=== PATIENT | male | born 1985 | race Caucasian/White ===

== ENCOUNTER 2017-01-26 02:52 | Inpatient (IN) | payer OTHER ==
[2017-01-26] VITALS (9 sets, daily range): BP systolic 106–134; BP diastolic 64–81; PULSE 71–103; TEMP 36.7–37.2; O2SAT 92–96; Ht 167.6 cm; Wt 70.5 kg
[~2017-01-26] VITALS: Ht 167.6 cm; Wt 70.5 kg
[~2017-01-26 02:52] MED LIST: DIPH25CA65 PO; IBUP-1277 PO; OMG3 PO
[2017-01-26] MEDS ORDERED: ONDANSETRON INJ 2 MG/ML 2 ML VIAL IV STA (03:09)
[2017-01-26] MEDS ORDERED: SODIUM CHLORIDE 0.9% 1000ML 1,000 ML IV STA ×2 (03:09→05:10)
[2017-01-26] MEDS ORDERED: HYDROmorphone INJ 1 MG/ML SYR IV STA ×3 (03:09→05:10)
[2017-01-26 03:20] LABS: BASO % 0.5 %; BASO ABS # 0.04 K/uL (0-0.2); COMPLETE YES; EOS % 2.9 %; HEMATOCRIT 48.9 % (42-52); IG% 0.2 %; LYMPH % 20.4 %; LYMPH ABS # 1.72 K/uL (1.2-3.4); MEAN CELL VOLUME 91.1 fL (80-100); MEAN CORPUSCULAR HEMOGLOBIN 31.5 pg (25-34); MEAN CORPUSCULAR HGB CONC 34.6 g/dl (32-36); MONO % 12.6 %; NEUT % 63.4 %; PLATELET COUNT 231 K/uL (130-400); RED BLOOD COUNT 5.37 M/uL (4.7-6.1); WHITE BLOOD COUNT 8.42 K/uL (4.8-10.8)
[2017-01-26 03:38] LABS: ALT/SGPT 89 U/L (12-78); AST/SGOT 66 U/L (15-37); BLOOD UREA NITROGEN 11 mg/dl (7-18); CALCIUM 8.9 mg/dl (8.5-10.1); CARBON DIOXIDE 27 mmol/L (21-32); CHLORIDE 97 mmol/L (98-107); CREATININE 0.99 mg/dl (0.60-1.40); GLUCOSE 106 mg/dl (70-99); POTASSIUM 3.4 mmol/L (3.5-5.1); SODIUM 136 mmol/L (136-145)
[2017-01-26 03:42] LABS: ALKALINE PHOSPHATASE 79 U/L (45-117)
--- NOTE | 2017-01-26 03:54 | EMERGENCY ROOM VISIT NOTE ---
History First contact with patient: 02:59 Chief Complaint: ABDOMINAL PAIN Stated Complaint: ABD PAIN Nursing Triage Summary: Patient reports mid upper abdominal pain that he believes to be pancreatitis related. Patient has a hx of pancreatitis related to alcoholism. Patient admits to drinking beer tonight. History of Present Illness The patient is a 31 year old male who presents to the Emergency Room with complaints of epigastric and right-sided abdominal pain which began one day ago. The patient reports that the pain began yesterday. He states that he believes it is secondary to pancreatitis, which he has had before. The patient states he is an alcoholic and had several beers last night prior to the onset of pain. He reports some nausea but denies vomiting. He rates his discomfort an 8/10. He did not take any medication at home for pain. He denies hematochezia, melena, changes in bowel movements, urinary symptoms, chest pain or shortness of breath. Review of Systems A complete 10-point Review of Systems was discussed with the patient, with pertinent positives and negatives listed in the History of Present Illness. All remaining Review of Systems questions can be considered negative unless otherwise specified. Past Medical/Surgical History Medical Problems: (1) Acute pancreatitis (2) GERD (gastroesophageal reflux disease) Family History Patient reports no known family medical history. Social History Smoking Status: Current Every Day Smoker Alcohol Use: occasionally Marital Status: single Occupation Status: employed Current/Historical Medications No Active Prescriptions or Reported Meds Allergies Coded Allergies: Lactose (Verified Adverse Reaction, Unknown, INTOLERANCE, 01/26/17) Physical Exam Vital Signs Date Time Temp Pulse Resp B/P Pulse Ox O2 Delivery O2 Flow Rate FiO2 01/26/17 05:43 99 19 122/73 92 Room Air 01/26/17 04:00 91 16 142/98 94 Room Air 01/26/17 02:56 36.5 105 19 142/93 98 Room Air Physical Exam VITALS: Vitals are noted on the nurse's note and reviewed by myself. Vital signs stable. GENERAL: This is a 31-year-old male, writhing on the bed in pain, well- developed well-nourished. SKIN: Capillary reflex less than 2 seconds. HEENT: Normocephalic. PERRLA. EOMI. Nares patent. Mucous membranes moist. Neck is supple without nuchal rigidity. HEART: Regular rate and rhythm without murmurs gallops or rubs. LUNGS: Clear to auscultation bilaterally without wheezes, rales or rhonchi. No retractions or accessory muscle use. ABDOMEN: Positive bowel sounds x 4. Moderate tenderness to palpation of the epigastric region. NEURO: Patient was alert and oriented to person place and time. Medical Decision & Procedures ER Provider Diagnostic Interpretation: US RUQ: Compared to CT abd/pelvis and abd US 01/16/16 Gallbladder sludge. No evidence of acute cholecystitis. No intra- or extrahepatic biliary ductal dilatation. Hypoechoic heterogeneous pancreas, can be seen in the setting of acute pancreatitis. Increased hepatic echogenicity, can be seen in hepatic steatosis. Hepatic cyst. Right kidney not well visualized. No right upper quadrant free fluid. Radiologist: Agnes Bartlett MD Laboratory Results 01/26/17 03:07 Red Blood Count 5.37, Mean Corpuscular Volume 91.1, Mean Corpuscular Hemoglobin 31.5, Mean Corpuscular Hemoglobin Concent 34.6, Mean Platelet Volume 9.0, Neutrophils (%) (Auto) 63.4, Lymphocytes (%) (Auto) 20.4, Monocytes (%) (Auto) 12.6, Eosinophils (%) (Auto) 2.9, Basophils (%) (Auto) 0.5, Neutrophils # (Auto ) 5.34, Lymphocytes # (Auto) 1.72, Monocytes # (Auto) 1.06, Eosinophils # (Auto ) 0.24, Basophils # (Auto) 0.04 01/26/17 03:07 Test 01/26/17 03:07 01/26/17 04:00 01/26/17 04:22 White Blood Count 8.42 K/uL (4.8-10.8) Red Blood Count 5.37 M/uL (4.7-6.1) Hemoglobin 16.9 g/dL (14.0-18.0) Hematocrit 48.9 % (42-52) Mean Corpuscular Volume 91.1 fL (80-100) Mean Corpuscular Hemoglobin 31.5 pg (25-34) Mean Corpuscular Hemoglobin Concent 34.6 g/dl (32-36) Platelet Count 231 K/uL (130-400) Mean Platelet Volume 9.0 fL (7.4-10.4) Neutrophils (%) (Auto) 63.4 % Lymphocytes (%) (Auto) 20.4 % Monocytes (%) (Auto) 12.6 % Eosinophils (%) (Auto) 2.9 % Basophils (%) (Auto) 0.5 % Neutrophils # (Auto) 5.34 K/uL (1.4-6.5) Lymphocytes # (Auto) 1.72 K/uL (1.2-3.4) Monocytes # (Auto) 1.06 K/uL (0.11-0.59) Eosinophils # (Auto) 0.24 K/uL (0-0.5) Basophils # (Auto) 0.04 K/uL (0-0.2) RDW Standard Deviation 45.9 fL (36.4-46.3) RDW Coefficient of Variation 13.8 % (11.5-14.5) Immature Granulocyte % (Auto) 0.2 % Immature Granulocyte # (Auto) 0.02 K/uL (0.00-0.02) Anion Gap 12.0 mmol/L (3-11) Est Creatinine Clear Calc Drug Dose 98.4 ml/min Estimated GFR () 118.0 Estimated GFR (Non- 101.8 BUN/Creatinine Ratio 11.0 (10-20) Calcium Level 8.9 mg/dl (8.5-10.1) Total Bilirubin 0.4 mg/dl (0.2-1) Aspartate Amino Transf (AST/SGOT) 66 U/L (15-37) Alanine Aminotransferase (ALT/SGPT) 89 U/L (12-78) Alkaline Phosphatase 79 U/L (45-117) Total Protein 8.1 gm/dl (6.4-8.2) Albumin 4.1 gm/dl (3.4-5.0) Globulin 4.0 gm/dl (2.5-4.0) Albumin/Globulin Ratio 1.0 (0.9-2) Amylase Level 4426 U/L (25-115) Lipase > 51719 U/L (73-393) Urine Color YELLOW Urine Appearance CLEAR (CLEAR) Urine pH 5.0 (4.5-7.5) Urine Specific [place] 1.004 (1.000-1.030) Urine Protein NEG (NEG) Urine Glucose (UA) NEG (NEG) Urine Ketones NEG (NEG) Urine Occult Blood NEG (NEG) Urine Nitrite NEG (NEG) Urine Bilirubin NEG (NEG) Urine Urobilinogen NEG (NEG) Urine Leukocyte Esterase NEG (NEG) Ethyl Alcohol mg/dL 170.0 mg/dl (0-3) Medications Administered Medications (Trade) Dose Ordered Sig/Valeria Route Start Time Stop Time Status Last Admin Dose Admin Sodium Chloride (Nss 1000ml) 1,000 ml @ 999 mls/hr Q1H1M STAT IV 01/26/17 03:09 01/26/17 04:09 DC 01/26/17 03:21 999 MLS/HR Hydromorphone HCl (Dilaudid Inj) 1 mg NOW STAT IV 01/26/17 03:09 01/26/17 03:11 DC 01/26/17 03:21 1 MG Ondansetron HCl (Zofran Inj) 4 mg NOW STAT IV 01/26/17 03:09 01/26/17 03:11 DC 01/26/17 03:21 4 MG Hydromorphone HCl 1 mg 1 mg NOW STAT IV 01/26/17 04:15 01/26/17 04:16 DC 01/26/17 04:20 1 MG Sodium Chloride (Nss 1000ml) 1,000 ml @ 999 mls/hr Q1H1M STAT IV 01/26/17 05:10 01/26/17 06:10 01/26/17 05:25 999 MLS/HR Hydromorphone HCl (Dilaudid Inj) 1 mg NOW STAT IV 01/26/17 05:10 01/26/17 05:11 DC 01/26/17 05:17 1 MG ED Course The patient was evaluated as above. Labs were drawn and IV access was obtained. Patient was medicated with 1 L normal saline solution, 4 mg Zofran and 1 mg Dilaudid IV. Patient complained of continued pain and was given an additional 1 mg Dilaudid IV. Right upper quadrant ultrasound was performed and read by statrad as above. Patient was reevaluated and stated that his pain was coming back. He and additional 1 mg Dilaudid was ordered. Findings were discussed with patient and decision was made to admit him for evaluation Case was discussed with the [facility] hospitalist, Dr. Welsh. He agreed to evaluate the patient for admission. Medical Decision Differential diagnosis includes pancreatitis, cholecystitis, hepatitis, ascending cholangitis, among others. The patient is a 31-year-old male who presents today complaining of epigastric pain consistent with previous episodes of pancreatitis. The patient is an alcoholic and admits to drinking recently. Right upper quadrant ultrasound showed findings consistent with acute pancreatitis. Labs revealed a lipase of greater than 90,000. There is no leukocytosis. There is a mild transaminitis consistent with drinking alcohol. The patient required multiple doses of IV narcotics. He will be admitted for further evaluation and pain control. The patient's case was reviewed with Dr. Cleaning, ED attending physician, who agreed with my assessment and treatment plan. Impression Primary Impression: Acute pancreatitis Departure Information Prescriptions No Active Prescriptions or Reported Meds Referrals Aparna Garcia M.D. (PCP) Patient Instructions My [facility] Problem Qualifiers Primary Impression: Acute pancreatitis Pancreatitis type: alcohol induced Acute pancreatitis complication: no infection or necrosis Qualified Codes: K85.20 - Alcohol induced acute pancreatitis without necrosis or infection
[2017-01-26 04:18] LABS: URINE APPEARANCE CLEAR (CLEAR); URINE BILIRUBIN NEG (NEG); URINE COLOR YELLOW; URINE NITRITE NEG (NEG); URINE SPECIFIC GRAVITY 1.004 (1.000-1.030); UROBILINOGEN NEG (NEG); ZZUR CULT IF INDIC CLEAN CATCH NO
[2017-01-26 04:21] LABS: MANUAL MICROSCOPIC REQUIRED? NO; REVIEW REQ? NO
[2017-01-26 04:54] LABS: AMYLASE 4426 U/L (25-115)
[2017-01-26] MEDS ORDERED: ALUMINUM/MAGNESIUM/SIMETH (MAALOX MAX) 30 ML UDC PO PRN (05:45)
[2017-01-26] MEDS ORDERED: LORAZEPAM 2 MG/ML 1 ML VIAL SQ PRN (05:45)
[2017-01-26] MEDS ORDERED: MAGNESIUM HYDROXIDE SUSP 30 ML UDC PO PRN (05:45)
[2017-01-26] MEDS ORDERED: POLYETHYLENE (MIRALAX) 17 GM PACK PO PRN (05:45)
[2017-01-26] MEDS ORDERED: ACETAMINOPHEN 325 MG TAB PO PRN (05:45)
[2017-01-26] MEDS ORDERED: ONDANSETRON INJ 2 MG/ML 2 ML VIAL IV PRN (05:45)
--- NOTE | 2017-01-26 06:08 | History and Physical ---
History & Physical Date & Time of Service: Jan 26, 2017 at 05:52 Chief Complaint: Abd Pain Primary Care Physician: Aparna Garcia M.D. History of Present Illness Source: patient The patient is a pleasant 31-year-old male, who presents with 2-3 hours of acute epigastric pain. He brought himself into the emergency department for further evaluation. The patient has previous history of acute pancreatitis, his most recent episode was exactly one year ago. He states that prior to his current presentation, he had 12 cans of beer through the day today, which she describes as typical of his daily intake of alcohol. His last drink, was 2 hours prior to arrival. In regards to the pain, he describes a sharp 8 out of 10 pain, that was constant , did not radiate anywhere else. The pain is exacerbated by any form of movement, and improves when he lies completely still. He denies any nausea or vomiting. He states that he has had diarrhea for the past 1 day, but has not had any blood in the stool, or pale stools. He denies any jaundice and, or pruritus. As compared to the episode of acute pancreatitis that he had one year ago, he states that this episode is slightly less severe. Patient states an ongoing issue with all use. Last year with his last presentation of pancreatitis, he states he was drinking a similar quantity but in spirits. After that episode pancreatitis he felt that changing from spirits to beer might reduce the likelihood of recurrence of pancreatitis. He does admit that he has long-standing issues with generalized anxiety, and that when he is not busy, he is driven to drink alcohol. He states that he knows a friend who is addicted to heroin and was changed over to Suboxone, and he expresses that he feels he needs some form of medication substitution for his alcohol use. He states that he has never sought any type of rehabilitation program, either inpatient or outpatient. Regards other symptoms, he states that he is having some shortness of breath but that's more related to difficulty with taking a deep breath due to the abdominal pain. 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 Past Medical/Surgical History Medical Problems: (1) GERD (gastroesophageal reflux disease) Status: Chronic Family History Patient reports no known family medical history. Maternal uncle with alcoholism Social History Smoking Status: Current Every Day Smoker (one pack per day 15 years) Smokeless Tobacco Use: No Alcohol Use: heavy (12 units of beer daily) Drug Use: none Marital Status: single Housing status: lives with family (Brother) Occupational Status: employed Allergies Coded Allergies: Lactose (Verified Adverse Reaction, Unknown, INTOLERANCE, 01/26/17) Home Medications No Active Prescriptions or Reported Meds Review of Systems A 10 point review of systems was otherwise negative unless stated above in the history of present illness Physical Exam Vital Signs Date Time Temp Pulse Resp B/P Pulse Ox O2 Delivery O2 Flow Rate FiO2 01/26/17 05:43 99 19 122/73 92 Room Air 01/26/17 04:00 91 16 142/98 94 Room Air 01/26/17 02:56 36.5 105 19 142/93 98 Room Air General Appearance: WD/WN, + mild distress Head: normocephalic, atraumatic Eyes: normal inspection, EOMI ENT: hearing grossly normal, pharynx normal Neck: supple, no adenopathy, no JVD Respiratory/Chest: chest non-tender, no respiratory distress, no accessory muscle use, + pertinent finding (scattered bilateral wheezing) Cardiovascular: regular rate, rhythm, no gallop, no murmur Abdomen/GI: normal bowel sounds, non tender, soft Back: no CVA tenderness, no muscle spasm Extremities/Musculoskelatal: no calf tenderness, no pedal edema Neurologic/Psych: alert, oriented x 3, + pertinent finding (mildly agitated) Skin: normal color, warm/dry, no rash Lymphatic: no adenopathy Diagnostics Laboratory Results Results Past 24 Hours Test 01/26/17 03:07 01/26/17 04:00 01/26/17 04:22 01/26/17 05:48 Range/Units White Blood Count 8.42 4.8-10.8 K/uL Red Blood Count 5.37 4.7-6.1 M/uL Hemoglobin 16.9 14.0-18.0 g/dL Hematocrit 48.9 42-52 % Mean Corpuscular Volume 91.1 80-100 fL Mean Corpuscular Hemoglobin 31.5 25-34 pg Mean Corpuscular Hemoglobin Concent 34.6 32-36 g/dl Platelet Count 231 130-400 K/uL Mean Platelet Volume 9.0 7.4-10.4 fL Neutrophils (%) (Auto) 63.4 % Lymphocytes (%) (Auto) 20.4 % Monocytes (%) (Auto) 12.6 % Eosinophils (%) (Auto) 2.9 % Basophils (%) (Auto) 0.5 % Neutrophils # (Auto) 5.34 1.4-6.5 K/uL Lymphocytes # (Auto) 1.72 1.2-3.4 K/uL Monocytes # (Auto) 1.06 0.11-0.59 K/uL Eosinophils # (Auto) 0.24 0-0.5 K/uL Basophils # (Auto) 0.04 0-0.2 K/uL RDW Standard Deviation 45.9 36.4-46.3 fL RDW Coefficient of Variation 13.8 11.5-14.5 % Immature Granulocyte % (Auto) 0.2 % Immature Granulocyte # (Auto) 0.02 0.00-0.02 K/uL Sodium Level 136 136-145 mmol/L Potassium Level 3.4 3.5-5.1 mmol/L Chloride Level 97 98-107 mmol/L Carbon Dioxide Level 27 21-32 mmol/L Anion Gap 12.0 3-11 mmol/L Blood Urea Nitrogen 11 7-18 mg/dl Creatinine 0.99 0.60-1.40 mg/dl Est Creatinine Clear Calc Drug Dose 98.4 ml/min Estimated GFR () 118.0 Estimated GFR (Non- 101.8 BUN/Creatinine Ratio 11.0 10-20 Random Glucose 106 70-99 mg/dl Calcium Level 8.9 8.5-10.1 mg/dl Total Bilirubin 0.4 0.2-1 mg/dl Aspartate Amino Transf (AST/SGOT) 66 15-37 U/L Alanine Aminotransferase (ALT/SGPT) 89 12-78 U/L Alkaline Phosphatase 79 45-117 U/L Total Protein 8.1 6.4-8.2 gm/dl Albumin 4.1 3.4-5.0 gm/dl Globulin 4.0 2.5-4.0 gm/dl Albumin/Globulin Ratio 1.0 0.9-2 Amylase Level 4426 25-115 U/L Lipase > 48699 73-393 U/L Urine Color YELLOW Urine Appearance CLEAR CLEAR Urine pH 5.0 4.5-7.5 Urine Specific [place] 1.004 1.000-1.030 Urine Protein NEG NEG Urine Glucose (UA) NEG NEG Urine Ketones NEG NEG Urine Occult Blood NEG NEG Urine Nitrite NEG NEG Urine Bilirubin NEG NEG Urine Urobilinogen NEG NEG Urine Leukocyte Esterase NEG NEG Ethyl Alcohol mg/dL 170.0 0-3 mg/dl Test 01/26/17 05:50 Range/Units Diagnostic Radiology CT scan demonstrating evidence of acute pancreatitis Impression Assessment and Plan 31-year-old male, with acute pancreatitis, lipase greater than 90,000 and US scan is evident for pancreatic changes consistent with the diagnosis. This is his second episode of pancreatitis in the past year. Given extensive alcohol use, most likely the culprit of his presentation. Our plan for him is as follows Acute pancreatitis - Lipase greater than 90,000 with radial graphic evidence on ultrasound Monitor daily lipase level - Keep nothing by mouth - IV fluids: Normal saline + 20mEq KCl at 120 mL/hr - Pain control: Morphine 4 mg IV every 4 hours as needed for severe pain - GI has been consultative On last admission, patient's PCP was with [facility] [place], therefore [facility] [place] consult did Patient is now seeing [facility] provider, therefore Dr. ford will be consult - Patient has had elevated triglycerides in 2016, as an alternative superimposing etiological factor we'll repeat a triglyceride level at this time ; Chronic alcohol abuse - Alcohol screen positive on arrival - Transaminitis on arrival Follow daily liver function - Monitor for withdrawal using objective scoring - Ativan 1 mg every 2 hours, for anxiety or agitation - Patient at risk for nutritional deficiencies Check the following levels: Folate, B12, vitamin D, Mag, Phosphorus Chronic tobacco abuse - Nicotine patch - Smoking cessation counseling has been ordered Generalized anxiety - Paste to be the trigger for his alcohol consumption - Patient does not follow with psychiatrist currently - Would benefit from an initial psychiatric consultation DVT prophylaxis - Lovenox 40 mg subcutaneous daily - SCDs CODE STATUS - Full code - Designates his brother Osorio Tapia as substitute decision-maker if he cannot make decisions for himself Disposition - Med/Surg Level of Care Med/Surg Resuscitation Status FULL RESUSCITATION VTE Prophylaxis VTE Risk Assessment Done? Y/N: Yes Risk Level: Moderate Given or contraindicated: Enoxaparin (Lovenox)SQ, SCD's Assessment and Plan Attending Addendum: I have physically seen and examined this patient, have directed their medical care, have supervised the medical residents activities, and agree with the H&P as noted above, with the following changes: NONE
[2017-01-26 06:18] LABS: MAGNESIUM 2.5 mg/dl (1.8-2.4); PHOSPHORUS 3.6 mg/dl (2.5-4.9); TRIGLYCERIDES 660 mg/dl (0-150)
[2017-01-26] MEDS: NICOTINE 14 MG/24 HR TDSY TD SCH ×2 (06:36→09:00)
--- NOTE | 2017-01-26 06:59 | DIAGNOSTIC IMAGING REPORT ---
ABDOMINAL ULTRASOUND, RIGHT UPPER QUADRANT HISTORY: Right upper quadrant pain. History of pancreatitis. COMPARISON: Right upper quadrant ultrasound and CT of the abdomen and pelvis January 16, 2016. FINDINGS: Hepatic echogenicity is increased. Note is made of an 8 mm right hepatic lobe cyst. There is fatty sparing within the gallbladder fossa. The pancreatic body is heterogeneous. The head and tail are obscured. There is no biliary ductal dilatation. No gallstones are identified. There is sludge within the gallbladder. There is no right hydronephrosis. IMPRESSION: 1. Sludge within the gallbladder. No gallstones. No gallbladder wall thickening. 2. No biliary ductal dilatation. 3. Heterogeneous pancreas. This finding could be correlated with biochemical assays for acute pancreatitis. 4. Fatty liver. Electronically signed by: Sky Garcia M.D. 01/26/2017 6:57 AM Dictated Date/Time: 01/26/2017 6:55 AM
[2017-01-26 07:16] LABS: PROTHROMBIN TIME (PATIENT) 10.2 SECONDS (9.0-12.0)
[2017-01-26] MEDS ORDERED: LORAZEPAM 1 MG TAB PO PRN (07:45)
[2017-01-26] MEDS ORDERED: GABAPENTIN 600 MG TAB PO SCH ×2 (07:45→14:45)
[2017-01-26] MEDS ORDERED: LORAZEPAM INJ 1 MG in SYRINGE 0.5 ML IV PRN (08:00)
[2017-01-26] MEDS ORDERED: GABAPENTIN 1200MG LOADING DOSE PO SCH (08:00)
[2017-01-26] MEDS ORDERED: NSS + 20MEQ KCL 1000ML 1,000 ML IV SCH (08:00)
[2017-01-26] MEDS: MoRPHine SULFATE 4 MG/ML 1 ML CARP\\VIAL IV PRN ×2 (08:17→16:18)
[2017-01-26] MEDS: ENOXAPARIN 40 MG/0.4 ML SYR SQ SCH (08:18)
[2017-01-26] MEDS ORDERED: HYDROmorphone INJ 0.5 MG/0.5 ML SYR IV STA ×3 (09:28→23:19)
[2017-01-26] MEDS ORDERED: HYDROmorphone INJ 0.5 MG/0.5 ML SYR ONE ×2 (09:42→18:48)
--- NOTE | 2017-01-26 10:14 | Family Medicine Progress Note ---
Progress Note Date of Service Jan 26, 2017. Subjective Pt evaluation today including: conversation w/ patient, physical exam Pain: complains about abdominal pain and fls taht morphoine is not helping much. PO Intake: NPO 31-year-old male with past medical history of alcohol abuse, pancreatitis presented to the ER with complaints of abdominal pain, nausea, vomiting, diarrhea. Pancreatic ultrasound revealed gallbladder sludge with no stones and no gallbladder wall thickening. He was admitted for acute pancreatitis with lipase level over 90,000. Continues to complain of epigastric abdominal pain but denied any nausea, vomiting, diarrhea, fevers or chills, restlessness. Constitutional: No chills, No fever Eyes: No worsening of vision ENT: No hearing loss Respiratory: No cough, No shortness of breath, No sputum, No wheezing Cardiovascular: No chest pain Abdomen: + pain, No diarrhea, No nausea, No vomiting Musculoskeletal: No joint pain Male : No dysuria Neurologic: No memory loss Psychiatric: No depression symptoms Endo: No fatigue Medications Current Inpatient Medications Medications (Trade) Dose Ordered Sig/Valeria Route Start Time Stop Time Status Last Admin Dose Admin Enoxaparin Sodium (Lovenox Inj) 40 mg Q24H SQ 01/26/17 08:00 02/25/17 07:59 01/26/17 08:18 40 MG Acetaminophen (Tylenol Tab) 650 mg Q4H PRN PO 01/26/17 05:45 02/25/17 05:44 Al Hydrox/Mg Hydrox/Simethicone (Maalox Max Susp) 15 ml Q4H PRN PO 01/26/17 05:45 02/25/17 05:44 Magnesium Hydroxide (Milk Of Magnesia Susp) 30 ml Q6H PRN PO 01/26/17 05:45 02/25/17 05:44 Polyethylene (Miralax Powder Packet) 17 gm DAILY PRN PO 01/26/17 05:45 02/25/17 05:44 Ondansetron HCl (Zofran Inj) 4 mg Q6H PRN IV 01/26/17 05:45 02/25/17 05:44 Morphine Sulfate (MoRPHine SULFATE INJ) 4 mg Q4H PRN IV 01/26/17 05:45 02/09/17 05:44 01/26/17 08:17 4 MG Nicotine (Nicoderm Cq 14MG Patch) 1 patch QAM TD 01/26/17 06:00 02/25/17 05:59 01/26/17 06:36 1 PATCH Miscellaneous (Remove Nicoderm Patch) 1 ea HS N/A 01/26/17 21:00 02/25/17 20:59 Gabapentin (Neurontin Tab) 600 mg Q6H PO 01/26/17 14:00 01/26/17 20:01 Gabapentin (Neurontin Tab) 600 mg Q8H PO 01/27/17 06:00 01/27/17 22:01 Gabapentin (Neurontin Tab) 600 mg Q12H PO 01/28/17 10:00 01/28/17 22:01 Gabapentin 600 mg 600 mg Q24H PO 01/29/17 22:00 01/29/17 22:01 Lorazepam 1 mg/ Syringe 1 ml @ 1 mls/min Q2H PRN IV 01/26/17 08:00 02/25/17 07:59 Lactated Ringer's 1,000 ml @ 150 mls/hr Q6H40M IV 01/26/17 10:00 02/25/17 09:59 UNV Pantoprazole Sodium/Syringe (Protonix Inj/ Syringe) 10 ml @ 5 mls/min DAILY@09,21 IV 01/26/17 21:00 02/25/17 20:59 UNV Objective Vital Signs Date Time Temp Pulse Resp B/P Pulse Ox O2 Delivery O2 Flow Rate FiO2 01/26/17 09:40 94 Room Air 01/26/17 09:17 36.7 90 18 106/64 94 Room Air 01/26/17 08:18 36.9 95 18 107/68 92 Room Air 01/26/17 07:48 37.0 103 18 108/72 92 Room Air 01/26/17 06:46 104 18 123/72 95 01/26/17 05:43 99 19 122/73 92 Room Air 01/26/17 04:00 91 16 142/98 94 Room Air 01/26/17 02:56 36.5 105 19 142/93 98 Room Air Physical Exam General Appearance: + mild distress Eyes: normal inspection ENT: normal ENT inspection, hearing grossly normal Neck: supple Respiratory/Chest: chest non-tender, lungs clear, normal breath sounds, no respiratory distress, no accessory muscle use Cardiovascular: regular rate, rhythm, no edema Abdomen: + tenderness (epigastric and mid abdominal) Extremities: non-tender, no pedal edema, no calf tenderness Neurologic/Psychiatric: alert, normal mood/affect, oriented x 3 Skin: normal color Laboratory Results 01/26/17 03:07 Red Blood Count 5.37, Mean Corpuscular Volume 91.1, Mean Corpuscular Hemoglobin 31.5, Mean Corpuscular Hemoglobin Concent 34.6, Mean Platelet Volume 9.0, Neutrophils (%) (Auto) 63.4, Lymphocytes (%) (Auto) 20.4, Monocytes (%) (Auto) 12.6, Eosinophils (%) (Auto) 2.9, Basophils (%) (Auto) 0.5, Neutrophils # (Auto ) 5.34, Lymphocytes # (Auto) 1.72, Monocytes # (Auto) 1.06, Eosinophils # (Auto ) 0.24, Basophils # (Auto) 0.04 01/26/17 03:07 Test 01/26/17 03:07 01/26/17 04:00 01/26/17 04:22 01/26/17 06:10 White Blood Count 8.42 K/uL (4.8-10.8) Red Blood Count 5.37 M/uL (4.7-6.1) Hemoglobin 16.9 g/dL (14.0-18.0) Hematocrit 48.9 % (42-52) Mean Corpuscular Volume 91.1 fL (80-100) Mean Corpuscular Hemoglobin 31.5 pg (25-34) Mean Corpuscular Hemoglobin Concent 34.6 g/dl (32-36) Platelet Count 231 K/uL (130-400) Mean Platelet Volume 9.0 fL (7.4-10.4) Neutrophils (%) (Auto) 63.4 % Lymphocytes (%) (Auto) 20.4 % Monocytes (%) (Auto) 12.6 % Eosinophils (%) (Auto) 2.9 % Basophils (%) (Auto) 0.5 % Neutrophils # (Auto) 5.34 K/uL (1.4-6.5) Lymphocytes # (Auto) 1.72 K/uL (1.2-3.4) Monocytes # (Auto) 1.06 K/uL (0.11-0.59) Eosinophils # (Auto) 0.24 K/uL (0-0.5) Basophils # (Auto) 0.04 K/uL (0-0.2) RDW Standard Deviation 45.9 fL (36.4-46.3) RDW Coefficient of Variation 13.8 % (11.5-14.5) Immature Granulocyte % (Auto) 0.2 % Immature Granulocyte # (Auto) 0.02 K/uL (0.00-0.02) Prothrombin Time 10.2 SECONDS (9.0-12.0) Prothromb Time International Ratio 1.0 (0.9-1.1) Anion Gap 12.0 mmol/L (3-11) Est Creatinine Clear Calc Drug Dose 98.4 ml/min Estimated GFR () 118.0 Estimated GFR (Non- 101.8 BUN/Creatinine Ratio 11.0 (10-20) Calcium Level 8.9 mg/dl (8.5-10.1) Phosphorus Level 3.6 mg/dl (2.5-4.9) Magnesium Level 2.5 mg/dl (1.8-2.4) Total Bilirubin 0.4 mg/dl (0.2-1) Aspartate Amino Transf (AST/SGOT) 66 U/L (15-37) Alanine Aminotransferase (ALT/SGPT) 89 U/L (12-78) Alkaline Phosphatase 79 U/L (45-117) Total Protein 8.1 gm/dl (6.4-8.2) Albumin 4.1 gm/dl (3.4-5.0) Globulin 4.0 gm/dl (2.5-4.0) Albumin/Globulin Ratio 1.0 (0.9-2) Triglycerides Level 660 mg/dl (0-150) Amylase Level 4426 U/L (25-115) Lipase > 40379 U/L (73-393) Urine Color YELLOW Urine Appearance CLEAR (CLEAR) Urine pH 5.0 (4.5-7.5) Urine Specific [place] 1.004 (1.000-1.030) Urine Protein NEG (NEG) Urine Glucose (UA) NEG (NEG) Urine Ketones NEG (NEG) Urine Occult Blood NEG (NEG) Urine Nitrite NEG (NEG) Urine Bilirubin NEG (NEG) Urine Urobilinogen NEG (NEG) Urine Leukocyte Esterase NEG (NEG) Ethyl Alcohol mg/dL 170.0 mg/dl (0-3) Assessment and Plan 31-year-old male with past medical history of alcohol abuse, pancreatitis presented to the ER with complaints of abdominal pain, nausea, vomiting, diarrhea. Pancreatic ultrasound revealed gallbladder sludge with no stones and no gallbladder wall thickening. He was admitted for acute pancreatitis with lipase level over 90,000. Acute pancreatitis - Lipase > 90,000 with a heterogenous pancreas on ultrasound. - Monitor lipase daily - Nothing by mouth except meds - IV fluids with LR at 200 mls/hr - Consult GI- appreciate input - Pain control with Dilaudid 0.5 mg q6h Chronic alcohol abuse: - CIWAA protocol with gabapentin / Ativan Chronic tobacco abuse - Nicotine patch - Smoking cessation counseling Generalized anxiety - Psychiatric consult : appreciate input Vitamin D deficiency: Vitamin D level at 10 - Will require supplementation DVT prophylaxis - Lovenox 40 mg subcutaneous daily - SCDs Full code Disposition: [facility] Resident Physician Supervision Note: I was present with Dr. Goodwin during the history and exam. I discussed the case with the resident and agree with the findings and plan as documented in the note. Any exceptions or clarifications are listed here: The patient's pain is better controlled, per the patient, compared to his presentation to the ED. Recommend changing to LR and increasing rate to 200 ml/hr overnight. Appreciate GI consultation. Repeat BMP this evening in addition to AM labs. Documented By: Gabe Stanford Continued [facility] stay due to: multiple IV medications needed Resident Tracking Resident Involvement: Resident Care Provided Care Provided: Adult Hospital Medicine
[2017-01-26] MEDS: LACTATED RINGER'S 1000ML 1,000 ML IV SCH ×3 (10:28→23:09)
--- NOTE | 2017-01-26 11:38 | CONSULTATION REPORT ---
DATE OF CONSULTATION: 01/26/2017 DATE OF CONSULTATION: 01/26/2017. REFERRING PHYSICIAN: Dr. Otoniel Welsh. CONSULTING PHYSICIAN: Dr. Kennedy Fairbanks. REASON FOR CONSULTATION: Acute pancreatitis. HISTORY OF PRESENT ILLNESS: Mr. Tapia is a 31-year-old male with history of GERD, alcohol abuse who presented to the ED with complaints of abdominal pain in the epigastric region. He had a history of pancreatitis about a year ago, suspected to be from alcohol abuse, was supposed to get an outpatient EUS for followup but never made it to appointment. He was previously drinking spirits but switched to beer thinking that it is lower in alcohol content. He has been drinking about 12 cans of beer on a daily basis. Last drink was about 2 hours prior to arrival. His alcohol level was 170 on admission. He is currently hemodynamically stable though borderline tachycardic with heart rate in the 90s to low 100s. Labs on admission showed no CBC abnormality, no coagulopathies. Urinalysis normal. Chemistry panel showed mild hypokalemia, potassium 3.4, BUN and creatinine 11/0.99. LFTs with mild elevation. T-bili was 0.4, AST 66, ALT is 89, alkaline phosphatase 79, triglyceride 660, amylase 4,426, lipase over 90,000. B12 was 332, folic acid 11.5. Vitamin D 10.1. He had a pancreas ultrasound that showed sludge in the gallbladder but no gallstones, no gallbladder wall thickening. There is no distal biliary ductal dilatation. There is heterogeneous pancreas. Findings likely from acute pancreatitis. There is also evidence of fatty liver. The patient states that he previously had gone through AA, disliked this. He states that he would refuse rehab at that moment given that he cannot take that much time off for his job. Currently, he does appear to be tremulous. He denies any more abdominal pain, nausea, vomiting. Overnight he has had IV fluid resuscitation, especially with 2 liters of NS bolus, currently on KCl at 120 mL per hour. PAST MEDICAL HISTORY: As noted in HPI above. PAST SURGICAL HISTORY: Not obtained. SOCIAL HISTORY: Current daily smoker tobacco. He drinks about 12 beers daily. Denies any other illicit drug use. FAMILY HISTORY: Maternal uncle alcoholism. ALLERGIES: LACTOSE. MEDICATIONS: Current medication list reviewed in his EMR. REVIEW OF SYSTEMS: Please see HPI above. Rest of 12 systems reviewed are negative. PHYSICAL EXAMINATION: VITAL SIGNS: Temperature 36.7, pulse 90, respiration rate 18, blood pressure 106/64, O2 sat 94% on room air. GENERAL: Mr. Tapia is a 31-year-old male, pleasant, cooperative, in no acute distress. HEAD, EYES, EARS, NOSE, AND THROAT: Normocephalic. Eyes PERRLA. EOMs intact. NECK: Neck supple. Trachea midline. No JVD noted. RESPIRATORY: Clear to auscultation bilateral lung lobes. No respiratory distress or accessory muscles use noted. CARDIOVASCULAR: Heart sounds RRR. S1, S2 present. No murmur or gallops noted. GASTROINTESTINAL: Abdomen soft, mildly tender to palpation in the epigastric to right upper quadrant area. LYMPHATIC: No edema on extremities. NEUROLOGIC: Does appears to be tremulous and anxious, questionable undergoing DTs. ASSESSMENT AND PLAN: Mr. Tapia is a 31-year-old male currently admitted with pancreatitis likely due to alcohol abuse. He is still actively drinking, blood alcohol level of 170 on admission. He had history of pancreatitis, also suspected from alcohol abuse a year ago. PLANS: 1. IV fluid resuscitation. Will switch to LR at rate of 150 mL per hour. Please keep n.p.o. except for sips and chips. 2. Protonix IV b.i.d. 3. Strict alcohol cessation advised, awaiting psych consultation. 4. DT protocol. 5. Symptomatic management with antiemetics and analgesics p.r.n. 6. Will discuss with Dr. Fairbanks if the patient should be rescheduled for EUS in 4-6 weeks at this time. 7. Monitor LFTs. The above assessment has been reviewed with Dr. Fairbanks who is in agreement with the stated plan. I performed a history and physical examination of the patient. I have discussed the patient's case, impression and plan with BECKY Pereira on . Her note reflects my findings and plan. Alcohol abstinence is the most important thing he can do to alter his disease process. Kennedy Fairbanks MD [facility]
[2017-01-26] MEDS: GABAPENTIN 600MG Q6H DOSE PO SCH ×2 (13:31→19:36)
--- NOTE | 2017-01-26 14:02 | Psychiatric Consultation ---
Consultation Date of Consultation Jan 26, 2017. Identifying Data Javier Tapia is a 31-year-old male who currently lives in [place] with his brother. Patient was admitted to the medical floor for acute pancreatitis from alcohol abuse. Consulted for anxiety. Information provided by the patient is considered to be reliable. Chief Complaint "always anxious when I am by myself ". History of Present Illness Patient is a 31 year old single white male. This is his third admission for acute pancreatitis related to alcohol abuse. The last admission was about a year ago. Patient reports that he stopped drinking liquor and started drinking beer after his hospitalization for pancreatitis in January 2016. He has been drinking 15 beers/night on average for the past year. He reports that he is "always anxious. " Reports feeling worried and on edge. 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 Other stressors are his brother who is a former heroin user who is now taking Suboxone. Patient's mother lives in [place] and has chronic mental illness and financial problems, although she is doing better than she once was. He is currently prescribed Lexapro 20 mg by his PCP, Dr. Aparna Garcia with [facility] in [place]. He started Lexapro after he was hospitalized last year. He is not sure if it has been helpful. He reports taking Ativan "last month" because he was having trouble sleeping but did not find it helpful and "so I kept drinking." He denies depressive symptoms overall PHQ-9 = 3. He enjoys his job and denies feeling down, depressed or hopeless, He has energy for work but is sometimes is tired and has little energy at home. He denies recent panic attacks. Patient was treated for ADHD from grade 10 through college with Adderall. He says that he does well with staying focused now with medication. Patient denies any history of suicide attempt or suicidal ideation. He has no history of violence toward self or others in the past six months or ever. He denies ever having an legal problems including legal issues related to his alcohol use. He has attended AA meetings in the past but did not find helpful. He has never had any substance abuse treatment otherwise. He is interested in medication to reduce his alcohol use but is not interested in rehab. PHQ-9 = 3 Past Psychiatric History Current OP Treatment: no current treatment Prior OP Treatment: no prior treatment Prior Psych Hospitalizations: none Suicide Attempts: No Past Medication Trials Lexapro 20 mg daily - current Ativan Adderall Past Medical/Surgical History History of Concussion/Seizure: No Allergies Allergies: Coded Allergies: Lactose (Verified Adverse Reaction, Unknown, INTOLERANCE, 01/26/17) Home Medications No Active Prescriptions or Reported Meds Family History Patient reports no known family medical history. History of Suicide: No History of Substance Abuse: Yes (brother - history of heroin addiction-now prescribed suboxone) Alcohol Use Alcohol Use In Past 12 Months: Yes Smoking Use Smoking Status: Current Every Day Smoker Substance History Patient has been drinking 15 beers/evening for the past year. Before that he drank spirits and had 2 previous episodes of acute pancreatitis. Personal History Education: graduated college Relationship History: never Children: none Legal History: none Review of Systems Gastrointestinal: abdominal pain Examination Physical Examination per Dr. Erich Harris Vital Signs Vital Signs Past 12 Hours Date Time Temp Pulse Resp B/P Pulse Ox O2 Delivery O2 Flow Rate FiO2 01/26/17 13:03 37.1 88 16 131/75 92 Room Air 01/26/17 09:40 94 Room Air 01/26/17 09:17 36.7 90 18 106/64 94 Room Air 01/26/17 08:18 36.9 95 18 107/68 92 Room Air 01/26/17 07:48 37.0 103 18 108/72 92 Room Air 01/26/17 06:46 104 18 123/72 95 01/26/17 05:43 99 19 122/73 92 Room Air 01/26/17 04:00 91 16 142/98 94 Room Air 01/26/17 02:56 36.5 105 19 142/93 98 Room Air Laboratory Results Results Past 24 Hours Test 01/26/17 03:07 01/26/17 04:00 01/26/17 04:22 01/26/17 06:10 Range/Units White Blood Count 8.42 4.8-10.8 K/uL Red Blood Count 5.37 4.7-6.1 M/uL Hemoglobin 16.9 14.0-18.0 g/dL Hematocrit 48.9 42-52 % Mean Corpuscular Volume 91.1 80-100 fL Mean Corpuscular Hemoglobin 31.5 25-34 pg Mean Corpuscular Hemoglobin Concent 34.6 32-36 g/dl Platelet Count 231 130-400 K/uL Mean Platelet Volume 9.0 7.4-10.4 fL Neutrophils (%) (Auto) 63.4 % Lymphocytes (%) (Auto) 20.4 % Monocytes (%) (Auto) 12.6 % Eosinophils (%) (Auto) 2.9 % Basophils (%) (Auto) 0.5 % Neutrophils # (Auto) 5.34 1.4-6.5 K/uL Lymphocytes # (Auto) 1.72 1.2-3.4 K/uL Monocytes # (Auto) 1.06 0.11-0.59 K/uL Eosinophils # (Auto) 0.24 0-0.5 K/uL Basophils # (Auto) 0.04 0-0.2 K/uL RDW Standard Deviation 45.9 36.4-46.3 fL RDW Coefficient of Variation 13.8 11.5-14.5 % Immature Granulocyte % (Auto) 0.2 % Immature Granulocyte # (Auto) 0.02 0.00-0.02 K/uL Prothrombin Time 10.2 9.0-12.0 SECONDS Prothromb Time International Ratio 1.0 0.9-1.1 Sodium Level 136 136-145 mmol/L Potassium Level 3.4 3.5-5.1 mmol/L Chloride Level 97 98-107 mmol/L Carbon Dioxide Level 27 21-32 mmol/L Anion Gap 12.0 3-11 mmol/L Blood Urea Nitrogen 11 7-18 mg/dl Creatinine 0.99 0.60-1.40 mg/dl Est Creatinine Clear Calc Drug Dose 98.4 ml/min Estimated GFR () 118.0 Estimated GFR (Non- 101.8 BUN/Creatinine Ratio 11.0 10-20 Random Glucose 106 70-99 mg/dl Calcium Level 8.9 8.5-10.1 mg/dl Phosphorus Level 3.6 2.5-4.9 mg/dl Magnesium Level 2.5 1.8-2.4 mg/dl Total Bilirubin 0.4 0.2-1 mg/dl Aspartate Amino Transf (AST/SGOT) 66 15-37 U/L Alanine Aminotransferase (ALT/SGPT) 89 12-78 U/L Alkaline Phosphatase 79 45-117 U/L Total Protein 8.1 6.4-8.2 gm/dl Albumin 4.1 3.4-5.0 gm/dl Globulin 4.0 2.5-4.0 gm/dl Albumin/Globulin Ratio 1.0 0.9-2 Triglycerides Level 660 0-150 mg/dl Amylase Level 4426 25-115 U/L Lipase > 28565 73-393 U/L Urine Color YELLOW Urine Appearance CLEAR CLEAR Urine pH 5.0 4.5-7.5 Urine Specific [place] 1.004 1.000-1.030 Urine Protein NEG NEG Urine Glucose (UA) NEG NEG Urine Ketones NEG NEG Urine Occult Blood NEG NEG Urine Nitrite NEG NEG Urine Bilirubin NEG NEG Urine Urobilinogen NEG NEG Urine Leukocyte Esterase NEG NEG Ethyl Alcohol mg/dL 170.0 0-3 mg/dl Vitamin B12 Level 332 211-911 pg/mL 25-Hydroxy Vitamin D Total 10.1 30-100 ng/ml Folate 11.59 >5.38 ng/mL L Mental Examination During interview pt is: alert and oriented Eye contact is: fair Motor behavior is: other (unremarkable, no tremor ) Speech: normal in rate, rhythm & volume Affect: mood congruent, flat Mood is: anxious Thought process: goal directed, clear, coherent Thought content: reality based without delusions Suicidal thought are: denied Homicidal thoughts are: denied Hallucinations: denies auditory, denies visual Cognition: memory grossly intact, attention grossly intact Intelligence estimated to be: average, consistent with level of education Insight: limited Judgement: limited Impression / Recommendations Impression Patient is a 31 year old male with alcohol use disorder. He has general anxiety and cites stressors as worrying about work, his brother with addiction to opiates and his mother with chronic mental illness and financial problems. He denies depressed mood and denies suicidal thoughts, intention or plan. He denies any history of suicide attempt. He does not meet criteria for inpatient mental health treatment. Primary recommendation is inpatient substance abuse treatment, however this patient is unwilling to consider inpatient or outpatient substance abuse treatment. Risk Factors Assessment Male: Yes : Yes /single/: Yes Access to guns: Yes (Patient reports having access to guns at his house which belong to him. ) Mental Health Diagnoses: Yes Substance use disorders: Yes Previous attempt: No Previous psychiatric stay: No Protective Factors Assessment : No Responsible for young children: No Employed: Yes Recommendations (1) Alcohol use disorder, severe, dependence Primary recommendation is inpatient rehabilitation for alcohol use disorder. He is unwilling at this point and wishes to have pharmacological treatment to help reduce his cravings which he can discuss with his PCP if continues to be unwilling to engage in rehab. Patient should have no controlled substances out side of the hospital. Benzodiazepines should be avoided in this patient with significant alcohol abuse. Coordinate care with his PCP, Dr. Aparna Garcia. Liaison Nurse will have patient sign FRANCISCA; patient has agreed to sign release Would continue Lexapro 20 mg when patient is more medically stable, however his anxiety will not be able to be successful addressed until he is stops abusing alcohol. (2) Anxiety disorder, unspecified Patient alcohol use needs to addressed. Continue Lexapro when more medically stable Patient should not be prescribed benzodiazepines outside of the hospital. Reviewed with Dr. Chioma Forde.
[2017-01-26] MEDS ORDERED: LORAZEPAM 2 MG/ML 1 ML VIAL IV PRN (14:45)
[2017-01-26] MEDS ORDERED: HYDROmorphone INJ 0.5 MG/0.5 ML SYR IV PRN (18:00)
[2017-01-26 18:56] LABS: BUN/CREATININE RATIO 10.6 (10-20); CALCIUM 8.1 mg/dl (8.5-10.1); CREATININE 0.89 mg/dl (0.60-1.40); POTASSIUM 4.1 mmol/L (3.5-5.1)
[2017-01-26] MEDS ORDERED: hydrOXYzine HCL 10 MG TAB PO ONE (21:00)
[2017-01-26] MEDS: PANTOprazole INJ 40 MG in SYRINGE 0 ML IV SCH (21:20)
[2017-01-27 03:40] VITALS: BP 112/74; PULSE 77; TEMP 36.8; O2SAT 95
[2017-01-27] MEDS: LACTATED RINGER'S 1000ML 1,000 ML IV SCH ×2 (05:42→12:51)
[2017-01-27] MEDS ORDERED: GABAPENTIN 600MG Q8H DOSE PO SCH (06:00)
[2017-01-27 07:06] LABS: HEMATOCRIT 40.4 % (42-52); MEAN CELL VOLUME 93.1 fL (80-100); MEAN CORPUSCULAR HEMOGLOBIN 30.9 pg (25-34); MEAN CORPUSCULAR HGB CONC 33.2 g/dl (32-36); MEAN PLATELET VOLUME 9.2 fL (7.4-10.4); PLATELET COUNT 168 K/uL (130-400); RED BLOOD COUNT 4.34 M/uL (4.7-6.1); WHITE BLOOD COUNT 4.61 K/uL (4.8-10.8)
[2017-01-27 07:36] LABS: BUN/CREATININE RATIO 9.2 (10-20); CALCIUM 8.5 mg/dl (8.5-10.1); CREATININE 0.98 mg/dl (0.60-1.40); POTASSIUM 4.1 mmol/L (3.5-5.1)
[2017-01-27] MEDS: ENOXAPARIN 40 MG/0.4 ML SYR SQ SCH (08:58)
[2017-01-27] MEDS: NICOTINE 14 MG/24 HR TDSY TD SCH (08:59)
[2017-01-27] MEDS: PANTOprazole INJ 40 MG in SYRINGE 0 ML IV SCH (08:59)
[2017-01-27 11:22] VITALS: BP 136/68; PULSE 77; TEMP 37.1; O2SAT 97
--- NOTE | 2017-01-27 13:13 | Family Medicine Progress Note ---
Progress Note Date of Service Jan 27, 2017. Subjective Pt evaluation today including: conversation w/ patient, physical exam, chart review, lab review Pain: well controlled PO Intake: advanced to clear today Voiding: no voiding problems Constitutional: No chills, No fever Eyes: No worsening of vision ENT: No hearing loss Respiratory: No cough, No sputum Cardiovascular: No chest pain Breast: No breast lump Abdomen: No nausea, No pain, No vomiting Musculoskeletal: No joint pain Male : No dysuria Neurologic: No memory loss Psychiatric: No depression symptoms Heme: No abnormal bleeding/bruising Medications Current Inpatient Medications Medications (Trade) Dose Ordered Sig/Valeria Route Start Time Stop Time Status Last Admin Dose Admin Enoxaparin Sodium (Lovenox Inj) 40 mg Q24H SQ 01/26/17 08:00 02/25/17 07:59 01/27/17 08:58 40 MG Acetaminophen (Tylenol Tab) 650 mg Q4H PRN PO 01/26/17 05:45 02/25/17 05:44 Al Hydrox/Mg Hydrox/Simethicone (Maalox Max Susp) 15 ml Q4H PRN PO 01/26/17 05:45 02/25/17 05:44 Magnesium Hydroxide (Milk Of Magnesia Susp) 30 ml Q6H PRN PO 01/26/17 05:45 02/25/17 05:44 Polyethylene (Miralax Powder Packet) 17 gm DAILY PRN PO 01/26/17 05:45 02/25/17 05:44 Ondansetron HCl (Zofran Inj) 4 mg Q6H PRN IV 01/26/17 05:45 02/25/17 05:44 Nicotine (Nicoderm Cq 14MG Patch) 1 patch QAM TD 01/26/17 06:00 02/25/17 05:59 01/27/17 08:59 1 PATCH Miscellaneous (Remove Nicoderm Patch) 1 ea HS N/A 01/26/17 21:00 02/25/17 20:59 01/26/17 21:23 1 EA Gabapentin 600 mg 600 mg Q24H PO 01/29/17 22:00 01/29/17 22:00 Lactated Ringer's 1,000 ml @ 150 mls/hr Q6H40M IV 01/26/17 10:00 02/25/17 09:59 01/27/17 12:51 150 MLS/HR Pantoprazole Sodium/Syringe (Protonix Inj/ Syringe) 10 ml @ 5 mls/min DAILY@,21 IV 01/26/17 21:00 02/25/17 20:59 01/27/17 08:59 5 MLS/MIN Hydromorphone HCl (Dilaudid Inj) 0.5 mg Q6H PRN IV 01/26/17 18:00 02/09/17 17:59 Objective Vital Signs Date Time Temp Pulse Resp B/P Pulse Ox O2 Delivery O2 Flow Rate FiO2 01/27/17 11:22 37.1 77 18 136/68 97 Room Air 01/27/17 07:20 Room Air 01/27/17 03:40 36.8 77 16 112/74 95 Room Air 01/26/17 23:00 37.1 76 16 134/81 96 Room Air 01/26/17 23:00 Room Air 01/26/17 20:19 16 95 Room Air 01/26/17 19:40 37.2 71 130/81 01/26/17 19:40 Room Air 01/26/17 18:05 37.1 83 18 112/67 93 Room Air 01/26/17 16:00 Room Air Physical Exam General Appearance: WD/WN, no apparent distress Eyes: normal inspection ENT: normal ENT inspection Neck: supple Respiratory/Chest: chest non-tender, lungs clear, normal breath sounds, no respiratory distress, no accessory muscle use Cardiovascular: regular rate, rhythm Abdomen: normal bowel sounds, soft Extremities: normal range of motion, non-tender, normal inspection, no pedal edema, no calf tenderness Neurologic/Psychiatric: alert, normal mood/affect, oriented x 3 Skin: normal color Laboratory Results 01/27/17 06:28 01/27/17 06:28 Test 01/27/17 06:28 Red Blood Count 4.34 M/uL (4.7-6.1) Mean Corpuscular Volume 93.1 fL (80-100) Mean Corpuscular Hemoglobin 30.9 pg (25-34) Mean Corpuscular Hemoglobin Concent 33.2 g/dl (32-36) RDW Standard Deviation 47.6 fL (36.4-46.3) RDW Coefficient of Variation 13.9 % (11.5-14.5) Mean Platelet Volume 9.2 fL (7.4-10.4) Anion Gap 8.0 mmol/L (3-11) Est Creatinine Clear Calc Drug Dose 99.4 ml/min Estimated GFR () 119.4 Estimated GFR (Non- 103.0 BUN/Creatinine Ratio 9.2 (10-20) Calcium Level 8.5 mg/dl (8.5-10.1) Total Bilirubin 0.7 mg/dl (0.2-1) Aspartate Amino Transf (AST/SGOT) 39 U/L (15-37) Alanine Aminotransferase (ALT/SGPT) 53 U/L (12-78) Alkaline Phosphatase 63 U/L (45-117) Total Protein 6.1 gm/dl (6.4-8.2) Albumin 3.0 gm/dl (3.4-5.0) Globulin 3.1 gm/dl (2.5-4.0) Albumin/Globulin Ratio 1.0 (0.9-2) Lipase 1000 U/L (73-393) Assessment and Plan 31-year-old male with past medical history of alcohol abuse, pancreatitis presented to the ER with complaints of abdominal pain, nausea, vomiting, diarrhea. Pancreatic ultrasound revealed gallbladder sludge with no stones and no gallbladder wall thickening. He was admitted for acute pancreatitis with lipase level over 90,000. Acute pancreatitis - Lipase trended down to 1000 today - Monitor lipase daily - diet advanced to clear liquids today - IV fluids with LR at 200 mls/hr - Consult GI- appreciate input - Pain control with Dilaudid 0.5 mg q6h Chronic alcohol abuse: - CIWAA protocol with gabapentin / Ativan Chronic tobacco abuse - Nicotine patch - Smoking cessation counseling Generalized anxiety - Psychiatric consult : appreciate input Vitamin D deficiency: Vitamin D level at 10 - Will require supplementation DVT prophylaxis - Lovenox 40 mg subcutaneous daily - SCDs Full code Disposition: [facility]
[2017-01-27 19:05] VITALS: BP 143/92; PULSE 78; TEMP 37.3; O2SAT 97
--- NOTE | 2017-01-27 20:03 | Discharge Instructions ---
Discharge Instructions Date of Service Jan 27, 2017. Admission Reason for Admission: Acute Pancreatitis Discharge Discharge Diagnosis / Problem: acute pancreatitis Discharge Goals Goal(s): Decrease discomfort, Improve function Activity Recommendations Activity Limitations: resume your previous activity . Instructions / Follow-Up Instructions / Follow-Up You were admitted with acute pancreatitis with your lipase level more than 90, 000 Acute pancreatitis: - Continue to stay hydrated - Please follow-up with your primary care to recheck lipase levels in 2 days( script is attached) - Avoid alcohol as it may worsen your pancreatitis Anxiety: - continue lexapro Please follow up with pcp in 2-3 days Current Hospital Diet Patient's current hospital diet: Regular Diet Discharge Diet Recommended Diet: Regular Diet Pending Studies Studies pending at discharge: no Laboratory Results Lipid Panel Test 01/26/17 03:07 Range/Units Triglycerides Level 660 H 0-150 mg/dl Medical Emergencies . Who to Call and When: Medical Emergencies: If at any time you feel your situation is an emergency, please call 911 immediately. . Non-Emergent Contact Non-Emergency issues call your: Primary Care Provider . . "Provider Documentation" section prepared by Bushra Goodwin. . VTE Core Measure Inpt VTE Proph given/why not?: Enoxaparin (Lovenox)SQ, SCD's
[2017-01-27 21:03] VITALS: BP 143/92; PULSE 78; TEMP 37.3; O2SAT 97
--- NOTE | 2017-01-27 21:54 | Discharge Summary ---
Discharge Summary Date of Service Jan 27, 2017. (Bushra Goodwin MD) Discharge Summary Admission Date: Jan 26, 2017 at 05:46 Discharge Date: Jan 27, 2017 Discharge Disposition: Home Principal Diagnosis: acute pancreatitis Problems/Secondary Diagnoses: Alcohol abuse Consultations: Gastroenterology (Bushra Goodwin MD) Medication Reconciliation Medication Profile: No Active Prescriptions or Reported Meds Discharge Exam Feels lot better today. Denied any more pain and did not request any pain medication . Review of Systems: Constitutional: No chills, No fever Eyes: No worsening of vision ENT: No hearing loss Respiratory: No cough Cardiovascular: No chest pain Abdomen: No diarrhea, No nausea, No pain, No vomiting Genitourinary - Male: No dysuria, No hematuria Neurologic: No memory loss Physical Exam: General Appearance: WD/WN, no apparent distress Eyes: normal inspection ENT: normal ENT inspection, hearing grossly normal Neck: supple Respiratory/Chest: chest non-tender, lungs clear, normal breath sounds, no respiratory distress, no accessory muscle use Cardiovascular: regular rate, rhythm, no murmur Abdomen / GI: normal bowel sounds, non tender, soft Extremities: normal inspection, no pedal edema Neurologic/Psychiatric: alert, normal mood/affect, oriented x 3 Skin: normal color (Bushra Goodwin MD) Hospital Course The patient is a pleasant 31-year-old male, who presents with 2-3 hours of acute epigastric pain. He brought himself into the emergency department for further evaluation. The patient has previous history of acute pancreatitis, his most recent episode was exactly one year ago. He states that prior to his current presentation, he had 12 cans of beer through the day today, which she describes as typical of his daily intake of alcohol. His last drink, was 2 hours prior to arrival. In regards to the pain, he describes a sharp 8 out of 10 pain, that was constant , did not radiate anywhere else. The pain is exacerbated by any form of movement, and improves when he lies completely still. He denies any nausea or vomiting. He states that he has had diarrhea for the past 1 day, but has not had any blood in the stool, or pale stools. He denies any jaundice and, or pruritus. As compared to the episode of acute pancreatitis that he had one year ago, he states that this episode is slightly less severe. Patient states an ongoing issue with all use. Last year with his last presentation of pancreatitis, he states he was drinking a similar quantity but in spirits. After that episode pancreatitis he felt that changing from spirits to beer might reduce the likelihood of recurrence of pancreatitis. He does admit that he has long-standing issues with generalized anxiety, and that when he is not busy, he is driven to drink alcohol. He states that he knows a friend who is addicted to heroin and was changed over to Suboxone, and he expresses that he feels he needs some form of medication substitution for his alcohol use. He states that he has never sought any type of rehabilitation program, either inpatient or outpatient. Regards other symptoms, he states that he is having some shortness of breath but that's more related to difficulty with taking a deep breath due to the abdominal pain. 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 Acute pancreatitis - Lipase > 90,000 with a heterogenous pancreas on ultrasound. -Lipase decreased 1000 this morning -Diet was advanced which he tolerated well without any pain - Follow up with PCP in 2-3 days after checking lipase level Chronic alcohol abuse: - CIWAA protocol with gabapentin / Ativan Alcohol cessation counseling Smoking cessation counseling Generalized anxiety Continue Lexapro Vitamin D deficiency: Vitamin D level at 10 - Will require supplementation as an outpatient Total Time Spent: Less than 30 minutes This includes examination of the patient, discharge planning, medication reconciliation, and communication with other providers. (Bushra Goodwin MD) Resident Physician Supervision Note: I was present with Dr. Goodwin during the history and exam. I discussed the case with the resident and agree with the findings and plan as documented in the note. Any exceptions or clarifications are listed here: Documented By: Gabe Stanford Total Time Spent: Less than 30 minutes (Gabe Stanford,D.O.) Discharge Instructions Please refer to the electronic Patient Visit Report (Discharge Instructions) for additional information. (Bushra Goodwin MD) Follow-Up With PCP in 2-3 days (Bushra Goodwin MD) Additional Copies To Aparna Garcia M.D. Resident Tracking Resident Involvement: Resident Care Provided Care Provided: [facility] (Bushra Goodwin MD)
[2017-01-28] MEDS ORDERED: GABAPENTIN 600MG Q12H DOSE PO SCH (10:00)
[2017-01-29] MEDS ORDERED: GABAPENTIN 600MG X1 DOSE PO SCH (22:00)
== END 2017-01-27 21:50 | disposition home or self-care (01) | DRG 440 ==
LOC: ENRESERVTM → ENRESERVDT → C.EDB 02:53 → C.MSW 05:46
PROVIDERS: ADMIT Student in an Organized Health Care Education/Training Program; ATTEND Family Medicine
DX: K85.90 Acute pancreatitis without necrosis or infection, unspecified (principal); F10.20 Alcohol dependence, uncomplicated; K21.9 Gastro-esophageal reflux disease without esophagitis; F41.1 Generalized anxiety disorder; F17.200 Nicotine dependence, unspecified, uncomplicated; Z81.1 Family history of alcohol abuse and dependence

== ENCOUNTER → 2018-05-14 | Outpatient (CLI) | payer OTHER ==
[2018-05-14 17:45] LABS: ALBUMIN 4.1 gm/dl (3.4-5.0); ALKALINE PHOSPHATASE 46 U/L (45-117); ALT/SGPT 43 U/L (12-78); AST/SGOT 34 U/L (15-37); BLOOD UREA NITROGEN 10 mg/dl (7-18); CALCIUM 8.9 mg/dl (8.5-10.1); CARBON DIOXIDE 26 mmol/L (21-32); CHOLESTEROL 222 mg/dl (0-200); GLUCOSE 94 mg/dl (70-99); LDL CHOLESTEROL CALCULATED 147 mg/dl; LIPASE 221 U/L (73-393); POTASSIUM 4.2 mmol/L (3.5-5.1); SODIUM 137 mmol/L (136-145); TOTAL PROTEIN 7.9 gm/dl (6.4-8.2)
== END | disposition home or self-care (01) ==
LOC: C.LABBFT 13:36
PROVIDERS: ATTEND Internal Medicine
DX: Z00.00 Encounter for general adult medical examination without abnormal findings (principal); E78.1 Pure hyperglyceridemia; K85.90 Acute pancreatitis without necrosis or infection, unspecified

== ENCOUNTER 2019-12-01 01:18 | Inpatient (IN) ==
[2019-12-01] MEDS ORDERED: ONDANSETRON INJ 2 MG/ML 2 ML VIAL IV STA (01:37)
[2019-12-01] MEDS ORDERED: SODIUM CHLORIDE 0.9% 1000ML 2,000 ML IV ONE (01:37)
[2019-12-01] MEDS ORDERED: MoRPHine SULFATE 4 MG/ML 1 ML CARP\\VIAL IV STA (01:37)
[2019-12-01 01:55] LABS: Basophils # (auto) 0.01 K/uL (0-0.2); Basophils % (auto) 0.1 %; Eosinophils # (auto) 0.01 K/uL (0-0.5); Eosinophils % (auto) 0.1 %; Hematocrit (blood only) 51.2 % (42-52); Hemoglobin 18.2 g/dL (14.0-18.0); Immature Granulocytes # (auto) 0.05 K/uL (0.00-0.02); Immature Granulocytes % (auto) 0.3 %; Lymphocytes # (auto) 1.02 K/uL (1.2-3.4); Lymphocytes % (auto) 6.3 %; Mean Corpuscular Hemoglobin 31.5 pg (25-34); Mean Corpuscular Hgb Conc 35.5 g/dL (32-36); Mean Corpuscular Volume 88.7 fL (80-100); Mean Platelet Volume 9.9 fL (7.4-10.4); Monocytes # (auto) 0.93 K/uL (0.11-0.59); Monocytes % (auto) 5.7 %; Neutrophils # (auto) 14.27 K/uL (1.4-6.5); Neutrophils % (auto) 87.5 %; Platelet Count 170 K/uL (130-400); RDW Coefficient of Variation 15.4 % (11.5-14.5); RDW Standard Deviation 50.1 fL (36.4-46.3); Red Blood Count 5.77 M/uL (4.7-6.1); White Blood Count 16.29 K/uL (4.8-10.8)
[2019-12-01] MEDS ORDERED: HYDROmorphone INJ 0.5 MG/0.5 ML SYR ONE ×2 (02:45→04:27)
[2019-12-01 03:43] LABS: Albumin Globulin Ratio 0.8 (0.9-2); Albumin Level 3.7 gm/dl (3.4-5.0); Bilirubin,Total 1.5 mg/dl (0.2-1); Calcium 9.1 mg/dl (8.5-10.1); Creatinine Clr Calc Pharmacy 47.2 ml/min; Est GFR (African American) 49.1; Est GFR (Non-African American) 42.3; Globulin 4.5 gm/dl (2.5-4.0); Total Protein 8.2 gm/dl (6.4-8.2)
[2019-12-01 03:48] LABS: INR 1.1 (0.9-1.1); Prothrombin Time 11.1 Seconds (9.0-12.0)
[2019-12-01] MEDS ORDERED: IOVERSOL 100ml IV PRN (03:54)
[2019-12-01] MEDS ORDERED: SODIUM CHLORIDE 0.9% 1000ML 1,000 ML IV ONE (04:03)
[2019-12-01] MEDS ORDERED: PIPERACILLIN/TAZOBACTAM 3.375 GM in DEXTROSE 5% 100 ML/100 ML BAG IV STA (05:12)
[2019-12-01] MEDS ORDERED: PIPERACILL/TAZOBAC CONSULT ACTIVE PRN (05:12)
--- NOTE | 2019-12-01 05:14 | History & Physical Report ---
Date of Service December 01, 2019 Assessment & Plan (1) Necrotizing pancreatitis: Patient is a 34-year-old male with a past medical history of alcoholism (prior to last week had not had a drink since May 2019), Erectile dysfunction, depression, hypertriglyceridemia, GERD, anxiety, recurrent pancreatitis who presents for evaluation of severe abdominal pain diagnosed with necrotizing pancreatitis. #Necrotizing pancreatitis Patient with a history of alcohol abuse and recurrent pancreatitis presenting with clinical history, physical exam findings, and laboratory evidence of pancreatitis, imaging studies were consistent with necrotizing pancreatitis. Gastroenterology was made aware of the patient, and felt admission to our hospital was appropriate for this patient. Patient will be provided with fluids, analgesia, and gastroenterology consultation. Certainly his recent increased consumption of fast food and alcohol could contribute to his current presentation -Consult gastroenterology appreciate recommendations -N.p.o. -Titrate pain medication with Dilaudid 0.5 mg every 15 -LR at 175 mls/hr -Daily CMP -Daily CBC -Consider serial imaging to follow necrotic pancreatitis -Zosyn for antibiotic coverage in the setting of potential infected pancreatic necrosis. #Transaminitis Likely secondary to pancreatitis and irritation of the biliary tree. Would recommend trending CMP. -Daily CMP #MILTON Patient without history of chronic kidney disease creatinine 2.0 on presentation likely resulting in ATN from hypoperfusion in the setting of pancreatitis and poor p.o. intake. -Fluids as above -Daily CMP #Alcohol abuse Patient with history of chronic alcohol abuse. Had recently completed a rehab stay, and had been clean since May 2019. Patient relapsed last week admitting to consuming 6 beers and 1 sitting, he would not report the frequency of these events. Stating only that "it was only 6 beers "and "there is no way 6 beers could do this ". Regardless congratulated patient on his abstinence, and encouraged him to avoid alcohol in the future. Will defer to patient's PCP and primary team as to how to address his relapse. -consider psych consult vs outpt psych #Hypertriglyceridemia Patient with a history of hypertriglyceridemia, cholesterol in May was 220, triglycerides 133. Cholesterol labs were not obtained in the emergency department, I suspect him to be elevated based on his recent increase consumption of fast food. Assuming his liver enzymes normalize would strongly consider addition of a statin given his calculated LDL is 147 #Anxiety disorder Patient with history of an anxiety disorder well-controlled with home medications. We will be holding home meds in the setting of n.p.o. -Resume bupropion 150 mg every afternoon, and 300 mg every morning when able -Resume doxepin when able -Resume duloxetine when able -Resume trazodone when able #GERD Well controlled with Protonix at home. We will start Protonix drip in the setting of acute pancreatitis. -Protonix drip #Tobacco abuse Patient with a history of tobacco abuse, no desire to quit at present, counseled the patient on the importance of quitting. -We will provide nicotine patch FENa: N.p.o. Code Status: Full DVT PPX: Mechanical for now in case the need for surgery becomes apparent PT/OT: Not indicated Dispo: JohnSuryana Plasencia MD PGY 2, FCM This chart was completed utilizing [employer] voice recognition software. Grammatical errors, random word insertions, pronoun errors, and in complete sentences are an occasional consequence of the system. Any questions or concerns about the content, text, or information contained within the body of this dictation should be addressed directly to the physician for clarification. (2) Depression: (3) Hypertriglyceridemia: (4) Anxiety disorder, unspecified: (5) Alcohol use disorder, severe, dependence: (6) GERD (gastroesophageal reflux disease): (7) Transaminitis: History of Present Illness Patient is a 34-year-old male with a past medical history of alcoholism (prior to last week had not had a drink since May 2019), Erectile dysfunction, depression, hypertriglyceridemia, GERD, anxiety, recurrent pancreatitis who presents for evaluation of severe abdominal pain diagnosed with necrotizing pancreatitis. The patient reports his symptoms started this past Thursday with vague abdominal discomfort, the symptoms progressed to the week and by Thursday it was severe in nature, Thursday his pain was so severe he had to miss work, subsequently causing him to present to the ER. He reports that recently he has not been able to tolerate p.o. intake, vomiting up any food or fluids. He reports that last week he had a drinking episode where he drank 6 beers, when I tried to pin him down on the exact amount or frequency of drinking he was very vague. Stating that "there is no way this could be from alcohol". Patient's main complaints are epigastric pain, nausea. He is unsure when his last bowel movement was, reports difficulty voiding. The patient was evaluated by the [facility] emergency department and found to have a white count of 16.29 with a neutrophil predominance sodium of 120 BUN of 30 creatinine of 2.01 glucose 143 total bilirubin 1.5 AST 294 ALT 358 lipase 8684, CT abdomen and pelvis was performed demonstrating edema and fluid surrounding the pancreas with fat stranding that is consistent with acute pancreatitis. Hypoenhancement of the distal pancreatic body and pancreatic tail concerning for necrotizing pancreatitis with gallbladder distention, no CT evidence of gallstones. Patient was subsequently diagnosed with necrotizing pancreatitis and provided analgesia with hydromorphone and morphine, Zofran, given 2 L of fluid, and made n.p.o. The emergency department contacted Dr. Lopez who agreed to accept the patient. The hospitalist team was consulted for admission. Upon evaluation of the patient in the emergency department, he was in excessive pain, otherwise stable. He did also report a recent history of increased fast food consumption, and that there were a coworker at his work who was also sick with a gastrointestinal illness, initially he thought his symptoms were related to that. Acute concerns at present relate to analgesia and etiology of pancreatitis, all questions answered. Patient specifically denies chest pain, chest pressure, shortness of breath, difficulty breathing, dyspnea on exertion, sensory changes, motor changes, neuro symptoms, pain in his bones muscles joints, ENT symptoms. Primary Care Provider: Aparna Garcia MD Allergies Allergy/AdvReac Type Severity Reaction Status Date / Time lactose AdvReac Unknown INTOLERANCE Verified 12/01/19 01:32 Home Medications Home Medications Medication Instructions Recorded Confirmed Type doxepin 50 mg capsule 50 mg PO DAILY #90 cap 06/14/19 12/01/19 Rx duloxetine 60 mg capsule,delayed 60 mg PO DAILY #90 cap 06/14/19 12/01/19 Rx release pantoprazole 40 mg tablet,delayed 40 mg PO DAILY #90 tab 06/14/19 12/01/19 Rx release sildenafil 50 mg tablet See Rx Instructions PO DAILY PRN 06/14/19 12/01/19 Rx #10 tab trazodone 100 mg tablet 100 mg PO HS PRN #90 tab 06/14/19 12/01/19 Rx bupropion HCl 150 mg 24 hr tablet, 150 mg PO QPM #90 tab 08/17/19 12/01/19 Rx extended release bupropion HCl 300 mg 24 hr tablet, 300 mg PO QAM #90 tab 11/10/19 12/01/19 Rx extended release Past Med/Surg History Medical History Acute pancreatitis (Resolved) Alcohol use disorder, severe, dependence (Chronic) Anxiety disorder, unspecified (Chronic) GERD (gastroesophageal reflux disease) (Chronic) Hypertriglyceridemia (Chronic) Social History Preferred Language: Indonesian Communication Ability: Effective Refuge Manager Required: No Beliefs That Will Affect Care: None Current Living Situation: Alone Other Information That Helps Us Care for You: No Feels Safe at Home: Yes Smoking Status: Current every day smoker Tobacco Type: cigarettes ; Do You Dip or Chew Tobacco: No ; Tobacco Cessation Education Requested by Patient: No Hx Alcohol Use: Yes Alcohol type: beer Hx Substance Use: No Review of Systems Review of Systems: 12 point review of systems negative except as noted above or below Constitutional: Normal or as above Eyes and Vision: Normal or as above ENT: Normal or as above Cards: Normal or as above Respiratory: Normal or as above GI: Normal or as above : Normal or as above MSK: Normal or as above Skin: Normal or as above Neuro: Normal or as above Psych: normal or as above Allergy and Immunology: Normal or as above Results & Data Vital Signs (Past 12 Hours) Vital Signs Temp Pulse Pulse Resp BP BP Pulse Ox 12/01/19 04:13 94 12/01/19 04:10 89 22 164/104 H 94 12/01/19 01:22 36.5 C 148 H 22 115/80 98 Laboratory Results 12/01/19 12/01/19 12/01/19 Range/Units 01:51 01:47 01:47 WBC (4.8-10.8) K/uL RBC (4.7-6.1) M/uL Hgb (14.0-18.0) g/dL Hct (42-52) % MCV (80-100) fL MCH (25-34) pg MCHC (32-36) g/dL RDW Std Deviation (36.4-46.3) fL RDW Coeff of Grisel (11.5-14.5) % Plt Count (130-400) K/uL MPV (7.4-10.4) fL Immature Gran % (Auto) % Neut % (Auto) % Lymph % (Auto) % [place] % (Auto) % Eos % (Auto) % Baso % (Auto) % Immature Gran # (Auto) (0.00-0.02) K/uL Neut # (Auto) (1.4-6.5) K/uL Lymph # (Auto) (1.2-3.4) K/uL [place] # (Auto) (0.11-0.59) K/uL Eos # (Auto) (0-0.5) K/uL Baso # (Auto) (0-0.2) K/uL PT 11.1 (9.0-12.0) Seconds INR 1.1 (0.9-1.1) Sodium 128 L (136-145) mmol/L Potassium 4.0 (3.5-5.1) mmol/L Chloride 87 L (98-107) mmol/L Carbon Dioxide 26 (21-32) mmol/L Anion Gap 15.0 H (3-11) BUN 30 H (7-18) mg/dl Creatinine 2.01 H (0.6-1.4) mg/dl Est Cr Clr Drug Dosing 47.2 ml/min Est GFR ( Amer) 49.1 Est GFR (Non-Af Amer) 42.3 BUN/Creatinine Ratio 15.0 (10-20) Glucose 143 H (70-99) mg/dl Calcium 9.1 (8.5-10.1) mg/dl Total Bilirubin 1.5 H (0.2-1) mg/dl AST 294 H (15-37) U/L ALT 358 H (12-78) U/L Alkaline Phosphatase 100 (45-117) U/L Total Protein 8.2 (6.4-8.2) gm/dl Albumin 3.7 (3.4-5.0) gm/dl Globulin 4.5 H (2.5-4.0) gm/dl Albumin/Globulin Ratio 0.8 L (0.9-2) Lipase 8684 H (73-393) U/L Ethyl Alcohol mg/dL < 3.0 (0-3) mg/dl 12/01/19 Range/Units 01:47 WBC 16.29 H (4.8-10.8) K/uL RBC 5.77 (4.7-6.1) M/uL Hgb 18.2 H (14.0-18.0) g/dL Hct 51.2 (42-52) % MCV 88.7 (80-100) fL MCH 31.5 (25-34) pg MCHC 35.5 (32-36) g/dL RDW Std Deviation 50.1 H (36.4-46.3) fL RDW Coeff of Grisel 15.4 H (11.5-14.5) % Plt Count 170 (130-400) K/uL MPV 9.9 (7.4-10.4) fL Immature Gran % (Auto) 0.3 % Neut % (Auto) 87.5 % Lymph % (Auto) 6.3 % [place] % (Auto) 5.7 % Eos % (Auto) 0.1 % Baso % (Auto) 0.1 % Immature Gran # (Auto) 0.05 H (0.00-0.02) K/uL Neut # (Auto) 14.27 H (1.4-6.5) K/uL Lymph # (Auto) 1.02 L (1.2-3.4) K/uL [place] # (Auto) 0.93 H (0.11-0.59) K/uL Eos # (Auto) 0.01 (0-0.5) K/uL Baso # (Auto) 0.01 (0-0.2) K/uL PT (9.0-12.0) Seconds INR (0.9-1.1) Sodium (136-145) mmol/L Potassium (3.5-5.1) mmol/L Chloride (98-107) mmol/L Carbon Dioxide (21-32) mmol/L Anion Gap (3-11) BUN (7-18) mg/dl Creatinine (0.6-1.4) mg/dl Est Cr Clr Drug Dosing ml/min Est GFR ( Amer) Est GFR (Non-Af Amer) BUN/Creatinine Ratio (10-20) Glucose (70-99) mg/dl Calcium (8.5-10.1) mg/dl Total Bilirubin (0.2-1) mg/dl AST (15-37) U/L ALT (12-78) U/L Alkaline Phosphatase (45-117) U/L Total Protein (6.4-8.2) gm/dl Albumin (3.4-5.0) gm/dl Globulin (2.5-4.0) gm/dl Albumin/Globulin Ratio (0.9-2) Lipase (73-393) U/L Ethyl Alcohol mg/dL (0-3) mg/dl Medications Administered Current Inpatient Medications Ioversol (Optiray 320 100ml) 100 ml IV ONCE PRN PRN Reason: Interaction Checking Stop: 12/05/19 03:53 Last Admin: 12/01/19 03:55 Dose: 93 ml Documented by: Code Status & VTE Plan Code Status Full code VTE Prophylaxis Plan VTE Prophylaxis will be ordered: Yes Supervising Physician Co-Signing Physician Notes Attending addendum: I have physically seen this patient, have supervised the medical residents activities, and agree with the H&P unless as otherwise noted. Assessment and Plan: Necrotizing pancreatitis- History of alcohol abuse and recurrent pancreatitis. Lipase upon admission 8684. Amylase upon admission 574 CT suggestive of acute pancreatitis with necrotizing pancreatitis involving the distal body and tail. NPO Patient is received 2 L of normal saline in ED. LR at 175 mL's per hour Daily CBC with differential, chemistry profile and lipase levels. Zosyn 4.5 g IV every 8 hours. Consult gastroenterology Consult infectious disease Remainder of orders and notations as noted Resident Activity Tracking Resident Involvement: Resident Care Provided Care Provided: Adult Hospital Medicine (1) Anxiety disorder, unspecified Anxiety disorder type: unspecified anxiety disorder Qualified Code(s): F41.9 - Anxiety disorder, unspecified
--- NOTE | 2019-12-01 05:14 | Emergency Department Note ---
History of Present Illness General Chief Complaint: Abdominal Pain Stated Complaint: ABD PAIN History of Present Illness Maximum Pain Intensity: 8 This 34-year-old male patient with significant past medical history of pancreatitis, GERD, alcoholism, presents emergency department today for evaluation of severe abdominal pain which began on Thursday. The patient states he was sick with gastroenteritis last week and developed nausea and vomiting. He states he did drink some alcohol 2 to 3 days prior to the onset of the symptoms. He states on Thursday, he developed worsening nausea, vomiting, and inability to keep down food and fluids. He states he has been urinating, but very infrequently. He is uncertain of his last bowel movement. The patient states the pain is primarily in the epigastrium and radiates to his back. He has taken no medication for his symptoms. He states normally he needs to be admitted for his pancreatitis. Patient denies any chest pain or dyspnea. Last bowel movement is uncertain. Home Medications Home Medications Medication Instructions Recorded Confirmed Type doxepin 50 mg capsule 50 mg PO DAILY #90 cap 06/14/19 12/01/19 Rx duloxetine 60 mg capsule,delayed 60 mg PO DAILY #90 cap 06/14/19 12/01/19 Rx release pantoprazole 40 mg tablet,delayed 40 mg PO DAILY #90 tab 06/14/19 12/01/19 Rx release sildenafil 50 mg tablet See Rx Instructions PO DAILY PRN 06/14/19 12/01/19 Rx #10 tab trazodone 100 mg tablet 100 mg PO HS PRN #90 tab 06/14/19 12/01/19 Rx bupropion HCl 150 mg 24 hr tablet, 150 mg PO QPM #90 tab 08/17/19 12/01/19 Rx extended release bupropion HCl 300 mg 24 hr tablet, 300 mg PO QAM #90 tab 11/10/19 12/01/19 Rx extended release Allergies Allergy/AdvReac Type Severity Reaction Status Date / Time lactose AdvReac Unknown INTOLERANCE Verified 12/01/19 01:32 Past Med/Surg History Medical History Acute pancreatitis (Resolved) Alcohol use disorder, severe, dependence (Chronic) Anxiety disorder, unspecified (Chronic) GERD (gastroesophageal reflux disease) (Chronic) Hypertriglyceridemia (Chronic) Social History Preferred Language: Korean Feels Safe at Home: Yes Smoking Status: Current every day smoker Review of Systems A total of 10 systems reviewed and were otherwise negative Physical Exam Vital Signs: Vital Signs - 24 hr 12/01/19 01:22 12/01/19 04:10 12/01/19 04:13 Temperature 36.5 C Temperature Source Oral Pulse Rate 148 H Pulse Rate [Right Finger] 89 Respiratory Rate 22 22 Respiratory Effort / Characteristics Non-Labored Non-Labored Respiratory Depth Normal Normal Blood Pressure 115/80 Blood Pressure [Ri ght Arm] 164/104 H Blood Pressure Misa n 91 Blood Pressure Misa n [Right Arm] 124 Pulse Oximetry 98 94 94 Oxygen Delivery Me thod Room Air Room Air Room Air Sepsis Recent Feve r Within 48 Hours No Sepsis Action Take n by Nursing No Action Required Physical Exam: VITALS: Vitals are noted on the nurse's note and reviewed by myself. Vital signs stable. GENERAL: This is a 34-year-old white male, in no acute distress, nondiaphoretic, well-developed well-nourished. SKIN: The skin was without rashes, erythema, edema, or bruising. There is no tenting of the skin. Capillary refill less than 2 seconds. HEAD: Normocephalic atraumatic. EARS: External auditory canals clear, tympanic membranes pearly uribe without erythema or effusion bilaterally. EYES: Pupils equal round and reactive to light and accommodation. Conjunctivae without injection, sclerae without icterus. NOSE: Patent, turbinates without inflammation or discharge. No sinus tenderness. MOUTH: Mucous membranes moist. Tonsils are not enlarged. Pharynx without erythema or exudate. Uvula midline. Airway patent. Tongue does not deviate. NECK: Supple without nuchal rigidity. No lymphadenopathy. HEART: Regular rate and rhythm without murmurs gallops or rubs. LUNGS: Clear to auscultation bilaterally without wheezes, rales or rhonchi. No retractions or accessory muscle use. ABDOMEN: Positive bowel sounds x 4. Severe epigastric tenderness palpation. Abdomen is otherwise soft, without masses or organomegaly. Galvez sign negative. No guarding or rebound tenderness. MUSCULOSKELETAL: No muscle atrophy, erythema, or edema noted. Full range of motion without joint tenderness in all extremities. No tenderness to palpation. Normal gait. Strength 5/5 throughout. NEURO: Patient was alert and oriented to person place and time. Normal sensation to light and sharp touch. No focal neurological deficits. Course Course Patient was seen and evaluated as above. IV access obtained, labs drawn. Patient was medicated with IV morphine, Zofran, and 2 L IV fluids. Labs reviewed by myself as above. CT imaging performed reviewed by myself and radiologist as noted. I discussed the findings with the patient at bedside. He continues to complain of pain. He was medicated with Dilaudid. I discussed the case with my attending physician. I discussed the case with the client experience manager. I discussed the case with Dr. Welsh. He did agree to see and evaluate the patient. He did request that I speak with the electronic health records specialist on-call to ensure they are comfortable keeping the patient here. I spoke with Dr. Lopez. Advised him of patient condition, CT imaging, history, as well as laboratory results. He did agree to keep the patient here in the hospital and indicated that antibiotics are not necessary at this time. I again spoke with Dr. Welsh. The patient will be admitted to the [facility] hospitalist service. Please see hospitalist dictation regarding ongoing management care of this patient. Administered Medications Hydromorphone HCl (Dilaudid) 0.5 mg IV Q15M PRN PRN Reason: Pain Stop: 12/15/19 04:18 Last Admin: 12/01/19 06:12 Dose: 0.5 mg Documented by: [id number] Pantoprazole Sodium 40 mg/ (Dextrose) 100 mls @ 20 mls/hr IV Q5H NALLELY Stop: 12/31/19 05:44 Last Admin: 12/01/19 06:15 Dose: 20 mls/hr Documented by: [id number] Discontinued Medications Hydromorphone HCl (Dilaudid) Confirm Administered Dose 0.5 mg .ROUTE .STK-MED ONE Stop: 12/01/19 02:46 Last Admin: 12/01/19 04:09 Dose: Not Given Documented by: [id number] Hydromorphone HCl (Dilaudid) Confirm Administered Dose 0.5 mg .ROUTE .STK-MED ONE Stop: 12/01/19 04:28 Last Admin: 12/01/19 04:29 Dose: 0.5 mg Documented by: [id number] Sodium Chloride (Nss 1000ml) 2,000 mls @ 999 mls/hr IV .Q2H1M ONE Stop: 12/01/19 03:37 Last Infusion: 12/01/19 04:09 Dose: 0 mls/hr Documented by: [id number] Admin: 12/01/19 01:54 Dose: 999 mls/hr Documented by: [id number] Sodium Chloride (Nss 1000ml) 1,000 mls @ 999 mls/hr IV .Q1H1M ONE Stop: 12/01/19 05:03 Last Admin: 12/01/19 05:24 Dose: 999 mls/hr Documented by: [id number] Piperacillin Sod/Tazobactam (Sod 3.375 gm/ Dextrose) 100 ml in 115 mls @ 230 mls/hr IV NOW STA Stop: 12/01/19 05:41 Last Admin: 12/01/19 06:01 Dose: 230 mls/hr Documented by: [id number] Pantoprazole Sodium 80 mg/ (Dextrose) 120 mls @ 480 mls/hr IV NOW STA Stop: 12/01/19 05:44 Last Infusion: 12/01/19 06:18 Dose: 0 mls/hr Documented by: [id number] Admin: 12/01/19 06:01 Dose: 480 mls/hr Documented by: [id number] Ioversol (Optiray 320 100ml) 100 ml IV ONCE PRN PRN Reason: Interaction Checking Stop: 12/05/19 03:53 Last Admin: 12/01/19 03:55 Dose: 93 ml Documented by: [id number] Morphine Sulfate (Morphine Sulfate) 4 mg IV NOW STA Stop: 12/01/19 01:38 Last Admin: 12/01/19 01:54 Dose: 4 mg Documented by: [id number] Ondansetron HCl (Zofran) 4 mg IV NOW STA Stop: 12/01/19 01:38 Last Admin: 12/01/19 01:54 Dose: 4 mg Documented by: [id number] Medical Decision Making Differential Diagnosis + peptic ulcer disease, + biliary pathology, + UTI, + obstruction, + mesenteric ischemia, + aortic pathology, + infections, + inflammatory bowel disease, + renal colic, + torsion (male), + epididymitis (male), + abdominal pain, + appendicitis, + calculus of kidney, + constipation, + diverticulitis, + endometriosis, + gastroenteritis, + pancreatitis and + small bowel obstruction Home Medications Current Medication List: was personally reviewed by me Laboratory Data Attestation: I reviewed the patient's lab results. Leukocytosis of 16,000. No anemia or thrombocytopenia. Creatinine elevated at 2.01. LFTs elevated with AST of 294 and ALT of 358. Total bilirubin 1.5. Lipase after dilution greater than 8000. Amylase 574. Urinalysis appears contaminated. Lactate 1.0. Result diagrams: 12/01/19 01:47 12/01/19 01:47 Lab Results 12/01/19 12/01/19 12/01/19 Range/Units 01:47 01:47 01:47 WBC 16.29 H (4.8-10.8) K/uL RBC 5.77 (4.7-6.1) M/uL Hgb 18.2 H (14.0-18.0) g/dL Hct 51.2 (42-52) % MCV 88.7 (80-100) fL MCH 31.5 (25-34) pg MCHC 35.5 (32-36) g/dL RDW Std Deviation 50.1 H (36.4-46.3) fL RDW Coeff of Grisel 15.4 H (11.5-14.5) % Plt Count 170 (130-400) K/uL MPV 9.9 (7.4-10.4) fL Immature Gran % (Auto) 0.3 % Neut % (Auto) 87.5 % Lymph % (Auto) 6.3 % Austin % (Auto) 5.7 % Eos % (Auto) 0.1 % Baso % (Auto) 0.1 % Immature Gran # (Auto) 0.05 H (0.00-0.02) K/uL Neut # (Auto) 14.27 H (1.4-6.5) K/uL Lymph # (Auto) 1.02 L (1.2-3.4) K/uL Austin # (Auto) 0.93 H (0.11-0.59) K/uL Eos # (Auto) 0.01 (0-0.5) K/uL Baso # (Auto) 0.01 (0-0.2) K/uL PT 11.1 (9.0-12.0) Seconds INR 1.1 (0.9-1.1) Sodium 128 L (136-145) mmol/L Potassium 4.0 (3.5-5.1) mmol/L Chloride 87 L (98-107) mmol/L Carbon Dioxide 26 (21-32) mmol/L Anion Gap 15.0 H (3-11) BUN 30 H (7-18) mg/dl Creatinine 2.01 H (0.6-1.4) mg/dl Est Cr Clr Drug Dosing 47.2 ml/min Est GFR ( Amer) 49.1 Est GFR (Non-Af Amer) 42.3 BUN/Creatinine Ratio 15.0 (10-20) Glucose 143 H (70-99) mg/dl Lactate (0.4-2.0) mmol/L Calcium 9.1 (8.5-10.1) mg/dl Total Bilirubin 1.5 H (0.2-1) mg/dl AST 294 H (15-37) U/L ALT 358 H (12-78) U/L Alkaline Phosphatase 100 (45-117) U/L Total Protein 8.2 (6.4-8.2) gm/dl Albumin 3.7 (3.4-5.0) gm/dl Globulin 4.5 H (2.5-4.0) gm/dl Albumin/Globulin Ratio 0.8 L (0.9-2) Triglycerides (0-150) mg/dl Cholesterol (0-200) mg/dl LDL Cholesterol, Calc mg/dl VLDL Cholesterol, Calc mg/dl HDL Cholesterol mg/dl Cholesterol/HDL Ratio Amylase 574 H (25-115) U/L Lipase 8684 H (73-393) U/L Urine Color Urine Appearance (Clear) Urine pH (4.5-7.5) Ur Specific [place] (1.000-1.030) Urine Protein (Negative) Urine Glucose (UA) (Negative) Urine Ketones (Negative) Urine Blood (Negative) Urine Nitrite (Negative) Urine Bilirubin (Negative) Urine Urobilinogen (Negative) Ur Leukocyte Esterase (Negative) Urine RBC (0-4) /hpf Urine WBC (0-5) /hpf Ur Epithelial Cells (0-5) /lpf Ur Renal Epithelial Cell (0-5) /lpf Urine Bacteria (Negative) Hyaline Casts (0-5) /lpf Waxy Casts (0) /lpf WBC Casts (0) /lpf Ethyl Alcohol mg/dL (0-3) mg/dl 12/01/19 12/01/19 12/01/19 Range/Units 01:47 01:51 04:10 WBC (4.8-10.8) K/uL RBC (4.7-6.1) M/uL Hgb (14.0-18.0) g/dL Hct (42-52) % MCV (80-100) fL MCH (25-34) pg MCHC (32-36) g/dL RDW Std Deviation (36.4-46.3) fL RDW Coeff of Grisel (11.5-14.5) % Plt Count (130-400) K/uL MPV (7.4-10.4) fL Immature Gran % (Auto) % Neut % (Auto) % Lymph % (Auto) % Austin % (Auto) % Eos % (Auto) % Baso % (Auto) % Immature Gran # (Auto) (0.00-0.02) K/uL Neut # (Auto) (1.4-6.5) K/uL Lymph # (Auto) (1.2-3.4) K/uL Austin # (Auto) (0.11-0.59) K/uL Eos # (Auto) (0-0.5) K/uL Baso # (Auto) (0-0.2) K/uL PT (9.0-12.0) Seconds INR (0.9-1.1) Sodium (136-145) mmol/L Potassium (3.5-5.1) mmol/L Chloride (98-107) mmol/L Carbon Dioxide (21-32) mmol/L Anion Gap (3-11) BUN (7-18) mg/dl Creatinine (0.6-1.4) mg/dl Est Cr Clr Drug Dosing ml/min Est GFR ( Amer) Est GFR (Non-Af Amer) BUN/Creatinine Ratio (10-20) Glucose (70-99) mg/dl Lactate (0.4-2.0) mmol/L Calcium (8.5-10.1) mg/dl Total Bilirubin (0.2-1) mg/dl AST (15-37) U/L ALT (12-78) U/L Alkaline Phosphatase (45-117) U/L Total Protein (6.4-8.2) gm/dl Albumin (3.4-5.0) gm/dl Globulin (2.5-4.0) gm/dl Albumin/Globulin Ratio (0.9-2) Triglycerides 776 H (0-150) mg/dl Cholesterol 208 H (0-200) mg/dl LDL Cholesterol, Calc mg/dl VLDL Cholesterol, Calc mg/dl HDL Cholesterol 19 mg/dl Cholesterol/HDL Ratio 11 Amylase (25-115) U/L Lipase (73-393) U/L Urine Color Yellow Urine Appearance Clear (Clear) Urine pH 5.5 (4.5-7.5) Ur Specific [place] 1.010 (1.000-1.030) Urine Protein 1+ H (Negative) Urine Glucose (UA) Negative (Negative) Urine Ketones Trace H (Negative) Urine Blood 1+ H (Negative) Urine Nitrite Negative (Negative) Urine Bilirubin Negative (Negative) Urine Urobilinogen Negative (Negative) Ur Leukocyte Esterase Negative (Negative) Urine RBC 0-4 (0-4) /hpf Urine WBC >30 H (0-5) /hpf Ur Epithelial Cells 0-5 (0-5) /lpf Ur Renal Epithelial Cell 0-5 (0-5) /lpf Urine Bacteria 2+ H (Negative) Hyaline Casts >30 H (0-5) /lpf Waxy Casts 1-5 H (0) /lpf WBC Casts 1-5 H (0) /lpf Ethyl Alcohol mg/dL < 3.0 (0-3) mg/dl 12/01/19 Range/Units 04:55 WBC (4.8-10.8) K/uL RBC (4.7-6.1) M/uL Hgb (14.0-18.0) g/dL Hct (42-52) % MCV (80-100) fL MCH (25-34) pg MCHC (32-36) g/dL RDW Std Deviation (36.4-46.3) fL RDW Coeff of Grisel (11.5-14.5) % Plt Count (130-400) K/uL MPV (7.4-10.4) fL Immature Gran % (Auto) % Neut % (Auto) % Lymph % (Auto) % Austin % (Auto) % Eos % (Auto) % Baso % (Auto) % Immature Gran # (Auto) (0.00-0.02) K/uL Neut # (Auto) (1.4-6.5) K/uL Lymph # (Auto) (1.2-3.4) K/uL [place] # (Auto) (0.11-0.59) K/uL Eos # (Auto) (0-0.5) K/uL Baso # (Auto) (0-0.2) K/uL PT (9.0-12.0) Seconds INR (0.9-1.1) Sodium (136-145) mmol/L Potassium (3.5-5.1) mmol/L Chloride (98-107) mmol/L Carbon Dioxide (21-32) mmol/L Anion Gap (3-11) BUN (7-18) mg/dl Creatinine (0.6-1.4) mg/dl Est Cr Clr Drug Dosing ml/min Est GFR ( Amer) Est GFR (Non-Af Amer) BUN/Creatinine Ratio (10-20) Glucose (70-99) mg/dl Lactate 1.0 (0.4-2.0) mmol/L Calcium (8.5-10.1) mg/dl Total Bilirubin (0.2-1) mg/dl AST (15-37) U/L ALT (12-78) U/L Alkaline Phosphatase (45-117) U/L Total Protein (6.4-8.2) gm/dl Albumin (3.4-5.0) gm/dl Globulin (2.5-4.0) gm/dl Albumin/Globulin Ratio (0.9-2) Triglycerides (0-150) mg/dl Cholesterol (0-200) mg/dl LDL Cholesterol, Calc mg/dl VLDL Cholesterol, Calc mg/dl HDL Cholesterol mg/dl Cholesterol/HDL Ratio Amylase (25-115) U/L Lipase (73-393) U/L Urine Color Urine Appearance (Clear) Urine pH (4.5-7.5) Ur Specific [place] (1.000-1.030) Urine Protein (Negative) Urine Glucose (UA) (Negative) Urine Ketones (Negative) Urine Blood (Negative) Urine Nitrite (Negative) Urine Bilirubin (Negative) Urine Urobilinogen (Negative) Ur Leukocyte Esterase (Negative) Urine RBC (0-4) /hpf Urine WBC (0-5) /hpf Ur Epithelial Cells (0-5) /lpf Ur Renal Epithelial Cell (0-5) /lpf Urine Bacteria (Negative) Hyaline Casts (0-5) /lpf Waxy Casts (0) /lpf WBC Casts (0) /lpf Ethyl Alcohol mg/dL (0-3) mg/dl Imaging Data Radiologist's Impression: CT ABDOMEN & PELVIS With Contrast: Fat stranding and edema and fluid surrounding the pancreas is consistent with acute pancreatitis. Hypoenhancement of the distal pancreatic body and pancreatic tail is concerning for necrotizing pancreatitis. The gallbladder is distended. No CT evidence of gallstones. No biliary dilatation. Hepatic steatosis. Small hiatal hernia. Mild wall thickening of the distal esophagus could indicate esophagitis. Radiologist: Rina Monroy MD Blood Pressure Blood Pressure Findings: Elevated blood pressure Blood Pressure Disposition: elevated BP felt to be situational MDM Narrative This 34-year-old male patient presents the emergency department today for evaluation of vomiting and abdominal pain. He does have history of pancreatitis. Symptoms consistent with pancreatitis, but he complains of worsening pain which is unusual with his flareups. Work-up here in the ED does show a leukocytosis, transaminitis. The patient's lipase is significantly elevated. Imaging concerning for necrotizing pancreatitis. Patient is afebrile. His pain was difficult to manage while here in the department despite multiple rounds of narcotics. He was hydrated with 3 L total normal saline solution. He will be admitted to the hospitalist service with GI consult for ongoing management of the condition. The chart was completed utilizing [employer] Speech voice recognition software. Grammatical errors, random word insertions, pronoun errors, and incomplete sentences are an occasional consequence of this system due to software limitations, ambient noise, and hardware issues. Any formal questions or concerns about the content, text, or information contained within the body of this dictation should be directly addressed to the provider for clarification. Impression & Plan Necrotizing pancreatitis, Transaminitis, Abdominal pain Discharge Plan Visit Data *Final* Discharge Date/Time: 12/01/19 07:08 Chief Complaint: Abdominal Pain Stated Complaint: ABD PAIN ED Provider: Alesha Cleaning ED Midlevel Provider: Chantal Ortega Discharge Problem: Necrotizing pancreatitis, Transaminitis, Abdominal pain Patient Disposition: Admitted As Inpatient Discharge Instructions Interventions: ED Discharge Assessment Last Done: 12/01/19 06:09
[2019-12-01] MEDS ORDERED: PANTOprazole 80 MG in DEXTROSE 5% 100 ML IV STA (05:30)
[2019-12-01 05:58] LABS: Appearance Urine Clear (Clear); Bilirubin Urine Negative (Negative); Blood Urine 1+ (Negative); Color Urine Yellow; Glucose Urine UA Negative (Negative); Ketones Urine Trace (Negative); Leukocyte Esterase Urine Negative (Negative); Nitrite Urine Negative (Negative); Protein Urine 1+ (Negative); Urobilinogen Urine Negative (Negative); pH Urine 5.5 (4.5-7.5)
[2019-12-01 06:01] LABS: Chol HDL Ratio 11; Cholesterol 208 mg/dl (0-200); HDL Cholesterol 19 mg/dl; Triglycerides 776 mg/dl (0-150)
[2019-12-01 06:12] LABS: Hyaline Casts Urine >30 /lpf (0-5)
[2019-12-01] MEDS: HYDROmorphone INJ 0.5 MG/0.5 ML SYR IV PRN ×2 (06:12→07:55)
[2019-12-01 06:13] LABS: Epithelial Cell Urine 0-5 /lpf (0-5)
[2019-12-01 06:14] LABS: Bacteria Urine 2+ (Negative); RBC Urine 0-4 /hpf (0-4); Renal Epithelial Cells Urine 0-5 /lpf (0-5); WBC Urine >30 /hpf (0-5)
[2019-12-01] MEDS: PANTOprazole 40 MG in DEXTROSE 5% 100 ML IV SCH ×2 (06:15→15:04)
--- NOTE | 2019-12-01 06:39 | CT Scan Report ---
CT abd pelvis IV con only CLINICAL HISTORY: Midabdominal pain extending into left flank COMPARISON STUDY: January 2016 TECHNIQUE: Patient was scanned in a dynamic helical fashion during intravenous administration of 93 c c of Optiray 320. A dose lowering technique was utilized adhering to the principles of ALARA. CT DOSE: 421.48 mGy.cm FINDINGS: Lower chest: There are mild dependent atelectatic changes. Liver: There is hepatic steatosis. No focal hepatic masses are visualized. The portal vein is patent. The hepatic veins are patent. Gallbladder: Unremarkable. Spleen: Normal in size and attenuation. Pancreas: There is diffuse infiltration of the peripancreatic fat. There is diminished enhancement of the pancreatic tail consistent with acute necrotizing pancreatitis. Adrenal glands: Unremarkable. Kidneys: There is symmetric renal cortical enhancement. The kidneys are normal in size without hydron ephrosis. Bowel: There are no transition zones indicate bowel obstruction. The appendix appears normal. There i s no acute diverticulitis. There is minor duodenal wall edema which is felt to be secondary to pancre atitis. Peritoneum: In addition to peripancreatic fluid, there is small amount of fluid within the mesentery. There is trace free pelvic fluid Vasculature: The abdominal aorta is normal in course and caliber. Adenopathy: None. Pelvic viscera: The bladder, and pelvic viscera are unremarkable. Skeletal structures: No destructive osseous lesions are seen. IMPRESSION: 1. Acute pancreatitis with evidence of necrotizing pancreatitis involving the distal body and tail 2. Hepatic steatosis 3. No evidence of bowel obstruction. No evidence of free air. 4. Normal appendix ACT 112: Negative or not required by law. Electronically signed by: Victor Manuel Medina M.D. 12/01/2019 6:38 AM
--- NOTE | 2019-12-01 07:43 | Hospitalist Progress Note ---
Date of Service December 01, 2019 Assessment & Plan (1) Necrotizing pancreatitis: Patient is a 34-year-old male with a past medical history of alcoholism (prior to last week had not had a drink since May 2019), Erectile dysfunction, depression, hypertriglyceridemia, GERD, anxiety, recurrent pancreatitis who presents for evaluation of severe abdominal pain diagnosed with necrotizing pancreatitis. #Necrotizing pancreatitis Patient with a history of alcohol abuse and recurrent pancreatitis presenting with clinical history, physical exam findings, and laboratory evidence of pancreatitis, imaging studies were consistent with necrotizing pancreatitis. Gastroenterology was made aware of the patient, and felt admission to our hospital was appropriate for this patient. Patient will be provided with fluids, analgesia, and gastroenterology consultation. Certainly his recent increased consumption of fast food and alcohol could contribute to his current presentation, although he notes alcohol intake was about 2 weeks ago. However, Mom later arrived (who is a retired Neurologist) and notes that he snuck out to buy alcohol/beer Thursday when she left house. She notes that he has a history of alcohol abuse with a prior inpatient rehab stay. -Consult gastroenterology appreciate recommendations -N.p.o. -Was receiving Dilaudid 00.5mg q15min; changed to 1mg q2H, but after examining patient with him being in significant pain, will change to 2mg q2Hr. -LR at 175 mls/hr increased to 120 mls/hr; will give another 1L Bolus of NSS - need to flood pancreas with fluids. -Daily CMP, repeated this AM, Creat improved to 1.26 hyponatremia improved to 131. Corrected Calcium 8.98, will need to watch this. -Daily CBC, repeated this AM, WBC improved, Hct WNL -Will repeat another set of labs prior to end of shift/sign out and adjust fluids accordingly. -Consider serial imaging to follow necrotic pancreatitis -Zosyn for antibiotic coverage in the setting of potential infected pancreatic necrosis was started in ED. -Changed 12/01 AM to Cefepime and Flagyl IV. Then, GI make rec to change to Imipenem/Cilastin. -Initial Lipase 8685; repeat this AM 4092, will continue trend. #Transaminitis Likely secondary to pancreatitis and irritation of the biliary tree. Will trend CMP. -AST 294 initially, this AM now 180 -ALT 358 initially, this AM now 241 -Daily CMP #MILTON Patient without history of chronic kidney disease creatinine 2.0 on presentation likely resulting in ATN from hypoperfusion in the setting of pancreatitis and poor p.o. intake. - Creat improved to 1.26 -Fluids as above -Daily CMP #Alcohol abuse Patient with history of chronic alcohol abuse. Had recently completed a rehab stay, and had been clean since May 2019. Patient relapsed last week admitting to consuming 6 beers in 1 sitting, he would not report the frequency of these events. Stating only that "it was only 6 beers "and "there is no way 6 beers could do this ". Regardless encouraged him to avoid alcohol in the future. He notes this AM that it was 2 weeks ago last drink. However, Mom later arrived (who is a retired Neurologist) and notes that he snuck out to buy alcohol/beer Thursday when she left house. She notes that he has a history of alcohol abuse with a prior inpatient rehab stay. -AWSS Scale with Ativan 1mg IV ordered. -Monitor for signs of respiratory depression. -consider psych consult vs outpt psych once more medically stable. #Hypertriglyceridemia Patient with a history of hypertriglyceridemia, cholesterol in May was 220, triglycerides 133. Cholesterol labs were not obtained in the emergency department, suspected to be elevated based on his recent increase consumption of fast food. Assuming his liver enzymes normalize would strongly consider addition of a statin given his calculated LDL is 147, but with current Transaminitis, will most likely need to defer this to outpatient PCP. #Anxiety disorder Patient with history of an anxiety disorder well-controlled with home medications. We will be holding home meds in the setting of n.p.o. -Resume bupropion 150 mg every afternoon, and 300 mg every morning when able -Resume doxepin when able -Resume duloxetine when able -Resume trazodone when able #GERD Well controlled with Protonix at home. We will start Protonix drip in the setting of acute pancreatitis. -Protonix drip #Tobacco abuse Patient with a history of tobacco abuse, no desire to quit at present, counseled the patient on the importance of quitting. -We will provide nicotine patch FENa: N.p.o. Code Status: Full DVT PPX: Mechanical for now in case the need for surgery becomes apparent PT/OT: Not indicated Dispo: Transferred to Med/surg tele since acutely ill and requiring cardiac monitoring for tachycardia. (2) Depression: (3) Hypertriglyceridemia: (4) Anxiety disorder, unspecified: (5) Alcohol use disorder, severe, dependence: (6) GERD (gastroesophageal reflux disease): (7) Transaminitis: Admission and Anticipated Discharge Date Admission Date: December 01, 2019 Supervising Physician Co-Signing Physician Notes Attending attestation Pt seen and examined in concert with Dr. Hoffmann. In agreement with the documented findings as noted in the resident documentation with any exceptions or additions as noted here. Pain control improved with increased dilaudid to 2mg q2 hrs. Nausea well controlled. On examination, S1/S2 nl tachycardic no MCG. CTAB. Abd distended with guarding, BS+ve Necrotizing pancreatitis w/ transaminitis - aggressive IV hydration and pain management with repeat labs in PM and tomorrow AM. Gastroenterology consultation appreciated. Monitor tachycardia and correct with fluids/pain control if possible Acute kidney injury - improved with hydration. Continue IV fluids and monitor etOH abuse - 1-2 weeks of known use. Agree w/ AWSS. Previous h/o engaging in rehab services, would provide information prior to discharge. MVI/thiamine today Else see resident documentation as noted. Subjective Mr. Tapia notes that abdominal symptoms of epigastric pain started Thursday. He notes that a stomach bug was going around work so he thought that was the etiology. He notes he has been having nausea and vomiting with poor ability to tolerate PO intake. He notes he is still having significant abdominal pain. He also notes being thirsty but is aware of NPO status. He states he has had other episodes of pancreatitis in the past from drinking alcohol. He notes his last drink was about 2 weeks ago. However, Mom later arrived (who is a retired Neurologist) and notes that he snuck out to buy alcohol/beer Thursday when she left house. She notes that he has a history of alcohol abuse with a prior inpatient rehab stay. Physical Exam Constitutional: + ill appearing and + diaphoretic; + uncomfortable appears in pain Eyes: PERRL, conjunctivae normal, anicteric sclerae ENMT: dry mucous membranes Neck: normal visual inspection and trachea midline Respiratory: normal respiratory effort, lungs clear to auscultation Cardiovascular: Rate/Rhythm: regular rhythm and + tachycardic Extremities: no edema Gastrointestinal (Abdomen): Inspection/Auscultation: caput medusae absent and Marin-Charles sign absent Percussion/Palpation: + abdomen tender (significant upper abdominal) Musculoskeletal: Head/Neck/Chest: normocephalic and head atraumatic Skin: no rashes and no pallor Neurologic: moves all extremities and awake Psychiatric: Orientation: alert and oriented x 3 Affect: + anxious affect Mood: + anxious mood Results & Data ([facility]) Vital Signs (Past 12 Hours) Vital Signs Temp Pulse Pulse Resp BP BP Pulse Ox 12/01/19 06:49 37.6 C H 100 H 20 161/103 H 93 12/01/19 06:09 82 18 149/101 H 95 12/01/19 04:13 94 12/01/19 04:10 89 22 164/104 H 94 12/01/19 01:22 36.5 C 148 H 22 115/80 98 Diagnostic Findings Laboratory Results - last 24 hr 12/01/19 12/01/19 12/01/19 01:47 01:47 01:47 WBC 16.29 H RBC 5.77 Hgb 18.2 H Hct 51.2 MCV 88.7 MCH 31.5 MCHC 35.5 RDW Std Deviation 50.1 H RDW Coeff of Grisel 15.4 H Plt Count 170 MPV 9.9 Immature Gran % (Auto) 0.3 Neut % (Auto) 87.5 Lymph % (Auto) 6.3 Pitt % (Auto) 5.7 Eos % (Auto) 0.1 Baso % (Auto) 0.1 Immature Gran # (Auto) 0.05 H Neut # (Auto) 14.27 H Lymph # (Auto) 1.02 L Pitt # (Auto) 0.93 H Eos # (Auto) 0.01 Baso # (Auto) 0.01 PT 11.1 INR 1.1 Sodium 128 L Potassium 4.0 Chloride 87 L Carbon Dioxide 26 Anion Gap 15.0 H BUN 30 H Creatinine 2.01 H Est Cr Clr Drug Dosing 47.2 Est GFR ( Amer) 49.1 Est GFR (Non-Af Amer) 42.3 BUN/Creatinine Ratio 15.0 Glucose 143 H Estimat Average Glucose Hemoglobin A1c Lactate Calcium 9.1 Total Bilirubin 1.5 H AST 294 H ALT 358 H Alkaline Phosphatase 100 Total Protein 8.2 Albumin 3.7 Globulin 4.5 H Albumin/Globulin Ratio 0.8 L Triglycerides Cholesterol LDL Cholesterol, Calc VLDL Cholesterol, Calc HDL Cholesterol Cholesterol/HDL Ratio Amylase 574 H Lipase 8684 H Folate Urine Color Urine Appearance Urine pH Ur Specific Lorman Urine Protein Urine Glucose (UA) Urine Ketones Urine Blood Urine Nitrite Urine Bilirubin Urine Urobilinogen Ur Leukocyte Esterase Urine RBC Urine WBC Ur Epithelial Cells Ur Renal Epithelial Cell Urine Bacteria Hyaline Casts Waxy Casts WBC Casts Ethyl Alcohol mg/dL 12/01/19 12/01/19 12/01/19 01:47 01:51 04:10 WBC RBC Hgb Hct MCV MCH MCHC RDW Std Deviation RDW Coeff of Grisel Plt Count MPV Immature Gran % (Auto) Neut % (Auto) Lymph % (Auto) Pitt % (Auto) Eos % (Auto) Baso % (Auto) Immature Gran # (Auto) Neut # (Auto) Lymph # (Auto) Pitt # (Auto) Eos # (Auto) Baso # (Auto) PT INR Sodium Potassium Chloride Carbon Dioxide Anion Gap BUN Creatinine Est Cr Clr Drug Dosing Est GFR ( Amer) Est GFR (Non-Af Amer) BUN/Creatinine Ratio Glucose Estimat Average Glucose Hemoglobin A1c Lactate Calcium Total Bilirubin AST ALT Alkaline Phosphatase Total Protein Albumin Globulin Albumin/Globulin Ratio Triglycerides 776 H Cholesterol 208 H LDL Cholesterol, Calc VLDL Cholesterol, Calc HDL Cholesterol 19 Cholesterol/HDL Ratio 11 Amylase Lipase Folate Urine Color Yellow Urine Appearance Clear Urine pH 5.5 Ur Specific Lorman 1.010 Urine Protein 1+ H Urine Glucose (UA) Negative Urine Ketones Trace H Urine Blood 1+ H Urine Nitrite Negative Urine Bilirubin Negative Urine Urobilinogen Negative Ur Leukocyte Esterase Negative Urine RBC 0-4 Urine WBC >30 H Ur Epithelial Cells 0-5 Ur Renal Epithelial Cell 0-5 Urine Bacteria 2+ H Hyaline Casts >30 H Waxy Casts 1-5 H WBC Casts 1-5 H Ethyl Alcohol mg/dL < 3.0 12/01/19 12/01/19 12/01/19 04:55 08:01 08:01 WBC 11.19 H RBC 4.91 Hgb 15.1 D Hct 43.7 MCV 89.0 MCH 30.8 MCHC 34.6 RDW Std Deviation 51.6 H RDW Coeff of Grisel 15.7 H Plt Count 131 MPV 9.4 Immature Gran % (Auto) 0.4 Neut % (Auto) 85.1 Lymph % (Auto) 6.9 Pitt % (Auto) 7.3 Eos % (Auto) 0.3 Baso % (Auto) 0.0 Immature Gran # (Auto) 0.04 H Neut # (Auto) 9.53 H Lymph # (Auto) 0.77 L Pitt # (Auto) 0.82 H Eos # (Auto) 0.03 Baso # (Auto) 0.00 PT INR Sodium 131 L Potassium 4.2 Chloride 96 L Carbon Dioxide 28 Anion Gap 7.0 BUN 19 H Creatinine 1.26 D Est Cr Clr Drug Dosing 75.2 Est GFR ( Amer) 86.3 Est GFR (Non-Af Amer) 74.5 BUN/Creatinine Ratio 15.1 Glucose 143 H Estimat Average Glucose Hemoglobin A1c Lactate 1.0 Calcium 8.1 L Total Bilirubin 1.1 H AST 180 H ALT 241 H Alkaline Phosphatase 73 Total Protein 6.6 Albumin 2.9 L Globulin 3.7 Albumin/Globulin Ratio 0.8 L Triglycerides Cholesterol LDL Cholesterol, Calc VLDL Cholesterol, Calc HDL Cholesterol Cholesterol/HDL Ratio Amylase Lipase 4092 H Folate Urine Color Urine Appearance Urine pH Ur Specific Lorman Urine Protein Urine Glucose (UA) Urine Ketones Urine Blood Urine Nitrite Urine Bilirubin Urine Urobilinogen Ur Leukocyte Esterase Urine RBC Urine WBC Ur Epithelial Cells Ur Renal Epithelial Cell Urine Bacteria Hyaline Casts Waxy Casts WBC Casts Ethyl Alcohol mg/dL 12/01/19 12/01/19 08:01 13:27 WBC RBC Hgb Hct MCV MCH MCHC RDW Std Deviation RDW Coeff of Grisel Plt Count MPV Immature Gran % (Auto) Neut % (Auto) Lymph % (Auto) Pitt % (Auto) Eos % (Auto) Baso % (Auto) Immature Gran # (Auto) Neut # (Auto) Lymph # (Auto) Pitt # (Auto) Eos # (Auto) Baso # (Auto) PT INR Sodium Potassium Chloride Carbon Dioxide Anion Gap BUN Creatinine Est Cr Clr Drug Dosing Est GFR ( Amer) Est GFR (Non-Af Amer) BUN/Creatinine Ratio Glucose Estimat Average Glucose 128 Hemoglobin A1c 6.1 H Lactate Calcium Total Bilirubin AST ALT Alkaline Phosphatase Total Protein Albumin Globulin Albumin/Globulin Ratio Triglycerides Cholesterol LDL Cholesterol, Calc VLDL Cholesterol, Calc HDL Cholesterol Cholesterol/HDL Ratio Amylase Lipase Folate 12.46 Urine Color Urine Appearance Urine pH Ur Specific Lorman Urine Protein Urine Glucose (UA) Urine Ketones Urine Blood Urine Nitrite Urine Bilirubin Urine Urobilinogen Ur Leukocyte Esterase Urine RBC Urine WBC Ur Epithelial Cells Ur Renal Epithelial Cell Urine Bacteria Hyaline Casts Waxy Casts WBC Casts Ethyl Alcohol mg/dL Medications Administered Hydromorphone HCl (Dilaudid) 2 mg IV Q2H PRN PRN Reason: Pain Stop: 12/15/19 11:41 Last Admin: 12/01/19 14:17 Dose: 2 mg Documented by: [id number] Lactated Ringer's (Lr) 1,000 mls @ 200 mls/hr IV .Q5H [facility] Stop: 12/31/19 06:46 Last Admin: 12/01/19 13:00 Dose: 200 mls/hr Documented by: [id number] Infusion: 12/01/19 12:52 Dose: 0 mls/hr Documented by: [id number] Admin: 12/01/19 07:52 Dose: 200 mls/hr Documented by: [id number] Imipenem/Cilastatin Sodium 500 (mg/ Dextrose) 110 mls @ 100 mls/hr IV Q6H [facility]; Protocol Stop: 12/11/19 13:14 Last Infusion: 12/01/19 15:55 Dose: 0 mls/hr Documented by: [id number] Admin: 12/01/19 14:22 Dose: 100 mls/hr Documented by: [id number] Miscellaneous (Remove Nicoderm Patch) 1 ea N/A DAILY@[id number] [facility] Stop: 12/31/19 08:58 Last Admin: 12/01/19 07:52 Dose: Not Given Documented by: [id number] Nicotine (Nicoderm Cq) 14 mg TD QAM [facility] Stop: 12/31/19 08:59 Last Admin: 12/01/19 08:09 Dose: 14 mg Documented by: [id number] Resident Activity Tracking Resident Involvement: Resident Care Provided Care Provided: Adult Hospital Medicine (1) Anxiety disorder, unspecified Anxiety disorder type: unspecified anxiety disorder Qualified Code(s): F41.9 - Anxiety disorder, unspecified
[2019-12-01] MEDS: LACTATED RINGER'S 1,000 ML IV SCH ×4 (07:52→22:50)
[2019-12-01] MEDS: NICOTINE 14 MG/24 HR PATCH TD SCH (08:09)
[2019-12-01 08:26] LABS: Eosinophils # (auto) 0.03 K/uL (0-0.5); Eosinophils % (auto) 0.3 %; Hematocrit (blood only) 43.7 % (42-52); Hemoglobin 15.1 g/dL (14.0-18.0); Immature Granulocytes # (auto) 0.04 K/uL (0.00-0.02); Immature Granulocytes % (auto) 0.4 %; Lymphocytes # (auto) 0.77 K/uL (1.2-3.4); Lymphocytes % (auto) 6.9 %; Mean Corpuscular Hemoglobin 30.8 pg (25-34); Mean Corpuscular Hgb Conc 34.6 g/dL (32-36); Mean Platelet Volume 9.4 fL (7.4-10.4); Monocytes # (auto) 0.82 K/uL (0.11-0.59); Monocytes % (auto) 7.3 %; Neutrophils # (auto) 9.53 K/uL (1.4-6.5); Neutrophils % (auto) 85.1 %; Platelet Count 131 K/uL (130-400); RDW Coefficient of Variation 15.7 % (11.5-14.5); RDW Standard Deviation 51.6 fL (36.4-46.3); Red Blood Count 4.91 M/uL (4.7-6.1); White Blood Count 11.19 K/uL (4.8-10.8)
[2019-12-01] MEDS ORDERED: HYDROmorphone INJ 1 MG/ML SYRINGE IV PRN (08:47)
[2019-12-01 08:52] LABS: Albumin Level 2.9 gm/dl (3.4-5.0); BUN Creatinine Ratio 15.1 (10-20); Calcium 8.1 mg/dl (8.5-10.1); Creatinine Clr Calc Pharmacy 75.2 ml/min; Est GFR (African American) 86.3; Est GFR (Non-African American) 74.5; Potassium 4.2 mmol/L (3.5-5.1)
[2019-12-01 08:57] LABS: Albumin Globulin Ratio 0.8 (0.9-2); Bilirubin,Total 1.1 mg/dl (0.2-1); Globulin 3.7 gm/dl (2.5-4.0); Total Protein 6.6 gm/dl (6.4-8.2)
[2019-12-01] MEDS ORDERED: metroNIDAZOLE 500 MG/100 ML BAG IV SCH (09:00)
[2019-12-01] MEDS ORDERED: CEFEPIME 2,000 MG in SYRINGE 7.5 ML IV SCH ×2 (09:00→16:00)
[2019-12-01 09:01] LABS: Estimated Average Glucose 128 mg/dl; Hemoglobin A1C 6.1 % (4.5-5.6)
[2019-12-01] MEDS ORDERED: HYDROmorphone INJ 2 MG/ML SYR/VIAL IV STA (10:07)
[2019-12-01] MEDS ORDERED: SODIUM CHLORIDE 0.9% 1000ML 1,000 ML IV SCH (10:09)
--- NOTE | 2019-12-01 11:07 | Gastrointestinal Consultation ---
Date of Consultation December 01, 2019 Assessment & Plan (1) Necrotizing pancreatitis: (2) Alcohol use disorder, severe, dependence: Pt is a 34 y/o male, hx of ETOH abuse admitted currently with necrotizing pancreatitis. - Continue IV antibx coverage - LR IVF @ 200ml/hr - NPO - Symptomatic management w antiemetics and analgesics prn - ETOH cessation - Suspect ETOH related pancreatitis. Gallbladder in place however "unremarkable" per CT scan, will consider EUS 4-6 weeks after pancreatitis episode Supervising Physician Co-Signing Physician Notes I performed a history and physical examination of the patient today, including specifically on physical exam - soft abdomen. I have discussed the patient's management with the advanced practitioner. Please refer to the nurse practitioner's note for the documented findings and plan of care. 34 years old male patient admitted with acute recurrent ETOH pancreatitis after binge drinking, found with slight necrotizing pattern in the tail of pancreas on CT scan. Now feels significantly better. He is tachycardic but no fever. Mildly deranged LFTs. Prior sono with no gallstones. INR normal and low DF. Recommend: Continue aggressive IV hydration and pain control. Watch for DTs. If he worsens clinically then should be transferred to a tertiary care center. Obtain MRCP. Not clear if he needs ABx however should be changed to Imipenem. Monitor LFTs. May need repeat CT scan in 48 hrs if no clinical improvement. History of Present Illness Reason for Consultation: Pancreatitis Requesting Physician: Dr. Héctor Malone Attending Physician: Dr. Abby Contreras History of Present Illness Pt is a 34 y/o male w PMHx as noted below who presented to ED yesterday w c/o N/V, diffuse abd pain started Thursday but progressively getting worse. He reports a lot of people at work has "GI bug". He however denies any diarrhea, instead having trouble with constipation. He has hx of ETOH abuse, suspected ETOH pancreatitis. Last ETOH intake was about 2 weeks ago per his report and prior to that hasn't had ETOH since May 2019. He is vague in quantifying how much ETOH he usually drinks. On evaluation, noted mild leukocytosis WBC 11, H/H 15/43, Plt 131, PT/INR 11/1.1, BUN/Cr 15/1.2, LFTs: Tbili 1.1, AST 180, ALT 241, alk phos 73. TG 776, Lipase 4000s. CT abd/pelvis w contrast: 1. Acute pancreatitis with evidence of necrotizing pancreatitis involving the distal body and tail 2. Hepatic steatosis 3. No evidence of bowel obstruction. No evidence of free air. 4. Normal appendix This AM he is examined in bed, c/o severe abdominal pain. Dilaudid already ordered by hospitalist. VS showed hypertension: 156/101 and tachycardia HR 119. Allergies Allergy/AdvReac Type Severity Reaction Status Date / Time lactose AdvReac Unknown INTOLERANCE Verified 12/01/19 01:32 Home Medications Home Medications Medication Instructions Recorded Confirmed Type doxepin 50 mg capsule 50 mg PO DAILY #90 cap 06/14/19 12/01/19 Rx duloxetine 60 mg capsule,delayed 60 mg PO DAILY #90 cap 06/14/19 12/01/19 Rx release pantoprazole 40 mg tablet,delayed 40 mg PO DAILY #90 tab 06/14/19 12/01/19 Rx release sildenafil 50 mg tablet See Rx Instructions PO DAILY PRN 06/14/19 12/01/19 Rx #10 tab trazodone 100 mg tablet 100 mg PO HS PRN #90 tab 06/14/19 12/01/19 Rx bupropion HCl 150 mg 24 hr tablet, 150 mg PO QPM #90 tab 08/17/19 12/01/19 Rx extended release bupropion HCl 300 mg 24 hr tablet, 300 mg PO QAM #90 tab 11/10/19 12/01/19 Rx extended release Patient History Medical History Acute pancreatitis (Resolved) Alcohol use disorder, severe, dependence (Chronic) Anxiety disorder, unspecified (Chronic) GERD (gastroesophageal reflux disease) (Chronic) Hypertriglyceridemia (Chronic) Social History Preferred Language: Kittitian Communication Ability: Effective 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 Beliefs That Will Affect Care: None Current Living Situation: Alone Other Information That Helps Us Care for You: No Feels Safe at Home: Yes Smoking Status: Current every day smoker Tobacco Type: cigarettes ; Do You Dip or Chew Tobacco: No ; Tobacco Cessation Education Requested by Patient: No Hx Alcohol Use: Yes Alcohol type: beer Hx Substance Use: No Review of Systems Review of Systems: All systems reviewed & are unremarkable except as noted in HPI & below Physical Exam Constitutional: WD/WN, vitals as above + in distress (c/o abd pain ) Eyes: PERRL, conjunctivae normal, anicteric sclerae ENMT: external ear and nose normal, oropharynx normal Respiratory: normal respiratory effort, lungs clear to auscultation Cardiovascular: RRR, no murmur, no edema Gastrointestinal (Abdomen): Inspection/Auscultation: + hypoactive bowel sounds Percussion/Palpation: + abdomen tender (diffuse), + guarding and + abdomen firm Skin: no rashes, warm and dry no jaundice Psychiatric: Affect: + anxious affect and + tearful affect Lymphatic: no lymphedema Results & Data ([facility]) Vital Signs (Past 12 Hours) Vital Signs Temp Pulse Pulse Pulse Resp BP BP 12/01/19 09:33 37.3 C 119 H 16 156/101 H 12/01/19 09:15 37.3 C 124 H 18 153/94 H 12/01/19 08:00 36.8 C 120 H 122/73 12/01/19 06:49 37.6 C H 100 H 20 12/01/19 06:09 82 18 149/101 H 12/01/19 04:13 12/01/19 04:10 89 22 12/01/19 01:22 36.5 C 148 H 22 115/80 BP Pulse Ox 12/01/19 09:33 92 12/01/19 09:15 93 12/01/19 08:00 12/01/19 06:49 161/103 H 93 12/01/19 06:09 95 12/01/19 04:13 94 12/01/19 04:10 164/104 H 94 12/01/19 01:22 98
[2019-12-01] MEDS ORDERED: HYDROmorphone INJ 2 MG/ML SYR/VIAL ONE (12:05)
[2019-12-01] MEDS ORDERED: LORazepam 1 MG/2 ML VIAL IV PRN (13:12)
[2019-12-01] MEDS ORDERED: MULTI-VITAMIN INFUSION 10 ML, THIAMINE HCL 100 MG, FOLIC ACID 1 MG in SODIUM CHLORIDE 0... IV ONE (13:30)
[2019-12-01] MEDS: HYDROmorphone INJ 2 MG/ML SYR/VIAL IV PRN ×5 (14:17→22:47)
[2019-12-01] MEDS: IMIPENEM/CILASTATIN SODIUM 500 MG in DEXTROSE 5% 100 ML IV SCH ×2 (14:22→20:24)
--- NOTE | 2019-12-01 14:28 | Infectious Disease Consult ---
Date of Consultation December 01, 2019 Assessment & Plan (1) Necrotizing pancreatitis: agree with imipenem, follow cultures. History of Present Illness Attending Physician: Camilo Malone MD pt admitted due to abd pain, has h/o etoh abuse and recurrent etoh pancreatitis, AST 180, ALT 241, lipase>4000, etoh <3, but recent use. ct abd with acute pancreatitis and necrosis of tail. no f/c. still having pain, evaluatedby GI, started on imipenem and ID consulted for abx approval. cultures pending. wbc 11, creat 1.2 UA >30 wbc, + 2 bacteria. no cp, sob, cough, no n/v/d Allergies Allergy/AdvReac Type Severity Reaction Status Date / Time lactose AdvReac Unknown INTOLERANCE Verified 12/01/19 01:32 Home Medications Home Medications Medication Instructions Recorded Confirmed Type doxepin 50 mg capsule 50 mg PO DAILY #90 cap 06/14/19 12/01/19 Rx duloxetine 60 mg capsule,delayed 60 mg PO DAILY #90 cap 06/14/19 12/01/19 Rx release pantoprazole 40 mg tablet,delayed 40 mg PO DAILY #90 tab 06/14/19 12/01/19 Rx release sildenafil 50 mg tablet See Rx Instructions PO DAILY PRN 06/14/19 12/01/19 Rx #10 tab trazodone 100 mg tablet 100 mg PO HS PRN #90 tab 06/14/19 12/01/19 Rx bupropion HCl 150 mg 24 hr tablet, 150 mg PO QPM #90 tab 08/17/19 12/01/19 Rx extended release bupropion HCl 300 mg 24 hr tablet, 300 mg PO QAM #90 tab 11/10/19 12/01/19 Rx extended release Patient History Medical History Acute pancreatitis (Resolved) Alcohol use disorder, severe, dependence (Chronic) Anxiety disorder, unspecified (Chronic) GERD (gastroesophageal reflux disease) (Chronic) Hypertriglyceridemia (Chronic) Social History Preferred Language: Nicaraguan Communication Ability: Effective 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 Beliefs That Will Affect Care: None Current Living Situation: Alone Other Information That Helps Us Care for You: No Feels Safe at Home: Yes Smoking Status: Current every day smoker Tobacco Type: cigarettes ; Do You Dip or Chew Tobacco: No ; Tobacco Cessation Education Requested by Patient: No Hx Alcohol Use: Yes Alcohol type: beer Hx Substance Use: No Review of Systems Review of Systems: All systems reviewed & are unremarkable except as noted in HPI & below Physical Exam Constitutional: WD/WN, vitals as above Eyes: PERRL, conjunctivae normal, anicteric sclerae ENMT: external ear and nose normal, oropharynx normal Neck: normal visual inspection Respiratory: normal respiratory effort, lungs clear to auscultation Cardiovascular: RRR, no murmur, no edema Gastrointestinal (Abdomen): Percussion/Palpation: + abdomen tender and abdomen soft Musculoskeletal: no cyanosis or clubbing, extremities motor strength 5/5 Skin: no rashes, warm and dry Psychiatric: A+Ox3, euthymic affect Results & Data ([facility]) Vital Signs (Past 12 Hours) Vital Signs Temp Pulse Pulse Pulse Resp BP BP 12/01/19 12:16 37.9 C H 128 H 20 152/88 H 12/01/19 09:33 37.3 C 119 H 16 156/101 H 12/01/19 09:15 37.3 C 124 H 18 153/94 H 12/01/19 08:00 36.8 C 120 H 122/73 12/01/19 06:49 37.6 C H 100 H 20 12/01/19 06:09 82 18 149/101 H 12/01/19 04:13 12/01/19 04:10 89 22 BP Pulse Ox 12/01/19 12:16 95 12/01/19 09:33 92 12/01/19 09:15 93 12/01/19 08:00 12/01/19 06:49 161/103 H 93 12/01/19 06:09 95 12/01/19 04:13 94 12/01/19 04:10 164/104 H 94 PG Care Time/CCT Total # of Minutes Spent Total Time Spent with Patient: Total time spent is greater than 50% in coordination of care (as documented) at patient's floor/unit and/or counseling patient: Coding Level of Care Code 52227 Inpt Consult Level 4 Diagnoses Necrotizing pancreatitis K85.91
[2019-12-01] MEDS ORDERED: ACETAMINOPHEN 1,000 MG/100 ML VIAL IV ONE (16:15)
[2019-12-01 16:18] LABS: Eosinophils # (auto) 0.02 K/uL (0-0.5); Eosinophils % (auto) 0.2 %; Hematocrit (blood only) 40.5 % (42-52); Hemoglobin 13.9 g/dL (14.0-18.0); Immature Granulocytes # (auto) 0.02 K/uL (0.00-0.02); Immature Granulocytes % (auto) 0.2 %; Lymphocytes # (auto) 0.65 K/uL (1.2-3.4); Lymphocytes % (auto) 7.8 %; Mean Corpuscular Hemoglobin 30.5 pg (25-34); Mean Corpuscular Hgb Conc 34.3 g/dL (32-36); Mean Corpuscular Volume 88.8 fL (80-100); Mean Platelet Volume 9.5 fL (7.4-10.4); Monocytes # (auto) 0.97 K/uL (0.11-0.59); Monocytes % (auto) 11.6 %; Neutrophils # (auto) 6.72 K/uL (1.4-6.5); Neutrophils % (auto) 80.2 %; Platelet Count 110 K/uL (130-400); RDW Coefficient of Variation 15.9 % (11.5-14.5); RDW Standard Deviation 51.5 fL (36.4-46.3); Red Blood Count 4.56 M/uL (4.7-6.1); White Blood Count 8.38 K/uL (4.8-10.8)
[2019-12-01] MEDS: ONDANSETRON INJ 2 MG/ML 2 ML VIAL IV PRN ×2 (16:19→20:24)
[2019-12-01 16:39] LABS: Albumin Level 2.6 gm/dl (3.4-5.0); BUN Creatinine Ratio 12.5 (10-20); Calcium 8.3 mg/dl (8.5-10.1); Creatinine Clr Calc Pharmacy 86.2 ml/min; Est GFR (African American) 101.7; Est GFR (Non-African American) 87.7; Potassium 3.7 mmol/L (3.5-5.1)
[2019-12-01 16:42] LABS: Albumin Globulin Ratio 0.7 (0.9-2); Bilirubin,Total 1.3 mg/dl (0.2-1); Globulin 3.7 gm/dl (2.5-4.0); Total Protein 6.4 gm/dl (6.4-8.2)
[2019-12-01] MEDS: PANTOprazole 40 MG TAB PO SCH (19:53)
[2019-12-02] MEDS: IMIPENEM/CILASTATIN SODIUM 500 MG in DEXTROSE 5% 100 ML IV SCH ×4 (01:55→20:53)
--- NOTE | 2019-12-02 02:54 | Billing Data ---
Date of Service December 02, 2019 Coding Level of Care Code 64471 Initial Inpt Care Lvl 3
[2019-12-02] MEDS: HYDROmorphone INJ 2 MG/ML SYR/VIAL IV PRN ×6 (04:06→18:47)
[2019-12-02] MEDS: LACTATED RINGER'S 1,000 ML IV SCH ×3 (04:06→14:29)
[2019-12-02 06:39] LABS: Hematocrit (blood only) 35.2 % (42-52); Hemoglobin 11.9 g/dL (14.0-18.0); Mean Corpuscular Hemoglobin 30.6 pg (25-34); Mean Corpuscular Hgb Conc 33.8 g/dL (32-36); Mean Corpuscular Volume 90.5 fL (80-100); RDW Coefficient of Variation 16.4 % (11.5-14.5); RDW Standard Deviation 54.4 fL (36.4-46.3); Red Blood Count 3.89 M/uL (4.7-6.1); White Blood Count 7.04 K/uL (4.8-10.8)
[2019-12-02 07:03] LABS: Basophils # (auto) 0.01 K/uL (0-0.2); Basophils % (auto) 0.1 %; Dohle Bodies 1+; Eosinophils # (auto) 0.06 K/uL (0-0.5); Eosinophils % (auto) 0.9 %; Immature Granulocytes # (auto) 0.03 K/uL (0.00-0.02); Immature Granulocytes % (auto) 0.4 %; Lymphocytes # (auto) 0.94 K/uL (1.2-3.4); Lymphocytes % (auto) 13.4 %; Mean Platelet Volume 9.5 fL (7.4-10.4); Monocytes # (auto) 1.05 K/uL (0.11-0.59); Monocytes % (auto) 14.9 %; Neutrophils # (auto) 4.95 K/uL (1.4-6.5); Neutrophils % (auto) 70.3 %; Platelet Count 98 K/uL (130-400); Platelet Estimate Decreased (Normal)
[2019-12-02 07:07] LABS: Albumin Level 2.4 gm/dl (3.4-5.0); BUN Creatinine Ratio 9.4 (10-20); Calcium 8.3 mg/dl (8.5-10.1); Creatinine Clr Calc Pharmacy 102.3 ml/min; Est GFR (African American) 111.4; Est GFR (Non-African American) 96.1; Potassium 3.8 mmol/L (3.5-5.1)
[2019-12-02 07:11] LABS: Albumin Globulin Ratio 0.7 (0.9-2); Globulin 3.6 gm/dl (2.5-4.0)
[2019-12-02] MEDS: PANTOprazole 40 MG TAB PO SCH ×2 (08:44→21:32)
[2019-12-02] MEDS: NICOTINE 14 MG/24 HR PATCH TD SCH (08:44)
--- NOTE | 2019-12-02 10:57 | Gastroenterology Progress Note ---
Date of Service December 02, 2019 Assessment & Plan (1) Necrotizing pancreatitis: (2) Alcohol use disorder, severe, dependence: Pt is a 34 y/o male, hx of ETOH abuse admitted currently with necrotizing pancreatitis. His WBC, Lipase is improving. Renal function normal. Afebrile since 3P yesterday. His Tbili did increase slightly. - Unclear if there is a need for abx - it is early in the course of his illness to expect infection of pancreatic necrosis, and his presentation may o.w be con sistent with SIRS or DT's. - Decrease IVFs to maintenance; will reduce rate this afternoon if he's able to tolerate CL wel - Obtain MRCP to r/o biliary obstruction given rise in Tbili - Obtain KUB to r/o ileus; advised to decrease narcotic use and if ileus present will consider giving him Relistor. - Symptomatic management w antiemetics and analgesics prn - ETOH cessation; DT protocol Att add: I interviewed and examined pt, reviewed chart and labs. Pt with continued abd pain, continued tachy. Labs reviewed. Diet as hawa, MRCP to look for biliary obstruction of PD duct obstruction Admission and Anticipated Discharge Date Admission Date: December 01, 2019 Subjective Pt reports abd pain is improving. But abd feels distended, he hasn't passed any BM since 4 days ago, no flatus. Denies n/v Labs reviewed. WBC normalized, renal function normal, lipase improved. LFTs w mild increase on Tbili but transaminases improving Review of Systems Review of Systems: All systems reviewed & are unremarkable except as noted in HPI & below Physical Exam Constitutional: WD/WN, vitals as above cooperative and comfortable Eyes: PERRL, conjunctivae normal, anicteric sclerae ENMT: external ear and nose normal, oropharynx normal Respiratory: normal respiratory effort, lungs clear to auscultation Cardiovascular: RRR, no murmur, no edema Gastrointestinal (Abdomen): Inspection/Auscultation: + abdomen distended and + hypoactive bowel sounds Percussion/Palpation: + abdomen tender (diffuse) Skin: no rashes, warm and dry no jaundice Psychiatric: A+Ox3, euthymic affect Lymphatic: no lymphedema Results & Data ([facility]) Vital Signs (Past 12 Hours) Vital Signs Temp Pulse Pulse Pulse Resp BP Pulse Ox 12/02/19 08:15 115 H 12/02/19 08:04 36.7 C 118 H 20 148/79 H 90 12/02/19 04:15 117 H 12/02/19 03:05 37.1 C 116 H 23 142/84 H 94 12/01/19 23:08 18 96 12/01/19 23:02 37.3 C 123 H 18 124/81 73 L
--- NOTE | 2019-12-02 11:13 | XRay Report ---
XR KUB/Abdomen 1 view CLINICAL HISTORY: r/o ileus pain. Nausea. COMPARISON STUDY: No previous studies for comparison. FINDINGS: Generalized nonobstructive ileus. Air-filled colon as well as small bowel. No evidence for pathologic distention. No secondary signs of free air. IMPRESSION: Generalized nonobstructive ileus. ACT 112: Negative or not required by law. The above report was generated using voice recognition software. It may contain grammatical, syntax or spelling errors. Electronically signed by: Salomon Zamora M.D. 12/02/2019 11:12 AM
[2019-12-02] MEDS: BuPROPion XL 300 MG TABCR PO SCH (11:54)
[2019-12-02] MEDS: DULOXETINE HCL 60 MG CAP PO SCH (11:54)
[2019-12-02] MEDS: DOXEPIN HCL 50 MG CAPSULE PO SCH ×2 (11:54→11:56)
--- NOTE | 2019-12-02 12:50 | Infectious Disease Progress Nt ---
Date of Service December 02, 2019 Assessment & Plan (1) Necrotizing pancreatitis: agree with imipenem, follow cultures. would give 14 days Admission and Anticipated Discharge Date Admission Date: December 01, 2019 Subjective fever 38.5 overnight, tolerating imipenem, blood cultures negative. LFTS improving. Results & Data ([facility]) Vital Signs (Past 12 Hours) Vital Signs Temp Pulse Pulse Pulse Resp BP Pulse Ox 12/02/19 08:15 115 H 12/02/19 08:04 36.7 C 118 H 20 148/79 H 90 12/02/19 04:15 117 H 12/02/19 03:05 37.1 C 116 H 23 142/84 H 94 Laboratory Results Microbiology 12/01/19 04:10 Urine,Clean Catch Urine Culture - Preliminary No growth - Less than 1,000 colonies/mL, Final report to follow. 12/01/19 04:59 Blood Aerobic Blood Culture - Preliminary No growth in Aerobic bottle after 24 hours. 12/01/19 04:59 Blood Anaerobic Blood Culture - Preliminary No growth in Anaerobic bottle after 24 hours. 12/01/19 04:55 Blood Aerobic Blood Culture - Preliminary No growth in Aerobic bottle after 24 hours. 12/01/19 04:55 Blood Anaerobic Blood Culture - Preliminary No growth in Anaerobic bottle after 24 hours. PG Care Time/CCT Total # of Minutes Spent Total Time Spent with Patient: Total time spent is greater than 50% in coordination of care (as documented) at patient's floor/unit and/or counseling patient: Coding Level of Care Code 73188 Subseq Hosp Care Lvl 1 Diagnoses Necrotizing pancreatitis K85.91
[2019-12-02] MEDS ORDERED: METHYLNALTREXONE BROMIDE 12 MG/0.6 ML VIAL SQ ONE (13:03)
--- NOTE | 2019-12-02 17:15 | Magnetic Resonance Report ---
MR MRCP HISTORY: elevated lft, acute pancreatitis; r/o biliary obstruction TECHNIQUE: MRCP of the abdomen was performed without contrast according to standard departmental prot ocol. COMPARISON STUDY: Abdomen and pelvis CT 12/01/2019. FINDINGS: Trace bilateral pleural effusions and mild body wall edema. No hepatic or splenic masses. N o intrahepatic bile duct dilatation. No gallbladder wall thickening or gallstones identified. The martha n portal vein is patent. The visualized adrenal glands and kidneys unremarkable. No hydronephrosis. M ild left perinephric edema is likely reactive to the acute pancreatitis. There is again noted inflamm atory change and edema surrounding the pancreas most pronounced at the pancreatic tail. There is also edema within the pancreatic tail consistent with the necrosis seen on the same day CT. No loculated fluid collections identified. Focal smooth narrowing within the mid common bile duct. This could be d ue to localized mass effect from the acute pancreatitis. No filling defects within the common bile du ct. No upstream dilatation to suggest a functional stricture within the common bile duct. The main pa ncreatic duct seen within the pancreatic head and neck is normal in course and caliber. The main panc reatic duct at the level of the pancreatic body and tail is not identified and likely obscured by the pancreatic necrosis. IMPRESSION: 1. Redemonstration of the acute pancreatitis with pancreatic necrosis identified within the distal denita dy/tail. This is similar to the prior CT examination. 2. Trace bilateral pleural effusions and mild body wall edema. 3. Focal smooth narrowing within the mid common bile duct. This could be due to localized mass effect from the acute pancreatitis. No filling defects within the common bile duct. No upstream dilatation to suggest a functional stricture within the common bile duct. 4. The main pancreatic duct seen within the pancreatic head and neck is normal in course and caliber. The main pancreatic duct at the level of the pancreatic body and tail is not identified and likely o bscured by the pancreatic necrosis. ACT 112: Negative or not required by law. Electronically signed by: Eyal Medellin M.D. 12/02/2019 5:13 PM
--- NOTE | 2019-12-02 17:46 | Hospitalist Progress Note ---
Date of Service December 02, 2019 Assessment & Plan (1) Necrotizing pancreatitis: Patient is a 34-year-old male with a past medical history of alcoholism (prior to last week had not had a drink since May 2019), Erectile dysfunction, depression, hypertriglyceridemia, GERD, anxiety, recurrent pancreatitis who presents for evaluation of severe abdominal pain diagnosed with necrotizing pancreatitis. Necrotizing pancreatitis -Clinically improving, tolerating liquids -Consult gastroenterology: appreciate recommendations; MRCP and KUB ordered today. -Clear liquid diet, will observe and aat. -Dilaudid 2mg q2Hr. -LR at maintenance of 100/hr -Daily CMP, repeated this AM, Creat improved, hyponatremia improved, liver enzymes improving. -Monitor corrected Calcium. -Daily CBC, WBC improved, Hct WNL. -Imipenem/Cilastin started 12/01 Transaminitis Likely secondary to pancreatitis and irritation of the biliary tree. Will trend CMP. MILTON; resolved Patient without history of chronic kidney disease creatinine 2.0 on presentation likely resulting in ATN from hypoperfusion in the setting of pancreatitis and poor p.o. intake. - Creat improved to 102 today -Fluids as above -Daily CMP Alcohol abuse Patient with history of chronic alcohol abuse. Had recently completed a rehab stay, and had been clean since May 2019. Patient relapsed last week admitting to consuming 6 beers in 1 sitting, he would not report the frequency of these events. Stating only that "it was only 6 beers "and "there is no way 6 beers could do this ". Regardless encouraged him to avoid alcohol in the future. He notes this AM that it was 2 weeks ago last drink. However, Mom later arrived (who is a retired Neurologist) and notes that he snuck out to buy alcohol/beer Thursday when she left house. She notes that he has a history of alcohol abuse with a prior inpatient rehab stay. -AWSS Scale with Ativan 1mg IV ordered. -Monitor for signs of respiratory depression. -consider psych consult vs outpt psych once more medically stable, however pt declines Hypertriglyceridemia Patient with a history of hypertriglyceridemia, cholesterol in May was 220, triglycerides 133. Cholesterol labs were not obtained in the emergency department, suspected to be elevated based on his recent increase consumption of fast food. Assuming his liver enzymes normalize would strongly consider addition of a statin given his calculated LDL is 147, but with current Transaminitis, will most likely need to defer this to outpatient PCP. Anxiety disorder Patient with history of an anxiety disorder well-controlled with home medications. Resume home meds now tolerating PO -Resume bupropion 150 mg every afternoon, and 300 mg every morning -Resume doxepin, duloxetine, trazodone GERD Well controlled with Protonix at home. We will start Protonix drip in the setting of acute pancreatitis. -Convert to PO as able. Tobacco abuse Patient with a history of tobacco abuse, no desire to quit at present, counseled the patient on the importance of quitting. -We will provide nicotine patch FENa: CL Code Status: Full DVT PPX: Mechanical for now in case the need for surgery becomes apparent PT/OT: Not indicated Dispo: med tele (2) Depression: (3) Hypertriglyceridemia: (4) Anxiety disorder, unspecified: (5) Alcohol use disorder, severe, dependence: (6) GERD (gastroesophageal reflux disease): (7) Transaminitis: Admission and Anticipated Discharge Date Admission Date: December 01, 2019 Supervising Physician Co-Signing Physician Notes I also saw the patient with the resident physician confirmed trinh portions of the history and physical examination. We saw the patient midmorning he was out of bed ambulating in the room. He reported that his abdominal pain had improved; he tolerated most of his liquid diet without increased abdominal pain, nausea, or vomiting. Blood pressure 138/80; he has been afebrile since yesterday at 3 PM. Upon exam, he is ambulating. Alert and oriented. Heart regular; lungs clear. Abdomen with mild tenderness epigastric to left flank. White blood cell count improved to 7.04 Hemoglobin 11.9; mild drop but this may be dilutional Sodium 135; AST 75, ALT 129, total bilirubin 2.0, calcium 8.3 Lipase 2794 yesterday, down to 998 today. Platelet count 98,000 Necrotizing pancreatitis Alcohol abuse Gastroenterology and infectious disease consultations appreciated Continue IV hydration Now that he is taking clears can restart his home psychiatric medications Pain control CBC, CMP, lipase in AM He is amatory at this point so we will hold off on DVT prophylaxis otherwise Subjective Patient reports he feels much improved this morning. Had diet advanced by GI, which he tolerated well and is encouraged by his level of energy today. He vaguely refers to the "reason why he's in here" and "it won't be a problem when i leave, I can tell you that." Declines psych consult, or discussion on alcoholic recovery programs. Review of Systems Review of Systems: All systems reviewed & are unremarkable except as noted in HPI & below Constitutional: + weakness and + increased appetite; no fever and no sweats Respiratory: no cough and no dyspnea Cardiovascular: no chest pain Gastrointestinal: + abdominal pain, + bloating and + early satiety; no nausea, no vomiting, no pain with swallowing and no dysphagia Genitourinary: no dysuria Musculoskeletal: + back pain (radiating from L flank) Neurologic: + generalized weakness; no gait abnormality, no tingling, no numbness, no lack of coordination, no abnormal speech and no confusion Psychiatric: + depression and + anxiety Physical Exam Constitutional: WD/WN, vitals as above cooperative and comfortable Eyes: PERRL, conjunctivae normal, anicteric sclerae ENMT: external ear and nose normal, oropharynx normal Neck: normal visual inspection Respiratory: normal respiratory effort, lungs clear to auscultation Cardiovascular: RRR, no murmur, no edema Rate/Rhythm: regular rhythm and + tachycardic Extremities: no edema Gastrointestinal (Abdomen): Inspection/Auscultation: + abdomen distended and + hypoactive bowel sounds; Marin-Charles sign absent Percussion/Palpation: + abdomen tender (diffuse), + guarding, abdomen soft and + abdomen firm Musculoskeletal: no cyanosis or clubbing, extremities motor strength 5/5 Head/Neck/Chest: normocephalic and head atraumatic Skin: no rashes, warm and dry no rashes, no jaundice and no pallor Neurologic: moves all extremities and awake Psychiatric: A+Ox3, euthymic affect Orientation: alert and oriented x 3 Affect: + anxious affect Mood: + anxious mood Results & Data ([facility]) Vital Signs (Past 12 Hours) Vital Signs Temp Pulse Pulse Resp BP Pulse Ox 12/02/19 15:27 120 H 12/02/19 08:15 115 H 12/02/19 08:04 98.1 F 118 H 20 148/79 H 90 Laboratory Results 12/02/19 12/02/19 Range/Units 06:13 06:13 WBC 7.04 (4.8-10.8) K/uL RBC 3.89 L (4.7-6.1) M/uL Hgb 11.9 L (14.0-18.0) g/dL Hct 35.2 L (42-52) % MCV 90.5 (80-100) fL MCH 30.6 (25-34) pg MCHC 33.8 (32-36) g/dL RDW Std Deviation 54.4 H (36.4-46.3) fL RDW Coeff of Grisel 16.4 H (11.5-14.5) % Plt Count 98 L (130-400) K/uL MPV 9.5 (7.4-10.4) fL Immature Gran % (Auto) 0.4 % Neut % (Auto) 70.3 % Lymph % (Auto) 13.4 % Childress % (Auto) 14.9 % Eos % (Auto) 0.9 % Baso % (Auto) 0.1 % Immature Gran # (Auto) 0.03 H (0.00-0.02) K/uL Neut # (Auto) 4.95 (1.4-6.5) K/uL Lymph # (Auto) 0.94 L (1.2-3.4) K/uL Childress # (Auto) 1.05 H (0.11-0.59) K/uL Eos # (Auto) 0.06 (0-0.5) K/uL Baso # (Auto) 0.01 (0-0.2) K/uL Dohle Bodies 1+ Platelet Estimate Decreased L (Normal) Sodium 135 L (136-145) mmol/L Potassium 3.8 (3.5-5.1) mmol/L Chloride 99 (98-107) mmol/L Carbon Dioxide 30 (21-32) mmol/L Anion Gap 5.0 (3-11) BUN 10 (7-18) mg/dl Creatinine 1.02 (0.6-1.4) mg/dl Est Cr Clr Drug Dosing 102.3 ml/min Est GFR ( Amer) 111.4 Est GFR (Non-Af Amer) 96.1 BUN/Creatinine Ratio 9.4 L (10-20) Glucose 87 (70-99) mg/dl Calcium 8.3 L (8.5-10.1) mg/dl Total Bilirubin 2.0 H D (0.2-1) mg/dl AST 75 H (15-37) U/L ALT 129 H (12-78) U/L Alkaline Phosphatase 53 (45-117) U/L Total Protein 6.0 L (6.4-8.2) gm/dl Albumin 2.4 L (3.4-5.0) gm/dl Globulin 3.6 (2.5-4.0) gm/dl Albumin/Globulin Ratio 0.7 L (0.9-2) Lipase 998 H (73-393) U/L Medications Administered Current Inpatient Medications Bupropion HCl (Wellbutrin-Xl) 300 mg PO QAM [facility] Stop: 01/01/20 10:59 Last Admin: 12/02/19 11:54 Dose: 300 mg Documented by: Bupropion HCl (Wellbutrin-Xl) 150 mg PO QPM [facility] Stop: 01/01/20 20:59 Doxepin HCl (Sinequan) 50 mg PO DAILY [facility] Stop: 01/01/20 10:59 Last Admin: 12/02/19 11:56 Dose: Not Given Documented by: Duloxetine HCl (Cymbalta) 60 mg PO DAILY [facility] Stop: 01/01/20 10:59 Last Admin: 12/02/19 11:54 Dose: 60 mg Documented by: Hydromorphone HCl (Dilaudid) 2 mg IV Q2H PRN PRN Reason: Pain Stop: 12/15/19 11:41 Last Admin: 12/02/19 16:20 Dose: 2 mg Documented by: Lactated Ringer's (Lr) 1,000 mls @ 100 mls/hr IV .Q10H [facility] Stop: 12/31/19 06:46 Last Admin: 12/02/19 14:29 Dose: 100 mls/hr Documented by: Imipenem/Cilastatin Sodium 500 (mg/ Dextrose) 110 mls @ 100 mls/hr IV Q6H NALLELY; Protocol Stop: 12/11/19 13:14 Last Infusion: 12/02/19 17:49 Dose: Infused Documented by: Lorazepam (Ativan) 1 mg in 2 mls @ 2 mls/min IV ONE PRN; Protocol PRN Reason: EtoH Withdrawal AWSS 6-10 Stop: 12/31/19 13:11 Acetaminophen (Ofirmev) 1,000 mg in 100 mls @ 400 mls/hr IV Q8H PRN PRN Reason: Pain or Fever Stop: 12/04/19 23:49 Miscellaneous (Remove Nicoderm Patch) 1 ea N/A DAILY@0859 [facility] Stop: 12/31/19 08:58 Last Admin: 12/02/19 08:45 Dose: 1 ea Documented by: Nicotine (Nicoderm Cq) 14 mg TD QAM [facility] Stop: 12/31/19 08:59 Last Admin: 12/02/19 08:44 Dose: 14 mg Documented by: Ondansetron HCl (Zofran) 4 mg IV Q4H PRN PRN Reason: Nausea Stop: 12/31/19 16:07 Last Admin: 12/01/19 20:24 Dose: 4 mg Documented by: Pantoprazole Sodium (Protonix) 40 mg PO BID [facility] Stop: 12/31/19 20:59 Last Admin: 12/02/19 08:44 Dose: 40 mg Documented by: Trazodone HCl (Desyrel) 100 mg PO HS PRN PRN Reason: sleep Stop: 01/01/20 10:49 Resident Activity Tracking Resident Involvement: Resident Care Provided Care Provided: Adult Hospital Medicine (1) Anxiety disorder, unspecified Anxiety disorder type: unspecified anxiety disorder Qualified Code(s): F41.9 - Anxiety disorder, unspecified
--- NOTE | 2019-12-02 18:33 | Hospitalist Progress Note ---
Date of Service December 02, 2019 Assessment & Plan Admission and Anticipated Discharge Date Admission Date: December 01, 2019 Supervising Physician Co-Signing Physician Notes I also saw the patient with the resident physician confirmed trinh portions of the history and physical examination. We saw the patient midmorning he was out of bed ambulating in the room. He reported that his abdominal pain had improved; he tolerated most of his liquid diet without increased abdominal pain, nausea, or vomiting. Blood pressure 138/80; he has been afebrile since yesterday at 3 PM. Upon exam, he is ambulating. Alert and oriented. Heart regular; lungs clear. Abdomen with mild tenderness epigastric to left flank. White blood cell count improved to 7.04 Hemoglobin 11.9; mild drop but this may be dilutional Sodium 135; AST 75, ALT 129, total bilirubin 2.0, calcium 8.3 Lipase 2794 yesterday, down to 998 today. Platelet count 98,000 Necrotizing pancreatitis Alcohol abuse Gastroenterology and infectious disease consultations appreciated Continue IV hydration Now that he is taking clears can restart his home psychiatric medications Pain control CBC, CMP, lipase in AM He is amatory at this point so we will hold off on DVT prophylaxis otherwise Results & Data ([facility]) Vital Signs (Past 12 Hours) Vital Signs Temp Pulse Pulse Resp BP Pulse Ox 12/02/19 15:27 120 H 12/02/19 08:15 115 H 12/02/19 08:04 36.7 C 118 H 20 148/79 H 90
[2019-12-02] MEDS: ACETAMINOPHEN 1,000 MG/100 ML VIAL IV PRN (19:28)
--- NOTE | 2019-12-02 20:29 | XRay Report ---
XR chest 1V portable HISTORY: worsening oxygen requirement COMPARISON: None. FINDINGS: The heart is normal in size. No pleural effusions. No pneumothorax. Small right upper lobe linear densities favor subsegmental atelectasis. There are few linear and patchy density within the l eft lung base. IMPRESSION: A few linear and patchy densities within the left lung base. This may represent a developing pneumoni a. ACT 112: Negative or not required by law. Electronically signed by: Eyal Medellin M.D. 12/02/2019 8:27 PM
[2019-12-02] MEDS: BuPROPion XL 150 MG TABCR PO SCH (21:34)
[2019-12-02] MEDS: DOCUSATE SODIUM 100 MG CAP PO SCH (21:34)
[2019-12-02] MEDS: TRAZODONE HCL 100 MG TAB PO PRN (21:59)
[2019-12-03] MEDS: IMIPENEM/CILASTATIN SODIUM 500 MG in DEXTROSE 5% 100 ML IV SCH ×4 (01:43→20:10)
[2019-12-03] MEDS: LACTATED RINGER'S 1,000 ML IV SCH ×3 (01:44→21:31)
[2019-12-03] MEDS: HYDROmorphone INJ 2 MG/ML SYR/VIAL IV PRN ×5 (05:16→16:44)
[2019-12-03] MEDS ORDERED: VANCOMYCIN CONSULT ACTIVE PRN (05:34)
[2019-12-03] MEDS ORDERED: OPTIRAY 320 125ml IV PRN (05:48)
[2019-12-03] MEDS ORDERED: VANCOMYCIN HCL 2,000 MG in SODIUM CHLORIDE 0.9% 500 ML IV STA (06:23)
--- NOTE | 2019-12-03 06:58 | CT Scan Report ---
CT ANGIOGRAM OF THE CHEST CLINICAL HISTORY: Atypical chest pain. COMPARISON STUDY: Chest x-ray dated 12/02/2019. Abdominal CT dated 12/01/2019. TECHNIQUE: Following the IV administration of 118 cc of Optiray 320, CT angiogram of the chest was pe rformed from the upper abdomen to the thoracic inlet utilizing the pulmonary embolus protocol. Images are reviewed in the axial, sagittal, and coronal planes. 3-D MIPS images are created and assessed. I V contrast was administered without complication. A dose lowering technique was utilized adhering to the principles of ALARA. The examination is compromised by motion artifact. CT DOSE: 325.72 mGy.cm FINDINGS: Thyroid: Imaged portions of the thyroid gland are normal in size and attenuation. Thoracic aorta: The thoracic aorta is normal in caliber and demonstrates bovine variant arch anatomy. No dissection is seen. Pulmonary vasculature: The pulmonary trunk is normal in caliber. There are no filling defects identif ied in main, lobar, or segmental pulmonary branches to suggest pulmonary embolus. Heart: The heart is top normal in size and without pericardial effusion. Lungs and pleural spaces: Evaluation of the lung parenchyma is compromised by motion artifact. There are small pleural effusions with bibasilar atelectasis. There are small foci of patchy airspace conso lidation identified at the right apex and in the anterior right upper lobe Mediastinum: There is no mediastinal lymphadenopathy. Ene: Clear. Axillae: There is no axillary lymphadenopathy. Upper abdomen: The liver is partially visualized and shows evidence of severe steatosis. A small hiat al hernia is observed.. Extremity and fluid is again seen and consistent with acute pancreatitis. Skeletal structures: No lytic or blastic bony lesions are seen. IMPRESSION: 1. Motion compromised examination. 2. There is no evidence of pulmonary embolus in the main, lobar, or segmental pulmonary arteries. 3. Small pleural effusions with associated atelectasis. 4. There are small foci of patchy airspace consolidation seen at the right apex and the anterior righ t upper lobe. These are of indeterminate significance, and could represent a mild infectious/inflamma tory pneumonitis, mild edema, or focal atelectasis. Clinical correlation will be essential. 5. Findings of severe hepatic steatosis of acute pancreatitis are partially visualized in the upper a bdomen. ACT 112: Negative or not required by law. Electronically signed by: David Walker M.D. 12/03/2019 6:57 AM
--- NOTE | 2019-12-03 07:06 | Hospitalist Progress Note ---
Date of Service December 03, 2019 Assessment & Plan (1) Necrotizing pancreatitis: Patient is a 34-year-old male with a past medical history of alcoholism (until the week [employer], had not had a drink since May 2019), Erectile dysfunction, depression, hypertriglyceridemia, GERD, anxiety, recurrent pancreatitis who presents for evaluation of severe abdominal pain, diagnosed with necrotizing pancreatitis. Necrotizing pancreatitis -Clinically improving, tolerating liquids -Consult gastroenterology: appreciate recommendations. MRCP: pancreatic necrosis identified within the distal body/tail, Trace bilateral pleural effusions and mild body wall edema, Focal smooth narrowing within the mid common bile duct, No filling defects within the common bile duct. No upstream dilatation to suggest a functional stricture within the common bile duct. Pancreatic duct within the pancreatic head/neck normal in course and caliber. Duct at level of the pancreatic body and tail is not identified and likely obscured by the pancreatic necrosis. -Advance to full liquids and hope to advance as tolerated this evening. -Dilaudid 2mg q3Hr. Lidoderm patch on LUQ abdominal wall -LR at maintenance of 100/hr -Daily CMP: Creat improved, hyponatremia improved, liver enzymes improving. -Monitor corrected Calcium. -Daily CBC, WBC improved, Hct WNL. -Imipenem/Cilastin started 12/01; utility unclear at this time, but will continue. Dyspnea/Orthopnea -Suspect related to atelectasis, ileus and being unable to take deep breaths -Continue incentive spirometry Ileus -Relistor given x 1 on 12/02/19 -Added colace, dulcolax, simethicone -Cutting back pain meds as tolerated Transaminitis Likely secondary to pancreatitis and irritation of the biliary tree. Will trend CMP. Improving daily. MILTON; resolved Patient without history of chronic kidney disease creatinine 2.0 on presentation likely resulting in ATN from hypoperfusion in the setting of pancreatitis and poor p.o. intake. - Creat improved to 102 today -Fluids as above -Daily CMP Alcohol abuse Patient with history of chronic alcohol abuse. Had recently completed a rehab stay, and had been clean since May 2019. Patient relapsed last week admitting to consuming 6 beers in 1 sitting, he would not report the frequency of these events. Stating only that "it was only 6 beers "and "there is no way 6 beers could do this ". Regardless encouraged him to avoid alcohol in the future. He notes this AM that it was 2 weeks ago last drink. However, Mom later arrived (who is a retired Neurologist) and notes that he snuck out to buy alcohol/beer Thursday when she left house. She notes that he has a history of alcohol abuse with a prior inpatient rehab stay. -AWSS Scale with Ativan 1mg IV ordered. Has not needed to date. -Monitor for signs of respiratory depression. -consider psych consult vs outpt psych once more medically stable, however pt declines Hypertriglyceridemia Patient with a history of hypertriglyceridemia, cholesterol in May was 220, triglycerides 133. Cholesterol labs were not obtained in the emergency department, suspected to be elevated based on his recent increase consumption of fast food. Assuming his liver enzymes normalize would strongly consider addition of a statin given his calculated LDL is 147, but with current Transaminitis, will most likely need to defer this to outpatient PCP. Anxiety disorder Patient with history of an anxiety disorder well-controlled with home medications. Resume home meds now tolerating PO -Resume bupropion 150 mg every afternoon, and 300 mg every morning -Resume doxepin, duloxetine, trazodone GERD Well controlled with Protonix at home. We will start Protonix drip in the setting of acute pancreatitis. -Convert to PO as able. Tobacco abuse Patient with a history of tobacco abuse, no desire to quit at present, counseled the patient on the importance of quitting. -We will provide nicotine patch FENa: Full liquid, A/A/T Code Status: Full DVT PPX: Lovenox 40 PT/OT: Not indicated Dispo: med tele (2) Depression: (3) Hypertriglyceridemia: (4) Anxiety disorder, unspecified: (5) Alcohol use disorder, severe, dependence: (6) GERD (gastroesophageal reflux disease): (7) Transaminitis: Admission and Anticipated Discharge Date Admission Date: December 01, 2019 Supervising Physician Co-Signing Physician Notes I saw the patient with the resident physician and confirmed trinh portions the history and physical examination. Agree with the impression and plan as noted above. Upon examination, the patient was lying supine in bed. He describes more of a bloated feeling than the pain he had upon admission. He has not had a bowel movement. He has passed some flatus. Blood pressure 137/72, heart rate 112, respiratory rate 19, temperature 36.8, T- max 37.9 Alert and oriented. Heart regular; lungs clear. Abdomen with mild tenderness epigastric to left flank; hypoactive bowel sounds. White blood cell count 8.56 Hemoglobin 13.2 Sodium 134, potassium 3.7, BUN 9, creatinine 0.96 Lipase 569, ALT 116, AST 60 -all trending down Platelet count has normalized at 134 Necrotizing pancreatitis Alcohol abuse Generalized ileus, likely secondary to pain medications Gastroenterology and infectious disease consultations appreciated Continue IV hydration We will try to decrease use of opiate pain medications Subjective Overnight, pt reporting some L sided CP and dyspnea. Required supplemental oxygen. CT for PE negative, but showed bibasilar infiltrates. Started on Vanc for ?pna, MRSA swab ordered and negative. Pt reports his pain has increased slightly in LUQ, but his overall distension is improved and he notes he is passing gas which he thinks has been helping. Feels dyspneic when lying flat. Review of Systems Review of Systems: All systems reviewed & are unremarkable except as noted in HPI & below Constitutional: + weakness and + increased appetite; no fever and no sweats Respiratory: + dyspnea (when laying flat) and + pain on inspiration Cardiovascular: + orthopnea; no chest pain, no edema and no calf pain Gastrointestinal: + abdominal pain, + bloating, + change in bowel habits and + constipation; no nausea, no vomiting, no pain with swallowing and no dysphagia Genitourinary: no dysuria Musculoskeletal: + back pain (radiating from L flank) Integumentary: no rash Neurologic: + generalized weakness; no gait abnormality, no tingling, no numbness, no lack of coordination, no dizziness, no abnormal speech and no confusion Psychiatric: + depression and + anxiety Physical Exam Constitutional: WD/WN, vitals as above cooperative and comfortable Eyes: PERRL, conjunctivae normal, anicteric sclerae ENMT: external ear and nose normal, oropharynx normal Neck: normal visual inspection Respiratory: normal respiratory effort, lungs clear to auscultation Auscultation: + diminished lung sounds (bibasilar, L>R) Cardiovascular: RRR, no murmur, no edema Rate/Rhythm: regular rhythm Extremities: no edema Gastrointestinal (Abdomen): Inspection/Auscultation: + abdomen distended (but softer, improving) and + hypoactive bowel sounds; Marin-Charles sign absent Percussion/Palpation: + abdomen firm (but improving); no guarding Musculoskeletal: no cyanosis or clubbing, extremities motor strength 5/5 Head/Neck/Chest: normocephalic and head atraumatic Skin: no rashes, warm and dry no rashes, no jaundice and no pallor Neurologic: moves all extremities and awake Psychiatric: A+Ox3, euthymic affect Orientation: alert and oriented x 3 Affect: + anxious affect Mood: + anxious mood Lymphatic: no lymphedema Results & Data ([facility]) Vital Signs (Past 12 Hours) Vital Signs Temp Pulse Pulse Pulse Resp BP Pulse Ox 12/03/19 04:00 98.4 F 105 H 18 141/85 H 91 12/03/19 00:50 115 H 12/03/19 00:08 98.1 F 102 H 18 142/88 H 96 12/02/19 19:25 100.2 F H 122 H 20 136/78 95 Laboratory Results 12/03/19 12/03/19 12/03/19 Range/Units 06:55 06:55 05:40 WBC 8.56 (4.8-10.8) K/uL RBC 4.23 L (4.7-6.1) M/uL Hgb 13.2 L (14.0-18.0) g/dL Hct 39.0 L (42-52) % MCV 92.2 (80-100) fL MCH 31.2 (25-34) pg MCHC 33.8 (32-36) g/dL RDW Std Deviation 57.3 H (36.4-46.3) fL RDW Coeff of Grisel 17.0 H (11.5-14.5) % Plt Count 134 (130-400) K/uL MPV 9.7 (7.4-10.4) fL Immature Gran % (Auto) 0.7 % Neut % (Auto) 71.9 % Lymph % (Auto) 13.0 % Maury % (Auto) 11.9 % Eos % (Auto) 2.3 % Baso % (Auto) 0.2 % Immature Gran # (Auto) 0.06 H (0.00-0.02) K/uL Neut # (Auto) 6.15 (1.4-6.5) K/uL Lymph # (Auto) 1.11 L (1.2-3.4) K/uL Maury # (Auto) 1.02 H (0.11-0.59) K/uL Eos # (Auto) 0.20 (0-0.5) K/uL Baso # (Auto) 0.02 (0-0.2) K/uL Absolute Nucleated RBC 0.06 H (0-0) K/uL Nucleated RBC % (auto) 0.7 % Sodium 134 L (136-145) mmol/L Potassium 3.7 (3.5-5.1) mmol/L Chloride 99 (98-107) mmol/L Carbon Dioxide 31 (21-32) mmol/L Anion Gap 4.0 (3-11) BUN 9 (7-18) mg/dl Creatinine 0.96 (0.6-1.4) mg/dl Est Cr Clr Drug Dosing 108.4 ml/min Est GFR ( Amer) 119.9 Est GFR (Non-Af Amer) 103.4 BUN/Creatinine Ratio 9.7 L (10-20) Glucose 81 (70-99) mg/dl Calcium 9.0 (8.5-10.1) mg/dl Total Bilirubin 1.6 H (0.2-1) mg/dl Direct Bilirubin 0.9 H (0-0.2) mg/dl AST 60 H (15-37) U/L ALT 116 H (12-78) U/L Alkaline Phosphatase 72 (45-117) U/L Total Protein 7.3 D (6.4-8.2) gm/dl Albumin 2.6 L (3.4-5.0) gm/dl Globulin 4.7 H (2.5-4.0) gm/dl Albumin/Globulin Ratio 0.6 L (0.9-2) Lipase 569 H (73-393) U/L Nasal Screen MRSA (PCR) Negative (Negative) Diagnostic Findings CT ANGIOGRAM OF THE CHEST CLINICAL HISTORY: Atypical chest pain. COMPARISON STUDY: Chest x-ray dated 12/02/2019. Abdominal CT dated 12/01/2019. TECHNIQUE: Following the IV administration of 118 cc of Optiray 320, CT angiogram of the chest was performed from the upper abdomen to the thoracic inlet utilizing the pulmonary embolus protocol. Images are reviewed in the axial, sagittal, and coronal planes. 3-D MIPS images are created and assessed. I V contrast was administered without complication. A dose lowering technique was utilized adhering to the principles of ALARA. The examination is compromised by motion artifact. CT DOSE: 325.72 mGy.cm FINDINGS: Thyroid: Imaged portions of the thyroid gland are normal in size and attenuation. Thoracic aorta: The thoracic aorta is normal in caliber and demonstrates bovine variant arch anatomy. No dissection is seen. Pulmonary vasculature: The pulmonary trunk is normal in caliber. There are no filling defects identified in main, lobar, or segmental pulmonary branches to suggest pulmonary embolus. Heart: The heart is top normal in size and without pericardial effusion. Lungs and pleural spaces: Evaluation of the lung parenchyma is compromised by motion artifact. There are small pleural effusions with bibasilar atelectasis. There are small foci of patchy airspace consolidation identified at the right apex and in the anterior right upper lobe Mediastinum: There is no mediastinal lymphadenopathy. Ene: Clear. Axillae: There is no axillary lymphadenopathy. Upper abdomen: The liver is partially visualized and shows evidence of severe steatosis. A small hiatal hernia is observed.. Extremity and fluid is again seen and consistent with acute pancreatitis. Skeletal structures: No lytic or blastic bony lesions are seen. IMPRESSION: 1. Motion compromised examination. 2. There is no evidence of pulmonary embolus in the main, lobar, or segmental pulmonary arteries. 3. Small pleural effusions with associated atelectasis. 4. There are small foci of patchy airspace consolidation seen at the right apex and the anterior right upper lobe. These are of indeterminate significance, and could represent a mild infectious/inflammatory pneumonitis, mild edema, or focal atelectasis. Clinical correlation will be essential. 5. Findings of severe hepatic steatosis of acute pancreatitis are partially visualized in the upper abdomen. Medications Administered Current Inpatient Medications Bisacodyl (Dulcolax) 5 mg PO DAILY PRN PRN Reason: Constipation Stop: 01/02/20 09:28 Bupropion HCl (Wellbutrin-Xl) 300 mg PO QAM NALLELY Stop: 01/01/20 10:59 Last Admin: 12/03/19 08:08 Dose: 300 mg Documented by: Bupropion HCl (Wellbutrin-Xl) 150 mg PO QPM NALLELY Stop: 01/01/20 20:59 Last Admin: 12/02/19 21:34 Dose: 150 mg Documented by: Docusate Sodium (Colace) 100 mg PO BID NALLELY Stop: 01/01/20 20:59 Last Admin: 12/03/19 08:08 Dose: 100 mg Documented by: Doxepin HCl (Sinequan) 50 mg PO DAILY [facility] Stop: 01/01/20 10:59 Last Admin: 12/03/19 08:09 Dose: Not Given Documented by: Duloxetine HCl (Cymbalta) 60 mg PO DAILY [facility] Stop: 01/01/20 10:59 Last Admin: 12/03/19 08:08 Dose: 60 mg Documented by: Hydromorphone HCl (Dilaudid) 2 mg IV Q2H PRN PRN Reason: Pain Stop: 12/15/19 11:41 Last Admin: 12/03/19 08:07 Dose: 2 mg Documented by: Lactated Ringer's (Lr) 1,000 mls @ 100 mls/hr IV .Q10H [facility] Stop: 12/31/19 06:46 Last Admin: 12/03/19 01:44 Dose: 100 mls/hr Documented by: Imipenem/Cilastatin Sodium 500 (mg/ Dextrose) 110 mls @ 100 mls/hr IV Q6H [facility]; Protocol Stop: 12/11/19 13:14 Last Infusion: 12/03/19 09:20 Dose: Infused Documented by: Lorazepam (Ativan) 1 mg in 2 mls @ 2 mls/min IV ONE PRN; Protocol PRN Reason: EtoH Withdrawal AWSS 6-10 Stop: 12/31/19 13:11 Acetaminophen (Ofirmev) 1,000 mg in 100 mls @ 400 mls/hr IV Q8H PRN PRN Reason: Pain or Fever Stop: 12/04/19 23:49 Last Infusion: 12/02/19 20:20 Dose: Infused Documented by: Ioversol (Optiray 320 125ml) 118 ml IV ONCE PRN PRN Reason: Interaction Checking Stop: 12/07/19 05:47 Last Admin: 12/03/19 05:48 Dose: 1 ml Documented by: Lidocaine (Lidoderm 5%) 1 patch TD QAM [facility] Stop: 01/02/20 09:29 Miscellaneous (Remove Nicoderm Patch) 1 ea N/A DAILY@0859 [facility] Stop: 12/31/19 08:58 Last Admin: 12/03/19 08:08 Dose: 1 ea Documented by: Miscellaneous (Remove Lidoderm Patch) 1 ea N/A DAILY@2100 [facility] Stop: 01/02/20 20:59 Miscellaneous Information (Consult) 1 ea N/A UD PRN PRN Reason: Consult Stop: 01/02/20 05:33 Nicotine (Nicoderm Cq) 14 mg TD QAM [facility] Stop: 12/31/19 08:59 Last Admin: 12/03/19 08:08 Dose: 14 mg Documented by: Ondansetron HCl (Zofran) 4 mg IV Q4H PRN PRN Reason: Nausea Stop: 12/31/19 16:07 Last Admin: 12/01/19 20:24 Dose: 4 mg Documented by: Pantoprazole Sodium (Protonix) 40 mg PO BID [facility] Stop: 12/31/19 20:59 Last Admin: 12/03/19 08:08 Dose: 40 mg Documented by: Trazodone HCl (Desyrel) 100 mg PO HS PRN PRN Reason: sleep Stop: 01/01/20 10:49 Last Admin: 12/02/19 21:59 Dose: 100 mg Documented by: Resident Activity Tracking Resident Involvement: Resident Care Provided Care Provided: Adult Hospital Medicine (1) Anxiety disorder, unspecified Anxiety disorder type: unspecified anxiety disorder Qualified Code(s): F41.9 - Anxiety disorder, unspecified
[2019-12-03 07:11] LABS: Basophils # (auto) 0.02 K/uL (0-0.2); Basophils % (auto) 0.2 %; Eosinophils % (auto) 2.3 %; Hemoglobin 13.2 g/dL (14.0-18.0); Immature Granulocytes # (auto) 0.06 K/uL (0.00-0.02); Immature Granulocytes % (auto) 0.7 %; Lymphocytes # (auto) 1.11 K/uL (1.2-3.4); Mean Corpuscular Hemoglobin 31.2 pg (25-34); Mean Corpuscular Hgb Conc 33.8 g/dL (32-36); Mean Corpuscular Volume 92.2 fL (80-100); Mean Platelet Volume 9.7 fL (7.4-10.4); Monocytes # (auto) 1.02 K/uL (0.11-0.59); Monocytes % (auto) 11.9 %; Neutrophils # (auto) 6.15 K/uL (1.4-6.5); Neutrophils % (auto) 71.9 %; Nucleated RBC # (auto) 0.06 K/uL (0-0); Nucleated RBC % (auto) 0.7 %; Platelet Count 134 K/uL (130-400); RDW Standard Deviation 57.3 fL (36.4-46.3); Red Blood Count 4.23 M/uL (4.7-6.1); White Blood Count 8.56 K/uL (4.8-10.8)
[2019-12-03 07:49] LABS: Albumin Level 2.6 gm/dl (3.4-5.0); BUN Creatinine Ratio 9.7 (10-20); Bilirubin Direct 0.9 mg/dl (0-0.2); Creatinine Clr Calc Pharmacy 108.4 ml/min; Est GFR (African American) 119.9; Est GFR (Non-African American) 103.4; Potassium 3.7 mmol/L (3.5-5.1)
[2019-12-03 07:52] LABS: Albumin Globulin Ratio 0.6 (0.9-2); Bilirubin,Total 1.6 mg/dl (0.2-1); Globulin 4.7 gm/dl (2.5-4.0); Total Protein 7.3 gm/dl (6.4-8.2)
[2019-12-03] MEDS: DULOXETINE HCL 60 MG CAP PO SCH (08:08)
[2019-12-03] MEDS: DOCUSATE SODIUM 100 MG CAP PO SCH ×2 (08:08→20:15)
[2019-12-03] MEDS: BuPROPion XL 300 MG TABCR PO SCH (08:08)
[2019-12-03] MEDS: NICOTINE 14 MG/24 HR PATCH TD SCH (08:08)
[2019-12-03] MEDS: PANTOprazole 40 MG TAB PO SCH ×2 (08:08→20:15)
[2019-12-03] MEDS: DOXEPIN HCL 50 MG CAPSULE PO SCH (08:09)
--- NOTE | 2019-12-03 09:19 | Gastroenterology Progress Note ---
Date of Service December 03, 2019 Assessment & Plan (1) Necrotizing pancreatitis: (2) Alcohol use disorder, severe, dependence: Pt is a 34 y/o male, hx of ETOH abuse admitted currently with necrotizing pancreatitis. His WBC, Lipase is improving. Renal function normal. Afebrile. His Tbili did increase slightly. LFTs trending down. No evidence of filling defect on MRCP. Ileus. - No clear need for abx - it is early in the course of his illness to expect infection of pancreatic necrosis, and his presentation may o.w be consistent with SIRS or DT's. - Continue with IVFs maintenance - Keep diet the same today. - Relistor given for ileus. - Symptomatic management w antiemetics and analgesics prn - ETOH cessation; DT protocol Admission and Anticipated Discharge Date Admission Date: December 01, 2019 Subjective Some chest pain and SOB/cough. CT PE study negative but possible infiltrate. Less abd pain. No nausea or vomiting. Tolerating current diet. MRCP did not show any filling defects in the bile ducts. LFTs and lipase continue to improve.. Review of Systems Review of Systems: All systems reviewed & are unremarkable except as noted in HPI & below Physical Exam Constitutional: WD/WN, vitals as above Respiratory: normal respiratory effort, lungs clear to auscultation Cardiovascular: RRR, no murmur, no edema Gastrointestinal (Abdomen): Inspection/Auscultation: + hypoactive bowel sounds Percussion/Palpation: abdomen soft Results & Data ([facility]) Vital Signs (Past 12 Hours) Vital Signs Temp Pulse Pulse Pulse Resp BP Pulse Ox 12/03/19 08:33 36.8 C 92 H 22 148/90 H 98 12/03/19 07:35 110 H 12/03/19 04:00 36.9 C 105 H 18 141/85 H 91 12/03/19 00:50 115 H 12/03/19 00:08 36.7 C 102 H 18 142/88 H 96
[2019-12-03] MEDS ORDERED: bisacodyL 5 MG TABEC PO PRN (09:29)
[2019-12-03] MEDS: LIDOCAINE 5% 1 PATCH TD SCH (10:30)
[2019-12-03] MEDS: SIMETHICONE 80 MG CHEW PO PRN (13:47)
[2019-12-03] MEDS: ACETAMINOPHEN 1,000 MG/100 ML VIAL IV PRN (19:08)
[2019-12-03] MEDS: BuPROPion XL 150 MG TABCR PO SCH (20:15)
[2019-12-03] MEDS: ENOXAPARIN INJ 40 MG/0.4 ML SYR SQ SCH (20:15)
[2019-12-04] MEDS: IMIPENEM/CILASTATIN SODIUM 500 MG in DEXTROSE 5% 100 ML IV SCH ×4 (03:21→20:22)
[2019-12-04] MEDS: ACETAMINOPHEN 1,000 MG/100 ML VIAL IV PRN ×2 (04:35→15:53)
[2019-12-04] MEDS: HYDROmorphone INJ 2 MG/ML SYR/VIAL IV PRN ×4 (06:34→20:22)
[2019-12-04] MEDS: SIMETHICONE 80 MG CHEW PO PRN (06:36)
[2019-12-04 06:51] LABS: Basophils # (auto) 0.02 K/uL (0-0.2); Basophils % (auto) 0.3 %; Eosinophils # (auto) 0.29 K/uL (0-0.5); Hematocrit (blood only) 32.1 % (42-52); Hemoglobin 10.7 g/dL (14.0-18.0); Immature Granulocytes # (auto) 0.05 K/uL (0.00-0.02); Immature Granulocytes % (auto) 0.7 %; Lymphocytes # (auto) 0.97 K/uL (1.2-3.4); Lymphocytes % (auto) 13.4 %; Mean Corpuscular Hemoglobin 30.5 pg (25-34); Mean Corpuscular Hgb Conc 33.3 g/dL (32-36); Mean Corpuscular Volume 91.5 fL (80-100); Mean Platelet Volume 9.4 fL (7.4-10.4); Monocytes # (auto) 1.17 K/uL (0.11-0.59); Monocytes % (auto) 16.2 %; Neutrophils # (auto) 4.74 K/uL (1.4-6.5); Neutrophils % (auto) 65.4 %; Nucleated RBC % (auto) 1.3 %; Platelet Count 159 K/uL (130-400); RDW Coefficient of Variation 16.9 % (11.5-14.5); Red Blood Count 3.51 M/uL (4.7-6.1); White Blood Count 7.24 K/uL (4.8-10.8)
--- NOTE | 2019-12-04 07:23 | Hospitalist Progress Note ---
Date of Service December 04, 2019 Assessment & Plan (1) Necrotizing pancreatitis: Patient is a 34-year-old male with a past medical history of alcoholism (until the week [employer], had not had a drink since May 2019), Erectile dysfunction, depression, hypertriglyceridemia, GERD, anxiety, recurrent pancreatitis who presents for evaluation of severe abdominal pain, diagnosed with necrotizing pancreatitis. Necrotizing pancreatitis -Clinically improving, tolerating solid foods well -Consult gastroenterology: appreciate recommendations. MRCP on 12/02/19: pancreatic necrosis identified within the distal body/tail, Trace bilateral pleural effusions and mild body wall edema, Focal smooth narrowing within the mid common bile duct, No filling defects within the common bile duct. No upstream dilatation to suggest a functional stricture within the common bile duct. Pancreatic duct within the pancreatic head/neck normal in course and caliber. Duct at level of the pancreatic body and tail is not identified and likely obscured by the pancreatic necrosis. -Dilaudid 2mg q4Hr. Lidoderm patch on LUQ abdominal wall -LR at maintenance of 100/hr -Daily CMP: Creat improved, hyponatremia improved, liver enzymes improving. Slight bump in lipase on 12/04/19, possibly from increased PO intake. Will monitor -Monitor corrected Calcium. -Daily CBC, WBC improved, Hct WNL. -Imipenem/Cilastin started 12/01; utility unclear at this time, but will continue. Dyspnea/Orthopnea -Suspect related to atelectasis, ileus and being unable to take deep breaths -Continue incentive spirometry Ileus -Relistor given x 1 on 12/02/19. Request GI input on repeating as patient felt it helped. -Added colace, dulcolax, simethicone -Cutting back pain meds as tolerated Transaminitis Likely secondary to pancreatitis and irritation of the biliary tree. Will trend CMP. Improving daily. MILTON; resolved Patient without history of chronic kidney disease creatinine 2.0 on presentation likely resulting in ATN from hypoperfusion in the setting of pancreatitis and poor p.o. intake. -Creat improved -Fluids as above -Daily CMP Alcohol abuse Patient with history of chronic alcohol abuse. Had recently completed a rehab stay, and had been clean since May 2019. Patient relapsed last week admitting to consuming 6 beers in 1 sitting, he would not report the frequency of these events. Stating only that "it was only 6 beers "and "there is no way 6 beers could do this ". Regardless encouraged him to avoid alcohol in the future. He notes this AM that it was 2 weeks ago last drink. However, Mom later arrived (who is a retired Neurologist) and notes that he snuck out to buy alcohol/beer Thursday when she left house. She notes that he has a history of alcohol abuse with a prior inpatient rehab stay. Pt reports he was drinking more than initially reported. -AWSS Scale with Ativan 1mg IV ordered. -Monitor for signs of respiratory depression. -consider psych consult vs outpt psych once more medically stable, however pt declines Hypertriglyceridemia Patient with a history of hypertriglyceridemia, cholesterol in May was 220, triglycerides 133. Cholesterol labs were not obtained in the emergency department, suspected to be elevated based on his recent increase consumption of fast food. Assuming his liver enzymes normalize would strongly consider addition of a statin given his calculated LDL is 147, but with current Transaminitis, will most likely need to defer this to outpatient PCP. Anxiety disorder Patient with history of an anxiety disorder well-controlled with home medications. Resume home meds now that tolerating PO -Resume bupropion 150 mg every afternoon, and 300 mg every morning -Resume doxepin, duloxetine, trazodone GERD Well controlled with Protonix at home. Tobacco abuse Patient with a history of tobacco abuse, no desire to quit at present, counseled the patient on the importance of quitting. -We will provide nicotine patch FENa: Full liquid, A/A/T Code Status: Full DVT PPX: Lovenox 40 PT/OT: Not indicated Dispo: med tele in light of desaturation (2) Depression: (3) Hypertriglyceridemia: (4) Anxiety disorder, unspecified: (5) Alcohol use disorder, severe, dependence: (6) GERD (gastroesophageal reflux disease): (7) Transaminitis: Admission and Anticipated Discharge Date Admission Date: December 01, 2019 Supervising Physician Co-Signing Physician Notes I saw the patient with the resident physician and confirmed trinh portions the history and physical examination. Agree with the impression and plan as noted above. Upon examination, the patient was lying supine in bed. He continues to describe more of a bloating sensation than the pain he had upon admission. Blood pressure 146/93; heart rate 91; respiratory 18; afebrile Alert and oriented. Heart regular; lungs clear. Abdomen is soft. Similar mild tenderness epigastric to left flank; hypoactive bowel sounds. White blood cell count 7.24, hemoglobin 10.7. Potassium 3.2 AST 49, ALT 81, lipase 624. Necrotizing pancreatitis Alcohol abuse Generalized ileus, likely secondary to pain medications In general he seems to be improving; if we get his bowels moving more regularly I think he would feel markedly better. Gastroenterology and infectious disease consultations appreciated Continue IV hydration; diet is much as he would tolerate Continue to try to decrease use of opiate pain medications Subjective Overnight, patient c/o dyspnea, anxiety. AWSS of 8, ativan given with relief. Reports to overnight MD he was drinking more than previously stated and up to time of admission. Concern raised for THERESE due to excess snoring and oxygen sats dropping overnight. He reports some subjective improvement in his pain today. He notes he didn't eat dinner last evening, but tolerated breakfast well today. He is continuing to pass gas but would like to repeat the relistor if possible as he feels most of his discomfort is coming from his ileus. Review of Systems Review of Systems: All systems reviewed & are unremarkable except as noted in HPI & below Constitutional: + weakness and + increased appetite; no fever and no sweats Respiratory: + pain on inspiration Cardiovascular: + orthopnea; no chest pain, no edema and no calf pain Gastrointestinal: + abdominal pain, + bloating, + change in bowel habits and + constipation; no nausea, no vomiting, no pain with swallowing and no dysphagia Musculoskeletal: + back pain (radiating from L flank) Neurologic: + generalized weakness; no gait abnormality, no tingling, no numbness, no lack of coordination, no dizziness, no abnormal speech and no confusion Psychiatric: + depression and + anxiety Physical Exam Constitutional: WD/WN, vitals as above cooperative and comfortable Eyes: PERRL, conjunctivae normal, anicteric sclerae ENMT: external ear and nose normal, oropharynx normal Neck: normal visual inspection Respiratory: normal respiratory effort, lungs clear to auscultation Cardiovascular: RRR, no murmur, no edema Rate/Rhythm: regular rhythm Extremities: no edema Gastrointestinal (Abdomen): Inspection/Auscultation: + abdomen distended (but softer, improving) and + hypoactive bowel sounds; Marin-Charles sign absent Percussion/Palpation: + abdomen firm (but improving); no guarding Musculoskeletal: no cyanosis or clubbing, extremities motor strength 5/5 Head/Neck/Chest: normocephalic and head atraumatic Skin: no rashes, warm and dry no rashes, no jaundice and no pallor Neurologic: moves all extremities and awake Psychiatric: A+Ox3, euthymic affect Orientation: alert and oriented x 3 Affect: + anxious affect Mood: + anxious mood Results & Data ([facility]) Vital Signs (Past 12 Hours) Vital Signs Temp Pulse Resp BP Pulse Ox 12/04/19 06:43 98.4 F 95 H 20 162/99 H 93 12/03/19 22:42 97.7 F 99 H 22 162/109 H 93 Laboratory Results 12/04/19 12/04/19 12/04/19 Range/Units 06:16 06:16 06:16 WBC 7.24 (4.8-10.8) K/uL RBC 3.51 L (4.7-6.1) M/uL Hgb 10.7 L (14.0-18.0) g/dL Hct 32.1 L (42-52) % MCV 91.5 (80-100) fL MCH 30.5 (25-34) pg MCHC 33.3 (32-36) g/dL RDW Std Deviation 56.0 H (36.4-46.3) fL RDW Coeff of Grisel 16.9 H (11.5-14.5) % Plt Count 159 (130-400) K/uL MPV 9.4 (7.4-10.4) fL Immature Gran % (Auto) 0.7 % Neut % (Auto) 65.4 % Lymph % (Auto) 13.4 % Reynolds % (Auto) 16.2 % Eos % (Auto) 4.0 % Baso % (Auto) 0.3 % Immature Gran # (Auto) 0.05 H (0.00-0.02) K/uL Neut # (Auto) 4.74 (1.4-6.5) K/uL Lymph # (Auto) 0.97 L (1.2-3.4) K/uL Reynolds # (Auto) 1.17 H (0.11-0.59) K/uL Eos # (Auto) 0.29 (0-0.5) K/uL Baso # (Auto) 0.02 (0-0.2) K/uL Absolute Nucleated RBC 0.10 H (0-0) K/uL Nucleated RBC % (auto) 1.3 % Sodium 137 (136-145) mmol/L Potassium 3.2 L (3.5-5.1) mmol/L Chloride 102 (98-107) mmol/L Carbon Dioxide 30 (21-32) mmol/L Anion Gap 5.0 (3-11) BUN 7 (7-18) mg/dl Creatinine 0.73 (0.6-1.4) mg/dl Est Cr Clr Drug Dosing 144.0 ml/min Est GFR ( Amer) 141.3 Est GFR (Non-Af Amer) 121.9 BUN/Creatinine Ratio 8.9 L (10-20) Glucose 81 (70-99) mg/dl Calcium 8.0 L (8.5-10.1) mg/dl Total Bilirubin 0.9 D (0.2-1) mg/dl AST 49 H (15-37) U/L ALT 81 H (12-78) U/L Alkaline Phosphatase 82 (45-117) U/L Total Protein 5.8 L D (6.4-8.2) gm/dl Albumin 2.1 L (3.4-5.0) gm/dl Globulin 3.7 (2.5-4.0) gm/dl Albumin/Globulin Ratio 0.6 L (0.9-2) Lipase 624 H (73-393) U/L Medications Administered Current Inpatient Medications Bisacodyl (Dulcolax) 5 mg PO DAILY PRN PRN Reason: Constipation Stop: 01/02/20 09:28 Bupropion HCl (Wellbutrin-Xl) 300 mg PO QAM [facility] Stop: 01/01/20 10:59 Last Admin: 12/04/19 08:43 Dose: 300 mg Documented by: Bupropion HCl (Wellbutrin-Xl) 150 mg PO QPM NALLELY Stop: 01/01/20 20:59 Last Admin: 12/03/19 20:15 Dose: 150 mg Documented by: Docusate Sodium (Colace) 100 mg PO BID [facility] Stop: 01/01/20 20:59 Last Admin: 12/04/19 08:43 Dose: 100 mg Documented by: Doxepin HCl (Sinequan) 50 mg PO DAILY [facility] Stop: 01/01/20 10:59 Last Admin: 12/04/19 08:43 Dose: Not Given Documented by: Duloxetine HCl (Cymbalta) 60 mg PO DAILY [facility] Stop: 01/01/20 10:59 Last Admin: 12/04/19 08:43 Dose: 60 mg Documented by: Enoxaparin Sodium (Lovenox) 40 mg SQ HS [facility] Stop: 01/02/20 20:59 Last Admin: 12/03/19 20:15 Dose: 40 mg Documented by: Hydromorphone HCl (Dilaudid) 2 mg IV Q4H PRN PRN Reason: Pain Stop: 12/17/19 12:02 Last Admin: 12/04/19 12:02 Dose: 2 mg Documented by: Lactated Ringer's (Lr) 1,000 mls @ 100 mls/hr IV .Q10H [facility] Stop: 12/31/19 06:46 Last Admin: 12/04/19 08:42 Dose: 100 mls/hr Documented by: Imipenem/Cilastatin Sodium 500 (mg/ Dextrose) 110 mls @ 100 mls/hr IV Q6H [facility]; Protocol Stop: 12/11/19 13:14 Last Infusion: 12/04/19 09:53 Dose: Infused Documented by: Lorazepam (Ativan) 1 mg in 2 mls @ 2 mls/min IV ONE PRN; Protocol PRN Reason: EtoH Withdrawal AWSS 6-10 Stop: 12/31/19 13:11 Last Admin: 12/03/19 20:04 Dose: 2 mls/min Documented by: Acetaminophen (Ofirmev) 1,000 mg in 100 mls @ 400 mls/hr IV Q8H PRN PRN Reason: Pain or Fever Stop: 12/04/19 23:49 Last Infusion: 12/04/19 04:58 Dose: Infused Documented by: Ioversol (Optiray 320 125ml) 118 ml IV ONCE PRN PRN Reason: Interaction Checking Stop: 12/07/19 05:47 Last Admin: 12/03/19 05:48 Dose: 1 ml Documented by: Lidocaine (Lidoderm 5%) 1 patch TD QAM [facility] Stop: 01/02/20 09:29 Last Admin: 12/04/19 08:42 Dose: 1 patch Documented by: Miscellaneous (Remove Nicoderm Patch) 1 ea N/A DAILY@0859 [facility] Stop: 12/31/19 08:58 Last Admin: 12/04/19 08:42 Dose: 1 ea Documented by: Shreya (Remove Lidoderm Patch) 1 ea N/A DAILY@2100 [facility] Stop: 01/02/20 20:59 Last Admin: 12/03/19 20:15 Dose: 1 ea Documented by: Nicotine (Nicoderm Cq) 14 mg TD QAM [facility] Stop: 12/31/19 08:59 Last Admin: 12/04/19 08:43 Dose: 14 mg Documented by: Ondansetron HCl (Zofran) 4 mg IV Q4H PRN PRN Reason: Nausea Stop: 12/31/19 16:07 Last Admin: 12/01/19 20:24 Dose: 4 mg Documented by: Pantoprazole Sodium (Protonix) 40 mg PO BID [facility] Stop: 12/31/19 20:59 Last Admin: 12/04/19 08:43 Dose: 40 mg Documented by: Simethicone (Mylicon) 80 mg PO Q6H PRN PRN Reason: Gas or Constipation Stop: 01/02/20 12:01 Last Admin: 12/04/19 06:36 Dose: 80 mg Documented by: Trazodone HCl (Desyrel) 100 mg PO HS PRN PRN Reason: sleep Stop: 01/01/20 10:49 Last Admin: 12/02/19 21:59 Dose: 100 mg Documented by: Resident Activity Tracking Resident Involvement: Resident Care Provided Care Provided: Adult Hospital Medicine (1) Anxiety disorder, unspecified Anxiety disorder type: unspecified anxiety disorder Qualified Code(s): F41.9 - Anxiety disorder, unspecified
[2019-12-04 07:24] LABS: Albumin Level 2.1 gm/dl (3.4-5.0); BUN Creatinine Ratio 8.9 (10-20); Est GFR (African American) 141.3; Est GFR (Non-African American) 121.9; Potassium 3.2 mmol/L (3.5-5.1)
[2019-12-04] MEDS ORDERED: POTASSIUM CHLORIDE 20 MEQ TABCR PO STA (07:31)
[2019-12-04 07:56] LABS: Albumin Globulin Ratio 0.6 (0.9-2); Bilirubin,Total 0.9 mg/dl (0.2-1); Globulin 3.7 gm/dl (2.5-4.0); Total Protein 5.8 gm/dl (6.4-8.2)
[2019-12-04] MEDS: LIDOCAINE 5% 1 PATCH TD SCH (08:42)
[2019-12-04] MEDS: LACTATED RINGER'S 1,000 ML IV SCH ×2 (08:42→18:06)
[2019-12-04] MEDS: DULOXETINE HCL 60 MG CAP PO SCH (08:43)
[2019-12-04] MEDS: BuPROPion XL 300 MG TABCR PO SCH (08:43)
[2019-12-04] MEDS: DOCUSATE SODIUM 100 MG CAP PO SCH ×2 (08:43→20:24)
[2019-12-04] MEDS: DOXEPIN HCL 50 MG CAPSULE PO SCH (08:43)
[2019-12-04] MEDS: NICOTINE 14 MG/24 HR PATCH TD SCH (08:43)
[2019-12-04] MEDS: PANTOprazole 40 MG TAB PO SCH ×2 (08:43→20:22)
--- NOTE | 2019-12-04 09:01 | Gastroenterology Progress Note ---
Date of Service December 04, 2019 Assessment & Plan (1) Necrotizing pancreatitis: (2) Alcohol use disorder, severe, dependence: Pt is a 34 y/o male, hx of ETOH abuse admitted currently with necrotizing pancreatitis. His WBC, Lipase is improving. Renal function normal. Afebrile. His Tbili did increase slightly. LFTs trending down. No evidence of filling defect on MRCP. Ileus. - No clear need for abx - it is early in the course of his illness to expect infection of pancreatic necrosis, and his presentation may o.w be consistent with SIRS or DT's. - Continue with IVFs maintenance - OK to advance diet slowly to low fat if he tolerates full liquids today. - Relistor given for ileus. - Symptomatic management w antiemetics and analgesics prn - ETOH cessation; DT protocol Admission and Anticipated Discharge Date Admission Date: December 01, 2019 Subjective Feels better today. Starting to feel hungry No abd pain nausea or vomiting this AM> No fevers. Tolerating full liquids. Overnight, patient c/o dyspnea, anxiety. AWSS of 8, ativan given with relief. Reports to overnight MD he was drinking more than previously stated and up to time of admission. Concern raised for THERESE due to excess snoring and oxygen sats dropping overnight. Physical Exam Constitutional: WD/WN, vitals as above Respiratory: normal respiratory effort, lungs clear to auscultation Cardiovascular: RRR, no murmur, no edema Gastrointestinal (Abdomen): Inspection/Auscultation: + hypoactive bowel sounds Percussion/Palpation: abdomen soft Results & Data ([facility]) Vital Signs (Past 12 Hours) Vital Signs Temp Pulse Pulse Resp BP Pulse Ox 12/04/19 07:40 78 12/04/19 06:43 36.9 C 95 H 20 162/99 H 93 12/03/19 22:42 36.5 C 99 H 22 162/109 H 93
[2019-12-04] MEDS: KETOROLAC 30 MG/ML VIAL IV PRN ×2 (18:07→23:00)
[2019-12-04] MEDS: BuPROPion XL 150 MG TABCR PO SCH (20:22)
[2019-12-04] MEDS: ENOXAPARIN INJ 40 MG/0.4 ML SYR SQ SCH (20:24)
[2019-12-04] MEDS: TRAZODONE HCL 100 MG TAB PO PRN (20:50)
[2019-12-05] MEDS: IMIPENEM/CILASTATIN SODIUM 500 MG in DEXTROSE 5% 100 ML IV SCH ×4 (03:26→19:30)
[2019-12-05] MEDS: LACTATED RINGER'S 1,000 ML IV SCH ×4 (03:26→23:48)
[2019-12-05 06:06] LABS: Basophils # (auto) 0.03 K/uL (0-0.2); Basophils % (auto) 0.4 %; Eosinophils # (auto) 0.24 K/uL (0-0.5); Eosinophils % (auto) 3.5 %; Hematocrit (blood only) 33.7 % (42-52); Hemoglobin 11.4 g/dL (14.0-18.0); Immature Granulocytes # (auto) 0.11 K/uL (0.00-0.02); Immature Granulocytes % (auto) 1.6 %; Lymphocytes # (auto) 0.98 K/uL (1.2-3.4); Lymphocytes % (auto) 14.3 %; Mean Corpuscular Hemoglobin 30.8 pg (25-34); Mean Corpuscular Hgb Conc 33.8 g/dL (32-36); Mean Corpuscular Volume 91.1 fL (80-100); Mean Platelet Volume 9.4 fL (7.4-10.4); Monocytes # (auto) 1.12 K/uL (0.11-0.59); Monocytes % (auto) 16.4 %; Neutrophils # (auto) 4.37 K/uL (1.4-6.5); Neutrophils % (auto) 63.8 %; Nucleated RBC # (auto) 0.17 K/uL (0-0); Nucleated RBC % (auto) 2.5 %; Platelet Count 197 K/uL (130-400); RDW Standard Deviation 56.3 fL (36.4-46.3); White Blood Count 6.85 K/uL (4.8-10.8)
[2019-12-05 06:38] LABS: Polychromasia 1+
[2019-12-05 06:43] LABS: Albumin Level 2.3 gm/dl (3.4-5.0); BUN Creatinine Ratio 6.9 (10-20); Calcium 8.4 mg/dl (8.5-10.1); Est GFR (African American) 136.7; Potassium 3.3 mmol/L (3.5-5.1)
[2019-12-05 06:45] LABS: Albumin Globulin Ratio 0.6 (0.9-2); Bilirubin,Total 0.7 mg/dl (0.2-1); Total Protein 6.3 gm/dl (6.4-8.2)
[2019-12-05] MEDS ORDERED: POTASSIUM CHLORIDE 20 MEQ TABCR PO STA (07:10)
--- NOTE | 2019-12-05 07:12 | Hospitalist Progress Note ---
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 Necrotizing pancreatitis -Clinically improving, tolerating solid foods well -Consult gastroenterology: appreciate recommendations. MRCP on 12/02/19: pancreatic necrosis identified within the distal body/tail, Trace bilateral pleural effusions and mild body wall edema, Focal smooth narrowing within the mid common bile duct, No filling defects within the common bile duct. No upstream dilatation to suggest a functional stricture within the common bile duct. Pancreatic duct within the pancreatic head/neck normal in course and caliber. Duct at level of the pancreatic body and tail is not identified and likely obscured by the pancreatic necrosis. -Dilaudid decreased from 2mg to 1mg q4Hr. Lidoderm patch on LUQ abdominal wall -LR at maintenance of 100/hr -Daily CMP: Creat improved, hyponatremia improved, liver enzymes improving. Slight bump in lipase on 12/04/19, possibly from increased PO intake. Will monitor -Monitor corrected Calcium. -Daily CBC, WBC improved, Hct WNL. -Imipenem/Cilastin started 12/01; utility unclear at this time, but will continue. -Lipase slight bump, will increase fluids 150ml/hr Dyspnea/Orthopnea -Suspect related to atelectasis, ileus and being unable to take deep breaths -Continue incentive spirometry Ileus -Relistor given x 1 on 12/02/19. Request GI input on repeating as patient felt it helped. -Added colace, dulcolax, simethicone -Cutting back pain meds as tolerated Transaminitis Likely secondary to pancreatitis and irritation of the biliary tree. Will trend CMP. Improving daily. MILTON; resolved Patient without history of chronic kidney disease creatinine 2.0 on presentation likely resulting in ATN from hypoperfusion in the setting of pancreatitis and poor p.o. intake. -Creat improved -Fluids as above -Daily CMP Alcohol abuse Patient with history of chronic alcohol abuse. Had recently completed a rehab stay, and had been clean since May 2019. Patient relapsed last week admittin g to consuming 6 beers in 1 sitting, he would not report the frequency of these events. Stating only that "it was only 6 beers "and "there is no way 6 beers could do this ". Regardless encouraged him to avoid alcohol in the future. He notes this AM that it was 2 weeks ago last drink. However, Mom later arrived (who is a retired Neurologist) and notes that he snuck out to buy alcohol/beer Thursday when she left house. She notes that he has a history of alcohol abuse with a prior inpatient rehab stay. Pt reports he was drinking more than initially reported. -AWSS Scale with Ativan 1mg IV ordered. -Monitor for signs of respiratory depression. -consider psych consult vs outpt psych once more medically stable, however pt declines Hypertriglyceridemia Patient with a history of hypertriglyceridemia, cholesterol in May was 220, triglycerides 133. Cholesterol labs were not obtained in the emergency department, suspected to be elevated based on his recent increase consumption of fast food. Assuming his liver enzymes normalize would strongly consider addition of a statin given his calculated LDL is 147, but with current Transaminitis, will most likely need to defer this to outpatient PCP. Anxiety disorder Patient with history of an anxiety disorder well-controlled with home medications. Resume home meds now that tolerating PO -Resume bupropion 150 mg every afternoon, and 300 mg every morning -Resume doxepin, duloxetine, trazodone GERD Well controlled with Protonix at home. Tobacco abuse Patient with a history of tobacco abuse, no desire to quit at present, counseled the patient on the importance of quitting. -We will provide nicotine patch FENa: Full liquid, A/A/T Code Status: Full DVT PPX: Lovenox 40 PT/OT: Not indicated Dispo: med tele in light of desaturation (2) Depression: (3) Hypertriglyceridemia: (4) Anxiety disorder, unspecified: (5) Alcohol use disorder, severe, dependence: (6) GERD (gastroesophageal reflux disease): (7) Transaminitis: Admission and Anticipated Discharge Date Admission Date: December 01, 2019 Supervising Physician Co-Signing Physician Notes I saw the patient with the resident physician and confirmed trinh portions the history and physical examination. Agree with the impression and plan as noted above. Upon examination, the patient was lying supine in bed. Patient reports not having any significant pain or feeling bloated today/. Vitals are stable Alert and oriented. Heart regular; lungs clear. Abdomen is soft. Did not appreciate much tenderness on epigastric palpation or in the left flank; hypoactive bowel sounds. Lipase is slowly going up Necrotizing pancreatitis Alcohol abuse Generalized ileus, likely secondary to pain medications Clinically, he seems to be improving as pain and bloating appears better; He has not had BM but is slowly titrating himself off the opiates. will reorder relistor today (second dose). Hoping he starts to move his BM soon. Gastroenterology and infectious disease consultations appreciated Continue IV hydration but will increase rate as LIPASE is gradually increasing; diet is much as he would tolerate Continue to try to decrease use of opiate pain medications, patient is also on board with tapering his narcotics. Subjective Mr. Tapia notes feeling improved today overall, pain is well controlled. He notes passing gas per rectum, still apprehensive with PO solid food intake, but notes does have appetite. He notes abdominal distention with mild difficulty with inspiration with anterior left lower chest discomfort with deep breaths, but this is not a new symptom. He notes back pain but attributes this to laying in bed. He was made aware of plan to decrease pain med requirements and was onboard with this. Review of Systems Review of Systems: All systems reviewed & are unremarkable except as noted in HPI & below Physical Exam Constitutional: WD/WN, vitals as above cooperative and comfortable appear significantly improved than when seen at beginning of admission Eyes: PERRL, conjunctivae normal, anicteric sclerae ENMT: external ear and nose normal, oropharynx normal Neck: normal visual inspection and trachea midline Respiratory: normal respiratory effort, lungs clear to auscultation Cardiovascular: Rate/Rhythm: regular rate and regular rhythm Extremities: + edema (1+ lower extremity pitting) Gastrointestinal (Abdomen): Inspection/Auscultation: normal bowel sounds; caput medusae absent and Marin-Charles sign absent abdomen distended Musculoskeletal: Head/Neck/Chest: normocephalic and head atraumatic Skin: no rashes and no pallor Neurologic: moves all extremities and awake Psychiatric: Orientation: alert and oriented x 3 Results & Data ([facility]) Vital Signs (Past 12 Hours) Vital Signs Temp Pulse Pulse Resp BP Pulse Ox 12/05/19 04:41 37.2 C 82 20 153/94 H 93 12/05/19 01:00 116 H 12/04/19 20:11 37.0 C 86 22 153/98 H 96 Laboratory Results Laboratory Results - last 24 hr 12/05/19 12/05/19 12/05/19 05:33 05:33 05:33 WBC 6.85 RBC 3.70 L Hgb 11.4 L Hct 33.7 L MCV 91.1 MCH 30.8 MCHC 33.8 RDW Std Deviation 56.3 H RDW Coeff of Grisel 17.0 H Plt Count 197 MPV 9.4 Immature Gran % (Auto) 1.6 Neut % (Auto) 63.8 Lymph % (Auto) 14.3 [place] % (Auto) 16.4 Eos % (Auto) 3.5 Baso % (Auto) 0.4 Immature Gran # (Auto) 0.11 H Neut # (Auto) 4.37 Lymph # (Auto) 0.98 L [place] # (Auto) 1.12 H Eos # (Auto) 0.24 Baso # (Auto) 0.03 Absolute Nucleated RBC 0.17 H Nucleated RBC % (auto) 2.5 Polychromasia 1+ Sodium 139 Potassium 3.3 L Chloride 103 Carbon Dioxide 31 Anion Gap 5.0 BUN 5 L Creatinine 0.79 Est Cr Clr Drug Dosing 133.0 Est GFR ( Amer) 136.7 Est GFR (Non-Af Amer) 118.0 BUN/Creatinine Ratio 6.9 L Glucose 92 Calcium 8.4 L Total Bilirubin 0.7 AST 46 H ALT 77 Alkaline Phosphatase 126 H Total Protein 6.3 L Albumin 2.3 L Globulin 4.0 Albumin/Globulin Ratio 0.6 L Lipase 842 H Medications Administered Bisacodyl (Dulcolax) 5 mg PO DAILY PRN PRN Reason: Constipation Stop: 01/02/20 09:28 Last Admin: 12/04/19 14:46 Dose: 5 mg Documented by: [id number] Bupropion HCl (Wellbutrin-Xl) 300 mg PO QAM [facility] Stop: 01/01/20 10:59 Last Admin: 12/05/19 08:37 Dose: 300 mg Documented by: [id number] Admin: 12/04/19 08:43 Dose: 300 mg Documented by: [id number] Admin: 12/03/19 08:08 Dose: 300 mg Documented by: [id number] Admin: 12/02/19 11:54 Dose: 300 mg Documented by: [id number] Bupropion HCl (Wellbutrin-Xl) 150 mg PO QPM [facility]ALLELY Stop: 01/01/20 20:59 Last Admin: 12/04/19 20:22 Dose: 150 mg Documented by: [id number] Admin: 12/03/19 20:15 Dose: 150 mg Documented by: [id number] Admin: 12/02/19 21:34 Dose: 150 mg Documented by: [id number] Docusate Sodium (Colace) 100 mg PO BID [facility]LY Stop: 01/01/20 20:59 Last Admin: 12/05/19 08:37 Dose: 100 mg Documented by: [id number] Admin: 12/04/19 20:24 Dose: 100 mg Documented by: [id number] Admin: 12/04/19 08:43 Dose: 100 mg Documented by: [id number] Admin: 12/03/19 20:15 Dose: 100 mg Documented by: [id number] Admin: 12/03/19 08:08 Dose: 100 mg Documented by: [id number] Admin: 12/02/19 21:34 Dose: Not Given Documented by: [id number] Doxepin HCl (Sinequan) 50 mg PO DAILY [facility] Stop: 01/01/20 10:59 Last Admin: 12/05/19 08:39 Dose: Not Given Documented by: [id number] Admin: 12/04/19 08:43 Dose: Not Given Documented by: [id number] Admin: 12/03/19 08:09 Dose: Not Given Documented by: [id number] Admin: 12/02/19 11:56 Dose: Not Given Documented by: [id number] Duloxetine HCl (Cymbalta) 60 mg PO DAILY NALLELY Stop: 01/01/20 10:59 Last Admin: 12/05/19 08:37 Dose: 60 mg Documented by: [id number] Admin: 12/04/19 08:43 Dose: 60 mg Documented by: [id number] Admin: 12/03/19 08:08 Dose: 60 mg Documented by: [id number] Admin: 12/02/19 11:54 Dose: 60 mg Documented by: [id number] Enoxaparin Sodium (Lovenox) 40 mg SQ HS NALLELY Stop: 01/02/20 20:59 Last Admin: 12/04/19 20:24 Dose: 40 mg Documented by: [id number] Admin: 12/03/19 20:15 Dose: 40 mg Documented by: [id number] Hydromorphone HCl (Dilaudid) 1 mg IV Q4H PRN PRN Reason: Pain Stop: 12/17/19 12:02 Last Admin: 12/05/19 08:36 Dose: 1 mg Documented by: [id number] Lactated Ringer's (Lr) 1,000 mls @ 100 mls/hr IV .Q10H NALLELY Stop: 12/31/19 06:46 Last Admin: 12/05/19 03:26 Dose: 100 mls/hr Documented by: [id number] Infusion: 12/05/19 03:26 Dose: 100 mls/hr Documented by: [id number] Admin: 12/04/19 18:06 Dose: 100 mls/hr Documented by: [id number] Infusion: 12/04/19 18:06 Dose: 100 mls/hr Documented by: [id number] Admin: 12/04/19 08:42 Dose: 100 mls/hr Documented by: [id number] Infusion: 12/04/19 07:32 Dose: 100 mls/hr Documented by: [id number] Infusion: 12/04/19 00:18 Dose: 100 mls/hr Documented by: [id number] Admin: 12/03/19 21:31 Dose: 100 mls/hr Documented by: [id number] Infusion: 12/03/19 21:30 Dose: 0 mls/hr Documented by: [id number] Infusion: 12/03/19 17:35 Dose: 100 mls/hr Documented by: [id number] Infusion: 12/03/19 17:00 Dose: 0 mls/hr Documented by: [id number] Admin: 12/03/19 10:29 Dose: 100 mls/hr Documented by: [id number] Infusion: 12/03/19 10:29 Dose: 100 mls/hr Documented by: [id number] Admin: 12/03/19 01:44 Dose: 100 mls/hr Documented by: [id number] Infusion: 12/03/19 00:29 Dose: 100 mls/hr Documented by: [id number] Admin: 12/02/19 14:29 Dose: 100 mls/hr Documented by: [id number] Infusion: 12/02/19 14:18 Dose: 100 mls/hr Documented by: [id number] Infusion: 12/02/19 13:28 Dose: 100 mls/hr Documented by: [id number] Admin: 12/02/19 08:53 Dose: 200 mls/hr Documented by: [id number] Infusion: 12/02/19 08:53 Dose: 200 mls/hr Documented by: [id number] Admin: 12/02/19 04:06 Dose: 200 mls/hr Documented by: [id number] Infusion: 12/02/19 03:50 Dose: 200 mls/hr Documented by: [id number] Admin: 12/01/19 22:50 Dose: 200 mls/hr Documented by: [id number] Infusion: 12/01/19 22:50 Dose: 200 mls/hr Documented by: [id number] Admin: 12/01/19 18:38 Dose: 200 mls/hr Documented by: [id number] Infusion: 12/01/19 18:00 Dose: 200 mls/hr Documented by: [id number] Admin: 12/01/19 13:00 Dose: 200 mls/hr Documented by: [id number] Infusion: 12/01/19 12:52 Dose: 0 mls/hr Documented by: [id number] Admin: 12/01/19 07:52 Dose: 200 mls/hr Documented by: [id number] Imipenem/Cilastatin Sodium 500 (mg/ Dextrose) 110 mls @ 100 mls/hr IV Q6H NALLELY; Protocol Stop: 12/11/19 13:14 Last Admin: 12/05/19 08:37 Dose: 100 mls/hr Documented by: [id number] Infusion: 12/05/19 04:54 Dose: 0 mls/hr Documented by: [id number] Admin: 12/05/19 03:26 Dose: 100 mls/hr Documented by: [id number] Infusion: 12/04/19 21:56 Dose: 0 mls/hr Documented by: [id number] Admin: 12/04/19 20:22 Dose: 100 mls/hr Documented by: [id number] Infusion: 12/04/19 15:54 Dose: 0 mls/hr Documented by: [id number] Admin: 12/04/19 14:39 Dose: 100 mls/hr Documented by: [id number] Infusion: 12/04/19 09:53 Dose: 0 mls/hr Documented by: [id number] Admin: 12/04/19 08:42 Dose: 100 mls/hr Documented by: [id number] Infusion: 12/04/19 04:38 Dose: 0 mls/hr Documented by: [id number] Admin: 12/04/19 03:21 Dose: 100 mls/hr Documented by: [id number] Infusion: 12/03/19 21:31 Dose: 0 mls/hr Documented by: [id number] Admin: 12/03/19 20:10 Dose: 100 mls/hr Documented by: [id number] Infusion: 12/03/19 15:52 Dose: 0 mls/hr Documented by: [id number] Admin: 12/03/19 14:32 Dose: 100 mls/hr Documented by: [id number] Infusion: 12/03/19 09:20 Dose: 0 mls/hr Documented by: [id number] Admin: 12/03/19 08:07 Dose: 100 mls/hr Documented by: [id number] Infusion: 12/03/19 02:51 Dose: 0 mls/hr Documented by: [id number] Admin: 12/03/19 01:43 Dose: 100 mls/hr Documented by: [id number] Infusion: 12/02/19 22:00 Dose: 0 mls/hr Documented by: [id number] Admin: 12/02/19 20:53 Dose: 100 mls/hr Documented by: [id number] Infusion: 12/02/19 17:49 Dose: 0 mls/hr Documented by: [id number] Admin: 12/02/19 14:29 Dose: 100 mls/hr Documented by: [id number] Infusion: 12/02/19 09:53 Dose: 0 mls/hr Documented by: [id number] Admin: 12/02/19 08:43 Dose: 100 mls/hr Documented by: [id number] Infusion: 12/02/19 03:01 Dose: 0 mls/hr Documented by: [id number] Admin: 12/02/19 01:55 Dose: 100 mls/hr Documented by: [id number] Infusion: 12/01/19 21:43 Dose: 0 mls/hr Documented by: [id number] Admin: 12/01/19 20:24 Dose: 100 mls/hr Documented by: [id number] Infusion: 12/01/19 15:55 Dose: 0 mls/hr Documented by: [id number] Admin: 12/01/19 14:22 Dose: 100 mls/hr Documented by: [id number] Lorazepam (Ativan) 1 mg in 2 mls @ 2 mls/min IV ONE PRN; Protocol PRN Reason: EtoH Withdrawal AWSS 6-10 Stop: 12/31/19 13:11 Last Admin: 12/03/19 20:04 Dose: 2 mls/min Documented by: [id number] Acetaminophen (Ofirmev) 1,000 mg in 100 mls @ 400 mls/hr IV Q8H PRN PRN Reason: Pain or Fever Stop: 12/07/19 23:49 Last Infusion: 12/04/19 17:07 Dose: 0 mls/hr Documented by: [id number] Admin: 12/04/19 15:53 Dose: 400 mls/hr Documented by: [id number] Infusion: 12/04/19 04:58 Dose: 0 mls/hr Documented by: [id number] Admin: 12/04/19 04:35 Dose: 400 mls/hr Documented by: [id number] Infusion: 12/03/19 19:37 Dose: 0 mls/hr Documented by: [id number] Admin: 12/03/19 19:08 Dose: 400 mls/hr Documented by: [id number] Infusion: 12/02/19 20:20 Dose: 0 mls/hr Documented by: [id number] Admin: 12/02/19 19:28 Dose: 400 mls/hr Documented by: [id number] Ioversol (Optiray 320 125ml) 118 ml IV ONCE PRN PRN Reason: Interaction Checking Stop: 12/07/19 05:47 Last Admin: 12/03/19 05:48 Dose: 1 ml Documented by: [id number] Ketorolac Tromethamine (Toradol) 30 mg IV Q6H PRN PRN Reason: Pain Stop: 12/09/19 16:48 Last Admin: 12/04/19 23:00 Dose: 30 mg Documented by: [id number] Admin: 12/04/19 18:07 Dose: 30 mg Documented by: [id number] Lidocaine (Lidoderm 5%) 1 patch TD QAM [facility] Stop: 01/02/20 09:29 Last Admin: 12/05/19 08:38 Dose: 1 patch Documented by: [id number] Admin: 12/04/19 08:42 Dose: 1 patch Documented by: [id number] Admin: 12/03/19 10:30 Dose: 1 patch Documented by: [id number] Miscellaneous (Remove Nicoderm Patch) 1 ea N/A DAILY@0859 [facility] Stop: 12/31/19 08:58 Last Admin: 12/05/19 08:44 Dose: 1 ea Documented by: [id number] Admin: 12/04/19 08:42 Dose: 1 ea Documented by: [id number] Admin: 12/03/19 08:08 Dose: 1 ea Documented by: [id number] Admin: 12/02/19 08:45 Dose: 1 ea Documented by: [id number] Admin: 12/01/19 07:52 Dose: Not Given Documented by: [id number] Miscellaneous (Remove Lidoderm Patch) 1 ea N/A DAILY@2100 [facility] Stop: 01/02/20 20:59 Last Admin: 12/04/19 21:55 Dose: 1 ea Documented by: [id number] Admin: 12/03/19 20:15 Dose: 1 ea Documented by: [id number] Nicotine (Nicoderm Cq) 14 mg TD QAM [facility] Stop: 12/31/19 08:59 Last Admin: 12/05/19 08:37 Dose: 14 mg Documented by: [id number] Admin: 12/04/19 08:43 Dose: 14 mg Documented by: [id number] Admin: 12/03/19 08:08 Dose: 14 mg Documented by: [id number] Admin: 12/02/19 08:44 Dose: 14 mg Documented by: [id number] Admin: 12/01/19 08:09 Dose: 14 mg Documented by: [id number] Ondansetron HCl (Zofran) 4 mg IV Q4H PRN PRN Reason: Nausea Stop: 12/31/19 16:07 Last Admin: 12/01/19 20:24 Dose: 4 mg Documented by: [id number] Admin: 12/01/19 16:19 Dose: 4 mg Documented by: [id number] Pantoprazole Sodium (Protonix) 40 mg PO BID [facility] Stop: 12/31/19 20:59 Last Admin: 12/05/19 08:32 Dose: 40 mg Documented by: [id number] Admin: 12/04/19 20:22 Dose: 40 mg Documented by: [id number] Admin: 12/04/19 08:43 Dose: 40 mg Documented by: [id number] Admin: 12/03/19 20:15 Dose: 40 mg Documented by: [id number] Admin: 12/03/19 08:08 Dose: 40 mg Documented by: [id number] Admin: 12/02/19 21:32 Dose: 40 mg Documented by: [id number] Admin: 12/02/19 08:44 Dose: 40 mg Documented by: [id number] Admin: 12/01/19 19:53 Dose: Not Given Documented by: [id number] Simethicone (Mylicon) 80 mg PO Q6H PRN PRN Reason: Gas or Constipation Stop: 01/02/20 12:01 Last Admin: 12/04/19 06:36 Dose: 80 mg Documented by: [id number] Admin: 12/03/19 13:47 Dose: 80 mg Documented by: [id number] Trazodone HCl (Desyrel) 100 mg PO HS PRN PRN Reason: sleep Stop: 01/01/20 10:49 Last Admin: 12/04/19 20:50 Dose: 100 mg Documented by: [id number] Admin: 12/02/19 21:59 Dose: 100 mg Documented by: [id number] Resident Activity Tracking Resident Involvement: Resident Care Provided Care Provided: Adult Hospital Medicine (1) Anxiety disorder, unspecified Anxiety disorder type: unspecified anxiety disorder Qualified Code(s): F41.9 - Anxiety disorder, unspecified
[2019-12-05] MEDS: PANTOprazole 40 MG TAB PO SCH ×2 (08:32→20:24)
[2019-12-05] MEDS: HYDROmorphone INJ 2 MG/ML SYR/VIAL IV PRN ×3 (08:36→21:44)
[2019-12-05] MEDS: DULOXETINE HCL 60 MG CAP PO SCH (08:37)
[2019-12-05] MEDS: DOCUSATE SODIUM 100 MG CAP PO SCH ×2 (08:37→20:24)
[2019-12-05] MEDS: NICOTINE 14 MG/24 HR PATCH TD SCH (08:37)
[2019-12-05] MEDS: BuPROPion XL 300 MG TABCR PO SCH (08:37)
[2019-12-05] MEDS: LIDOCAINE 5% 1 PATCH TD SCH (08:38)
[2019-12-05] MEDS: DOXEPIN HCL 50 MG CAPSULE PO SCH (08:39)
[2019-12-05] MEDS ORDERED: METHYLNALTREXONE BROMIDE 12 MG/0.6 ML VIAL SQ ONE (09:30)
--- NOTE | 2019-12-05 10:27 | XRay Report ---
XR chest 2V PA/lateral CLINICAL HISTORY: 34 years-old Male presenting with reassess Left Pleural Effusion. TECHNIQUE: PA and lateral views of the chest were obtained. COMPARISON: 12/02/2019. FINDINGS: Cardiomediastinal silhouette normal. Patchy and bandlike opacities in the left lower lung. Small bila teral pleural effusions. Mildly low lung volumes. No pneumothorax. Osseous structures normal. Upper a bdomen normal. IMPRESSION: 1. Small bilateral pleural effusions and left basilar atelectasis, unchanged. ACT 112: Negative or not required by law. Electronically signed by: Davy Blackwell M.D. 12/05/2019 10:25 AM
[2019-12-05] MEDS: KETOROLAC 30 MG/ML VIAL IV PRN ×2 (10:40→19:21)
[2019-12-05] MEDS: POTASSIUM CHLORIDE 20 MEQ TABCR PO SCH ×3 (12:25→20:24)
[2019-12-05] MEDS: ACETAMINOPHEN 1,000 MG/100 ML VIAL IV PRN ×2 (12:29→23:49)
[2019-12-05] MEDS: ENOXAPARIN INJ 40 MG/0.4 ML SYR SQ SCH (20:30)
[2019-12-05] MEDS: TRAZODONE HCL 100 MG TAB PO PRN (22:15)
[2019-12-05] MEDS: BuPROPion XL 150 MG TABCR PO SCH (23:47)
[2019-12-06] MEDS: IMIPENEM/CILASTATIN SODIUM 500 MG in DEXTROSE 5% 100 ML IV SCH ×4 (01:44→20:39)
[2019-12-06] MEDS: HYDROmorphone INJ 2 MG/ML SYR/VIAL IV PRN (02:31)
[2019-12-06] MEDS: LACTATED RINGER'S 1,000 ML IV SCH ×3 (06:06→21:48)
[2019-12-06] MEDS: LIDOCAINE 5% 1 PATCH TD SCH (07:28)
[2019-12-06] MEDS: BuPROPion XL 300 MG TABCR PO SCH (07:29)
[2019-12-06] MEDS: NICOTINE 14 MG/24 HR PATCH TD SCH (07:29)
[2019-12-06] MEDS: DULOXETINE HCL 60 MG CAP PO SCH (07:29)
[2019-12-06] MEDS: DOCUSATE SODIUM 100 MG CAP PO SCH ×2 (07:30→21:49)
[2019-12-06] MEDS: POTASSIUM CHLORIDE 20 MEQ TABCR PO SCH ×2 (07:30→13:01)
[2019-12-06 07:31] LABS: Basophils # (auto) 0.04 K/uL (0-0.2); Basophils % (auto) 0.5 %; Eosinophils # (auto) 0.29 K/uL (0-0.5); Eosinophils % (auto) 3.6 %; Hematocrit (blood only) 35.4 % (42-52); Hemoglobin 11.6 g/dL (14.0-18.0); Immature Granulocytes % (auto) 2.5 %; Mean Corpuscular Hemoglobin 30.1 pg (25-34); Mean Corpuscular Hgb Conc 32.8 g/dL (32-36); Mean Corpuscular Volume 91.7 fL (80-100); Mean Platelet Volume 9.4 fL (7.4-10.4); Monocytes # (auto) 1.01 K/uL (0.11-0.59); Monocytes % (auto) 12.7 %; Neutrophils # (auto) 5.24 K/uL (1.4-6.5); Neutrophils % (auto) 65.7 %; Nucleated RBC # (auto) 0.17 K/uL (0-0); Nucleated RBC % (auto) 2.1 %; Platelet Count 265 K/uL (130-400); RDW Coefficient of Variation 17.1 % (11.5-14.5); RDW Standard Deviation 56.8 fL (36.4-46.3); Red Blood Count 3.86 M/uL (4.7-6.1); White Blood Count 7.98 K/uL (4.8-10.8)
[2019-12-06] MEDS: PANTOprazole 40 MG TAB PO SCH ×2 (07:31→21:49)
[2019-12-06] MEDS: DOXEPIN HCL 50 MG CAPSULE PO SCH ×2 (07:33→21:48)
--- NOTE | 2019-12-06 07:49 | Hospitalist Progress Note ---
Date of Service December 06, 2019 Assessment & Plan (1) Necrotizing pancreatitis: Patient is a 34-year-old male with a past medical history of alcoholism (until the week [employer], had not had a drink since May 2019), Erectile dysfunction, depression, hypertriglyceridemia, GERD, anxiety, recurrent pancreatitis who presents for evaluation of severe abdominal pain, diagnosed with necrotizing pancreatitis. Necrotizing pancreatitis -Clinically improving, tolerating solid foods well -Consult gastroenterology: appreciate recommendations. MRCP on 12/02/19: pancreatic necrosis identified within the distal body/tail, Trace bilateral pleural effusions and mild body wall edema, Focal smooth narrowing within the mid common bile duct, No filling defects within the common bile duct. No upstream dilatation to suggest a functional stricture within the common bile duct. Pancreatic duct within the pancreatic head/neck normal in course and caliber. Duct at level of the pancreatic body and tail is not identified and likely obscured by the pancreatic necrosis. -Dilaudid decreased from 2mg to 1mg q4Hr on 12/05, will decrease to 0.5mg IV q4hr. Lidoderm patch on LUQ abdominal wall -LR at maintenance of 100/hr -Daily CMP: Creat improved, hyponatremia resolved, liver enzymes resolved to WNL. Slight bump in lipase on 12/04/19, possibly from increased PO intake. -Monitor corrected Calcium. Has been WNL. -Daily CBC, WBC improved, Hct WNL. -Imipenem/Cilastin started 12/01; utility unclear at this time, but will continue. -Lipase slight bump still from yesterday even after increasing fluids to 150ml/hr. Possible from regular diet and will make NPO today to decrease inflammation of pancreas in response to food. Dyspnea/Orthopnea -Suspect related to atelectasis, ileus and being unable to take deep breaths -Continue incentive spirometry Ileus -Relistor given x 1 on 12/02/19. Request GI input on repeating as patient felt it helped. -Added colace, dulcolax, simethicone -Cutting back pain meds as tolerated -12/04 after discussion with floor pharmacist, will c/w Relistor. Transaminitis - Resolved Likely secondary to pancreatitis and irritation of the biliary tree. Will trend CMP.. MILTON; resolved Patient without history of chronic kidney disease creatinine 2.0 on presentation likely resulting in ATN from hypoperfusion in the setting of pancreatitis and poor p.o. intake. -Creat improved -Fluids as above -Daily CMP Alcohol abuse Patient with history of chronic alcohol abuse. Had recently completed a rehab stay, and had been clean since May 2019. Patient relapsed last week admitting to consuming 6 beers in 1 sitting, he would not report the frequency of these events. Stating only that "it was only 6 beers "and "there is no way 6 beers could do this ". Regardless encouraged him to avoid alcohol in the future. He notes this AM that it was 2 weeks ago last drink. However, Mom later arrived (who is a retired Neurologist) and notes that he snuck out to buy alcohol/beer Thursday when she left house. She notes that he has a history of alcohol abuse with a prior inpatient rehab stay. Pt reports he was drinking more than initially reported. -AWSS Scale with Ativan 1mg IV ordered. -Monitor for signs of respiratory depression. -consider psych consult vs outpt psych once more medically stable, however pt declines Hypertriglyceridemia Patient with a history of hypertriglyceridemia, cholesterol in May was 220, triglycerides 133. Cholesterol labs were not obtained in the emergency department, suspected to be elevated based on his recent increase consumption of fast food. Assuming his liver enzymes normalize would strongly consider addition of a statin given his calculated LDL is 147, but with current Transaminitis, will most likely need to defer this to outpatient PCP. Anxiety disorder Patient with history of an anxiety disorder well-controlled with home medicat ions. Resume home meds now that tolerating PO -Resume bupropion 150 mg every afternoon, and 300 mg every morning -Resume doxepin, duloxetine, trazodone GERD Well controlled with Protonix at home. Tobacco abuse Patient with a history of tobacco abuse, no desire to quit at present, counseled the patient on the importance of quitting. -We will provide nicotine patch FENa: Full liquid, A/A/T Code Status: Full DVT PPX: Lovenox 40 PT/OT: Not indicated Dispo: med tele in light of desaturation (2) Depression: (3) Hypertriglyceridemia: (4) Anxiety disorder, unspecified: (5) Alcohol use disorder, severe, dependence: (6) GERD (gastroesophageal reflux disease): (7) Transaminitis: Admission and Anticipated Discharge Date Admission Date: December 01, 2019 Supervising Physician Co-Signing Physician Notes I saw the patient with the resident physician and confirmed trinh portions the history and physical examination. Agree with the impression and plan as noted above. Upon examination, the patient was lying supine in bed. Patient reports having ome discomfort in the AM, he described as bloating, but this improvedbyt the afternoon. Patient would like to have his diet restarted. (NPO was ordered after breakfast). GI restarted his diet. Vitals are stable Alert and oriented. Heart regular; lungs clear. Abdomen is soft. Did not appreciate any tenderness on epigastric palpation or in the left flank; hypoactive bowel sounds. Lipase is slowly going up now above 900 worsening for past 3 days from level of 500. Necrotizing pancreatitis Alcohol abuse Generalized ileus, likely secondary to pain medications Clinically, he seems to be improving as pain and bloating appears better; He has not had BM but is slowly titrating himself off the opiates. Received relistor yesterday and will obtain a third dose tomorrow. Hoping he starts to move his BM soon. Gastroenterology and infectious disease consultations appreciated Despite increased fluids to 150 ml/hr, lipase is worsening. D/W gastro, no overly concerned as clinically patient is doing better. will monitor lipase for another day. GI resumed his diet today. Continue to try to decrease use of opiate pain medications, patient is also on board with tapering his narcotics. Dose of hydromorphone down to 0.5 mg a dose (from 1 mg on 12/04 and 2 mg on 12/03) Subjective Mr. Tapia notes feeling active pain similar to same pancreatitis pain to upper abdomen that is same location but significantly decreased from time of admission. He notes passing gas per rectum. He did have PO solid intake yesterday. He notes abdominal pain does radiate to back but notes could be confounded from laying in bed. Review of Systems Review of Systems: All systems reviewed & are unremarkable except as noted in HPI & below Physical Exam Constitutional: WD/WN, vitals as above cooperative and comfortable Eyes: PERRL, conjunctivae normal, anicteric sclerae ENMT: external ear and nose normal, oropharynx normal Neck: normal visual inspection and trachea midline Respiratory: normal respiratory effort, lungs clear to auscultation Cardiovascular: Rate/Rhythm: regular rate and regular rhythm Extremities: + edema (1+ lower extremity pitting) Gastrointestinal (Abdomen): Inspection/Auscultation: normal bowel sounds; caput medusae absent and Marin-Charles sign absent Percussion/Palpation: abdomen soft; abdomen nontender, no guarding and abdomen not rigid distended Musculoskeletal: Head/Neck/Chest: normocephalic and head atraumatic Skin: no rashes and no pallor Neurologic: moves all extremities and awake Psychiatric: A+Ox3, euthymic affect Results & Data ([facility]) Vital Signs (Past 12 Hours) Vital Signs Temp Pulse Pulse Resp BP BP Pulse Ox 12/06/19 07:32 36.8 C 67 16 158/104 H 163/114 H 97 12/06/19 03:44 36.4 C L 65 18 137/95 98 12/06/19 01:52 75 12/05/19 23:43 37.3 C 74 18 138/88 95 Resident Activity Tracking Resident Involvement: Resident Care Provided Care Provided: Adult Hospital Medicine (1) Anxiety disorder, unspecified Anxiety disorder type: unspecified anxiety disorder Qualified Code(s): F41.9 - Anxiety disorder, unspecified
[2019-12-06 07:57] LABS: Albumin Level 2.3 gm/dl (3.4-5.0); BUN Creatinine Ratio 10.3 (10-20); Creatinine Clr Calc Pharmacy 135.6 ml/min; Est GFR (African American) 138.2; Est GFR (Non-African American) 119.2; Magnesium 1.9 mg/dl (1.8-2.4); Potassium 3.8 mmol/L (3.5-5.1)
[2019-12-06 08:03] LABS: Albumin Globulin Ratio 0.5 (0.9-2); Bilirubin,Total 0.5 mg/dl (0.2-1); Globulin 4.4 gm/dl (2.5-4.0); Phosphorus 3.8 mg/dl (2.5-4.9); Total Protein 6.7 gm/dl (6.4-8.2)
[2019-12-06 08:07] LABS: Toxic Granulation 1+
[2019-12-06] MEDS: KETOROLAC 30 MG/ML VIAL IV PRN ×2 (09:00→19:06)
--- NOTE | 2019-12-06 09:43 | Billing Data ---
Date of Service December 05, 2019 Coding Level of Care Code 35085 Subseq Hosp Care Lvl 3
--- NOTE | 2019-12-06 12:05 | Gastroenterology Progress Note ---
Date of Service December 06, 2019 Assessment & Plan (1) Necrotizing pancreatitis: (2) Alcohol use disorder, severe, dependence: Pt is a 34 y/o male, hx of ETOH abuse admitted with necrotizing ETOH pancreatitis. His WBC, Lipase is improving. Renal function normal. Afebrile. His T bili did increase slightly. LFTs trending down. No evidence of filling defect on MRCP. Ileus. - Pancreatitis clinically improving, but symptoms are consistent with ileus, typical with pancreatitis, especially with narcotic use. 1. Reglan, Relistor, dulcolax. 2. Increase ambulation. 3. Limit narcotics. Admission and Anticipated Discharge Date Admission Date: December 01, 2019 Supervising Physician Co-Signing Physician Notes Late entry: Patient was seen and examined on 12/05 with BECKY Rosado whose note reflects our findings and plan. Bump in lipase. Some pain. No BM in several days. Patient diet reduced. Continue IVF hydration (increase rate) and supportive care. May need to repeat CT to re-evaluate. Subjective Mr. Tapia is a 34 yr old male pt who was admitted on 12/01 for ETOH pancreatitis. Was taking regular consistency food, but this morning he feels constipated, distended, poor appetite, though no significant post prandial nausea or severe pain. LFTs and lipase improving: T BIli 1.6->0.5. AST 46->28 ALT 358->57 Lipase 4092->942. Review of Systems Review of Systems: ROS: Gen: Able to ambulate. No fevers, no diaphoresis Eyes: No eye redness, or pain, no recent vision changes Resp: No SOB, no cough Cardio: No palpitations/irregular beats, no chest pain GI: See Subjective. : Denies pain on urination Skin: No jaundice, itching or new rashes Physical Exam Constitutional: well developed, well nourished and average body habitus Hypertensive at 160/70; HR, resp and temp normal. O2 sat at 94% on Room air. Eyes: PERRL, conjunctivae normal, anicteric sclerae ENMT: external ear and nose normal, oropharynx normal Neck: trachea midline, no thyromegaly Respiratory: normal respiratory effort; no respiratory distress, no labored breathing and no retractions diminished BS at bases but no adventitious sounds. Cardiovascular: RRR, no murmur, no edema Gastrointestinal (Abdomen): Inspection/Auscultation: + abdomen distended (moderately, not rigid; diffusely tender; BS present but hypoactive) Musculoskeletal: no cyanosis or clubbing, extremities motor strength 5/5 Skin: no rashes, warm and dry Neurologic: PERRL, EOMI, accommodation nl, no face palsy, no dysarthria Psychiatric: A+Ox3, euthymic affect Lymphatic: no cervical or axillary lymphadenopathy Results & Data ([facility]) Vital Signs (Past 12 Hours) Vital Signs Temp Pulse Pulse Resp BP BP Pulse Ox 12/06/19 07:32 36.8 C 67 16 158/104 H 163/114 H 97 12/06/19 03:44 36.4 C L 65 18 137/95 98 12/06/19 01:[address] with IV contrast 12/01: 1. Acute pancreatitis with evidence of necrotizing pancreatitis involving the distal body and tail 2. Hepatic steatosis 3. No evidence of bowel obstruction. No evidence of free air. 4. Normal appendix MRCP 12/01/19: 1. Redemonstration of the acute pancreatitis with pancreatic necrosis identified within the distal body/tail. This is similar to the prior CT examination. 2. Trace bilateral pleural effusions and mild body wall edema. 3. Focal smooth narrowing within the mid common bile duct. This could be due to localized mass effect from the acute pancreatitis. No filling defects within the common bile duct. No upstream dilatation to suggest a functional stricture within the common bile duct. 4. The main pancreatic duct seen within the pancreatic head and neck is normal in course and caliber. The main pancreatic duct at the level of the pancreatic body and tail is not identified and likely obscured by the pancreatic necrosis.
[2019-12-06] MEDS: HYDROmorphone INJ 0.5 MG/0.5 ML SYR IV PRN ×3 (12:26→21:48)
[2019-12-06] MEDS: ACETAMINOPHEN 1,000 MG/100 ML VIAL IV PRN (14:27)
[2019-12-06] MEDS: METOCLOPRAMIDE HCL 5 MG TABLET PO SCH ×2 (16:55→21:49)
[2019-12-06] MEDS: TRAZODONE HCL 100 MG TAB PO PRN (21:48)
[2019-12-06] MEDS: ENOXAPARIN INJ 40 MG/0.4 ML SYR SQ SCH (21:49)
[2019-12-06] MEDS: BuPROPion XL 150 MG TABCR PO SCH (21:49)
[2019-12-07] MEDS: IMIPENEM/CILASTATIN SODIUM 500 MG in DEXTROSE 5% 100 ML IV SCH ×4 (01:01→20:05)
[2019-12-07] MEDS: KETOROLAC 30 MG/ML VIAL IV PRN ×3 (05:09→20:20)
--- NOTE | 2019-12-07 06:55 | Billing Data ---
Date of Service December 06, 2019 Coding Level of Care Code 51785 Subseq Hosp Care Lvl 3 Time Spent (min) 35
[2019-12-07 07:38] LABS: Basophils # (auto) 0.03 K/uL (0-0.2); Basophils % (auto) 0.4 %; Eosinophils # (auto) 0.25 K/uL (0-0.5); Eosinophils % (auto) 2.9 %; Hematocrit (blood only) 36.7 % (42-52); Hemoglobin 12.3 g/dL (14.0-18.0); Immature Granulocytes # (auto) 0.13 K/uL (0.00-0.02); Immature Granulocytes % (auto) 1.5 %; Lymphocytes # (auto) 1.15 K/uL (1.2-3.4); Lymphocytes % (auto) 13.4 %; Mean Corpuscular Hemoglobin 30.2 pg (25-34); Mean Corpuscular Hgb Conc 33.5 g/dL (32-36); Mean Corpuscular Volume 90.2 fL (80-100); Mean Platelet Volume 9.3 fL (7.4-10.4); Monocytes # (auto) 0.92 K/uL (0.11-0.59); Monocytes % (auto) 10.7 %; Neutrophils # (auto) 6.09 K/uL (1.4-6.5); Neutrophils % (auto) 71.1 %; Platelet Count 306 K/uL (130-400); RDW Coefficient of Variation 17.1 % (11.5-14.5); RDW Standard Deviation 56.4 fL (36.4-46.3); Red Blood Count 4.07 M/uL (4.7-6.1); White Blood Count 8.57 K/uL (4.8-10.8)
[2019-12-07 08:09] LABS: Albumin Level 2.4 gm/dl (3.4-5.0); BUN Creatinine Ratio 10.8 (10-20); Calcium 9.4 mg/dl (8.5-10.1); Creatinine Clr Calc Pharmacy 115.6 ml/min; Est GFR (African American) 134.7; Est GFR (Non-African American) 116.2; Magnesium 2.1 mg/dl (1.8-2.4); Potassium 3.9 mmol/L (3.5-5.1)
[2019-12-07 08:12] LABS: Albumin Globulin Ratio 0.5 (0.9-2); Bilirubin,Total 0.5 mg/dl (0.2-1); Globulin 4.4 gm/dl (2.5-4.0); Total Protein 6.8 gm/dl (6.4-8.2)
[2019-12-07] MEDS ORDERED: bisacodyL 10 MG SUPP PR STA (09:02)
[2019-12-07] MEDS: METOCLOPRAMIDE HCL 5 MG TABLET PO SCH ×4 (09:05→20:05)
[2019-12-07] MEDS: BuPROPion XL 300 MG TABCR PO SCH (09:06)
[2019-12-07] MEDS: DULOXETINE HCL 60 MG CAP PO SCH (09:06)
[2019-12-07] MEDS: NICOTINE 14 MG/24 HR PATCH TD SCH (09:06)
[2019-12-07] MEDS: PANTOprazole 40 MG TAB PO SCH ×2 (09:06→20:06)
[2019-12-07] MEDS: LIDOCAINE 5% 1 PATCH TD SCH (09:08)
[2019-12-07] MEDS: DOCUSATE SODIUM 100 MG CAP PO SCH ×2 (09:08→20:06)
--- NOTE | 2019-12-07 09:43 | XRay Report ---
XR KUB/Abdomen 1 view CLINICAL HISTORY: 34 years-old Male presenting with abdomen discomfort and distention. ? ileus. TECHNIQUE: Single supine view of the abdomen was obtained. COMPARISON: 12/02/[address] from 12/01/2019. FINDINGS: Moderate stool burden throughout the colon most severe in the right colon. Single loop of small bowel in the right mid abdomen is mildly distended. Nonobstructive bowel gas pattern. No gross pneumoperit oneum. Allowing for bowel gas and stool, no calcifications to suggest nephrolithiasis. Osseous structures normal. Lung bases clear. IMPRESSION: 1. Findings suggest constipation. 2. Mild distention of a loop of small bowel in the right mid abdomen. Ileus may be present. 3. No bowel obstruction. ACT 112: Negative or not required by law. Electronically signed by: Davy Blackwell M.D. 12/07/2019 9:41 AM
[2019-12-07] MEDS: bisacodyL 5 MG TABEC PO SCH (09:58)
[2019-12-07] MEDS: DOXEPIN HCL 50 MG CAPSULE PO SCH ×2 (10:00→21:28)
--- NOTE | 2019-12-07 10:41 | Hospitalist Progress Note ---
Date of Service December 07, 2019 Assessment & Plan (1) Necrotizing pancreatitis: Patient is a 34-year-old male with a past medical history of alcoholism (until the week [employer], had not had a drink since May 2019), Erectile dysfunction, depression, hypertriglyceridemia, GERD, anxiety, recurrent pancreatitis who presents for evaluation of severe abdominal pain, diagnosed with necrotizing pancreatitis. Necrotizing pancreatitis -Clinically improving, tolerating solid foods well -Consult gastroenterology: appreciate recommendations. MRCP on 12/02/19: pancreatic necrosis identified within the distal body/tail, Trace bilateral pleural effusions and mild body wall edema, Focal smooth narrowing within the mid common bile duct, No filling defects within the common bile duct. No upstream dilatation to suggest a functional stricture within the common bile duct. Pancreatic duct within the pancreatic head/neck normal in course and caliber. Duct at level of the pancreatic body and tail is not identified and likely obscured by the pancreatic necrosis. -Dilaudid decreased from 2mg to 1mg q4Hr on 12/05, will change 0.5mg IV q3hr, since doage resolves pain but requesting increase in needing of frequecy. nidoderm patch on LUQ abdominal wall -Monitor corrected Calcium. Has been WNL. -Daily CBC, WBC improved, Hct WNL. -Imipenem/Cilastin started 12/01; will continue. -Lipase slight bump still from yesterday even after increasing fluids to 150ml/hr. Possible from regular diet and made NPO again on 12/05 to decrease inflammation of pancreas in response to food. Still today with bump in Lipase to 1041 although clinical picture shows improvement. -Since clinically appearing to significantly improve, will stop checking morning Lipase as he has healing of his pancreatitis with necrosis expect there to continued to be elevated Lipase values. -Will dc fluids since tolerating PO intake Ileus -Relistor given x 1 on 12/02/19. 12/04 after discussion with floor pharmacist, will c/w Relistor. -Added colace, dulcolax, simethicone -Cutting back pain meds as tolerated -BM today which was a positive sign Dyspnea/Orthopnea -Suspect related to atelectasis, ileus and being unable to take deep breaths -Continue incentive spirometry Transaminitis - Resolved Likely secondary to pancreatitis and irritation of the biliary tree. Will trend CMP.. MILTON; resolved Patient without history of chronic kidney disease creatinine 2.0 on presentation likely resulting in ATN from hypoperfusion in the setting of pancreatitis and poor p.o. intake. -Creat improved -Fluids as above -Daily CMP Alcohol abuse Note from Admission/Day 1 encounter Patient with history of chronic alcohol abuse. Had recently completed a rehab stay, and had been clean since May 2019. Patient relapsed last week admitting to consuming 6 beers in 1 sitting, he would not report the frequency of these events. Stating only that "it was only 6 beers "and "there is no way 6 beers could do this ". Regardless encouraged him to avoid alcohol in the future. He notes this AM that it was 2 weeks ago last drink. However, Mom later arrived (who is a retired Neurologist) and notes that he snuck out to buy alcohol/beer Thursday when she left house. She notes that he has a history of alcohol abuse with a prior inpatient rehab stay. Pt reports he was drinking more than initially reported. -AWSS Scale with Ativan 1mg IV ordered. -Monitor for signs of respiratory depression. -consider psych consult vs outpt psych once more medically stable, however pt declines Hypertriglyceridemia Patient with a history of hypertriglyceridemia, cholesterol in May was 220, triglycerides 133. Cholesterol labs were not obtained in the emergency depa rtment, suspected to be elevated based on his recent increase consumption of fast food. Assuming his liver enzymes normalize would strongly consider addition of a statin given his calculated LDL is 147, but with current Transaminitis, will most likely need to defer this to outpatient PCP. Anxiety disorder Patient with history of an anxiety disorder well-controlled with home medications. Resume home meds now that tolerating PO -Resume bupropion 150 mg every afternoon, and 300 mg every morning -Resume doxepin, duloxetine, trazodone GERD Well controlled with Protonix at home. Tobacco abuse Patient with a history of tobacco abuse, no desire to quit at present, counseled the patient on the importance of quitting. -We will provide nicotine patch FENa: Full liquid, A/A/T Code Status: Full DVT PPX: Lovenox 40 PT/OT: Not indicated Dispo: transfer to med/tele in light of clinical improvement (2) Depression: (3) Hypertriglyceridemia: (4) Anxiety disorder, unspecified: (5) Alcohol use disorder, severe, dependence: (6) GERD (gastroesophageal reflux disease): (7) Transaminitis: Admission and Anticipated Discharge Date Admission Date: December 01, 2019 Supervising Physician Co-Signing Physician Notes I personally examined the patient and verified all trinh points of history and exam, discussed case, and agree with decision making with Dr Hoffmann. feeling a little better than before. still a lot of pain - predominantly L sided abdominal now. pain meds help but wear off. did have BM. didn't necessarily change pain much. vitals noted nad heent nc at mmm. abd mildly distended no palpable tenderness no guarding no rebound no rigidity. no LLQ or epigastric pain. necrotizing pancreatitis/postpancreatitis ileus - slow ipmrovement, supportive care, pain control, bowel regimen, time. Subjective Notes continues to feel improved, trying to limit his use of Dilaudid, however he reports that when he needs it - pain resolves but does return and wondering if perhaps frequency could be shortened if needed. He notes BM this morning which was happy with. No other new acute complaints, no events reported overnight. Physical Exam Constitutional: WD/WN, vitals as above cooperative and comfortable Eyes: PERRL, conjunctivae normal, anicteric sclerae ENMT: external ear and nose normal, oropharynx normal Neck: normal visual inspection and trachea midline Respiratory: normal respiratory effort, lungs clear to auscultation Cardiovascular: Rate/Rhythm: regular rate and regular rhythm Gastrointestinal (Abdomen): Inspection/Auscultation: normal bowel sounds Percussion/Palpation: abdomen soft; abdomen nontender, no guarding and abdomen not rigid distended Musculoskeletal: Head/Neck/Chest: normocephalic and head atraumatic Skin: no rashes and no pallor Neurologic: moves all extremities and awake Psychiatric: A+Ox3, euthymic affect Results & Data ([facility]) Vital Signs (Past 12 Hours) Vital Signs Temp Pulse Pulse Resp BP Pulse Ox 12/07/19 08:33 72 12/07/19 03:39 36.8 C 72 18 129/80 96 12/07/19 01:27 73 12/06/19 23:47 36.6 C 81 18 135/94 99 Laboratory Results Laboratory Results - last 24 hr 12/07/19 12/07/19 07:05 07:05 WBC 8.57 RBC 4.07 L Hgb 12.3 L Hct 36.7 L MCV 90.2 MCH 30.2 MCHC 33.5 RDW Std Deviation 56.4 H RDW Coeff of Grisel 17.1 H Plt Count 306 MPV 9.3 Immature Gran % (Auto) 1.5 Neut % (Auto) 71.1 Lymph % (Auto) 13.4 Hanson % (Auto) 10.7 Eos % (Auto) 2.9 Baso % (Auto) 0.4 Immature Gran # (Auto) 0.13 H Neut # (Auto) 6.09 Lymph # (Auto) 1.15 L Hanson # (Auto) 0.92 H Eos # (Auto) 0.25 Baso # (Auto) 0.03 Sodium 137 Potassium 3.9 Chloride 103 Carbon Dioxide 26 Anion Gap 8.0 BUN 9 Creatinine 0.82 Est Cr Clr Drug Dosing 115.6 Est GFR ( Amer) 134.7 Est GFR (Non-Af Amer) 116.2 BUN/Creatinine Ratio 10.8 Glucose 95 Calcium 9.4 Magnesium 2.1 Total Bilirubin 0.5 AST 23 ALT 47 Alkaline Phosphatase 102 Total Protein 6.8 Albumin 2.4 L Globulin 4.4 H Albumin/Globulin Ratio 0.5 L Lipase 1041 H Medications Administered Bisacodyl (Dulcolax) 5 mg PO DAILY [facility] Stop: 01/06/20 08:59 Last Admin: 12/07/19 09:58 Dose: 5 mg Documented by: [id number] Bupropion HCl (Wellbutrin-Xl) 300 mg PO QAM [facility] Stop: 01/01/20 10:59 Last Admin: 12/07/19 09:06 Dose: 300 mg Documented by: [id number] Admin: 12/06/19 07:29 Dose: 300 mg Documented by: [id number] Admin: 12/05/19 08:37 Dose: 300 mg Documented by: [id number] Admin: 12/04/19 08:43 Dose: 300 mg Documented by: [id number] Admin: 12/03/19 08:08 Dose: 300 mg Documented by: [id number] Admin: 12/02/19 11:54 Dose: 300 mg Documented by: [id number] Bupropion HCl (Wellbutrin-Xl) 150 mg PO QPM [facility] Stop: 01/01/20 20:59 Last Admin: 12/06/19 21:49 Dose: 150 mg Documented by: [id number] Admin: 12/05/19 23:47 Dose: Not Given Documented by: [id number] Admin: 12/04/19 20:22 Dose: 150 mg Documented by: [id number] Admin: 12/03/19 20:15 Dose: 150 mg Documented by: [id number] Admin: 12/02/19 21:34 Dose: 150 mg Documented by: [id number] Docusate Sodium (Colace) 100 mg PO BID [facility] Stop: 01/01/20 20:59 Last Admin: 12/07/19 09:08 Dose: 100 mg Documented by: [id number] Admin: 12/06/19 21:49 Dose: 100 mg Documented by: [id number] Admin: 12/06/19 07:30 Dose: 100 mg Documented by: [id number] Admin: 12/05/19 20:24 Dose: 100 mg Documented by: [id number] Admin: 12/05/19 08:37 Dose: 100 mg Documented by: [id number] Admin: 12/04/19 20:24 Dose: 100 mg Documented by: [id number] Admin: 12/04/19 08:43 Dose: 100 mg Documented by: [id number] Admin: 12/03/19 20:15 Dose: 100 mg Documented by: [id number] Admin: 12/03/19 08:08 Dose: 100 mg Documented by: [id number] Admin: 12/02/19 21:34 Dose: Not Given Documented by: [id number] Doxepin HCl (Sinequan) 50 mg PO DAILY [facility] Stop: 01/01/20 10:59 Last Admin: 12/07/19 10:00 Dose: Not Given Documented by: [id number] Admin: 12/06/19 21:48 Dose: 50 mg Documented by: [id number] Admin: 12/06/19 07:33 Dose: Not Given Documented by: [id number] Admin: 12/05/19 08:39 Dose: Not Given Documented by: [id number] Admin: 12/04/19 08:43 Dose: Not Given Documented by: [id number] Admin: 12/03/19 08:09 Dose: Not Given Documented by: [id number] Admin: 12/02/19 11:56 Dose: Not Given Documented by: [id number] Duloxetine HCl (Cymbalta) 60 mg PO DAILY [facility] Stop: 01/01/20 10:59 Last Admin: 12/07/19 09:06 Dose: 60 mg Documented by: [id number] Admin: 12/06/19 07:29 Dose: 60 mg Documented by: [id number] Admin: 12/05/19 08:37 Dose: 60 mg Documented by: [id number] Admin: 12/04/19 08:43 Dose: 60 mg Documented by: [id number] Admin: 12/03/19 08:08 Dose: 60 mg Documented by: [id number] Admin: 12/02/19 11:54 Dose: 60 mg Documented by: [id number] Enoxaparin Sodium (Lovenox) 40 mg SQ HS [facility] Stop: 01/02/20 20:59 Last Admin: 12/06/19 21:49 Dose: 40 mg Documented by: [id number] Admin: 12/05/19 20:30 Dose: Not Given Documented by: [id number] Admin: 12/04/19 20:24 Dose: 40 mg Documented by: [id number] Admin: 12/03/19 20:15 Dose: 40 mg Documented by: [id number] Hydromorphone HCl (Dilaudid) 0.5 mg IV Q4H PRN PRN Reason: Pain Stop: 12/20/19 06:46 Last Admin: 12/07/19 14:04 Dose: 0.5 mg Documented by: [id number] Admin: 12/06/19 21:48 Dose: 0.5 mg Documented by: [id number] Admin: 12/06/19 17:41 Dose: 0.5 mg Documented by: [id number] Admin: 12/06/19 12:26 Dose: 0.5 mg Documented by: [id number] Lactated Ringer's (Lr) 1,000 mls @ 150 mls/hr IV .Q6H40M [facility] Stop: 12/31/19 06:46 Last Infusion: 12/07/19 00:27 Dose: 0 mls/hr Documented by: [id number] Admin: 12/06/19 21:48 Dose: 150 mls/hr Documented by: [id number] Infusion: 12/06/19 19:40 Dose: 150 mls/hr Documented by: [id number] Admin: 12/06/19 12:59 Dose: 150 mls/hr Documented by: [id number] Infusion: 12/06/19 12:47 Dose: 150 mls/hr Documented by: [id number] Admin: 12/06/19 06:06 Dose: 150 mls/hr Documented by: [id number] Infusion: 12/06/19 06:06 Dose: 150 mls/hr Documented by: [id number] Admin: 12/05/19 23:48 Dose: 150 mls/hr Documented by: [id number] Infusion: 12/05/19 23:34 Dose: 150 mls/hr Documented by: [id number] Admin: 12/05/19 16:53 Dose: 150 mls/hr Documented by: [id number] Infusion: 12/05/19 16:52 Dose: 100 mls/hr Documented by: [id number] Admin: 12/05/19 10:46 Dose: 100 mls/hr Documented by: [id number] Infusion: 12/05/19 10:46 Dose: 100 mls/hr Documented by: [id number] Admin: 12/05/19 03:26 Dose: 100 mls/hr Documented by: [id number] Infusion: 12/05/19 03:26 Dose: 100 mls/hr Documented by: [id number] Admin: 12/04/19 18:06 Dose: 100 mls/hr Documented by: [id number] Infusion: 12/04/19 18:06 Dose: 100 mls/hr Documented by: [id number] Admin: 12/04/19 08:42 Dose: 100 mls/hr Documented by: [id number] Infusion: 12/04/19 07:32 Dose: 100 mls/hr Documented by: [id number] Infusion: 12/04/19 00:18 Dose: 100 mls/hr Documented by: [id number] Admin: 12/03/19 21:31 Dose: 100 mls/hr Documented by: [id number] Infusion: 12/03/19 21:30 Dose: 0 mls/hr Documented by: [id number] Infusion: 12/03/19 17:35 Dose: 100 mls/hr Documented by: [id number] Infusion: 12/03/19 17:00 Dose: 0 mls/hr Documented by: [id number] Admin: 12/03/19 10:29 Dose: 100 mls/hr Documented by: [id number] Infusion: 12/03/19 10:29 Dose: 100 mls/hr Documented by: [id number] Admin: 12/03/19 01:44 Dose: 100 mls/hr Documented by: [id number] Infusion: 12/03/19 00:29 Dose: 100 mls/hr Documented by: [id number] Admin: 12/02/19 14:29 Dose: 100 mls/hr Documented by: [id number] Infusion: 12/02/19 14:18 Dose: 100 mls/hr Documented by: [id number] Infusion: 12/02/19 13:28 Dose: 100 mls/hr Documented by: [id number] Admin: 12/02/19 08:53 Dose: 200 mls/hr Documented by: [id number] Infusion: 12/02/19 08:53 Dose: 200 mls/hr Documented by: [id number] Admin: 12/02/19 04:06 Dose: 200 mls/hr Documented by: [id number] Infusion: 12/02/19 03:50 Dose: 200 mls/hr Documented by: [id number] Admin: 12/01/19 22:50 Dose: 200 mls/hr Documented by: [id number] Infusion: 12/01/19 22:50 Dose: 200 mls/hr Documented by: [id number] Admin: 12/01/19 18:38 Dose: 200 mls/hr Documented by: [id number] Infusion: 12/01/19 18:00 Dose: 200 mls/hr Documented by: [id number] Admin: 12/01/19 13:00 Dose: 200 mls/hr Documented by: [id number] Infusion: 12/01/19 12:52 Dose: 0 mls/hr Documented by: [id number] Admin: 12/01/19 07:52 Dose: 200 mls/hr Documented by: [id number] Imipenem/Cilastatin Sodium 500 (mg/ Dextrose) 110 mls @ 100 mls/hr IV Q6H [facility]; Protocol Stop: 12/11/19 13:14 Last Infusion: 12/07/19 14:37 Dose: 0 mls/hr Documented by: [id number] Admin: 12/07/19 13:27 Dose: 100 mls/hr Documented by: [id number] Infusion: 12/07/19 11:03 Dose: 0 mls/hr Documented by: [id number] Admin: 12/07/19 09:05 Dose: 100 mls/hr Documented by: [id number] Infusion: 12/07/19 02:07 Dose: 0 mls/hr Documented by: [id number] Admin: 12/07/19 01:01 Dose: 100 mls/hr Documented by: [id number] Infusion: 12/06/19 22:18 Dose: 0 mls/hr Documented by: [id number] Admin: 12/06/19 20:39 Dose: 100 mls/hr Documented by: [id number] Infusion: 12/06/19 14:23 Dose: 0 mls/hr Documented by: [id number] Admin: 12/06/19 13:00 Dose: 100 mls/hr Documented by: [id number] Infusion: 12/06/19 09:00 Dose: 0 mls/hr Documented by: [id number] Admin: 12/06/19 07:33 Dose: 100 mls/hr Documented by: [id number] Infusion: 12/06/19 03:20 Dose: 0 mls/hr Documented by: [id number] Admin: 12/06/19 01:44 Dose: 100 mls/hr Documented by: [id number] Infusion: 12/05/19 20:46 Dose: 0 mls/hr Documented by: [id number] Admin: 12/05/19 19:30 Dose: 100 mls/hr Documented by: [id number] Infusion: 12/05/19 16:47 Dose: 0 mls/hr Documented by: [id number] Admin: 12/05/19 15:37 Dose: 100 mls/hr Documented by: [id number] Infusion: 12/05/19 10:13 Dose: 0 mls/hr Documented by: [id number] Admin: 12/05/19 08:37 Dose: 100 mls/hr Documented by: [id number] Infusion: 12/05/19 04:54 Dose: 0 mls/hr Documented by: [id number] Admin: 12/05/19 03:26 Dose: 100 mls/hr Documented by: [id number] Infusion: 12/04/19 21:56 Dose: 0 mls/hr Documented by: [id number] Admin: 12/04/19 20:22 Dose: 100 mls/hr Documented by: [id number] Infusion: 12/04/19 15:54 Dose: 0 mls/hr Documented by: [id number] Admin: 12/04/19 14:39 Dose: 100 mls/hr Documented by: [id number] Infusion: 12/04/19 09:53 Dose: 0 mls/hr Documented by: [id number] Admin: 12/04/19 08:42 Dose: 100 mls/hr Documented by: [id number] Infusion: 12/04/19 04:38 Dose: 0 mls/hr Documented by: [id number] Admin: 12/04/19 03:21 Dose: 100 mls/hr Documented by: [id number] Infusion: 12/03/19 21:31 Dose: 0 mls/hr Documented by: [id number] Admin: 12/03/19 20:10 Dose: 100 mls/hr Documented by: [id number] Infusion: 12/03/19 15:52 Dose: 0 mls/hr Documented by: [id number] Admin: 12/03/19 14:32 Dose: 100 mls/hr Documented by: [id number] Infusion: 12/03/19 09:20 Dose: 0 mls/hr Documented by: [id number] Admin: 12/03/19 08:07 Dose: 100 mls/hr Documented by: [id number] Infusion: 12/03/19 02:51 Dose: 0 mls/hr Documented by: [id number] Admin: 12/03/19 01:43 Dose: 100 mls/hr Documented by: [id number] Infusion: 12/02/19 22:00 Dose: 0 mls/hr Documented by: [id number] Admin: 12/02/19 20:53 Dose: 100 mls/hr Documented by: [id number] Infusion: 12/02/19 17:49 Dose: 0 mls/hr Documented by: [id number] Admin: 12/02/19 14:29 Dose: 100 mls/hr Documented by: [id number] Infusion: 12/02/19 09:53 Dose: 0 mls/hr Documented by: [id number] Admin: 12/02/19 08:43 Dose: 100 mls/hr Documented by: [id number] Infusion: 12/02/19 03:01 Dose: 0 mls/hr Documented by: [id number] Admin: 12/02/19 01:55 Dose: 100 mls/hr Documented by: [id number] Infusion: 12/01/19 21:43 Dose: 0 mls/hr Documented by: [id number] Admin: 12/01/19 20:24 Dose: 100 mls/hr Documented by: [id number] Infusion: 12/01/19 15:55 Dose: 0 mls/hr Documented by: [id number] Admin: 12/01/19 14:22 Dose: 100 mls/hr Documented by: [id number] Acetaminophen (Ofirmev) 1,000 mg in 100 mls @ 400 mls/hr IV Q8H PRN PRN Reason: Pain or Fever Stop: 03/04/20 23:49 Last Infusion: 12/06/19 15:09 Dose: 0 mls/hr Documented by: [id number] Admin: 12/06/19 14:27 Dose: 400 mls/hr Documented by: [id number] Infusion: 12/06/19 00:10 Dose: 0 mls/hr Documented by: [id number] Admin: 12/05/19 23:49 Dose: 400 mls/hr Documented by: [id number] Infusion: 12/05/19 12:53 Dose: 0 mls/hr Documented by: [id number] Admin: 12/05/19 12:29 Dose: 400 mls/hr Documented by: [id number] Infusion: 12/04/19 17:07 Dose: 0 mls/hr Documented by: [id number] Admin: 12/04/19 15:53 Dose: 400 mls/hr Documented by: [id number] Infusion: 12/04/19 04:58 Dose: 0 mls/hr Documented by: [id number] Admin: 12/04/19 04:35 Dose: 400 mls/hr Documented by: [id number] Infusion: 12/03/19 19:37 Dose: 0 mls/hr Documented by: [id number] Admin: 12/03/19 19:08 Dose: 400 mls/hr Documented by: [id number] Infusion: 12/02/19 20:20 Dose: 0 mls/hr Documented by: [id number] Admin: 12/02/19 19:28 Dose: 400 mls/hr Documented by: [id number] Ketorolac Tromethamine (Toradol) 30 mg IV Q6H PRN PRN Reason: Pain Stop: 12/09/19 16:48 Last Admin: 12/07/19 13:27 Dose: 30 mg Documented by: [id number] Admin: 12/07/19 05:09 Dose: 30 mg Documented by: [id number] Admin: 12/06/19 19:06 Dose: 30 mg Documented by: [id number] Admin: 12/06/19 09:00 Dose: 30 mg Documented by: [id number] Admin: 12/05/19 19:21 Dose: 30 mg Documented by: [id number] Admin: 12/05/19 10:40 Dose: 30 mg Documented by: [id number] Admin: 12/04/19 23:00 Dose: 30 mg Documented by: [id number] Admin: 12/04/19 18:07 Dose: 30 mg Documented by: [id number] Lidocaine (Lidoderm 5%) 1 patch TD QAM [facility] Stop: 01/02/20 09:29 Last Admin: 12/07/19 09:08 Dose: Not Given Documented by: [id number] Admin: 12/06/19 07:28 Dose: 1 patch Documented by: [id number] Admin: 12/05/19 08:38 Dose: 1 patch Documented by: [id number] Admin: 12/04/19 08:42 Dose: 1 patch Documented by: [id number] Admin: 12/03/19 10:30 Dose: 1 patch Documented by: [id number] Metoclopramide HCl (Reglan) 5 mg PO ACHS [facility] Stop: 01/07/20 09:29 Last Admin: 12/07/19 17:28 Dose: 5 mg Documented by: [id number] Admin: 12/07/19 12:36 Dose: 5 mg Documented by: [id number] Admin: 12/07/19 09:05 Dose: 5 mg Documented by: [id number] Admin: 12/06/19 21:49 Dose: 5 mg Documented by: [id number] Admin: 12/06/19 16:55 Dose: 5 mg Documented by: [id number] Miscellaneous (Remove Nicoderm Patch) 1 ea N/A DAILY@0859 [facility] Stop: 12/31/19 08:58 Last Admin: 12/07/19 09:08 Dose: 1 ea Documented by: [id number] Admin: 12/06/19 07:31 Dose: 1 ea Documented by: [id number] Admin: 12/05/19 08:44 Dose: 1 ea Documented by: [id number] Admin: 12/04/19 08:42 Dose: 1 ea Documented by: [id number] Admin: 12/03/19 08:08 Dose: 1 ea Documented by: [id number] Admin: 12/02/19 08:45 Dose: 1 ea Documented by: [id number] Admin: 12/01/19 07:52 Dose: Not Given Documented by: [id number] Miscellaneous (Remove Lidoderm Patch) 1 ea N/A DAILY@2100 [facility] Stop: 01/02/20 20:59 Last Admin: 12/06/19 21:53 Dose: 1 ea Documented by: [id number] Admin: 12/05/19 20:30 Dose: 1 ea Documented by: [id number] Admin: 12/04/19 21:55 Dose: 1 ea Documented by: [id number] Admin: 12/03/19 20:15 Dose: 1 ea Documented by: [id number] Miscellaneous Information (Patient's Allergy Info Needs Entered) 1 ea N/A QSHIFT [facility] Stop: 01/06/20 12:14 Last Admin: 12/07/19 17:28 Dose: 1 ea Documented by: [id number] Admin: 12/07/19 12:39 Dose: 1 ea Documented by: [id number] Nicotine (Nicoderm Cq) 14 mg TD QAM [facility] Stop: 12/31/19 08:59 Last Admin: 12/07/19 09:06 Dose: 14 mg Documented by: [id number] Admin: 12/06/19 07:29 Dose: 14 mg Documented by: [id number] Admin: 12/05/19 08:37 Dose: 14 mg Documented by: [id number] Admin: 12/04/19 08:43 Dose: 14 mg Documented by: [id number] Admin: 12/03/19 08:08 Dose: 14 mg Documented by: [id number] Admin: 12/02/19 08:44 Dose: 14 mg Documented by: [id number] Admin: 12/01/19 08:09 Dose: 14 mg Documented by: [id number] Ondansetron HCl (Zofran) 4 mg IV Q4H PRN PRN Reason: Nausea Stop: 12/31/19 16:07 Last Admin: 12/01/19 20:24 Dose: 4 mg Documented by: [id number] Admin: 12/01/19 16:19 Dose: 4 mg Documented by: [id number] Pantoprazole Sodium (Protonix) 40 mg PO BID [facility] Stop: 12/31/19 20:59 Last Admin: 12/07/19 09:06 Dose: 40 mg Documented by: [id number] Admin: 12/06/19 21:49 Dose: 40 mg Documented by: [id number] Admin: 12/06/19 07:31 Dose: 40 mg Documented by: [id number] Admin: 12/05/19 20:24 Dose: 40 mg Documented by: [id number] Admin: 12/05/19 08:32 Dose: 40 mg Documented by: [id number] Admin: 12/04/19 20:22 Dose: 40 mg Documented by: [id number] Admin: 12/04/19 08:43 Dose: 40 mg Documented by: [id number] Admin: 12/03/19 20:15 Dose: 40 mg Documented by: [id number] Admin: 12/03/19 08:08 Dose: 40 mg Documented by: [id number] Admin: 12/02/19 21:32 Dose: 40 mg Documented by: [id number] Admin: 12/02/19 08:44 Dose: 40 mg Documented by: [id number] Admin: 12/01/19 19:53 Dose: Not Given Documented by: [id number] Simethicone (Mylicon) 80 mg PO Q6H PRN PRN Reason: Gas or Constipation Stop: 01/02/20 12:01 Last Admin: 12/04/19 06:36 Dose: 80 mg Documented by: [id number] Admin: 12/03/19 13:47 Dose: 80 mg Documented by: [id number] Trazodone HCl (Desyrel) 100 mg PO HS PRN PRN Reason: sleep Stop: 01/01/20 10:49 Last Admin: 12/06/19 21:48 Dose: 100 mg Documented by: [id number] Admin: 12/05/19 22:15 Dose: 100 mg Documented by: [id number] Admin: 12/04/19 20:50 Dose: 100 mg Documented by: [id number] Admin: 12/02/19 21:59 Dose: 100 mg Documented by: [id number] Resident Activity Tracking Resident Involvement: Resident Care Provided Care Provided: Adult Hospital Medicine (1) Anxiety disorder, unspecified Anxiety disorder type: unspecified anxiety disorder Qualified Code(s): F41.9 - Anxiety disorder, unspecified
[2019-12-07] MEDS ORDERED: METHYLNALTREXONE BROMIDE 12 MG/0.6 ML VIAL SQ ONE (10:45)
[2019-12-07] MEDS ORDERED: IOVERSOL 100ml IV PRN (12:09)
[2019-12-07] MEDS: PATIENT'S ALLERGY INFO NEEDS ENTERED SCH ×2 (12:39→17:28)
--- NOTE | 2019-12-07 12:45 | CT Scan Report ---
CT pancreas 3-phase wo/w con CLINICAL HISTORY: 34 years-old Male presenting with ? Progression of pancreatitis. TECHNIQUE: Multidetector CT of the abdomen was performed before and after the administration of intra venous contrast. IV contrast: 94 mL of Optiray. One or more dose lowering techniques were used consis tent with the principles of ALARA (as low as reasonably achievable), including automatic exposure con trol, mA or kV adjustment to individual patient size, and/or use of iterative reconstruction. COMPARISON: 12/01/2019. CT DOSE (mGy.cm): The estimated cumulative dose is 704.53 mGy.cm. 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 Lung bases: Normal heart size. Left greater right pleural effusions. Passive atelectasis of the lung bases. Lingular ground glass opacity. Liver: Normal morphology. Density consistent with moderate hepatic steatosis. No focal lesion. Patent hepatic vasculature. Biliary: No intrahepatic or extrahepatic biliary ductal dilatation. Gallbladder decompressed. Pancreas: Extensive peripancreatic fat infiltration most prominently along the pancreatic body and ta il, similar to slightly progressed from prior. Multiple foci of nonenhancing pancreatic parenchyma in the body and tail as on prior exam. There is less well-defined margins of the parenchyma with surrou nding fat. Suspected developing parenchymal collections, which are mobile multilobular and poorly del ineated though peripheral enhancement and developing ruiz are suspected. These poorly delineated col lections do not appear to contain gas. Fat infiltration extends into the transverse mesocolon trackin g towards the splenic flexure as well as towards the inferior pole of the spleen and along the signaling project engineer ior aspect of the gastric body. The duodenum at the level of the ligament of Treitz is abutted by the collections. Spleen: Normal. Splenic artery and vein patent, however, the vein is rather diminutive. Adrenal glands: Normal. Kidneys and ureters: Normal. No hydronephrosis. Bowel: Normal. No bowel obstruction. Trace hiatal hernia. Peritoneal cavity: No free fluid or intraperitoneal gas. Lymph nodes: No enlarged lymph nodes in the abdomen. Vasculature: Aorta and IVC patent and normal in caliber. Abdominal wall: Normal. Musculoskeletal: Normal. IMPRESSION: 1. Interval evolution of the necrotizing pancreatitis, slightly worsened in severity. Developing acu te necrotic collections both within the parenchyma and along the pancreatic tail. These are poorly de lineated though developing ruiz are suspected. 2. Hepatic steatosis. 3. Bilateral pleural effusions and atelectasis. ACT 112: Negative or not required by law. Electronically signed by: Davy Blackwell M.D. 12/07/2019 12:44 PM
--- NOTE | 2019-12-07 12:53 | Gastroenterology Progress Note ---
Date of Service December 07, 2019 Assessment & Plan (1) Necrotizing pancreatitis: (2) Alcohol use disorder, severe, dependence: Pt is a 34 y/o male, hx of ETOH abuse admitted with necrotizing ETOH pancreatitis. Overall improving but with ileus/constipation. 1. Reglan, Relistor, Dulcolax. 2. Increase ambulation. 3. Limit narcotics. 4. Will check CT pancreas to r/o any progression of the pancreatitis and r/o pseudocyst formation (which can also cause fullness if pressing on the stomach). Admission and Anticipated Discharge Date Admission Date: December 01, 2019 Supervising Physician Co-Signing Physician Notes I have seen and examined the patient with BECKY Rosado on 12/06. Her note reflects our findings and plan. Lipase increased but not significantly. Patient with lower abd discomfort. No nausea or vomiting. Getting repeat CT scan to re-evaluate his necrotizing pancreatitis. Would prefer to continue bowel rest, He needs IVF hydration, PRN analgesia and anti-emetics. He needs a bowel regimen as well. Pleural effusions noted on CT. Subjective Mr. Tapia is a 34 yr old male pt who was admitted on 12/[address] at that time with necrotizing pancreatitis in the tail. C/o abdominal fullness and distention, no nausea, no epigastric pain as he rec alls previously with pancreatitis. No back pain. Most recent BM documented as 3.1.20 but pt doesn't remember any since prior to admission. Is passing gas rectally. Lipase much improved compared to admission but slightly trending up, now 1041. LFTs normal. Review of Systems Review of Systems: ROS: Gen: Able to ambulate. No fevers, no diaphoresis Eyes: No eye redness, or pain, no recent vision changes Resp: No SOB, no cough Cardio: No palpitations/irregular beats, no chest pain GI: See Subjective. : Denies pain on urination Skin: No jaundice, itching or new rashes Physical Exam Constitutional: well developed, well nourished and average body habitus Eyes: PERRL, conjunctivae normal, anicteric sclerae ENMT: external ear and nose normal, oropharynx normal Neck: trachea midline, no thyromegaly Respiratory: normal respiratory effort; no respiratory distress, no labored breathing and no retractions Cardiovascular: RRR, no murmur, no edema Gastrointestinal (Abdomen): Inspection/Auscultation: + abdomen distended (moderately, not rigid; diffusely tender; BS present, normal) not tender on deep palpation of the epigastric area. Musculoskeletal: no cyanosis or clubbing, extremities motor strength 5/5 Skin: no rashes, warm and dry Neurologic: PERRL, EOMI, accommodation nl, no face palsy, no dysarthria Psychiatric: A+Ox3, euthymic affect Lymphatic: no cervical or axillary lymphadenopathy Results & Data ([facility]) Vital Signs (Past 12 Hours) Vital Signs Temp Pulse Pulse Resp BP Pulse Ox 12/07/19 08:33 72 12/07/19 03:39 36.8 C 72 18 129/80 96 12/07/19 01:27 73 Laboratory Results WBC 8, Hb 12, Hct 36, Platelets 306, Na 137, K 3.9, Ch 103, CO2 26, BUN 9, Cr 0.82, glucose 95. Diagnostic Findings X-ray today consistent with constipation/ielus.
--- NOTE | 2019-12-07 13:17 | Communication Note ---
Date of Service: December 07, 2019 Given IV findings of progression of necrotizing pancreatitis, despite pt's interest in eating, and apparent ability to tolerate regular consistency low fat food, would decrease diet to clear liquids and manage conservatively. At this point, because he is hemodynamically stable, no clear benefit to transfer to a tertiary care center.
[2019-12-07] MEDS: HYDROmorphone INJ 0.5 MG/0.5 ML SYR IV PRN ×3 (14:04→21:45)
--- NOTE | 2019-12-07 18:20 | Billing Data ---
Date of Service December 07, 2019 Coding Level of Care Code 25377 Subseq Hosp Care Lvl 3
[2019-12-07] MEDS ORDERED: ACETAMINOPHEN 500 MG TAB PO PRN (18:57)
[2019-12-07] MEDS: ENOXAPARIN INJ 40 MG/0.4 ML SYR SQ SCH (20:05)
[2019-12-07] MEDS: BuPROPion XL 150 MG TABCR PO SCH (20:07)
[2019-12-07] MEDS: TRAZODONE HCL 100 MG TAB PO PRN (22:12)
[2019-12-08] MEDS: IMIPENEM/CILASTATIN SODIUM 500 MG in DEXTROSE 5% 100 ML IV SCH ×4 (01:48→20:10)
[2019-12-08 07:09] LABS: Basophils # (auto) 0.03 K/uL (0-0.2); Basophils % (auto) 0.4 %; Eosinophils # (auto) 0.29 K/uL (0-0.5); Eosinophils % (auto) 3.6 %; Hematocrit (blood only) 36.2 % (42-52); Hemoglobin 12.1 g/dL (14.0-18.0); Immature Granulocytes % (auto) 1.2 %; Lymphocytes # (auto) 1.36 K/uL (1.2-3.4); Lymphocytes % (auto) 16.9 %; Mean Corpuscular Hemoglobin 30.6 pg (25-34); Mean Corpuscular Hgb Conc 33.4 g/dL (32-36); Mean Corpuscular Volume 91.6 fL (80-100); Mean Platelet Volume 9.2 fL (7.4-10.4); Monocytes # (auto) 0.74 K/uL (0.11-0.59); Monocytes % (auto) 9.2 %; Neutrophils # (auto) 5.55 K/uL (1.4-6.5); Neutrophils % (auto) 68.7 %; Platelet Count 423 K/uL (130-400); RDW Standard Deviation 57.1 fL (36.4-46.3); Red Blood Count 3.95 M/uL (4.7-6.1); White Blood Count 8.07 K/uL (4.8-10.8)
[2019-12-08 07:47] LABS: Albumin Level 2.5 gm/dl (3.4-5.0); BUN Creatinine Ratio 11.6 (10-20); Calcium 8.9 mg/dl (8.5-10.1); Creatinine Clr Calc Pharmacy 99.8 ml/min; Est GFR (African American) 121.4; Est GFR (Non-African American) 104.8; Magnesium 2.5 mg/dl (1.8-2.4); Potassium 4.1 mmol/L (3.5-5.1)
[2019-12-08] MEDS: METOCLOPRAMIDE HCL 5 MG TABLET PO SCH ×4 (07:48→20:12)
[2019-12-08 07:50] LABS: Albumin Globulin Ratio 0.6 (0.9-2); Bilirubin,Total 0.5 mg/dl (0.2-1); Globulin 4.4 gm/dl (2.5-4.0); Total Protein 6.9 gm/dl (6.4-8.2)
[2019-12-08] MEDS: DOCUSATE SODIUM 100 MG CAP PO SCH ×2 (08:25→20:11)
[2019-12-08] MEDS: PANTOprazole 40 MG TAB PO SCH ×2 (08:25→20:12)
[2019-12-08] MEDS: BuPROPion XL 300 MG TABCR PO SCH (08:26)
[2019-12-08] MEDS: LIDOCAINE 5% 1 PATCH TD SCH (08:26)
[2019-12-08] MEDS: KETOROLAC 30 MG/ML VIAL IV PRN (08:31)
[2019-12-08] MEDS: DULOXETINE HCL 60 MG CAP PO SCH (08:42)
[2019-12-08] MEDS: NICOTINE 14 MG/24 HR PATCH TD SCH (08:58)
[2019-12-08] MEDS: bisacodyL 5 MG TABEC PO SCH (09:00)
--- NOTE | 2019-12-08 11:50 | Hospitalist Progress Note ---
Date of Service December 08, 2019 Assessment & Plan (1) Necrotizing pancreatitis: Patient is a 34-year-old male with a past medical history of alcoholism (until the week [employer], had not had a drink since May 2019), Erectile dysfunction, depression, hypertriglyceridemia, GERD, anxiety, recurrent pancreatitis who presents for evaluation of severe abdominal pain, diagnosed with necrotizing pancreatitis. Necrotizing pancreatitis -Clinically improving -Consult gastroenterology: appreciate recommendations. MRCP on 12/02/19: pancreatic necrosis identified within the distal body/tail, Trace bilateral pleural effusions and mild body wall edema, Focal smooth narrowing within the mid common bile duct, No filling defects within the common bile duct. No upstream dilatation to suggest a functional stricture within the common bile duct. Pancreatic duct within the pancreatic head/neck normal in course and caliber. Duct at level of the pancreatic body and tail is not identified and likely obscured by the pancreatic necrosis. -Dilaudid decreased from 2mg to 1mg q4Hr on 12/05, c/w 0.5mg IV q3hr, Lidoderm patch on LUQ abdominal wall -Monitor corrected Calcium. Has been WNL. -Daily CBC, WBC improved, Hct WNL. -Imipenem/Cilastin started 12/01; will continue until discharge and as of now will not need abx on discharge -Since clinically appearing to significantly improve, will stop checking morning Lipase as he has healing of his pancreatitis with necrosis expect there to continued to be elevated Lipase values. -currently on IV fluids at 125ml/hr per GI Ileus -Relistor given x 1 on 12/02/19. 12/04 after discussion with floor pharmacist, will c/w Relistor. -Added colace, dulcolax, simethicone -Cutting back pain meds as tolerated -BM 12/07 which was a positive sign, appears to resolved Dyspnea/Orthopnea -Suspect related to atelectasis, ileus and being unable to take deep breaths -Continue incentive spirometry -resolving Transaminitis - Resolved Likely secondary to pancreatitis and irritation of the biliary tree. Will trend CMP.. [place]; resolved Patient without history of chronic kidney disease creatinine 2.0 on presentation likely resulting in ATN from hypoperfusion in the setting of pancreatitis and poor p.o. intake. -Creat improved -Fluids as above -Daily CMP Alcohol abuse Note from Admission/Day 1 encounter Patient with history of chronic alcohol abuse. Had recently completed a rehab stay, and had been clean since May 2019. Patient relapsed last week admitting to consuming 6 beers in 1 sitting, he would not report the frequency of these events. Stating only that "it was only 6 beers "and "there is no way 6 beers could do this ". Regardless encouraged him to avoid alcohol in the future. He notes this AM that it was 2 weeks ago last drink. However, Mom later arrived (who is a retired Neurologist) and notes that he snuck out to buy alcohol/beer Thursday when she left house. She notes that he has a history of alcohol abuse with a prior inpatient rehab stay. Pt reports he was drinking more than initially reported. -AWSS Scale with Ativan 1mg IV ordered. -Monitor for signs of respiratory depression. -consider psych consult vs outpt psych once more medically stable, however pt declines Hypertriglyceridemia Patient with a history of hypertriglyceridemia, cholesterol in May was 220, triglycerides 133. Cholesterol labs were not obtained in the emergency department, suspected to be elevated based on his recent increase consumption of fast food. Assuming his liver enzymes normalize would strongly consider addition of a statin given his calculated LDL is 147, but with current Transaminitis, will most likely need to defer this to outpatient PCP. Anxiety disorder Patient with history of an anxiety disorder well-controlled with home medications. Resume home meds now that tolerating PO -Resume bupropion 150 mg every afternoon, and 300 mg every morning -Resume doxepin, duloxetine, trazodone GERD Well controlled with Protonix at home. Tobacco abuse Patient with a history of tobacco abuse, no desire to quit at present, counseled the patient on the importance of quitting. -We will provide nicotine patch FENa: Low fat diet, A/A/T Code Status: Full DVT PPX: Lovenox 40 PT/OT: Not indicated Dispo: med/tele in light of clinical improvement (2) Depression: (3) Hypertriglyceridemia: (4) Anxiety disorder, unspecified: (5) Alcohol use disorder, severe, dependence: (6) GERD (gastroesophageal reflux disease): (7) Transaminitis: Admission and Anticipated Discharge Date Admission Date: December 01, 2019 Supervising Physician Co-Signing Physician Notes I personally examined the patient and verified all trinh points of history and exam, discussed case, and agree with decision making with Dr Hoffmann. Feeling better. Less pain with breathing. Still has a degree of left upper and middle abdominal pain but better than before, less need for pain meds, getting up and walking around better. Tolerating liquid diet well. Case discussed with GI. vitals noted nad heent nc at mmm. abd less distended no palpable tenderness no guarding no rebound no rigidity. no LLQ or epigastric pain. necrotizing pancreatitis/postpancreatitis ileus -showing ongoing improvement. Continue supportive care, advance diet, increase activity, hopefully home in the next few days. Subjective Resting comfortably in exam bed this morning, sleeping but easily arousable. Notes continues to feel improved, trying to limit his use of Dilaudid. No other new acute complaints, no events reported overnight. Physical Exam Constitutional: WD/WN, vitals as above cooperative and comfortable Eyes: PERRL, conjunctivae normal, anicteric sclerae ENMT: external ear and nose normal, oropharynx normal Neck: normal visual inspection and trachea midline Respiratory: normal respiratory effort, lungs clear to auscultation Cardiovascular: Rate/Rhythm: regular rate and regular rhythm Gastrointestinal (Abdomen): Inspection/Auscultation: normal bowel sounds Percussion/Palpation: abdomen soft; abdomen nontender, no guarding and abdomen not rigid Musculoskeletal: Head/Neck/Chest: normocephalic and head atraumatic Skin: no rashes and no pallor Neurologic: moves all extremities and awake Psychiatric: A+Ox3, euthymic affect Results & Data ([facility]) Vital Signs (Past 12 Hours) Vital Signs Temp Pulse Resp BP Pulse Ox 12/08/19 07:14 36.6 C 68 18 121/78 96 Resident Activity Tracking Resident Involvement: Resident Care Provided Care Provided: Adult Hospital Medicine (1) Anxiety disorder, unspecified Anxiety disorder type: unspecified anxiety disorder Qualified Code(s): F41.9 - Anxiety disorder, unspecified
[2019-12-08] MEDS ORDERED: LACTATED RINGER'S 250 ML IV ONE (12:03)
--- NOTE | 2019-12-08 12:56 | Gastroenterology Progress Note ---
Date of Service December 08, 2019 Assessment & Plan (1) Necrotizing pancreatitis: (2) Alcohol use disorder, severe, dependence: Pt is a 34 y/o male, hx of ETOH abuse admitted with necrotizing ETOH pancreatitis. CT on 12/05 with some progression of the necrosis. Clinically, he is improved on bowel rest. Tolerating clear liqs well. Will start to slowly increase diet, still low fat. 1. Cr slightly increasing - will bolus with LR 1000 then 175/hr. 2. Continue metoclopramide. 3. Increase ambulation. 3. Will continue laxatives as needed. 4. Reasonable use of narcotics. Admission and Anticipated Discharge Date Admission Date: December 01, 2019 Supervising Physician Co-Signing Physician Notes late entry: patient was seen and examined with BECKY Rosado on 12/07. He rnote reflects our findings and plan. Patient with ETOH panc with necrosis and fluid collection on imaging. Lipase went up when he started to eat. Back to NPO and IVF. +BM. No fevers. Abd exam is benign. Needs ETOH rehab. Will need to slowly start with clears and advance cautiously to low fat when ready. Subjective Mr. Tapia appears to be more comfortable as the first two times that I attempted to see him, he was fast asleep. Later tells me that he feels a little better. On clear liqs which he is tolerating well. WBC stable at 8, Cr sl increased from 0.7->0.9. No tachycardia, fevers or hypotension. Review of Systems Review of Systems: ROS: Gen: Denies weakness, fevers, weight loss Eyes: No eye redness, or pain, no recent vision changes Resp: No SOB, no cough Cardio: No palpitations/irregular beats, no chest pain GI: See HPI : Denies pain on urination Skin: No jaundice, itching or new rashes Physical Exam Constitutional: well developed, well nourished and average body habitus Eyes: PERRL, conjunctivae normal, anicteric sclerae ENMT: external ear and nose normal, oropharynx normal Neck: trachea midline, no thyromegaly Respiratory: normal respiratory effort; no respiratory distress, no labored breathing and no retractions Cardiovascular: RRR, no murmur, no edema Gastrointestinal (Abdomen): Inspection/Auscultation: + abdomen distended (mildly, improved compared to a few days ago ) Percussion/Palpation: + abdomen tender (mild/diffuse uper abd tenderness) Musculoskeletal: no cyanosis or clubbing, extremities motor strength 5/5 Skin: no rashes, warm and dry Neurologic: PERRL, EOMI, accommodation nl, no face palsy, no dysarthria Psychiatric: A+Ox3, euthymic affect Lymphatic: no cervical or axillary lymphadenopathy Results & Data ([facility]) Vital Signs (Past 12 Hours) Vital Signs Temp Pulse Resp BP Pulse Ox 12/08/19 07:14 36.6 C 68 18 121/78 96
[2019-12-08] MEDS: LACTATED RINGER'S 1,000 ML IV SCH ×3 (13:25→23:24)
--- NOTE | 2019-12-08 15:29 | Billing Data ---
Date of Service December 08, 2019 Coding Level of Care Code 19612 Subseq Hosp Care Lvl 3
[2019-12-08] MEDS: ENOXAPARIN INJ 40 MG/0.4 ML SYR SQ SCH (20:11)
[2019-12-08] MEDS: BuPROPion XL 150 MG TABCR PO SCH (20:12)
[2019-12-08] MEDS ORDERED: Nursing to Pharmacy Communication ONE (21:25)
[2019-12-08] MEDS ORDERED: DOXEPIN HCL 50 MG CAPSULE PO SCH (21:30)
[2019-12-08] MEDS: TRAZODONE HCL 100 MG TAB PO PRN (21:49)
[2019-12-09] MEDS: IMIPENEM/CILASTATIN SODIUM 500 MG in DEXTROSE 5% 100 ML IV SCH ×3 (03:28→13:15)
[2019-12-09] MEDS: LACTATED RINGER'S 1,000 ML IV SCH ×2 (04:55→14:30)
[2019-12-09] MEDS: METOCLOPRAMIDE HCL 5 MG TABLET PO SCH ×2 (07:15→13:08)
[2019-12-09 07:48] LABS: Hematocrit (blood only) 36.3 % (42-52); Mean Corpuscular Hemoglobin 30.2 pg (25-34); Mean Corpuscular Hgb Conc 33.1 g/dL (32-36); Mean Corpuscular Volume 91.4 fL (80-100); Platelet Count 466 K/uL (130-400); RDW Coefficient of Variation 16.8 % (11.5-14.5); RDW Standard Deviation 56.7 fL (36.4-46.3); Red Blood Count 3.97 M/uL (4.7-6.1); White Blood Count 8.91 K/uL (4.8-10.8)
[2019-12-09 08:31] LABS: BUN Creatinine Ratio 8.8 (10-20); Calcium 9.5 mg/dl (8.5-10.1); Creatinine Clr Calc Pharmacy 104.2 ml/min; Est GFR (African American) 127.9; Est GFR (Non-African American) 110.3; Potassium 4.1 mmol/L (3.5-5.1)
[2019-12-09] MEDS: PANTOprazole 40 MG TAB PO SCH (08:35)
[2019-12-09] MEDS: BuPROPion XL 300 MG TABCR PO SCH (08:35)
[2019-12-09] MEDS: DULOXETINE HCL 60 MG CAP PO SCH (08:35)
[2019-12-09] MEDS: NICOTINE 14 MG/24 HR PATCH TD SCH (08:36)
[2019-12-09] MEDS: LIDOCAINE 5% 1 PATCH TD SCH (08:36)
[2019-12-09] MEDS: DOCUSATE SODIUM 100 MG CAP PO SCH (08:49)
[2019-12-09] MEDS: bisacodyL 5 MG TABEC PO SCH (08:49)
--- NOTE | 2019-12-09 08:59 | Gastroenterology Progress Note ---
Date of Service December 09, 2019 Assessment & Plan (1) Necrotizing pancreatitis: (2) Alcohol use disorder, severe, dependence: Pt is a 34 y/o male, hx of ETOH abuse admitted with necrotizing ETOH pancreatitis. CT on 12/05 with some progression of the necrosis. Clinically, he continues to improve over the last 48 hours. Tolerating low fat regular consistency diet. Normal kidney function. 1. Would DC metoclopramide on discharge. 2. Would DC antibiotics on discharge. 3. No GI contraindication to discharge if does well through today. 4. No specific GI procedures planned at this point. 5. Long discussion on importance of complete alcohol abstention throughout the rest of his life. Patient seems motivated and does not believe that he will need counseling or rehab. 6. GI will sign off please notify us if new or worsening GI issues. Admission and Anticipated Discharge Date Admission Date: December 01, 2019 Supervising Physician Co-Signing Physician Notes I have seen and examined the patient BECKY Sanchez whose note refelcts our findings and plan. Patient feeling better. No abd pain, nausea or vomiting. Labs pending this AM. Patient will need GI f/u following discharge. Subjective Patient awake, alert oriented, tells me that he feels well today, no nausea or vomiting overnight and has not used any narcotics since early yesterday. He was able to eat a small dinner last evening and again a small breakfast this morning which was regular consistency low-fat. Most recent bowel movement yesterday denies any abdominal distention or feeling of constipation Review of Systems Review of Systems: ROS: Gen: Denies weakness, fevers, weight loss Eyes: No eye redness, or pain, no recent vision changes Resp: No SOB, no cough Cardio: No palpitations/irregular beats, no chest pain GI: See HPI : Denies pain on urination Skin: No jaundice, itching or new rashes Physical Exam Constitutional: well developed, well nourished and average body habitus Eyes: PERRL, conjunctivae normal, anicteric sclerae ENMT: external ear and nose normal, oropharynx normal Neck: trachea midline, no thyromegaly Respiratory: normal respiratory effort; no respiratory distress, no labored breathing and no retractions Cardiovascular: RRR, no murmur, no edema Gastrointestinal (Abdomen): normal bowel sounds, soft, nontender, no h epatosplenomegaly Musculoskeletal: no cyanosis or clubbing, extremities motor strength 5/5 Skin: no rashes, warm and dry Neurologic: PERRL, EOMI, accommodation nl, no face palsy, no dysarthria Psychiatric: A+Ox3, euthymic affect Lymphatic: no cervical or axillary lymphadenopathy Results & Data ([facility]) Vital Signs (Past 12 Hours) Vital Signs Temp Pulse Resp BP BP Pulse Ox 12/09/19 07:45 36.8 C 62 20 133/84 96 12/08/19 22:36 37.2 C 86 21 125/78 93
--- NOTE | 2019-12-09 13:44 | Discharge Summary ---
Date of Service December 09, 2019 Principal Diagnosis Necrotizing pancreatitis Discharge Exam Constitutional WD/WN, vitals as above cooperative and comfortable Eyes PERRL, conjunctivae normal, anicteric sclerae ENMT external ear and nose normal, oropharynx normal Neck normal visual inspection Respiratory normal respiratory effort, lungs clear to auscultation Cardiovascular RRR, no murmur, no edema Rate/Rhythm: regular rhythm Extremities: no edema Gastrointestinal (Abdomen) Inspection/Auscultation: abdomen not distended, Marin-Charles sign absent and no hypoactive bowel sounds Percussion/Palpation: no guarding and abdomen not firm Musculoskeletal no cyanosis or clubbing, extremities motor strength 5/5 Head/Neck/Chest: normocephalic and head atraumatic Skin no rashes, warm and dry no jaundice and no pallor Neurologic moves all extremities and awake Psychiatric A+Ox3, euthymic affect Orientation: alert and oriented x 3 Lymphatic no lymphedema Discharge Data Allergies Allergy/AdvReac Type Severity Reaction Status Date / Time No Known Allergies Allergy Unverified 12/07/19 13:01 Consultations 12/01/19 04:38 ED Decision to Admit Stat 12/01/19 06:47 Consult Gastroenterology Routine 12/01/19 13:11 Consult Infectious Diseases Routine Ordered Studies 12/01/19 01:37 CT abd pelvis IV con only Urgent 12/02/19 10:57 MR MRCP Routine 12/03/19 05:27 CT angio chest PE protocol Urgent 12/07/19 12:15 CT pancreas 3-phase wo/w con Routine Hospital Course (1) Necrotizing pancreatitis: Patient is a 34-year-old male with a past medical history of alcoholism (until the week [employer], had not had a drink since May 2019), Erectile dysfunction, depression, hypertriglyceridemia, GERD, anxiety, recurrent pancreatitis who presents for evaluation of severe abdominal pain, diagnosed with necrotizing pancreatitis. Necrotizing pancreatitis -Clinically improved on a daily basis -Consulted gastroenterology: appreciate recommendations. Will set up GI follow up as outpatient. MRCP on 12/02/19: pancreatic necrosis identified within the distal body/tail, Trace bilateral pleural effusions and mild body wall edema, Focal smooth narrowing within the mid common bile duct, No filling defects within the common bile duct. No upstream dilatation to suggest a functional stricture within the common bile duct. Pancreatic duct within the pancreatic head/neck normal in course and caliber. Duct at level of the pancreatic body and tail is not identified and likely obscured by the pancreatic necrosis. -Pain controlled with dilaudid initially, then tapered to toradol, tylenol, and lidocaine patch -Monitored corrected Calcium. Has been WNL x several days prior to discharge. -Imipenem/Cilastin started 12/01; continued until discharge. -Tolerated low fat diet well in days prior to discharge Ileus, resolved -Relistor given x 1 on 12/02/19 and x 1 on 12/05/19. -Added colace, dulcolax, simethicone prn -Cutting back pain meds also helped. -Had 2 BMs since 12/08/19. -Recommend continue stool softener until bowels regular Dyspnea/Orthopnea, resolved -Suspect related to atelectasis, ileus and being unable to take deep breaths /2 pain Transaminitis - Resolved Likely secondary to pancreatitis and irritation of the biliary tree. Trended CMP, continued to improve daily MILTON; resolved Patient without history of chronic kidney disease creatinine 2.0 on presentation likely resulting in ATN from hypoperfusion in the setting of pancreatitis and poor p.o. intake. -Creat improved Alcohol abuse Note from Admission/Day 1 encounter Patient with history of chronic alcohol abuse. Had recently completed a rehab stay, and had been clean since May 2019. Patient relapsed last week admitting to consuming 6 beers in 1 sitting, he would not report the frequency of these events. Stating only that "it was only 6 beers" and "there is no way 6 beers could do this." Regardless, encouraged him to avoid alcohol in the future. He notes this AM that it was 2 weeks ago last drink. However, Mom later arrived (who is a retired Neurologist) and notes that he snuck out to buy alcohol/beer Thursday when she left house. She notes that he has a history of alcohol abuse with a prior inpatient rehab stay. Pt reports he was drinking more than initially reported. -AWSS Scale with Ativan 1mg IV ordered; only needed 2 admins closer to admission -consider outpt psych, however pt declines. Recommend discussion with PCP Hypertriglyceridemia Patient with a history of hypertriglyceridemia, cholesterol in May was 220, triglycerides 133. Cholesterol labs were not obtained in the emergency department, suspected to be elevated based on his recent increase consumption of fast food. Assuming his liver enzymes normalize would strongly consider addition of a statin given his calculated LDL is 147, but with current Transaminitis, will most likely need to defer this to outpatient PCP. Anxiety disorder Patient with history of an anxiety disorder well-controlled with home medications. Resumed home meds once he tolerated PO -Cont bupropion 150 mg every afternoon, and 300 mg every morning -Cont doxepin, duloxetine, trazodone GERD Well controlled with Protonix at home. Tobacco abuse Patient with a history of tobacco abuse, no desire to quit at present, counseled the patient on the importance of quitting. -Provided nicotine patch FENa: Low fat diet, A/A/T Code Status: Full (2) Depression: (3) Hypertriglyceridemia: (4) Anxiety disorder, unspecified: (5) Alcohol use disorder, severe, dependence: (6) GERD (gastroesophageal reflux disease): (7) Transaminitis: Total Time Total Time Spent Total Time Spent (In Minutes): 30 Discharge Plan Discharge Items Patient Disposition: Home - Self-Care Reason For Visit: NECROTIZING PANCREATITIS Discharge Diagnosis: Necrotizing Pancreatitis Activity: Per Instructions section Non-emergency contact: Primary Care Provider Call non-emergency contact if: you have any medication questions, your symptoms worsen and your pain is not controlled Follow-up/Referrals: Aparna Garcia MD [Primary Care Provider] - 12/16/19 2:00 pm (You have a follow up with your PCP ThursdayDecember 15 at 2pm. Please arrive 15 minutes prior to appt. If this appt does not fit your schedule please call [phone] to reschedule ) Eros Lopez [Physician] - Diet: Low Fat Addtl Attending Provider Instructions: Mr. Tapia, you were admitted and treated for necrotizing pancreatitis. Since you have a history of pancreatitis you were prone to having another episode in the setting of your recent alcohol use, even though it was a modest amount. Please abstain from alcohol use in the future as a small amount can cause pancreatitis. Continued pancreatitis can destroy your pancreas. Please continue with a low fat diet while you continue to recover to prevent more work on your pancreas that could cause discomfort. Please take your time w ith your oral intake of food while you recover. Please make sure to stay well hydrated. You were treated with IV antibiotics to prevent an infection from developing in your pancreas. We recommend follow up with your Primary Care Provider for continued management as your illness resolves. If you feel you could use help, please seek help to prevent alcohol use. If your symptoms return or worsen, do not hesitate to return to the ER for evaluation. Pending Studies at Discharge: No Stand-Alone Forms: My [facility], Work/School Release (Inpt), Smoking Cessation Medications and DC Order Prescriptions: Continued bupropion HCl 300 mg tablet extended release 24 hr 300 mg PO QAM Qty: 90 RF: 1 doxepin 50 mg capsule 50 mg PO DAILY Qty: 90 RF: 1 duloxetine 60 mg capsule,delayed release(DR/EC) 60 mg PO DAILY Qty: 90 RF: 1 pantoprazole 40 mg tablet,delayed release (DR/EC) 40 mg PO DAILY Qty: 90 RF: 1 trazodone 100 mg tablet 100 mg PO HS PRN (Reason: sleep) Qty: 90 RF: 1 sildenafil 50 mg tablet See Rx Instructions PO DAILY PRN (Reason: Sexual Activity) Qty: 10 RF: 5 bupropion HCl 150 mg tablet extended release 24 hr 150 mg PO QPM Qty: 90 RF: 3 Discharge Orders: Discharge Order (Routine); Ordered 12/09/19 Ordered By: Leonor Patino/Other Patient Handouts: Prediabetes, Tips Control Acid Reflux, Pancreatitis, Alcoholism Get Help, Treating Anxiety Disorders with Medicine, A1C Admission Data Admit Date/Time: 12/01/19 05:40 Attending Provider: Sylvester Kahn Admit Provider: Clemente Plasencia I. Primary Care Provider: Aparna Garica Other Providers: Juni Reece ; Otoniel Welsh ; Eros Lopez ; Sophia Meléndez Other Interventions: Discharge Summary Assessment (RN) Last Done: 12/09/19 15:01 DC Date/Time DO NOT enter until pt leaves facility: 12/09/19 15:51 Supervising Physician Co-Signing Physician Notes I supervised Leonor Lainez MD on this patient's care. I examined the patient today independently of her. I discussed the plan of care with her with the plan being as written in her note except for any following changes/exceptions: None. 34yo M w/ alcoholic pancreatitis. No pain over last 48 hours. No need for pain medications. Feeling better. Overall, he is ready to go. Strongly counseled complete abstinence from alcohol. He is in agreement. Resident Activity Tracking Resident Involvement: Resident Care Provided Care Provided: Adult Hospital Medicine
--- NOTE | 2019-12-12 15:29 | Billing Data ---
Date of Service December 09, 2019 Coding Level of Care Code D/C Day Management >30 mins Time Spent (min) 35
== END 2019-12-09 15:51 | disposition home or self-care (01) | DRG 438 ==
LOC: ED 01:18 → 3N 05:40 → SUATTDRO 05:40 → 3N 06:09 → 2N 09:30

== ENCOUNTER 2020-03-28 00:48 | Inpatient (IN) ==
[2020-03-28] MEDS ORDERED: SODIUM CHLORIDE 0.9% 1000ML 1,000 ML IV ONE (01:14)
[2020-03-28] MEDS ORDERED: LORazepam 1 MG/2 ML VIAL IV STA (01:14)
[2020-03-28] MEDS ORDERED: HYDROmorphone INJ 1 MG/ML SYRINGE IV STA ×2 (01:14→02:37)
[2020-03-28 01:57] LABS: Appearance Urine Clear (Clear); Bilirubin Urine Negative (Negative); Blood Urine Negative (Negative); Color Urine Yellow; Glucose Urine UA Negative (Negative); Ketones Urine Negative (Negative); Leukocyte Esterase Urine Negative (Negative); Nitrite Urine Negative (Negative); Protein Urine Negative (Negative); Specific Gravity Urine 1.021 (1.000-1.030); Urobilinogen Urine Negative (Negative)
[2020-03-28 02:07] LABS: Basophils # (auto) 0.02 K/uL (0-0.2); Basophils % (auto) 0.2 %; Eosinophils # (auto) 0.41 K/uL (0-0.5); Eosinophils % (auto) 4.9 %; Hematocrit (blood only) 41.7 % (42-52); Hemoglobin 14.3 g/dL (14.0-18.0); Immature Granulocytes # (auto) 0.02 K/uL (0.00-0.02); Immature Granulocytes % (auto) 0.2 %; Lymphocytes # (auto) 1.25 K/uL (1.2-3.4); Lymphocytes % (auto) 14.9 %; Mean Corpuscular Hemoglobin 29.8 pg (25-34); Mean Corpuscular Hgb Conc 34.3 g/dL (32-36); Mean Corpuscular Volume 86.9 fL (80-100); Mean Platelet Volume 9.4 fL (7.4-10.4); Monocytes # (auto) 0.69 K/uL (0.11-0.59); Monocytes % (auto) 8.2 %; Neutrophils # (auto) 6.01 K/uL (1.4-6.5); Neutrophils % (auto) 71.6 %; Platelet Count 218 K/uL (130-400); RDW Coefficient of Variation 14.1 % (11.5-14.5)
[2020-03-28 02:10] LABS: Albumin Level 3.7 gm/dl (3.4-5.0); BUN Creatinine Ratio 8.9 (10-20); Calcium 9.1 mg/dl (8.5-10.1); Creatinine Clr Calc Pharmacy 97.7 ml/min; Est GFR (African American) 118.4; Est GFR (Non-African American) 102.2; Potassium 3.8 mmol/L (3.5-5.1)
[2020-03-28 02:13] LABS: Albumin Globulin Ratio 0.9 (0.9-2); Bilirubin,Total 0.4 mg/dl (0.2-1); Total Protein 7.7 gm/dl (6.4-8.2)
[2020-03-28] MEDS ORDERED: IOVERSOL 100ml IV PRN (03:05)
--- NOTE | 2020-03-28 03:15 | Emergency Department Note ---
History of Present Illness General Chief complaint: Abdominal Pain Stated complaint: ABDOMINAL PAIN,PANCREATITIS History of Present Illness Maximum Pain Intensity: 6 This 34-year-old with a history of recurrent pancreatitis presents to the ER complaining of epigastric pain Location: Epigastric Quality: Severe Severity: Severe Duration: Today Timing: Patient was drinking alcohol last night Context: Pain persisted and came in Modifying factors: better with nothing; worse with activity Patient states he has a problem with alcohol. He was drinking these past few days. He woke up today and felt like his pancreatitis came back again. Pain got worse and patient came in. Patient denies chest pain, dyspnea, fevers, flulike illness. Home Medications Home Medications Medication Instructions Recorded Confirmed Type sildenafil 50 mg tablet See Rx Instructions PO DAILY PRN 06/14/19 03/28/20 Rx #10 tab bupropion HCl 150 mg 24 hr tablet, 150 mg PO QPM #90 tab 08/17/19 03/28/20 Rx extended release bupropion HCl 300 mg 24 hr tablet, 300 mg PO QAM #90 tab 11/10/19 03/28/20 Rx extended release doxepin 50 mg capsule 50 mg PO DAILY #90 cap 12/13/19 03/28/20 Rx duloxetine 60 mg capsule,delayed 60 mg PO DAILY #90 cap 12/13/19 03/28/20 Rx release trazodone 100 mg tablet 100 mg PO HS PRN #90 tab 01/10/20 03/28/20 Rx pantoprazole 40 mg PO DAILY PRN 03/28/20 03/28/20 History Allergies Allergy/AdvReac Type Severity Reaction Status Date / Time No Known Allergies Allergy Unverified 03/28/20 01:32 Past Med/Surg History Medical History Acute pancreatitis (Resolved) Alcohol use disorder, severe, dependence (Chronic) Anxiety disorder, unspecified (Chronic) GERD (gastroesophageal reflux disease) (Chronic) Hypertriglyceridemia (Chronic) Social History Preferred Language: Greenlandic Communication Ability: Effective Church Worker Required: No Beliefs That Will Affect Care: None marital status: Single Current Living Situation: Alone Feels Safe at Home: Yes Smoking Status: Current every day smoker Tobacco Type: cigarettes ; Hx Alcohol Use: Yes Alcohol type: beer Hx Substance Use: No Review of Systems A total of 10 systems reviewed and were otherwise negative Physical Exam Vital Signs Vital Signs - 24 hr 03/28/20 01:00 03/28/20 01:51 03/28/20 02:00 Temperature 36.5 C Temperature Source Oral Pulse Rate 94 H 87 86 Pulse Rate from SpO2 Sensor 87 86 Respiratory Rate 24 19 15 Respiratory Effort / Characteristics Labored Respiratory Depth Shallow Blood Pressure 159/107 H 145/97 H 145/99 H Blood Pressure Mean 124 108 115 Pulse Oximetry 97 96 95 Oxygen Delivery Method Room Air Room Air Room Air Sepsis Recent Fever Within 48 Hours No Sepsis New/Unexplained Change in Mental Status No Sepsis Action Taken by Nursing No Action Required 03/28/20 02:30 03/28/20 03:09 Temperature Temperature Source Pulse Rate 84 Pulse Rate from SpO2 Sensor 84 82 Respiratory Rate 23 18 Respiratory Effort / Characteristics Respiratory Depth Blood Pressure 160/101 H 148/86 H Blood Pressure Mean 119 100 Pulse Oximetry 96 93 Oxygen Delivery Method Room Air Room Air Sepsis Recent Fever Within 48 Hours Sepsis New/Unexplained Change in Mental Status Sepsis Action Taken by Nursing VITALS: Vitals are noted on the nurse's note and reviewed by myself. Vital signs stable. GENERAL: Male who appears in pain, in no acute distress, nondiaphoretic, well-d eveloped well-nourished. SKIN: Capillary reflex less than 2 seconds. HEENT: Normocephalic. PERRLA. EOMI. Nares patent. Mucous membranes moist. Neck is supple without nuchal rigidity. HEART: Regular rate and rhythm LUNGS: Clear to auscultation bilaterally without wheezes, rales or rhonchi. No retractions or accessory muscle use. ABDOMEN: Positive bowel sounds x 4. Normal tympanic percussion. Soft, tender to palpation epigastric region, without masses or organomegaly. Galvez sign negative. No guarding or rebound tenderness. No CVA tenderness MUSCULOSKELETAL: No gross musculoskeletal defects. NEURO: Patient was alert and oriented to person place and time. No focal neurological deficits. Course Administered Medications Ioversol (Optiray 320 100ml) 100 ml IV ONCE PRN PRN Reason: Interaction Checking Stop: 04/01/20 03:04 Last Admin: 03/28/20 03:05 Dose: 92 ml Documented by: [id number] Discontinued Medications Hydromorphone HCl (Dilaudid) 1 mg IV NOW STA Stop: 03/28/20 01:15 Last Admin: 03/28/20 01:44 Dose: 1 mg Documented by: [id number] Hydromorphone HCl (Dilaudid) 1 mg IV NOW STA Stop: 03/28/20 02:38 Last Admin: 03/28/20 02:40 Dose: 1 mg Documented by: [id number] Lorazepam (Ativan) 1 mg in 2 mls @ 2 mls/min IV NOW STA Stop: 03/28/20 01:15 Last Admin: 03/28/20 01:46 Dose: 2 mls/min Documented by: [id number] Sodium Chloride (Nss 1000ml) 1,000 mls @ 999 mls/hr IV .Q1H1M ONE Stop: 03/28/20 02:14 Last Infusion: 03/28/20 02:55 Dose: 0 mls/hr Documented by: [id number] Admin: 03/28/20 01:44 Dose: 999 mls/hr Documented by: [id number] Medical Decision Making Medical Records Attestation: I reviewed the patient's medical records. Home Medications Current Medication List: was personally reviewed by me Laboratory Data Attestation: I reviewed the patient's lab results. Result diagrams: 03/28/20 01:34 03/28/20 01:34 Lab Results 03/28/20 03/28/20 03/28/20 Range/Units 01:30 01:34 01:34 WBC 8.40 (4.8-10.8) K/uL RBC 4.80 (4.7-6.1) M/uL Hgb 14.3 (14.0-18.0) g/dL Hct 41.7 L (42-52) % MCV 86.9 (80-100) fL MCH 29.8 (25-34) pg MCHC 34.3 (32-36) g/dL RDW Std Deviation 45.0 (36.4-46.3) fL RDW Coeff of Grisel 14.1 (11.5-14.5) % Plt Count 218 (130-400) K/uL MPV 9.4 (7.4-10.4) fL Immature Gran % (Auto) 0.2 % Neut % (Auto) 71.6 % Lymph % (Auto) 14.9 % Butts % (Auto) 8.2 % Eos % (Auto) 4.9 % Baso % (Auto) 0.2 % Neut # (Auto) 6.01 (1.4-6.5) K/uL Lymph # (Auto) 1.25 (1.2-3.4) K/uL Butts # (Auto) 0.69 H (0.11-0.59) K/uL Eos # (Auto) 0.41 (0-0.5) K/uL Baso # (Auto) 0.02 (0-0.2) K/uL Immature Gran # (Auto) 0.02 (0.00-0.02) K/uL Sodium 141 (136-145) mmol/L Potassium 3.8 (3.5-5.1) mmol/L Chloride 108 H (98-107) mmol/L Carbon Dioxide 25 (21-32) mmol/L Anion Gap 8.0 (3-11) BUN 9 (7-18) mg/dl Creatinine 0.97 (0.6-1.4) mg/dl Est Cr Clr Drug Dosing 97.7 ml/min Est GFR ( Amer) 118.4 Est GFR (Non-Af Amer) 102.2 BUN/Creatinine Ratio 8.9 L (10-20) Glucose 113 H (70-99) mg/dl Lactate (0.4-2.0) mmol/L Calcium 9.1 (8.5-10.1) mg/dl Magnesium 2.0 (1.8-2.4) mg/dl Total Bilirubin 0.4 (0.2-1) mg/dl AST 52 H (15-37) U/L ALT 70 (12-78) U/L Alkaline Phosphatase 63 (45-117) U/L Total Protein 7.7 (6.4-8.2) gm/dl Albumin 3.7 (3.4-5.0) gm/dl Globulin 4.0 (2.5-4.0) gm/dl Albumin/Globulin Ratio 0.9 (0.9-2) Lipase 15854 H (73-393) U/L Urine Color Yellow Urine Appearance Clear (Clear) Urine pH 5.0 (4.5-7.5) Ur Specific [place] 1.021 (1.000-1.030) Urine Protein Negative (Negative) Urine Glucose (UA) Negative (Negative) Urine Ketones Negative (Negative) Urine Blood Negative (Negative) Urine Nitrite Negative (Negative) Urine Bilirubin Negative (Negative) Urine Urobilinogen Negative (Negative) Ur Leukocyte Esterase Negative (Negative) Ethyl Alcohol mg/dL (0-3) mg/dl 03/28/20 03/28/20 Range/Units 01:34 01:34 WBC (4.8-10.8) K/uL RBC (4.7-6.1) M/uL Hgb (14.0-18.0) g/dL Hct (42-52) % MCV (80-100) fL MCH (25-34) pg MCHC (32-36) g/dL RDW Std Deviation (36.4-46.3) fL RDW Coeff of Grisel (11.5-14.5) % Plt Count (130-400) K/uL MPV (7.4-10.4) fL Immature Gran % (Auto) % Neut % (Auto) % Lymph % (Auto) % Butts % (Auto) % Eos % (Auto) % Baso % (Auto) % Neut # (Auto) (1.4-6.5) K/uL Lymph # (Auto) (1.2-3.4) K/uL Butts # (Auto) (0.11-0.59) K/uL Eos # (Auto) (0-0.5) K/uL Baso # (Auto) (0-0.2) K/uL Immature Gran # (Auto) (0.00-0.02) K/uL Sodium (136-145) mmol/L Potassium (3.5-5.1) mmol/L Chloride (98-107) mmol/L Carbon Dioxide (21-32) mmol/L Anion Gap (3-11) BUN (7-18) mg/dl Creatinine (0.6-1.4) mg/dl Est Cr Clr Drug Dosing ml/min Est GFR ( Amer) Est GFR (Non-Af Amer) BUN/Creatinine Ratio (10-20) Glucose (70-99) mg/dl Lactate 1.4 (0.4-2.0) mmol/L Calcium (8.5-10.1) mg/dl Magnesium (1.8-2.4) mg/dl Total Bilirubin (0.2-1) mg/dl AST (15-37) U/L ALT (12-78) U/L Alkaline Phosphatase (45-117) U/L Total Protein (6.4-8.2) gm/dl Albumin (3.4-5.0) gm/dl Globulin (2.5-4.0) gm/dl Albumin/Globulin Ratio (0.9-2) Lipase (73-393) U/L Urine Color Urine Appearance (Clear) Urine pH (4.5-7.5) Ur Specific [place] (1.000-1.030) Urine Protein (Negative) Urine Glucose (UA) (Negative) Urine Ketones (Negative) Urine Blood (Negative) Urine Nitrite (Negative) Urine Bilirubin (Negative) Urine Urobilinogen (Negative) Ur Leukocyte Esterase (Negative) Ethyl Alcohol mg/dL < 3.0 (0-3) mg/dl Imaging Data Attestation: I personally reviewed and interpreted this imaging study as follows: Blood Pressure Blood Pressure Findings: Elevated blood pressure Blood Pressure Disposition: Referred to patients primary care provider MDM Narrative Prior records/ancillary studies reviewed. Triage Nursing notes reviewed. The patient's history was concerning for abdominal pain. Differential diagnosis: Etiologies such as appendicitis, diverticulitis, PUD, biliary pathology, UTI, pancreatitis, obstruction, mesenteric ischemia, aortic pathology, infections, inflammatory bowel disease, renal colic, as well as others were entertained. Physical examination findings: As above. ER treatment provided: An order was placed for continuous cardiac monitoring. The monitor shows a rate of 60-100 with a normal sinus rhythm. Dilaudid, IV fluids, Ativan On reassessment the patient felt better. Diagnostics interpreted by me: The labs revealed no leukocytosis. Elevated lipase Imaging studies: CT ABDOMEN & PELVIS With Contrast: Extensive edema surrounding the head and body of the pancreas consistent with pancreatitis. Comparison is made with the prior study dated December 01, 2019. In the area of previously seen pancreatic necrosis in the distal body and tail, there are now a cluster of small irregular fluid collections consistent with pseudocysts. One in the pancreatic body measures 13 mm. The total dimensions of the cluster of pseudocysts in and adjacent to the tail measures approximately 3.5 x 5.2 by There is fatty infiltration of the liver. There is no free intraperitoneal air or fluid. Radiologist: Sanford Cohen MD Consultation: A consultation was placed with the hospitalist, Dr. Gary. The case was discussed and diagnostics were reviewed. The patient was evaluated in the ER for further treatment. Exam and history seem consistent with pancreatitis. Patient was placed on IV fluids. He was medicated as above. Medicine was consulted. By the evaluation outlined above emergent etiologies such as appendicitis, diverticulitis, PUD, biliary pathology, UTI, obstruction, mesenteric ischemia, aortic pathology, infections, inflammatory bowel disease, renal colic, as well as others were deemed relatively unlikely. The pt informed about the findings as listed above. All questions were answered and pleased with the treatment. The chart was completed utilizing [employer] Speech voice recognition software. G rammatical errors, random word insertions, pronoun errors, and incomplete sentences are an occassional consequence of this system due to software limitations, ambient noise, and hardware issues. Any formal questions or concerns about the content, text, or information contained within the body of th is dictation should be directly addressed to the physician psychiatric technician assistant for clarification. Impression & Plan Acute pancreatitis, Alcohol use disorder, severe, dependence Discharge Plan Visit Data Chief Complaint: Abdominal Pain Stated Complaint: ABDOMINAL PAIN,PANCREATITIS ED Provider: Evelyn Quijano ED Midlevel Provider: Margo Engle Discharge Problem: Acute pancreatitis, Alcohol use disorder, severe, dependence Patient Disposition: Admitted As Inpatient Condition: Fair Forms Stand Alone Forms: [employer] [facility] [employer] Prescriptions Prescriptions: No Action bupropion HCl 300 mg tablet extended release 24 hr 300 mg PO QAM Qty: 90 RF: 1 doxepin 50 mg capsule 50 mg PO DAILY Qty: 90 RF: 1 duloxetine 60 mg capsule,delayed release(DR/EC) 60 mg PO DAILY Qty: 90 RF: 1 trazodone 100 mg tablet 100 mg PO HS PRN (Reason: sleep) Qty: 90 RF: 1 sildenafil 50 mg tablet See Rx Instructions PO DAILY PRN (Reason: Sexual Activity) Qty: 10 RF: 5 bupropion HCl 150 mg tablet extended release 24 hr 150 mg PO QPM Qty: 90 RF: 3 pantoprazole 40 mg tablet,delayed release (DR/EC) 40 mg PO DAILY PRN (Reason: Heartburn) RF: 0 Referrals Referrals: Aparna Garcia MD [Primary Care Provider] - Discharge Problem: Acute pancreatitis Qualifiers: Pancreatitis type: alcohol induced Acute pancreatitis complication: unspecified Qualified Code(s): K85.20 - Alcohol induced acute pancreatitis without necrosis or infection
[2020-03-28] MEDS ORDERED: SODIUM CHLORIDE 0.9% 1000ML 1,000 ML IV SCH (04:00)
[2020-03-28] MEDS ORDERED: LORazepam 3 MG/6 ML VIAL IV PRN (04:50)
[2020-03-28] MEDS ORDERED: LORazepam 2 MG/4 ML VIAL IV PRN (04:50)
[2020-03-28] MEDS ORDERED: ATIVAN IV ALCOHOL WITHDRAWL IV PRN (04:50)
[2020-03-28] MEDS ORDERED: LORazepam 1 MG/2 ML VIAL IV PRN (04:50)
--- NOTE | 2020-03-28 04:55 | History & Physical Report ---
Date of Service March 28, 2020 Assessment & Plan (1) Alcohol use disorder, severe, dependence: Patient will be placed on AWSS protocol Thiamine 100 mg IV daily Folic acid 1 mg IV daily Consider consult with psychiatry if patient agrees. Present on Admission?: Yes (2) Acute pancreatitis: Recurrent acute pancreatitis/pancreatic pseudocysts- Lipase 15,[address] of abdomen pelvis consistent with pancreatitis. Former area of necrotizing pancreatitis is now replaced by multiple pseudocysts. N.p.o. Famotidine 20 mg IV every 12 hours Toradol 30 mg IV every 6 hours PRN moderate pain. Patient received 1 L of normal saline from the ED. Placed on NSS + KCl 20 mEq at 250 mils per hour Patient received a total of 2 mg of Dilaudid IV from the ED. Hold additional narcotics. Present on Admission?: Yes (3) Pancreatic pseudocyst: See above Present on Admission?: Yes (4) Necrotizing pancreatitis: See above Present on Admission?: Yes (5) Hypertriglyceridemia: On no specific treatment at this time Present on Admission?: Yes (6) Anxiety with depression: Until his nausea is improved, will hold bupropion, doxepin, duloxetine and trazodone. Present on Admission?: Yes (7) GERD (gastroesophageal reflux disease): Placed on famotidine 20 mg IV every 12 hours Present on Admission?: Yes History of Present Illness Chief Complaint: The patient presents to the emergency department with complaint of recurrent abdominal pain after a recurrent alcohol binge, similar to symptoms that led to hospitalization from 12/01-12/09/2019 at [facility]. Primary Care Provider: Aparna Garcia MD The patient is a 34-year-old male with past medical history including severe alcohol dependence, necrotizing pancreatitis, transaminitis, erectile dysfunction, depression, hypertriglyceridemia, GERD and anxiety. He reports that after his most recent alcohol binge, with his last intake a little bit over 24 hours ago, he has developed severe abdominal pain with some nausea and no vomiting. His symptoms are very similar to his previous hospitalization for pancreatitis on 12/01-12/09/2019. Allergies Allergy/AdvReac Type Severity Reaction Status Date / Time No Known Allergies Allergy Unverified 03/28/20 01:32 Home Medications Home Medications Medication Instructions Recorded Confirmed Type sildenafil 50 mg tablet See Rx Instructions PO DAILY PRN 06/14/19 03/28/20 Rx #10 tab bupropion HCl 150 mg 24 hr tablet, 150 mg PO QPM #90 tab 08/17/19 03/28/20 Rx extended release bupropion HCl 300 mg 24 hr tablet, 300 mg PO QAM #90 tab 11/10/19 03/28/20 Rx extended release doxepin 50 mg capsule 50 mg PO DAILY #90 cap 12/13/19 03/28/20 Rx duloxetine 60 mg capsule,delayed 60 mg PO DAILY #90 cap 12/13/19 03/28/20 Rx release trazodone 100 mg tablet 100 mg PO HS PRN #90 tab 01/10/20 03/28/20 Rx pantoprazole 40 mg PO DAILY PRN 03/28/20 03/28/20 History Past Med/Surg History Medical History Acute pancreatitis (Resolved) Alcohol use disorder, severe, dependence (Chronic) Anxiety disorder, unspecified (Chronic) GERD (gastroesophageal reflux disease) (Chronic) Hypertriglyceridemia (Chronic) Social History Preferred Language: Tajik Communication Ability: Effective Dental Office Receptionist Required: No Beliefs That Will Affect Care: None marital status: Single Current Living Situation: Alone Feels Safe at Home: Yes Smoking Status: Current every day smoker Tobacco Type: cigarettes ; Hx Alcohol Use: Yes Alcohol type: beer Hx Substance Use: No Review of Systems Review of Systems: The patient denies chest pain, palpitations, shortness of breath, dyspnea on exertion, cough, lower extremity swelling, sore throat, fevers, chills, sweats, vomiting, diarrhea , constipation, pelvic pain, blood in urine or stool, dysuria, urinary frequency or urgency, lightheadedness, dizziness, headache, memory loss, loss of consciousness, rash, abnormal bruising or bleeding, imbalance, focal or generalized weakness, numbness or tingling in arms or legs, generalized arthralgias or myalgias, back or neck pain, or night sweats. The review of systems is otherwise negative other than for that already noted above, and at least 10 systems have been reviewed. Physical Exam Physical Exam: The patient is awake, alert and oriented 3, well developed and well nourished, normocephalic and atraumatic, lying in bed and in no acute distress. HEENT--PERRL, EOMI, mucous membranes and oropharynx dry. Neck--supple. No JVD. No bruits. Thyroid normal, trachea midline, no adenopathy. Heart--normal S1 and S2. No murmurs, rubs or gallops. Lungs--clear bilaterally, no respiratory distress, no accessory muscle use. Abdomen--normal bowel sounds and soft. Nontender. Nondistended. No pain after receiving Dilaudid 1 mg IV x2 from the ED Extremities--no cyanosis or clubbing. No edema. Dermatologic--normal skin turgor, normal color, no abnormal lymph nodes, no rash. Neurologic--cranial nerves II through XII grossly intact. Rheumatologic--normal range of motion. Psychiatric--normal affect. Results & Data Results & Data ([facility]) Vital Signs (Past 12 Hours) Vital Signs Temp Pulse Resp BP Pulse Ox 03/28/20 03:09 18 148/86 H 93 03/28/20 02:30 84 23 160/101 H 96 03/28/20 02:00 86 15 145/99 H 95 03/28/20 01:51 87 19 145/97 H 96 03/28/20 01:00 97.7 F 94 H 24 159/107 H 97 Laboratory Results Laboratory Results WBC 8.40 K/uL (4.8-10.8) 03/28/20 01:34 RBC 4.80 M/uL (4.7-6.1) 03/28/20 01:34 Hgb 14.3 g/dL (14.0-18.0) 03/28/20 01:34 Hct 41.7 % (42-52) L 03/28/20 01:34 MCV 86.9 fL (80-100) 03/28/20 01:34 MCH 29.8 pg (25-34) 03/28/20 01:34 MCHC 34.3 g/dL (32-36) 03/28/20 01:34 RDW Std Deviation 45.0 fL (36.4-46.3) 03/28/20 01:34 RDW Coeff of Grisel 14.1 % (11.5-14.5) 03/28/20 01:34 Plt Count 218 K/uL (130-400) 03/28/20 01:34 MPV 9.4 fL (7.4-10.4) 03/28/20 01:34 Immature Gran % (Auto) 0.2 % 03/28/20 01:34 Neut % (Auto) 71.6 % 03/28/20 01:34 Lymph % (Auto) 14.9 % 03/28/20 01:34 Woodruff % (Auto) 8.2 % 03/28/20 01:34 Eos % (Auto) 4.9 % 03/28/20 01:34 Baso % (Auto) 0.2 % 03/28/20 01:34 Neut # (Auto) 6.01 K/uL (1.4-6.5) 03/28/20 01:34 Lymph # (Auto) 1.25 K/uL (1.2-3.4) 03/28/20 01:34 [place]ruff # (Auto) 0.69 K/uL (0.11-0.59) H 03/28/20 01:34 Eos # (Auto) 0.41 K/uL (0-0.5) 03/28/20 01:34 Baso # (Auto) 0.02 K/uL (0-0.2) 03/28/20 01:34 Immature Gran # (Auto) 0.02 K/uL (0.00-0.02) 03/28/20 01:34 Sodium 141 mmol/L (136-145) 03/28/20 01:34 Potassium 3.8 mmol/L (3.5-5.1) 03/28/20 01:34 Chloride 108 mmol/L (98-107) H 03/28/20 01:34 Carbon Dioxide 25 mmol/L (21-32) 03/28/20 01:34 Anion Gap 8.0 (3-11) 03/28/20 01:34 BUN 9 mg/dl (7-18) 03/28/20 01:34 Creatinine 0.97 mg/dl (0.6-1.4) 03/28/20 01:34 Est Cr Clr Drug Dosing 97.7 ml/min 03/28/20 01:34 Est GFR ( Amer) 118.4 03/28/20 01:34 Est GFR (Non-Af Amer) 102.2 03/28/20 01:34 BUN/Creatinine Ratio 8.9 (10-20) L 03/28/20 01:34 Glucose 113 mg/dl (70-99) H 03/28/20 01:34 Lactate 1.4 mmol/L (0.4-2.0) 03/28/20 01:34 Calcium 9.1 mg/dl (8.5-10.1) 03/28/20 01:34 Magnesium 2.0 mg/dl (1.8-2.4) 03/28/20 01:34 Total Bilirubin 0.4 mg/dl (0.2-1) 03/28/20 01:34 AST 52 U/L (15-37) H 03/28/20 01:34 ALT 70 U/L (12-78) 03/28/20 01:34 Alkaline Phosphatase 63 U/L (45-117) 03/28/20 01:34 Total Protein 7.7 gm/dl (6.4-8.2) 03/28/20 01:34 Albumin 3.7 gm/dl (3.4-5.0) 03/28/20 01:34 Globulin 4.0 gm/dl (2.5-4.0) 03/28/20 01:34 Albumin/Globulin Ratio 0.9 (0.9-2) 03/28/20 01:34 Lipase 75889 U/L (73-393) H 03/28/20 01:34 Urine Color Yellow 03/28/20 01:30 Urine Appearance Clear (Clear) 03/28/20 01:30 Urine pH 5.0 (4.5-7.5) 03/28/20 01:30 Ur Specific [place] 1.021 (1.000-1.030) 03/28/20 01:30 Urine Protein Negative (Negative) 03/28/20 01:30 Urine Glucose (UA) Negative (Negative) 03/28/20 01:30 Urine Ketones Negative (Negative) 03/28/20 01:30 Urine Blood Negative (Negative) 03/28/20 01:30 Urine Nitrite Negative (Negative) 03/28/20 01:30 Urine Bilirubin Negative (Negative) 03/28/20 01:30 Urine Urobilinogen Negative (Negative) 03/28/20 01:30 Ur Leukocyte Esterase Negative (Negative) 03/28/20 01:30 Ethyl Alcohol mg/dL < 3.0 mg/dl (0-3) 03/28/20 01:34 Diagnostic Findings [facility] Patient: CEDRIC HERRERA (Male) : 87 Status: ER Date: 03/28/20 03:09 Room #: History: PAIN AT UPPER ABD INTO BACK, R/O PANCREATITIS Slices: 699 Priors: Tech: Zuhair Matt @ [phone] Exams: CT ABDOMEN & PELVIS With Contrast Contrast: IV Amt: 92 ML OPTIRAY 320 Accession Numbers: [id number] Preliminary Findings Only See Final Report For Complete Findings CT ABDOMEN & PELVIS With Contrast: Extensive edema surrounding the head and body of the pancreas consistent with pancreatitis. Comparison is made with the prior study dated December 01, 2019. In the area of previously seen pancreatic necrosis in the distal body and tail, there are now a cluster of small irregular fluid collections consistent with pseudocysts. One in the pancreatic body measures 13 mm. The total dimensions of the cluster of pseudocysts in and adjacent to the tail measures approximately 3.5 x 5.2 by There is fatty infiltration of the liver. There is no free intraperitoneal air or fluid. Radiologist: Sanford Cohen MD Study ready at 03:14 and initial results transmitted at 03:36 *This report constitutes a preliminary interpretation only. Non-acute findings felt to be unrelated to the clinical presentation may not be discussed in this report. The study will be interpreted and a final report will be generated by the local Radiologist the following shift. To reach the hospital radiology department call [phone]. If a discrepancy is found between the preliminary and final interpretations of this study, please notify us via our Client Portal at [email or web address], under QA Exams.You can also fax this report with a description of the discrepancy, or include the final report, to our daytime fax number [phone].If faxing, please indicate the severity of discrepancy using one of the following categories: [ ] 1 - Agree/Informational [ ] 2 - Unlikely to Affect Management [ ] 3 - Possible Eventual Change of Management [ ] 4 - Probable Immediate Change of Management For all other patient related information, please fax us at [phone]. [id number] Code Status & VTE Plan Code Status Full code VTE Prophylaxis Plan VTE Prophylaxis will be ordered: Yes PG Care Time/CCT Total # of Minutes Spent Total Time Spent with Patient: Total time spent is greater than 50% in coordination of care (as documented) at patient's floor/unit and/or counseling patient: Coding Level of Care Code 23397 Initial Inpt Care Lvl 3 Diagnoses Alcohol use disorder, severe, dependence F10.20 Acute pancreatitis K85.20 Acute pancreatitis complication: unspecified Pancreatitis type: alcohol induced Pancreatic pseudocyst K86.3 Necrotizing pancreatitis K85.91 Hypertriglyceridemia E78.1 Anxiety with depression F41.8 GERD (gastroesophageal reflux disease) K21.9 (1) Acute pancreatitis Acute pancreatitis complication: unspecified Pancreatitis type: alcohol induced Qualified Code(s): K85.20 - Alcohol induced acute pancreatitis without necrosis or infection
[2020-03-28] MEDS ORDERED: FAMOTIDINE 20MG/5ML IV PUSH IV ONE (05:16)
[2020-03-28 05:31] LABS: Amphetamines+Metham, Urine Neg (Neg); Barbiturates, Urine Neg (Neg); Benzodiazepine, Urine Neg (Neg); Cocaine, Urine Neg (Neg); MDMA (Ecstacy), Urine Pos (Neg); Methadone, Urine Neg (Neg); Opiate, Urine Neg (Neg); Phencyclidine, Urine Neg (Neg)
[2020-03-28] MEDS: FAMOTIDINE 20 MG in SYRINGE 3 ML IV SCH ×2 (05:32→16:40)
[2020-03-28] MEDS ORDERED: ONDANSETRON INJ 2 MG/ML 2 ML VIAL IV PRN (05:55)
[2020-03-28] MEDS: KETOROLAC 30 MG/ML VIAL IV PRN ×3 (06:04→19:09)
[2020-03-28] MEDS: NSS + 20MEQ KCL 20 MEQ/1,000 ML BAG IV SCH ×4 (06:41→15:07)
[2020-03-28 07:32] LABS: Prothrombin Time 10.9 Seconds (9.0-12.0)
--- NOTE | 2020-03-28 07:52 | CT Scan Report ---
CT abd pelvis IV con only CT DOSE: 455.17 mGy.cm HISTORY: Pancreatitis ? pancreatitis TECHNIQUE: Multiaxial CT images of the abdomen and pelvis were performed following the use of intrave nous contrast. A dose lowering technique was utilized adhering to the principles of ALARA. COMPARISON STUDY: 12/07/2019 FINDINGS: Improved appearance of the lung bases. Fatty replacement of the liver. The edematous and peripancreatic infiltrative change of the pancreas are moderately improved. Interval development of several cystic densities of the pancreatic body and tail. It is suggestive of small pseudocysts measuring up to 2 cm. The adrenal glands are normal. Kidneys enhance uniformly. No evidence for hydronephrosis. Nonobstructive bowel pattern. Mild chronic sigmoid diverticulosis. No evidence for acute diverticulitis. IMPRESSION: 1. Improving pancreatitis. 2. Interval development of multifocal cystic lesions of the pancreatic body and tail measuring up to 2 cm individually. 3. This is suggestive of developing pancreatic pseudocysts. 4. Peripancreatic infiltrative change as well as edematous change of the pancreatic body are moderate ly improved. 5. Mild fatty replacement of the liver. ACT 112: Negative or not required by law. The above report was generated using voice recognition software. It may contain grammatical, syntax or spelling errors. Electronically signed by: Salomon Zamora M.D. 03/28/2020 7:51 AM
[2020-03-28] MEDS: ENOXAPARIN INJ 40 MG/0.4 ML SYR SQ SCH (09:23)
[2020-03-28] MEDS: FOLIC ACID 1 MG in SYRINGE 9.8 ML IV SCH (09:23)
[2020-03-28] MEDS: THIAMINE HCL 100 MG in SYRINGE 9 ML IV SCH (09:23)
[2020-03-28] MEDS: HYDROmorphone INJ 1 MG/ML SYRINGE IV PRN ×2 (11:08→15:10)
--- NOTE | 2020-03-28 14:07 | Hospitalist Progress Note ---
Date of Service March 28, 2020 Assessment & Plan (1) Acute pancreatitis: Recurrent acute pancreatitis. Lipase 15,[address] of abdomen pelvis consistent with pancreatitis. - Continue IVFs -> lactate ringers which reduces MIL[place]. - NPO - Pain control - GI consulted (2) Pancreatic pseudocyst: CT a/p noted multifocal cystic lesions of the pancreatic body and tail measuring up to 2 cm individually. - See above (3) Alcohol use disorder, severe, dependence: Reports that his drinking was only beer. - Continue [facility] protocol - Thiamine 100 mg IV daily - Folic acid 1 mg IV daily (4) Hypertriglyceridemia: Last level was 776 in 11/2019. On no specific treatment at this time. - Recheck in AM (5) Anxiety with depression: Until his nausea is improved, will hold bupropion, doxepin, duloxetine and trazodone. - Restart as able (6) GERD (gastroesophageal reflux disease): Placed on famotidine 20 mg IV every 12 hours (7) DVT prophylaxis: Lovenox 40 mg SQ daily Admission and Anticipated Discharge Date Admission Date: March 28, 2020 Subjective Abdominal pain is not improved long enough with medications, though they are improved. Reports no fevers/chills, chest pain, shortness of breath. Physical Exam Constitutional: WD/WN, vitals as above Eyes: EOM intact bilaterally; no conjunctival abnormality ENMT: external ear and nose normal, oropharynx normal Neck: trachea midline, no thyromegaly normal visual inspection Respiratory: normal respiratory effort, lungs clear to auscultation no respiratory distress Cardiovascular: RRR, no murmur, no edema Gastrointestinal (Abdomen): Inspection/Auscultation: abdomen normal to inspection; abdomen not distended Percussion/Palpation: + abdomen tender (Epigastric) and abdomen soft; no guarding and abdomen not rigid Musculoskeletal: no cyanosis or clubbing, extremities motor strength 5/5 Skin: no rashes, warm and dry Neurologic: moves all extremities and awake Psychiatric: Orientation: alert, oriented to person and cooperative Results & Data Results & Data ([facility]) Vital Signs (Past 12 Hours) Vital Signs Temp Pulse Resp BP BP Pulse Ox 03/28/20 05:45 36.7 C 18 140/94 93 03/28/20 05:00 70 12 150/106 H 96 03/28/20 04:30 70 16 149/110 H 91 03/28/20 04:00 18 148/108 H 97 03/28/20 03:30 18 144/98 H 95 03/28/20 03:09 18 148/86 H 93 03/28/20 02:30 84 23 160/101 H 96 PG Care Time/CCT Total # of Minutes Spent Total Time Spent with Patient: Total time spent is greater than 50% in coordination of care (as documented) at patient's floor/unit and/or counseling patient: Coding Level of Care Code 12211 Subseq Hosp Care Lvl 3 Diagnoses Acute pancreatitis K85.20 Acute pancreatitis complication: unspecified Pancreatitis type: alcohol induced Pancreatic pseudocyst K86.3 Alcohol use disorder, severe, dependence F10.20 Hypertriglyceridemia E78.1 Anxiety with depression F41.8 GERD (gastroesophageal reflux disease) K21.9 DVT prophylaxis Z29.9 (1) Acute pancreatitis Acute pancreatitis complication: unspecified Pancreatitis type: alcohol induced Qualified Code(s): K85.20 - Alcohol induced acute pancreatitis without necrosis or infection
[2020-03-28] MEDS: NICOTINE 21 MG/24 HR TDSY TD SCH (14:37)
--- NOTE | 2020-03-28 14:51 | Gastrointestinal Consultation ---
Date of Consultation March 28, 2020 Assessment & Plan (1) Acute pancreatitis: (2) Pancreatic pseudocyst: Pt is a 34 y/o male admitted for recurrent pancreatitis, likely ETOH induced. Hx of necrotizing pancreatitis December 2019. Currently CT abd/pelvis showed development of pancreatic pseudocysts. No signs of infection or end organ dysfuction. - Bowel rest - IVF hydration with Lactated Ringers - Strict ETOH cessation advised - Eventually will schedule EUS eval in 4-6 week's time. This was scheduled previously after his last pancreatitis episode but pt cancelled and never reschedule - Symptomatic management w analgesics and antiemetics prn Supervising Physician Co-Signing Physician Notes Patient with a history of alcoholism presenting with recurrent pancreatitis. Previously he had had necrotizing pancreatitis and his imaging during this admission appears improved compared to prior studies. The patient notes that he was doing well with his abstinence until about 6 weeks ago when he began to drink again Physical examination No obvious distress, mild epigastric tenderness Impression: Patient with complications of alcohol abuse mainly pancreatitis. For the present time we would recommend IV hydration as you are doing. The patient would benefit from rehabilitation as abstinence will be crucial for his long-term health. As the patient appears to be doing well we will sign off unless there is a question or concern that develops during the admission. History of Present Illness Reason for Consultation: Pancreatitis, pseudocysts Requesting Physician: Dr. Sylvester Kahn Attending Physician: Dr. Tram Leyva History of Present Illness Pt is a 34 y/o male who was admitted last in Nov-December 2019 for necrotizing ETOH pancreatitis, presented early this AM w c/o RUQ abd pain. He admitted to be sober for couple of months after last admission. However relapsed to drinking ETOH again, about 10 beers a day, because of boredom. He denies fever, chills, CP, SOB, n/v, bowel habit changes. He is passing flatus. Labs notable for mildly elevated AST at 54, lipase up at 15K. No leukocytosis or renal issues. CT abd/pelvis w IV contrast: 1. Improving pancreatitis. 2. Interval development of multifocal cystic lesions of the pancreatic body and tail measuring up to 2 cm individually. 3. This is suggestive of developing pancreatic pseudocysts. 4. Peripancreatic infiltrative change as well as edematous change of the pancreatic body are moderately improved. 5. Mild fatty replacement of the liver. Allergies Allergy/AdvReac Type Severity Reaction Status Date / Time No Known Allergies Allergy Unverified 03/28/20 01:32 Home Medications Home Medications Medication Instructions Recorded Confirmed Type sildenafil 50 mg tablet See Rx Instructions PO DAILY PRN 06/14/19 03/28/20 Rx #10 tab bupropion HCl 150 mg 24 hr tablet, 150 mg PO QPM #90 tab 08/17/19 03/28/20 Rx extended release bupropion HCl 300 mg 24 hr tablet, 300 mg PO QAM #90 tab 11/10/19 03/28/20 Rx extended release doxepin 50 mg capsule 50 mg PO DAILY #90 cap 12/13/19 03/28/20 Rx duloxetine 60 mg capsule,delayed 60 mg PO DAILY #90 cap 12/13/19 03/28/20 Rx release trazodone 100 mg tablet 100 mg PO HS PRN #90 tab 01/10/20 03/28/20 Rx pantoprazole 40 mg PO DAILY PRN 03/28/20 03/28/20 History Patient History Medical History Acute pancreatitis (Resolved) Alcohol use disorder, severe, dependence (Chronic) Anxiety disorder, unspecified (Chronic) GERD (gastroesophageal reflux disease) (Chronic) Hypertriglyceridemia (Chronic) Social History Preferred Language: Welsh Communication Ability: Effective Sports Umpire Required: No Beliefs That Will Affect Care: None marital status: Single Current Living Situation: Alone Feels Safe at Home: Yes Smoking Status: Current every day smoker Tobacco Type: cigarettes ; Second Hand Exposure: No ; Hx Alcohol Use: Yes Alcohol type: beer Hx Substance Use: No Review of Systems Review of Systems: All systems reviewed & are unremarkable except as noted in HPI & below Physical Exam Constitutional: WD/WN, vitals as above well groomed, cooperative and comfortable Eyes: PERRL, conjunctivae normal, anicteric sclerae ENMT: external ear and nose normal, oropharynx normal Respiratory: normal respiratory effort, lungs clear to auscultation Cardiovascular: RRR, no murmur, no edema Gastrointestinal (Abdomen): Inspection/Auscultation: normal bowel sounds Percussion/Palpation: + abdomen tender (RUQ) and abdomen soft Skin: no rashes, warm and dry no jaundice Psychiatric: A+Ox3, euthymic affect Lymphatic: no lymphedema Results & Data ([facility]) Vital Signs (Past 12 Hours) Vital Signs Temp Pulse Resp BP BP Pulse Ox 03/28/20 05:45 36.7 C 18 140/94 93 03/28/20 05:00 70 12 150/106 H 96 03/28/20 04:30 70 16 149/110 H 91 03/28/20 04:00 18 148/108 H 97 03/28/20 03:30 18 144/98 H 95 03/28/20 03:09 18 148/86 H 93 (1) Acute pancreatitis Acute pancreatitis complication: unspecified Pancreatitis type: alcohol induced Qualified Code(s): K85.20 - Alcohol induced acute pancreatitis without necrosis or infection
[2020-03-28] MEDS: LACTATED RINGER'S 1,000 ML IV SCH ×2 (15:37→20:37)
[2020-03-28] MEDS: ACETAMINOPHEN 325 MG TAB PO PRN ×2 (16:53→23:17)
--- NOTE | 2020-03-28 17:35 | Billing Data ---
Date of Service March 28, 2020 Coding Level of Care Code 00363 Prolonged Care (int'l) Comment In room with patient: 10:00am - 10:15am and 5:15pm to 5:35pm.
[2020-03-28] MEDS: MoRPHine SULFATE 10 MG/ML CARP/VIAL IV PRN ×2 (18:00→21:46)
[2020-03-29] MEDS: MoRPHine SULFATE 10 MG/ML CARP/VIAL IV PRN ×7 (00:31→19:25)
[2020-03-29] MEDS: ACETAMINOPHEN 500 MG TAB PO SCH ×3 (00:34→17:04)
[2020-03-29] MEDS ORDERED: DiphenhydrAMINE HCL 50 MG/ML VIAL IV STA (00:39)
[2020-03-29] MEDS: KETOROLAC 30 MG/ML VIAL IV PRN ×3 (01:18→20:53)
[2020-03-29] MEDS: LACTATED RINGER'S 1,000 ML IV SCH ×5 (01:18→21:57)
[2020-03-29] MEDS: FAMOTIDINE 20 MG in SYRINGE 3 ML IV SCH ×2 (05:13→17:07)
[2020-03-29 07:38] LABS: Basophils # (auto) 0.03 K/uL (0-0.2); Basophils % (auto) 0.4 %; Eosinophils # (auto) 0.24 K/uL (0-0.5); Eosinophils % (auto) 3.6 %; Hematocrit (blood only) 38.5 % (42-52); Hemoglobin 12.4 g/dL (14.0-18.0); Lymphocytes # (auto) 0.83 K/uL (1.2-3.4); Lymphocytes % (auto) 12.4 %; Mean Corpuscular Hemoglobin 28.2 pg (25-34); Mean Corpuscular Hgb Conc 32.2 g/dL (32-36); Mean Corpuscular Volume 87.5 fL (80-100); Mean Platelet Volume 9.2 fL (7.4-10.4); Monocytes # (auto) 0.65 K/uL (0.11-0.59); Monocytes % (auto) 9.7 %; Neutrophils # (auto) 4.96 K/uL (1.4-6.5); Neutrophils % (auto) 73.9 %; Platelet Count 199 K/uL (130-400); RDW Coefficient of Variation 14.3 % (11.5-14.5); RDW Standard Deviation 45.9 fL (36.4-46.3); White Blood Count 6.71 K/uL (4.8-10.8)
[2020-03-29] MEDS: THIAMINE HCL 100 MG in SYRINGE 9 ML IV SCH (07:44)
[2020-03-29] MEDS: FOLIC ACID 1 MG in SYRINGE 9.8 ML IV SCH (07:44)
[2020-03-29] MEDS: ENOXAPARIN INJ 40 MG/0.4 ML SYR SQ SCH (07:44)
[2020-03-29 07:49] LABS: INR 1.1 (0.9-1.1); Prothrombin Time 11.4 Seconds (9.0-12.0)
[2020-03-29 08:08] LABS: Albumin Level 3.4 gm/dl (3.4-5.0); BUN Creatinine Ratio 7.3 (10-20); Creatinine Clr Calc Pharmacy 126.6 ml/min; Est GFR (African American) 135.3; Est GFR (Non-African American) 116.8; Magnesium 1.8 mg/dl (1.8-2.4); Potassium 3.7 mmol/L (3.5-5.1)
[2020-03-29 08:12] LABS: Bilirubin,Total 0.4 mg/dl (0.2-1); Globulin 3.6 gm/dl (2.5-4.0); Phosphorus 3.8 mg/dl (2.5-4.9)
[2020-03-29] MEDS ORDERED: MoRPHine SULFATE 2 MG/ML CARP ONE (10:00)
[2020-03-29] MEDS ORDERED: MoRPHine SULFATE 4 MG/ML 1 ML CARP\\VIAL ONE (10:00)
[2020-03-29] MEDS: DOCUSATE SODIUM 100 MG CAP PO SCH ×2 (10:01→20:52)
[2020-03-29] MEDS: NICOTINE 21 MG/24 HR TDSY TD SCH (10:03)
[2020-03-29] MEDS: DULOXETINE HCL 60 MG CAP PO SCH (10:03)
[2020-03-29] MEDS: LORazepam 0.5 MG/1 ML VIAL IV PRN (11:52)
--- NOTE | 2020-03-29 16:09 | Hospitalist Progress Note ---
Date of Service March 29, 2020 Assessment & Plan (1) Acute pancreatitis: Recurrent acute pancreatitis. Lipase 15,[address] of abdomen pelvis consistent with pancreatitis. - Continue IVFs -> lactate ringers which reduces MILTON. - NPO - Pain control -> Still quite painful; discussed pain control strategies. - GI consulted - Appreciate recs. Will need EUS in 6-8 weeks. (2) Pancreatic pseudocyst: CT a/p noted multifocal cystic lesions of the pancreatic body and tail measuring up to 2 cm individually. - See above (3) Alcohol use disorder, severe, dependence: Reports that his drinking was only beer. - Continue AWSS protocol - Thiamine 100 mg IV daily - Folic acid 1 mg IV daily - Would like anti-drinking medication on discharge. (4) Hypertriglyceridemia: Last level was 776 in 11/2019. On no specific treatment at this time. - Recheck on 03/29 showed triglycerides at 300. Once improved, could probably stand to be on fenofibrate. (5) Anxiety with depression: Until his nausea is improved, will hold bupropion, doxepin, duloxetine and trazodone. - Restarted duloxetine & trazodone on 03/29 per patient request. (6) GERD (gastroesophageal reflux disease): Placed on famotidine 20 mg IV every 12 hours (7) DVT prophylaxis: Lovenox 40 mg SQ daily Admission and Anticipated Discharge Date Admission Date: March 28, 2020 Subjective Reports good pain control at this moment, but reports overnight he was not comfortable. Reports no fevers/chills, chest pain, shortness of breath, nausea, or vomiting. Physical Exam Constitutional: WD/WN, vitals as above Eyes: EOM intact bilaterally; no conjunctival abnormality ENMT: external ear and nose normal, oropharynx normal Neck: trachea midline, no thyromegaly normal visual inspection Respiratory: normal respiratory effort, lungs clear to auscultation no respiratory distress Cardiovascular: RRR, no murmur, no edema Gastrointestinal (Abdomen): Inspection/Auscultation: abdomen normal to inspection; abdomen not distended Percussion/Palpation: + abdomen tender (Epigastric) and abdomen soft; no guarding and abdomen not rigid Musculoskeletal: no cyanosis or clubbing, extremities motor strength 5/5 Skin: no rashes, warm and dry Neurologic: moves all extremities and awake Psychiatric: Orientation: alert, oriented to person and cooperative Results & Data Results & Data ([place]) Vital Signs (Past 12 Hours) Vital Signs Temp Pulse Resp BP Pulse Ox 03/29/20 15:50 36.5 C 66 16 158/96 H 96 03/29/20 07:07 36.7 C 72 22 149/92 H 95 PG Care Time/CCT Total # of Minutes Spent Total Time Spent with Patient: Total time spent is greater than 50% in coordination of care (as documented) at patient's floor/unit and/or counseling patient: Coding Level of Care Code 85534 Subseq Hosp Care Lvl 2 Diagnoses Acute pancreatitis K85.20 Acute pancreatitis complication: unspecified Pancreatitis type: alcohol induced Pancreatic pseudocyst K86.3 Alcohol use disorder, severe, dependence F10.20 Hypertriglyceridemia E78.1 Anxiety with depression F41.8 GERD (gastroesophageal reflux disease) K21.9 DVT prophylaxis Z29.9 (1) Acute pancreatitis Acute pancreatitis complication: unspecified Pancreatitis type: alcohol induced Qualified Code(s): K85.20 - Alcohol induced acute pancreatitis without necrosis or infection
[2020-03-29] MEDS: TRAZODONE HCL 100 MG TAB PO SCH (20:52)
[2020-03-30] MEDS ORDERED: DiphenhydrAMINE HCL 50 MG/ML VIAL IV STA (01:00)
[2020-03-30] MEDS: MoRPHine SULFATE 10 MG/ML CARP/VIAL IV PRN ×4 (01:09→23:32)
[2020-03-30] MEDS: ACETAMINOPHEN 500 MG TAB PO SCH ×4 (01:10→23:31)
[2020-03-30] MEDS: LACTATED RINGER'S 1,000 ML IV SCH ×4 (02:37→21:28)
[2020-03-30] MEDS: FAMOTIDINE 20 MG in SYRINGE 3 ML IV SCH (05:27)
[2020-03-30 06:02] LABS: Basophils # (auto) 0.03 K/uL (0-0.2); Basophils % (auto) 0.6 %; Eosinophils # (auto) 0.34 K/uL (0-0.5); Hematocrit (blood only) 39.3 % (42-52); Hemoglobin 12.8 g/dL (14.0-18.0); Immature Granulocytes # (auto) 0.01 K/uL (0.00-0.02); Immature Granulocytes % (auto) 0.2 %; Lymphocytes # (auto) 1.21 K/uL (1.2-3.4); Lymphocytes % (auto) 24.8 %; Mean Corpuscular Hemoglobin 28.3 pg (25-34); Mean Corpuscular Hgb Conc 32.6 g/dL (32-36); Mean Corpuscular Volume 86.9 fL (80-100); Mean Platelet Volume 9.4 fL (7.4-10.4); Monocytes # (auto) 0.53 K/uL (0.11-0.59); Monocytes % (auto) 10.9 %; Neutrophils # (auto) 2.75 K/uL (1.4-6.5); Neutrophils % (auto) 56.5 %; Platelet Count 200 K/uL (130-400); RDW Coefficient of Variation 14.1 % (11.5-14.5); RDW Standard Deviation 44.9 fL (36.4-46.3); Red Blood Count 4.52 M/uL (4.7-6.1); White Blood Count 4.87 K/uL (4.8-10.8)
[2020-03-30 06:34] LABS: Albumin Level 3.1 gm/dl (3.4-5.0); BUN Creatinine Ratio 9.7 (10-20); Calcium 9.3 mg/dl (8.5-10.1); Creatinine Clr Calc Pharmacy 125.1 ml/min; Est GFR (African American) 134.7; Est GFR (Non-African American) 116.2; Potassium 4.1 mmol/L (3.5-5.1)
[2020-03-30 06:36] LABS: Albumin Globulin Ratio 0.8 (0.9-2); Bilirubin,Total 0.4 mg/dl (0.2-1); Globulin 3.7 gm/dl (2.5-4.0); Total Protein 6.8 gm/dl (6.4-8.2)
[2020-03-30] MEDS: DULOXETINE HCL 60 MG CAP PO SCH (08:19)
[2020-03-30] MEDS: DOCUSATE SODIUM 100 MG CAP PO SCH ×2 (08:19→20:34)
[2020-03-30] MEDS: ENOXAPARIN INJ 40 MG/0.4 ML SYR SQ SCH (08:20)
[2020-03-30] MEDS: NICOTINE 21 MG/24 HR TDSY TD SCH (08:21)
[2020-03-30] MEDS: FOLIC ACID 1 MG in SYRINGE 9.8 ML IV SCH (08:21)
[2020-03-30] MEDS: THIAMINE HCL 100 MG in SYRINGE 9 ML IV SCH (08:21)
--- NOTE | 2020-03-30 13:20 | Hospitalist Progress Note ---
Date of Service March 30, 2020 Assessment & Plan (1) Acute pancreatitis: Recurrent acute pancreatitis. Lipase 15,[address] of abdomen pelvis consistent with pancreatitis. - Continue IVFs -> lactate ringers which reduces MILTON. - NPO - GI consulted - Appreciate recs. Will need EUS in 6-8 weeks. - Pain control -> Improved substantially yesterday. Less pain today. Would like to try a diet. Lipase improving significantly. (2) Pancreatic pseudocyst: CT a/p noted multifocal cystic lesions of the pancreatic body and tail measuring up to 2 cm individually. - See above (3) Alcohol use disorder, severe, dependence: Reports that his drinking was only beer. - Continue AWSS protocol - Thiamine and folate PO. - Would like anti-drinking medication on discharge. (4) Hypertriglyceridemia: Last level was 776 in 11/2019. On no specific treatment at this time. - Recheck on 03/29 showed triglycerides at 300. Once improved, could probably stand to be on fenofibrate. (5) Anxiety with depression: Until his nausea is improved, will hold bupropion, doxepin, duloxetine and trazodone. - Restarted duloxetine & trazodone on 03/29 per patient request. (6) GERD (gastroesophageal reflux disease): Switch to PO. (7) DVT prophylaxis: Lovenox 40 mg SQ daily Admission and Anticipated Discharge Date Admission Date: March 28, 2020 Subjective Doing better today. Pain is almost entirely gone. Ready to eat. Reports no fevers/chills, chest pain, shortness of breath, nausea, or vomiting. Physical Exam Constitutional: WD/WN, vitals as above Eyes: EOM intact bilaterally; no conjunctival abnormality ENMT: external ear and nose normal, oropharynx normal Neck: trachea midline, no thyromegaly normal visual inspection Respiratory: normal respiratory effort, lungs clear to auscultation no respiratory distress Cardiovascular: RRR, no murmur, no edema Gastrointestinal (Abdomen): Inspection/Auscultation: abdomen normal to inspection; abdomen not distended Percussion/Palpation: + abdomen tender (Epigastric) and abdomen soft; no guarding and abdomen not rigid Musculoskeletal: no cyanosis or clubbing, extremities motor strength 5/5 Skin: no rashes, warm and dry Neurologic: moves all extremities and awake Psychiatric: Orientation: alert, oriented to person and cooperative Results & Data Results & Data ([facility]) Vital Signs (Past 12 Hours) Vital Signs Temp Pulse Resp BP Pulse Ox 03/30/20 08:05 36.6 C 52 L 16 141/91 H 94 PG Care Time/CCT Total # of Minutes Spent Total Time Spent with Patient: Total time spent is greater than 50% in coordination of care (as documented) at patient's floor/unit and/or counseling patient: Coding Level of Care Code 84450 Subseq Hosp Care Lvl 2 Diagnoses Acute pancreatitis K85.20 Acute pancreatitis complication: unspecified Pancreatitis type: alcohol induced Pancreatic pseudocyst K86.3 Alcohol use disorder, severe, dependence F10.20 Hypertriglyceridemia E78.1 Anxiety with depression F41.8 GERD (gastroesophageal reflux disease) K21.9 DVT prophylaxis Z29.9 (1) Acute pancreatitis Acute pancreatitis complication: unspecified Pancreatitis type: alcohol induced Qualified Code(s): K85.20 - Alcohol induced acute pancreatitis without necrosis or infection
[2020-03-30] MEDS: FAMOTIDINE 20 MG TAB PO SCH (20:34)
[2020-03-30] MEDS: KETOROLAC 30 MG/ML VIAL IV PRN (21:30)
[2020-03-30] MEDS: TRAZODONE HCL 100 MG TAB PO SCH (23:31)
[2020-03-31] MEDS: MoRPHine SULFATE 10 MG/ML CARP/VIAL IV PRN (02:55)
[2020-03-31] MEDS: LORazepam 0.5 MG/1 ML VIAL IV PRN (03:20)
[2020-03-31] MEDS: LACTATED RINGER'S 1,000 ML IV SCH ×2 (07:42→18:25)
[2020-03-31] MEDS: ACETAMINOPHEN 500 MG TAB PO SCH (07:43)
[2020-03-31] MEDS: FAMOTIDINE 20 MG TAB PO SCH ×2 (07:43→20:48)
[2020-03-31] MEDS: DOCUSATE SODIUM 100 MG CAP PO SCH ×2 (07:44→20:16)
[2020-03-31] MEDS: FOLIC ACID 1 MG TAB PO SCH (07:44)
[2020-03-31] MEDS: DULOXETINE HCL 60 MG CAP PO SCH (07:44)
[2020-03-31] MEDS: THIAMINE HCL 100 MG TAB PO SCH (07:45)
[2020-03-31] MEDS: ENOXAPARIN INJ 40 MG/0.4 ML SYR SQ SCH (07:45)
[2020-03-31] MEDS: NICOTINE 21 MG/24 HR TDSY TD SCH (07:45)
[2020-03-31] MEDS ORDERED: HYDROCODONE/ACETAMOPHEN 5/325MG TAB PO PRN (10:55)
[2020-03-31] MEDS ORDERED: ACETAMINOPHEN 325 MG TAB PO PRN (10:56)
[2020-03-31] MEDS ORDERED: MoRPHine SULFATE 4 MG/ML 1 ML CARP\\VIAL IV PRN (10:57)
--- NOTE | 2020-03-31 12:17 | Hospitalist Progress Note ---
Date of Service March 31, 2020 Assessment & Plan (1) Acute pancreatitis: Recurrent acute pancreatitis. Lipase 15,[address] of abdomen pelvis consistent with pancreatitis. - Continue IVFs -> lactate ringers which reduces MILTON. - NPO - GI consulted - Appreciate recs. Will need EUS in 6-8 weeks. - Pain control -> Improved substantially yesterday & today. Broadening diet to bland today. Home tomorrow if continues to improve. (2) Pancreatic pseudocyst: CT a/p noted multifocal cystic lesions of the pancreatic body and tail measuring up to 2 cm individually. - See above (3) Alcohol use disorder, severe, dependence: Reports that his drinking was only beer. - Thiamine and folate PO. - Stopping MELODY scale. - Would like anti-drinking medication on discharge. (4) Hypertriglyceridemia: Last level was 776 in 11/2019. On no specific treatment at this time. - Recheck on 03/29 showed triglycerides at 300. Once improved, could probably stand to be on fenofibrate. (5) Anxiety with depression: Until his nausea is improved, will hold bupropion, doxepin, duloxetine and trazodone. - Restarted duloxetine & trazodone on 03/29 per patient request. (6) GERD (gastroesophageal reflux disease): Switch to PO. (7) DVT prophylaxis: Lovenox 40 mg SQ daily Admission and Anticipated Discharge Date Admission Date: March 28, 2020 Subjective Doing better today. Food was a bit hard on the stomach last night, but well this morning. Reports no fevers/chills, chest pain, shortness of breath, abdominal pain, nausea, or vomiting. Physical Exam Constitutional: WD/WN, vitals as above Eyes: EOM intact bilaterally; no conjunctival abnormality ENMT: external ear and nose normal, oropharynx normal Neck: trachea midline, no thyromegaly normal visual inspection Respiratory: normal respiratory effort, lungs clear to auscultation no respiratory distress Cardiovascular: RRR, no murmur, no edema Gastrointestinal (Abdomen): Inspection/Auscultation: abdomen normal to inspection; abdomen not distended Percussion/Palpation: abdomen soft; abdomen nontender (Epigastric), no guarding and abdomen not rigid Musculoskeletal: no cyanosis or clubbing, extremities motor strength 5/5 Skin: no rashes, warm and dry Neurologic: moves all extremities and awake Psychiatric: Orientation: alert, oriented to person and cooperative Results & Data Results & Data ([facility]) Vital Signs (Past 12 Hours) Vital Signs Temp Pulse Resp BP Pulse Ox 03/31/20 06:21 36.9 C 66 20 130/84 94 PG Care Time/CCT Total # of Minutes Spent Total Time Spent with Patient: Total time spent is greater than 50% in coordination of care (as documented) at patient's floor/unit and/or counseling patient: Coding Level of Care Code 23813 Subseq Hosp Care Lvl 2 Diagnoses Acute pancreatitis K85.20 Acute pancreatitis complication: unspecified Pancreatitis type: alcohol induced Pancreatic pseudocyst K86.3 Alcohol use disorder, severe, dependence F10.20 Hypertriglyceridemia E78.1 Anxiety with depression F41.8 GERD (gastroesophageal reflux disease) K21.9 DVT prophylaxis Z29.9 (1) Acute pancreatitis Acute pancreatitis complication: unspecified Pancreatitis type: alcohol induced Qualified Code(s): K85.20 - Alcohol induced acute pancreatitis without necrosis or infection
[2020-03-31 12:24] LABS: MDA negative; MDEA negative; MDMA (Ecstasy) Urine, Confirm negative
[2020-03-31] MEDS: TRAZODONE HCL 100 MG TAB PO SCH (20:48)
[2020-04-01] MEDS: LACTATED RINGER'S 1,000 ML IV SCH (04:03)
[2020-04-01] MEDS: FAMOTIDINE 20 MG TAB PO SCH (09:31)
[2020-04-01] MEDS: THIAMINE HCL 100 MG TAB PO SCH (09:31)
[2020-04-01] MEDS: NICOTINE 21 MG/24 HR TDSY TD SCH (09:31)
[2020-04-01] MEDS: ENOXAPARIN INJ 40 MG/0.4 ML SYR SQ SCH (09:31)
[2020-04-01] MEDS: DOCUSATE SODIUM 100 MG CAP PO SCH (09:31)
[2020-04-01] MEDS: DULOXETINE HCL 60 MG CAP PO SCH (09:31)
[2020-04-01] MEDS: FOLIC ACID 1 MG TAB PO SCH (09:31)
--- NOTE | 2020-04-01 12:40 | Discharge Summary ---
Date of Service April 01, 2020 Admission HPI Per Admitting Provider The patient is a 34-year-old male with past medical history including severe alcohol dependence, necrotizing pancreatitis, transaminitis, erectile dysfunction, depression, hypertriglyceridemia, GERD and anxiety. He reports that after his most recent alcohol binge, with his last intake a little bit over 24 hours ago, he has developed severe abdominal pain with some nausea and no vomiting. His symptoms are very similar to his previous hospitalization for pancreatitis on 12/01-12/09/2019. Principal Diagnosis Alcoholic pancreatitis Discharge Exam Constitutional WD/WN, vitals as above Eyes EOM intact bilaterally; no conjunctival abnormality ENMT external ear and nose normal, oropharynx normal Neck trachea midline, no thyromegaly normal visual inspection Respiratory normal respiratory effort, lungs clear to auscultation no respiratory distress Cardiovascular RRR, no murmur, no edema Gastrointestinal (Abdomen) Inspection/Auscultation: abdomen normal to inspection; abdomen not distended Percussion/Palpation: abdomen soft; abdomen nontender (Epigastric), no guarding and abdomen not rigid Musculoskeletal no cyanosis or clubbing, extremities motor strength 5/5 Skin no rashes, warm and dry Neurologic moves all extremities and awake Psychiatric Orientation: alert, oriented to person and cooperative Discharge Data Allergies Allergy/AdvReac Type Severity Reaction Status Date / Time No Known Allergies Allergy Unverified 03/28/20 01:32 Consultations 03/28/20 03:49 ED Decision to Admit Stat 03/28/20 05:55 Consult Case Management - Discharge Planning Routine 03/28/20 14:00 Consult Gastroenterology Routine Ordered Studies 03/28/20 02:32 CT abd pelvis IV con only Urgent Hospital Course (1) Acute pancreatitis: Recurrent acute pancreatitis. Lipase 15,[address] of abdomen pelvis consistent with pancreatitis. - Pain control was initially an issue with the patient reporting all pain meds wore off in 30 minutes and requesting very close intervals of narcotics. However, this improved over 4 days, and the patient did not request any narcotics in the last day of admission and requested none on discharge. - GI consulted - Appreciate recs. Will need EUS in 6-8 weeks. (2) Pancreatic pseudocyst: CT a/p noted multifocal cystic lesions of the pancreatic body and tail measuring up to 2 cm individually. - See above (3) Alcohol use disorder, severe, dependence: Reports that his drinking was only beer. - Thiamine and folate PO while inpatient. - Minimal Ativan needed while inpatient; no real withdrawals. - Will start Revia (naltrexone) anti-drinking medication on discharge which he has >1 month supply of at home. Also encouraged AA or other alcohol resources. (4) Hypertriglyceridemia: Last level was 776 in 11/2019. On no specific treatment at this time. - Recheck on 03/29 showed triglycerides at 300. - Recheck fasting lipids in 1-2 months off alcohol. Could maybe benefit from a statin as first-line for hypertriglyceridemia. (5) Anxiety with depression: Until his nausea is improved, will hold bupropion, doxepin, duloxetine and trazodone. - Restarted duloxetine & trazodone on 03/29 per patient request. (6) GERD (gastroesophageal reflux disease): Switch to PO. (7) DVT prophylaxis: Lovenox 40 mg SQ daily Total Time Total Time Spent Total Time Spent (In Minutes): 35 Discharge Plan Discharge Items Patient Disposition: Home - Self-Care Reason For Visit: RECURRENT PANCREATITIS, NEW PSEUDOCYSTS Discharge Diagnosis: Pancreatitis Condition on Discharge: Good Activity: Resume your previous activity Non-emergency contact: Primary Care Provider and [employer] Call non-emergency contact if: your symptoms worsen and your temperature is above 101 Follow-up/Referrals: Aparna Garcia MD [Primary Care Provider] - Tram Leyva [Physician] - (Please see Dr. Leyva or one of his colleagues in the GI team in 2-3 weeks. You will need an EGD in about 4-6 weeks to check on your pancreas.) Diet: Low Fat Addtl Attending Provider Instructions: You were admitted with pancreatitis due to alcohol intake. Please stop all drinking as your pancreas is very sensitive to alcohol and unfortunately cannot handle any at all. Please start taking the Revia (naltrexone) pills that you have at home. It sounds like the Vivitrol injection helped you, but you only had the one. The Revia is the same medication, just in pill form. Please follow up with Dr. Garcia to get a refill for this. You should also reach to local alcohol support resources. AA meets near the [email or web address]. Their phone number is . You also have slightly high triglycerides which can also make you at higher risk for pancreatitis. Your triglycerides this admission were 300. Alcohol consumption can increase these numbers, so abstaining from alcohol could lower this. The most common medication to help lower triglycerides is called a statin medication. (Examples include atorvastatin (Lipitor) or simvastatin (Zocor) or rosuvastatin (Crestor).) However, I feel like prescribing one of these at this point is probably premature, and it would be better to check a fasting c holesterol panel in 1-2 months after you are not drinking any alcohol. Please follow up with the GI doctors in 2-3 weeks. You will need a repeat endoscopy (EGD) in 4-6 weeks for them to check on your pancreas. Pending Studies at Discharge: No Stand-Alone Forms: [facility] [employer], Work/School Release (Inpt), Smoking Cessation Medications and DC Order Prescriptions: New nicotine [Nicoderm CQ] 21 mg/24 hr Patch 24 Hour 21 mg transdermal QAM Qty: 30 RF: 0 Continued bupropion HCl 300 mg tablet extended release 24 hr 300 mg PO QAM Qty: 90 RF: 1 doxepin 50 mg capsule 50 mg PO DAILY Qty: 90 RF: 1 duloxetine 60 mg capsule,delayed release(DR/EC) 60 mg PO DAILY Qty: 90 RF: 1 trazodone 100 mg tablet 100 mg PO HS PRN (Reason: sleep) Qty: 90 RF: 1 sildenafil 50 mg tablet See Rx Instructions PO DAILY PRN (Reason: Sexual Activity) Qty: 10 RF: 5 bupropion HCl 150 mg tablet extended release 24 hr 150 mg PO QPM Qty: 90 RF: 3 pantoprazole 40 mg tablet,delayed release (DR/EC) 40 mg PO DAILY PRN (Reason: Heartburn) RF: 0 Discharge Orders: Discharge Order (Routine); Ordered 04/01/20 Ordered By: Sylvester Kahn Admission Data Admit Date/Time: 03/28/20 04:21 Attending Provider: Sylvester Kahn Admit Provider: Otoniel Welsh Primary Care Provider: Aparna Garcia Other Providers: Sylvester Kahn ; Christian Hernández Coding Level of Care Code D/C Day Management >30 mins Diagnoses Acute pancreatitis K85.20 Acute pancreatitis complication: unspecified Pancreatitis type: alcohol induced Pancreatic pseudocyst K86.3 Alcohol use disorder, severe, dependence F10.20 Hypertriglyceridemia E78.1 Anxiety with depression F41.8 GERD (gastroesophageal reflux disease) K21.9 DVT prophylaxis Z29.9
== END 2020-04-01 13:00 | disposition home or self-care (01) | DRG 440 ==
LOC: ED 00:48 → 3N 04:21 → SUATTDRO 04:21 → 3N 05:28

== ENCOUNTER 2021-06-20 10:42 | Inpatient (IN) ==
[2021-06-20] MEDS ORDERED: SODIUM CHLORIDE 0.9% 1000ML 1,000 ML IV STA (11:28)
[2021-06-20] MEDS ORDERED: ONDANSETRON INJ 2 MG/ML 2 ML VIAL IV STA (11:58)
[2021-06-20] MEDS ORDERED: MoRPHine SULFATE 4 MG/ML 1 ML CARP\\VIAL IV STA ×2 (11:58→14:40)
[2021-06-20 11:59] LABS: Basophils # (auto) 0.08 K/uL (0-0.2); Basophils % (auto) 1.2 %; Eosinophils # (auto) 0.15 K/uL (0-0.5); Eosinophils % (auto) 2.3 %; Hematocrit (blood only) 42.9 % (42-52); Hemoglobin 15.2 g/dL (14.0-18.0); Immature Granulocytes # (auto) 0.02 K/uL (0.00-0.02); Immature Granulocytes % (auto) 0.3 %; Lymphocytes # (auto) 2.27 K/uL (1.2-3.4); Lymphocytes % (auto) 34.1 %; Mean Corpuscular Hemoglobin 31.2 pg (25-34); Mean Corpuscular Hgb Conc 35.4 g/dL (32-36); Mean Corpuscular Volume 88.1 fL (80-100); Mean Platelet Volume 9.1 fL (7.4-10.4); Monocytes # (auto) 0.91 K/uL (0.11-0.59); Monocytes % (auto) 13.7 %; Neutrophils # (auto) 3.23 K/uL (1.4-6.5); Neutrophils % (auto) 48.4 %; Platelet Count 238 K/uL (130-400); RDW Coefficient of Variation 12.9 % (11.5-14.5); RDW Standard Deviation 41.4 fL (36.4-46.3); Red Blood Count 4.87 M/uL (4.7-6.1); White Blood Count 6.66 K/uL (4.8-10.8)
[2021-06-20 12:04] LABS: Appearance Urine Clear (Clear); Bacteria Urine Automated Negative (Negative); Bilirubin Urine Negative (Negative); Blood Urine Negative (Negative); Color Urine Yellow; Epithelial Cell Urine Auto >30 /lpf (0-5); Glucose Urine UA 1+ (Negative); Ketones Urine Trace (Negative); Leukocyte Esterase Urine Negative (Negative); Nitrite Urine Negative (Negative); Protein Urine 1+ (Negative); RBC Urine Automated 0-4 /hpf (0-4); Specific Gravity Urine 1.011 (1.000-1.030); Urobilinogen Urine Negative (Negative); pH Urine 5.5 (4.5-7.5)
[2021-06-20 12:17] LABS: Albumin Level 3.8 gm/dl (3.4-5.0); BUN Creatinine Ratio 14.6 (10-20); Calcium 8.4 mg/dl (8.5-10.1); Creatinine Clr Calc Pharmacy 105.5 ml/min; Est GFR (African American) 129.3 ml/min; Est GFR (Non-African American) 111.6 ml/min; Potassium 3.4 mmol/L (3.5-5.1)
[2021-06-20] MEDS ORDERED: MULTI-VITAMIN INFUSION 10 ML, THIAMINE HCL 100 MG, FOLIC ACID 1 MG in SODIUM CHLORIDE 0... IV ONE (12:17)
[2021-06-20] MEDS ORDERED: LORazepam 2 MG/4 ML VIAL IV STA (12:17)
--- NOTE | 2021-06-20 12:17 | Emergency Department Note ---
Impression & Plan Pancreatitis, Acute upper abdominal pain, Alcohol abuse ED Provider Note INFORMANT: Patient ED PROVIDER(S): Mario Billy MD CHIEF COMPLAINT: Abdominal pain PLAN: Disposition: Admitted Condition: Good Outpatient prescription management: none Referral: None MEDICAL DECISION MAKING: Patient presented with acute abdominal pain radiating to his back. He is abusing alcohol. This is concerning for possible pancreatitis as well as other intra-abdominal pathology. The patient required morphine and Zofran. He was hydrated. The patient was also given IV Ativan due to concerns about alcohol withdrawal. He was reassessed and was doing better. He still has pain although is much improved. CT imaging reveals findings concerning for pancreatitis. The patient's lipase is elevated and has doubled since last visit. I discussed further management in the hospital as the patient has been abusing alcohol significantly and now has pancreatitis. He was also given a banana bag. The patient was in agreement. Consultation was made with Dr. Plasencia of the hospitalist service. Patient was evaluated in ER for further management. Triage Nursing notes reviewed and agree them. Vital Signs: reviewed and remarkable for hypertension and tachycardia Differential diagnosis: Pancreatitis, ETOH abuse, withdrawal, Appendicitis, testicular torsion, infections, diverticulitis, UTI, obstruction, mesenteric ischemia, aortic pathology, inflammatory bowel disease, renal colic, PUD, pancreatitis, biliary pathology, hernia, volvulus, constipation, as well as other pathologies. Diagnostics interpreted by me: ECG: none Cardiac Monitoring: Cardiac monitoring ordered by me: The patient was placed on continuous cardiac monitoring and observed. It revealed a n sinus at 102 beats per minute without ectopy or evidence of dysrhythmia. Imaging studies: CT scan of the abdomen pelvis consistent with pancreatitis. I refer you to the EMR for further details. HPI: The patient is a 35 year old male who presents to the Emergency Room with complaints of upper abdominal pain. This started today and is severe, sharp, epigastric and radiating to the back. The patient also notes the following associated symptoms, some loose stool but not yvette diarrhea. The patient has found no relieving factors. Current pain is rated as 8/10. Hx of etoh abuse and pancreatitis. Feels similar. Pt denies LOC, headache, fevers, chills, diaphoresis, visual changes, neck pain, chest pain, breathing difficulties, [place], vomiting, back pain, melena, hematochezia, urinary symptoms, numbness, weakness, lymphadenopathy, rash, or other complaints. ROS: See above HPI for pertinent positives & negatives. A total of 10 systems reviewed and were otherwise negative. PAST MEDICAL HISTORY:See Below , pancreatitis PAST SURGICAL HISTORY:See Below, FAMILY HISTORY:See Below SOCIAL HISTORY:See Below, +etoh, heavy HOME MEDICATIONS:See Below ALLERGIES:See Below VITALS:See Below PHYSICAL EXAMINATION: GENERAL: Awake, alert, anxious-appearing, in no distress HENT: Normocephalic, atraumatic. Oropharynx unremarkable. EYES: Normal conjunctiva. Sclera non-icteric. NECK: Inspection normal. Non-tender. Supple. No nuchal rigidity. FROM. No masses. RESPIRATORY: Clear to auscultation. No wheezes. No rales. Normal respiratory effort. CARDIAC: Tachycardic rate. Normal rhythm. No murmurs. No rubs. Extremities warm and well perfused. Pulses equal. No JVD. GI: Soft, non-distended. Epigastric tenderness to palpation. No rebound or guarding. No masses. RECTAL: Deferred. MUSCULOSKELETAL: Atraumatic. Chest examination reveals no tenderness. The back is symmetrical on inspection without obvious abnormality. There is no CVA tenderness to palpation. No joint edema. LOWER EXTREMITIES: Calves are equal size bilaterally and non-tender. No edema. No discoloration. NEURO: Normal sensorium. No sensory or motor deficits noted. SKIN: No rash or jaundice noted. Mario Billy MD Past Med/Surg History Medical History Acute pancreatitis Alcohol use disorder, severe, dependence Anxiety disorder, unspecified Depression GERD (gastroesophageal reflux disease) Hypertriglyceridemia Pancreatic pseudocyst Family History Other Breast cancer Denies family history of Ovarian cancer Prostate cancer Colorectal cancer Social History Smoking Status: Current every day smoker Tobacco Type: Cigarettes Second Hand Exposure: Yes; Hx Alcohol Use: Yes Alcohol type: beer Hx Substance Use: No Preferred Language: Comoran Communication Ability: Effective Activities Coordinator Required: No Beliefs That Will Affect Care: None marital status: Single Current Living Situation: Alone current occupational status: employed current occupation: [employer] Feels Safe at Home: Yes Childhood Exposure to Second-Hand Smoke: No caffeine: Yes (nathalie) Dental Care, Regularly: Yes Physical Activity Frequency: Does not Exercise Seatbelt Use: always Sunscreen Use: Yes Assistive Devices: None Allergies Allergies Allergy/AdvReac Type Severity Reaction Status Date / Time No Known Allergies Allergy Verified 06/20/21 12:30 Home Meds Home Medications Medication Instructions Recorded Confirmed trazodone 100 mg tablet 100 mg PO DAILY PRN tab 05/10/21 06/20/21 bupropion HCl 150 mg 24 hr tablet, 150 mg PO QPM 06/20/21 06/20/21 extended release doxepin 50 mg capsule 50 mg PO DAILY 06/20/21 06/20/21 ibuprofen 200 mg tablet 600 mg PO Q8 PRN 06/20/21 06/20/21 Previous Rx's Medication Instructions Recorded sildenafil 50 mg tablet See Rx Instructions PO DAILY PRN 04/10/20 #10 tab pantoprazole 40 mg tablet,delayed 40 mg PO DAILY #90 tab 07/03/20 release bupropion HCl 300 mg 24 hr tablet, 300 mg PO QAM #90 tab 06/03/21 extended release duloxetine 60 mg capsule,delayed 60 mg PO DAILY #30 cap 06/03/21 release Results & Data (ED) Vital Signs Vital Signs - 24 hr 06/20/21 11:09 06/20/21 11:41 06/20/21 11:42 Temperature 37.1 C Temperature Source Oral Pulse Rate 117 H 98 H 100 H Pulse Rate [Right Finger] Pulse Rate from SpO2 Sensor Pulse Rhythm Regular Pulse Rhythm [Right Finger] Pulse Strength [Right Finger] Respiratory Rate 20 20 23 Respiratory Effort / Characteristics Non-Labored Respiratory Depth Normal Respiratory Pattern Regular Blood Pressure 151/104 H Blood Pressure [Left Arm] Blood Pressure Mean 119 Blood Pressure Mean [Left Arm] Pulse Oximetry 98 97 96 Oxygen Delivery Method Room Air Room Air Room Air Sepsis Recent Fever Within 48 Hours No Sepsis New/Unexplained Change in Mental Status No Sepsis Action Taken by Nursing No Action Required 06/20/21 11:43 06/20/21 12:00 06/20/21 12:30 Temperature Temperature Source Pulse Rate 100 H 98 H Pulse Rate [Right Finger] 96 H Pulse Rate from SpO2 Sensor 100 H 98 H Pulse Rhythm Pulse Rhythm [Right Finger] Regular Pulse Strength [Right Finger] Normal Respiratory Rate 20 19 19 Respiratory Effort / Characteristics Non-Labored Spontaneous Respiratory Depth Normal Respiratory Pattern Regular Blood Pressure 156/105 H Blood Pressure [Left Arm] 144/98 H Blood Pressure Mean 122 Blood Pressure Mean [Left Arm] 113 Pulse Oximetry 96 97 98 Oxygen Delivery Method Room Air Room Air Room Air Sepsis Recent Fever Within 48 Hours Sepsis New/Unexplained Change in Mental Status Sepsis Action Taken by Nursing 06/20/21 13:00 06/20/21 13:30 06/20/21 14:08 Temperature Temperature Source Pulse Rate 101 H 103 H 103 H Pulse Rate [Right Finger] Pulse Rate from SpO2 Sensor 100 H 102 H 102 H Pulse Rhythm Pulse Rhythm [Right Finger] Pulse Strength [Right Finger] Respiratory Rate 16 18 15 Respiratory Effort / Characteristics Respiratory Depth Respiratory Pattern Blood Pressure 148/96 H 154/106 H Blood Pressure [Left Arm] Blood Pressure Mean 113 122 Blood Pressure Mean [Left Arm] Pulse Oximetry 97 98 97 Oxygen Delivery Method Room Air Room Air Room Air Sepsis Recent Fever Within 48 Hours Sepsis New/Unexplained Change in Mental Status Sepsis Action Taken by Nursing 06/20/21 14:30 06/20/21 15:00 06/20/21 15:17 Temperature Temperature Source Pulse Rate 104 H 102 H 100 H Pulse Rate [Right Finger] Pulse Rate from SpO2 Sensor 103 H Pulse Rhythm Pulse Rhythm [Right Finger] Pulse Strength [Right Finger] Respiratory Rate 13 18 18 Respiratory Effort / Characteristics Respiratory Depth Respiratory Pattern Blood Pressure 147/96 H 148/101 H Blood Pressure [Left Arm] Blood Pressure Mean 113 116 Blood Pressure Mean [Left Arm] Pulse Oximetry 97 98 99 Oxygen Delivery Method Room Air Room Air Room Air Sepsis Recent Fever Within 48 Hours Sepsis New/Unexplained Change in Mental Status Sepsis Action Taken by Nursing 06/20/21 16:00 Temperature Temperature Source Pulse Rate 102 H Pulse Rate [Right Finger] Pulse Rate from SpO2 Sensor 101 H Pulse Rhythm Pulse Rhythm [Right Finger] Pulse Strength [Right Finger] Respiratory Rate 17 Respiratory Effort / Characteristics Respiratory Depth Respiratory Pattern Blood Pressure 146/103 H Blood Pressure [Left Arm] Blood Pressure Mean 117 Blood Pressure Mean [Left Arm] Pulse Oximetry 97 Oxygen Delivery Method Room Air Sepsis Recent Fever Within 48 Hours Sepsis New/Unexplained Change in Mental Status Sepsis Action Taken by Nursing Laboratory Data Result diagrams: 06/20/21 11:50 06/20/21 11:50 Lab Results 06/20/21 06/20/21 06/20/21 Range/Units 11:45 11:50 11:50 WBC 6.66 (4.8-10.8) K/uL RBC 4.87 (4.7-6.1) M/uL Hgb 15.2 (14.0-18.0) g/dL Hct 42.9 (42-52) % MCV 88.1 (80-100) fL MCH 31.2 (25-34) pg MCHC 35.4 (32-36) g/dL RDW Std Deviation 41.4 (36.4-46.3) fL RDW Coeff of Grisel 12.9 (11.5-14.5) % Plt Count 238 (130-400) K/uL MPV 9.1 (7.4-10.4) fL Immature Gran % (Auto) 0.3 % Neut % (Auto) 48.4 % Lymph % (Auto) 34.1 % Bonner % (Auto) 13.7 % Eos % (Auto) 2.3 % Baso % (Auto) 1.2 % Neut # (Auto) 3.23 (1.4-6.5) K/uL Lymph # (Auto) 2.27 (1.2-3.4) K/uL Bonner # (Auto) 0.91 H (0.11-0.59) K/uL Eos # (Auto) 0.15 (0-0.5) K/uL Baso # (Auto) 0.08 (0-0.2) K/uL Immature Gran # (Auto) 0.02 (0.00-0.02) K/uL Sodium 133 L (136-145) mmol/L Potassium 3.4 L (3.5-5.1) mmol/L Chloride 96 L (98-107) mmol/L Carbon Dioxide 24 (21-32) mmol/L Anion Gap 13.0 H (3-11) BUN 13 (7-18) mg/dl Creatinine 0.89 (0.6-1.4) mg/dl Est Cr Clr Drug Dosing 105.5 ml/min Est GFR ( Amer) 129.3 ml/min Est GFR (Non-Af Amer) 111.6 ml/min BUN/Creatinine Ratio 14.6 (10-20) Glucose 177 H (70-99) mg/dl Calcium 8.4 L (8.5-10.1) mg/dl Total Bilirubin 0.6 (0.2-1) mg/dl AST 124 H (15-37) U/L ALT 116 H (12-78) U/L Alkaline Phosphatase 77 (45-117) U/L Total Protein 7.4 (6.4-8.2) gm/dl Albumin 3.8 (3.4-5.0) gm/dl Globulin 3.6 (2.5-4.0) gm/dl Albumin/Globulin Ratio 1.0 (0.9-2) Lipase 428 H (73-393) U/L Urine Color Yellow Urine Appearance Clear (Clear) Urine pH 5.5 (4.5-7.5) Ur Specific [place] 1.011 (1.000-1.030) Urine Protein 1+ H (Negative) Urine Glucose (UA) 1+ H (Negative) Urine Ketones Trace H (Negative) Urine Blood Negative (Negative) Urine Nitrite Negative (Negative) Urine Bilirubin Negative (Negative) Urine Urobilinogen Negative (Negative) Ur Leukocyte Esterase Negative (Negative) Urine WBC (Auto) 1-5 (0-5) /hpf Urine RBC (Auto) 0-4 (0-4) /hpf U Hyaline Cast (Auto) 1-5 (0-5) /lpf U Epithel Cells (Auto) >30 H (0-5) /lpf Urine Bacteria (Auto) Negative (Negative) COVID-19 Eval Order SARS-CoV-2 (PCR) (Negative) 06/20/21 06/20/21 Range/Units 14:44 14:44 WBC (4.8-10.8) K/uL RBC (4.7-6.1) M/uL Hgb (14.0-18.0) g/dL Hct (42-52) % MCV (80-100) fL MCH (25-34) pg MCHC (32-36) g/dL RDW Std Deviation (36.4-46.3) fL RDW Coeff of Grisel (11.5-14.5) % Plt Count (130-400) K/uL MPV (7.4-10.4) fL Immature Gran % (Auto) % Neut % (Auto) % Lymph % (Auto) % Bonner % (Auto) % Eos % (Auto) % Baso % (Auto) % Neut # (Auto) (1.4-6.5) K/uL Lymph # (Auto) (1.2-3.4) K/uL Bonner # (Auto) (0.11-0.59) K/uL Eos # (Auto) (0-0.5) K/uL Baso # (Auto) (0-0.2) K/uL Immature Gran # (Auto) (0.00-0.02) K/uL Sodium (136-145) mmol/L Potassium (3.5-5.1) mmol/L Chloride (98-107) mmol/L Carbon Dioxide (21-32) mmol/L Anion Gap (3-11) BUN (7-18) mg/dl Creatinine (0.6-1.4) mg/dl Est Cr Clr Drug Dosing ml/min Est GFR ( Amer) ml/min Est GFR (Non-Af Amer) ml/min BUN/Creatinine Ratio (10-20) Glucose (70-99) mg/dl Calcium (8.5-10.1) mg/dl Total Bilirubin (0.2-1) mg/dl AST (15-37) U/L ALT (12-78) U/L Alkaline Phosphatase (45-117) U/L Total Protein (6.4-8.2) gm/dl Albumin (3.4-5.0) gm/dl Globulin (2.5-4.0) gm/dl Albumin/Globulin Ratio (0.9-2) Lipase (73-393) U/L Urine Color Urine Appearance (Clear) Urine pH (4.5-7.5) Ur Specific [place] (1.000-1.030) Urine Protein (Negative) Urine Glucose (UA) (Negative) Urine Ketones (Negative) Urine Blood (Negative) Urine Nitrite (Negative) Urine Bilirubin (Negative) Urine Urobilinogen (Negative) Ur Leukocyte Esterase (Negative) Urine WBC (Auto) (0-5) /hpf Urine RBC (Auto) (0-4) /hpf U Hyaline Cast (Auto) (0-5) /lpf U Epithel Cells (Auto) (0-5) /lpf Urine Bacteria (Auto) (Negative) COVID-19 Eval Order Covid19 at [facility] SARS-CoV-2 (PCR) NEGATIVE (Negative) Administered Medications Lactated Ringer's (Lr) 1,000 mls @ 200 mls/hr IV .Q5H NALLELY Stop: 07/20/21 14:44 Last Admin: 06/20/21 14:56 Dose: 200 mls/hr Documented by: [id number] Discontinued Medications Sodium Chloride (Nss 1000ml) 1,000 mls @ 999 mls/hr IV .Q1H1M STA Stop: 06/20/21 12:28 Last Infusion: 06/20/21 12:56 Dose: 0 mls/hr Documented by: [id number] Admin: 06/20/21 11:55 Dose: 999 mls/hr Documented by: [id number] Lorazepam (Ativan) 2 mg in 4 mls @ 4 mls/min IV NOW STA Stop: 06/20/21 12:18 Last Admin: 06/20/21 12:45 Dose: 4 mls/min Documented by: [id number] Multivitamins 10 ml/ Thiamine HCl 100 mg/ Folic Acid 1 mg/Sodium Chloride 1,01 1.2 mls @ 1,011.2 mls/hr IV .Q1H ONE Stop: 06/20/21 13:16 Last Infusion: 06/20/21 13:50 Dose: 0 mls/hr Documented by: [id number] Admin: 06/20/21 12:48 Dose: 1,011.2 mls/hr Documented by: [id number] Ioversol (Optiray 320 100ml) 94 ml IV ONCE ONE Stop: 06/20/21 14:04 Last Admin: 06/20/21 14:04 Dose: 94 ml Documented by: [id number] Morphine Sulfate (Morphine Sulfate 4 Mg/Ml 1 Ml Carp\Vial) 4 mg IV NOW STA Stop: 06/20/21 11:59 Last Admin: 06/20/21 12:05 Dose: 4 mg Documented by: [id number] Morphine Sulfate (Morphine Sulfate 4 Mg/Ml 1 Ml Carp\Vial) 4 mg IV NOW STA Stop: 06/20/21 14:41 Last Admin: 06/20/21 14:49 Dose: 4 mg Documented by: [id number] Ondansetron HCl (Ondansetron Inj 2 Mg/Ml 2 Ml Vial) 4 mg IV NOW STA Stop: 06/20/21 11:59 Last Admin: 06/20/21 12:04 Dose: 4 mg Documented by: [id number] Imaging Data Radiologist's Impression: Abdomen/Pelvis CT 06/20/21 11:[address] WITH IV CONTRAST CT DOSE: 289.57 mGy.cm HISTORY: upper abd pain, hx of pancreatitis TECHNIQUE: Multiaxial CT images of the abdomen and pelvis were performed following the use of intravenous contrast. A dose lowering technique was utilized adhering to the principles of ALARA. COMPARISON STUDY: Abdomen and pelvis CT 06/03/2021. FINDINGS: The lung bases are clear. No pneumoperitoneum. No pneumatosis. No fractures within the visualized osseous structures. Severe hepatic steatosis unchanged. The main portal vein is patent. The gallbladder, spleen, adrenal glands, and kidneys are unremarkable. Minimal peripancreatic edema at the pancreatic head. This likely represents acute pancreatitis. The decrease in size in the pancreatic tail cystic lesion measuring 3.0 x 1.3 cm. Stable 7 mm hypodense lesion within the pancreatic body on image 129. No retroperitoneal lymphadenopathy. Normal caliber abdominal aorta. The kidneys enhance normally. No hydronephrosis. The bladder is mildly distended. No bladder wall thickening. No pelvic free fluid. No bowel wall thickening or obstruction. Normal appendix. IMPRESSION: 1. Interval development of mild peripancreatic edema at the pancreatic head. This suggests a mild acute pancreatitis. 2. Slight decrease in size in a 3.0 x 1.3 cm cystic focus at the pancreatic tail. This may represent a resolving pancreatic pseudocyst. Continued follow-up recommended. 3. Hepatic steatosis. 4. No bowel wall thickening or obstruction. 5. Normal appendix. ACT 112: Negative or not required by law. Electronically signed by: Eyal Medellin M.D. 06/20/2021 2:22 PM Discharge Plan Visit Data Chief Complaint: Abdominal Pain Stated Complaint: PANCREATITIS-ABDOMINAL PAIN ED Provider: Mario Billy Discharge Problem: Pancreatitis, Acute upper abdominal pain, Alcohol abuse Forms Stand Alone Forms: My [facility] Prescriptions Prescriptions: No Action sildenafil 50 mg tablet See Rx Instructions PO DAILY PRN (Reason: Sexual Activity) Qty: 10 RF: 5 pantoprazole 40 mg tablet,delayed release (DR/EC) 40 mg PO DAILY Qty: 90 RF: 3 duloxetine 60 mg capsule,delayed release(DR/EC) 60 mg PO DAILY Qty: 30 RF: 5 bupropion HCl 300 mg tablet extended release 24 hr 300 mg PO QAM Qty: 90 RF: 3 trazodone 100 mg tablet 100 mg PO DAILY PRN (Reason: sleep) RF: 0 doxepin 50 mg capsule 50 mg PO DAILY RF: 0 ibuprofen 200 mg Tablet 600 mg PO Q8 PRN (Reason: Pain) RF: 0 bupropion HCl 150 mg tablet extended release 24 hr 150 mg PO QPM RF: 0 Referrals Referrals: Aparna Garcia MD [Primary Care Provider] -
[2021-06-20 12:19] LABS: Bilirubin,Total 0.6 mg/dl (0.2-1); Globulin 3.6 gm/dl (2.5-4.0); Total Protein 7.4 gm/dl (6.4-8.2)
[2021-06-20] MEDS ORDERED: OPTIRAY 320 100ml IV ONE (14:03)
--- NOTE | 2021-06-20 14:23 | CT Scan Report ---
ABDOMEN AND PELVIS CT WITH IV CONTRAST CT DOSE: 289.57 mGy.cm HISTORY: upper abd pain, hx of pancreatitis TECHNIQUE: Multiaxial CT images of the abdomen and pelvis were performed following the use of intrave nous contrast. A dose lowering technique was utilized adhering to the principles of ALARA. COMPARISON STUDY: Abdomen and pelvis CT 06/03/2021. FINDINGS: The lung bases are clear. No pneumoperitoneum. No pneumatosis. No fractures within the visu alized osseous structures. Severe hepatic steatosis unchanged. The main portal vein is patent. The ga llbladder, spleen, adrenal glands, and kidneys are unremarkable. Minimal peripancreatic edema at the pancreatic head. This likely represents acute pancreatitis. The decrease in size in the pancreatic ta il cystic lesion measuring 3.0 x 1.3 cm. Stable 7 mm hypodense lesion within the pancreatic body on i mage 129. No retroperitoneal lymphadenopathy. Normal caliber abdominal aorta. The kidneys enhance nor luke. No hydronephrosis. The bladder is mildly distended. No bladder wall thickening. No pelvic free fluid. No bowel wall thickening or obstruction. Normal appendix. IMPRESSION: 1. Interval development of mild peripancreatic edema at the pancreatic head. This suggests a mild acu te pancreatitis. 2. Slight decrease in size in a 3.0 x 1.3 cm cystic focus at the pancreatic tail. This may represent a resolving pancreatic pseudocyst. Continued follow-up recommended. 3. Hepatic steatosis. 4. No bowel wall thickening or obstruction. 5. Normal appendix. ACT 112: Negative or not required by law. Electronically signed by: Eyal Medellin M.D. 06/20/2021 2:22 PM
[2021-06-20] MEDS ORDERED: LACTATED RINGER'S 1,000 ML IV SCH (14:45)
--- NOTE | 2021-06-20 16:46 | History & Physical Report ---
Date of Service June 20, 2021 Assessment & Plan (1) Pancreatitis: Plan: Symptoms and radiological findings of mild acute pancreatitis- likely ETOH induced - - BISAP score of 0 - Lipid panel pending - patient with history of hypertriglyceridemia - ETOH level pending - nausea and pain control - LR at 125 ml/hour- no evidence of other organ involvement - Follow urine output and hydration status - Pseudocyst noted since 2019- stable with measurement from previous measurements in March 25 - GI consult if worsening/not improving symptoms (2) Alcohol abuse: Plan: Patient voices willingness to quit - AWWS protocol with Ativan for now - Consider psych evaluation for assistance in rehab/ETOH dependance (3) Pancreatic pseudocyst: Plan: As above (4) Depression: Plan: Continue outpatient medications - Bupropion - Duloxetine - Doxepin (5) Hypertriglyceridemia: Plan: Was elevated on previous admissions and was to PCP for management - Patient not on medications as outpatient - Lipid panel now (6) GERD (gastroesophageal reflux disease): Plan: Continue pantoprazole (7) Elevated glucose: Plan: Without diagnosis of DM - follow glucose AC/HS add coverage if greater than 180 History of Present Illness Chief Complaint: abdominal pain Primary Care Provider: Aparna Garcia MD 35 YOM with past medical history of: ETOH abuse, pancreatitis, pancreatic pseudocyst, HLD, anxiety/depression, GERD. Patient has been admitted for pancreatitis in the past and his pseudocyst remains stable on imaging. Patient comes into the EMD today for complaints of epigastric pain and nausea with 1 episode of vomiting. The patient states he drank 2 pints of Vodka last evening, and around 0200 he woke up with abdominal pain and nausea. He did not eat anything this morning because of the pain. The patient states the pain is in his epigastrium area that radiates to his back. The pain is 6-7/10 and asso ciated with nausea and loss of appetite. The patient also endorses that he wishes to stop drinking. He had previously been to an inpatient rehab at [facility], where he quit for 5 months. He does not want to do inpatient rehab as this will interfere with his work. He has not tried any outpatient self-help calls. In the EMD the patient had a CT scan of his abdomen done that did show mild pancreatitis and stable pseudocyst on his pancreas. The patient was given Ativan and Morphine was given in the EMD. Patient will be admitted for symptom control and withdraw protocol. Will follow labs in the morning. Patient is COVID NEGATIVE on admission. Allergies Allergy/AdvReac Type Severity Reaction Status Date / Time No Known Allergies Allergy Verified 06/20/21 12:30 Home Medications Medication Instructions Recorded Confirmed Type sildenafil 50 mg tablet See Rx Instructions PO DAILY PRN 04/10/20 06/20/21 Rx #10 tab pantoprazole 40 mg tablet,delayed 40 mg PO DAILY #90 tab 07/03/20 06/20/21 Rx release trazodone 100 mg tablet 100 mg PO DAILY PRN tab 05/10/21 06/20/21 History bupropion HCl 300 mg 24 hr tablet, 300 mg PO QAM #90 tab 06/03/21 06/20/21 Rx extended release duloxetine 60 mg capsule,delayed 60 mg PO DAILY #30 cap 06/03/21 06/20/21 Rx release bupropion HCl 150 mg 24 hr tablet, 150 mg PO QPM 06/20/21 06/20/21 History extended release doxepin 50 mg capsule 50 mg PO DAILY 06/20/21 06/20/21 History ibuprofen 200 mg tablet 600 mg PO Q8 PRN 06/20/21 06/20/21 History Past Med/Surg History Medical History Acute pancreatitis Alcohol use disorder, severe, dependence Anxiety disorder, unspecified Depression GERD (gastroesophageal reflux disease) Hypertriglyceridemia Pancreatic pseudocyst Family History Other Breast cancer Denies family history of Ovarian cancer Prostate cancer Colorectal cancer Social History Smoking Status: Current every day smoker Tobacco Type: Cigarettes Second Hand Exposure: Yes; Hx Alcohol Use: Yes Alcohol type: beer Hx Substance Use: No Preferred Language: Georgian Communication Ability: Effective Media Associate Required: No Beliefs That Will Affect Care: None marital status: Single Current Living Situation: Alone current occupational status: employed current occupation: [employer] Feels Safe at Home: Yes Childhood Exposure to Second-Hand Smoke: No caffeine: Yes (nathalie) Dental Care, Regularly: Yes Physical Activity Frequency: Does not Exercise Seatbelt Use: always Sunscreen Use: Yes Assistive Devices: None Review of Systems Review of Systems: REVIEW OF SYSTEMS: Constitutional: No fever, sweats or chills Eyes: No diplopia, no worsening or blurred vision ENT: normal hearing, no trouble swallowing Respiratory: No cough, sputum, dyspnea at rest or on exertion Cardiovascular: No chest pain, tightness or palpitations Abdomen: (+) pain, nausea, vomiting, NO diarrhea or constipation Musculoskeletal: No joint pain, calf pain, swelling Neurologic: No weakness, numbness/tingling, or balance problems Psychiatric: (+) anxiety or depression Skin: No rash or itch Physical Exam Physical Exam: PHYSICAL EXAM: General: awake, alert, no apparent distress Head: Normocephalic, atraumatic ENT: PERRL, EOMI, no pharyngeal exudate, mucous membranes moist Neuro: AAO x 3, speech clear and appropriate, strength intact bilaterally 5/5, sensation intact and equal all extremities and dermatomes, no pronator drift Chest: equal rise and fall of the chest, no accessory muscle use, no heaves or thrills, Clear to auscultation, on room air, Cardiac: Regular rate and rhythm, telemetry reviewed, skin warm dry, cap refill <3 seconds, peripheral pulses +2 no JVD, no murmur, no edema GI: Epigastric pain sharp and stabbing in nature, BS +4 through all quadrants, no guarding, no rebound, no jaundice : Spontaneously voiding, no pain, no CVA tenderness, Extremities: Normal inspection, no peripheral edema or erythema, calfs nontender to palpation Psych: Normal speech, normal appearance Skin: no rash or erythema Results & Data Results & Data ([facility]) Vital Signs (Past 12 Hours) Vital Signs Temp Pulse Pulse Resp BP BP Pulse Ox 06/20/21 16:00 102 H 17 146/103 H 97 06/20/21 15:17 100 H 18 99 06/20/21 15:00 102 H 18 148/101 H 98 06/20/21 14:30 104 H 13 147/96 H 97 06/20/21 14:08 103 H 15 97 06/20/21 13:30 103 H 18 154/106 H 98 06/20/21 13:00 101 H 16 148/96 H 97 06/20/21 12:30 98 H 19 98 06/20/21 12:00 100 H 19 156/105 H 97 06/20/21 11:43 96 H 20 144/98 H 96 06/20/21 11:42 100 H 23 96 06/20/21 11:41 98 H 20 97 06/20/21 11:09 37.1 C 117 H 20 151/104 H 98 Laboratory Results Abnormal Labs 06/20/21 06/20/21 06/20/21 11:45 11:50 11:50 [place] # (Auto) 0.91 H Sodium 133 L Potassium 3.4 L Chloride 96 L Anion Gap 13.0 H Glucose 177 H Calcium 8.4 L AST 124 H ALT 116 H Lipase 428 H Urine Protein 1+ H Urine Glucose (UA) 1+ H Urine Ketones Trace H U Epithel Cells (Auto) >30 H Diagnostic Findings Abdomen/Pelvis CT 06/20/21 11:[address] WITH IV CONTRAST CT DOSE: 289.57 mGy.cm HISTORY: upper abd pain, hx of pancreatitis TECHNIQUE: Multiaxial CT images of the abdomen and pelvis were performed following the use of intravenous contrast. A dose lowering technique was utilized adhering to the principles of ALARA. COMPARISON STUDY: Abdomen and pelvis CT 06/03/2021. FINDINGS: The lung bases are clear. No pneumoperitoneum. No pneumatosis. No fractures within the visualized osseous structures. Severe hepatic steatosis unchanged. The main portal vein is patent. The gallbladder, spleen, adrenal glands, and kidneys are unremarkable. Minimal peripancreatic edema at the pancreatic head. This likely represents acute pancreatitis. The decrease in size in the pancreatic tail cystic lesion measuring 3.0 x 1.3 cm. Stable 7 mm hypodense lesion within the pancreatic body on image 129. No retroperitoneal lymphadenopathy. Normal caliber abdominal aorta. The kidneys enhance normally. No hydronephrosis. The bladder is mildly distended. No bladder wall thickening. No pelvic free fluid. No bowel wall thickening or obstruction. Normal appendix. IMPRESSION: 1. Interval development of mild peripancreatic edema at the pancreatic head. This suggests a mild acute pancreatitis. 2. Slight decrease in size in a 3.0 x 1.3 cm cystic focus at the pancreatic tail. This may represent a resolving pancreatic pseudocyst. Continued follow-up recommended. 3. Hepatic steatosis. 4. No bowel wall thickening or obstruction. 5. Normal appendix. ACT 112: Negative or not required by law. Electronically signed by: Eyal Medellin M.D. 06/20/2021 2:22 PM Medications Administered Home Medications sildenafil 50 mg tablet See Rx Instructions PO DAILY PRN #10 tab 04/10/20 [Rx Confirmed 06/20/21] pantoprazole 40 mg tablet,delayed release 40 mg PO DAILY #90 tab 07/03/20 [Rx Confirmed 06/20/21] trazodone 100 mg tablet 100 mg PO DAILY PRN tab 05/10/21 [History Confirmed 06/20/21] bupropion HCl 300 mg 24 hr tablet, extended release 300 mg PO QAM #90 tab 06/03/21 [Rx Confirmed 06/20/21] duloxetine 60 mg capsule,delayed release 60 mg PO DAILY #30 cap 06/03/21 [Rx Confirmed 06/20/21] bupropion HCl 150 mg 24 hr tablet, extended release 150 mg PO QPM 06/20/21 [History Confirmed 06/20/21] doxepin 50 mg capsule 50 mg PO DAILY 06/20/21 [History Confirmed 06/20/21] ibuprofen 200 mg tablet 600 mg PO Q8 PRN 06/20/21 [History Confirmed 06/20/21] Active Medications Lactated Ringer's (Lr) 1,000 mls @ 200 mls/hr IV .Q5H NALLELY Stop: 07/20/21 14:44 Last Admin: 06/20/21 14:56 Dose: 200 mls/hr Documented by: Lactated Ringer's (Lr) 1,000 mls @ 200 mls/hr IV .Q5H NALLELY Stop: 07/20/21 14:44 Last Admin: 06/20/21 14:56 Dose: 200 mls/hr Documented by: [id number] Discontinued Medications Sodium Chloride (Nss 1000ml) 1,000 mls @ 999 mls/hr IV .Q1H1M STA Stop: 06/20/21 12:28 Last Infusion: 06/20/21 12:56 Dose: 0 mls/hr Documented by: [id number] Admin: 06/20/21 11:55 Dose: 999 mls/hr Documented by: [id number] Lorazepam (Ativan) 2 mg in 4 mls @ 4 mls/min IV NOW STA Stop: 06/20/21 12:18 Last Admin: 06/20/21 12:45 Dose: 4 mls/min Documented by: [id number] Multivitamins 10 ml/ Thiamine HCl 100 mg/ Folic Acid 1 mg/Sodium Chloride 1,011.2 mls @ 1,011.2 mls/hr IV .Q1H ONE Stop: 06/20/21 13:16 Last Infusion: 06/20/21 13:50 Dose: 0 mls/hr Documented by: [id number] Admin: 06/20/21 12:48 Dose: 1,011.2 mls/hr Documented by: [id number] Ioversol (Optiray 320 100ml) 94 ml IV ONCE ONE Stop: 06/20/21 14:04 Last Admin: 06/20/21 14:04 Dose: 94 ml Documented by: [id number] Morphine Sulfate (Morphine Sulfate 4 Mg/Ml 1 Ml Carp\Vial) 4 mg IV NOW STA Stop: 06/20/21 11:59 Last Admin: 06/20/21 12:05 Dose: 4 mg Documented by: [id number] Morphine Sulfate (Morphine Sulfate 4 Mg/Ml 1 Ml Carp\Vial) 4 mg IV NOW STA Stop: 06/20/21 14:41 Last Admin: 06/20/21 14:49 Dose: 4 mg Documented by: [id number] Ondansetron HCl (Ondansetron Inj 2 Mg/Ml 2 Ml Vial) 4 mg IV NOW STA Stop: 06/20/21 11:59 Last Admin: 06/20/21 12:04 Dose: 4 mg Documented by: [id number] Additional Comments: Pending on admission Code Status & VTE Plan Code Status CODE: FULL VTE: SCDs, Heparin 5000 units sub q Supervising Physician Co-Signing Physician Notes Patient seen and examined, chart reviewed, case discussed with BECKY Joseph and I agree with his assessment and plan as above. In brief, patient is a 35yo C male with history of anxiety, EtOH abuse with prior EtOH associated pancreatitis presenting with acute pancreatitis. Patient drank 2 pints of vodka last night. Presenting with epigastric pain. No history of DTs On exam he is afebrile, mildly tachycardic at 103, elevated blood pressure, NAD Skin - intact, no rashes/lesions HEENT - NC/AT, PERRL, MMM, Neck supple Heart - +S1/S2, regular, no m/r/g Lungs - CTA Abd - +BS, soft, epigastric tenderness with voluntary guarding Ext - No edema Labs and images reviewed Assessment/Plan -Management for acute pancreatitis as above. IVF, pain and nausea control. Check triglycerides -AWSS with Ativan PRN -End tidal CO2 monitoring with co-administration of benzos and opiates -Consider Psychiatry consultation for outpatient rehabilitation options -Remainder of plan as above PG Care Time/CCT Total # of Minutes Spent Total Time Spent with Patient: Total time spent is greater than 50% in coordination of care (as documented) at patient's floor/unit and/or counseling patient: Coding Level of Care Code 96394 Initial Inpt Care Lvl 3 Diagnoses Pancreatitis K85.90 Alcohol abuse F10.10 Pancreatic pseudocyst K86.3 Depression F32.9 Hypertriglyceridemia E78.1 GERD (gastroesophageal reflux disease) K21.9 Elevated glucose R73.09
[2021-06-20] MEDS ORDERED: MoRPHine SULFATE 2 MG/ML CARP IV STA (17:39)
[2021-06-20 18:23] LABS: Chol HDL Ratio 6; Cholesterol 256 mg/dl (0-200); HDL Cholesterol 43 mg/dl; Triglycerides 669 mg/dl (0-150)
[2021-06-20 19:03] LABS: Chol HDL Ratio 7; Cholesterol 236 mg/dl (0-200); HDL Cholesterol 35 mg/dl; Triglycerides 710 mg/dl (0-150)
[2021-06-20] MEDS ORDERED: LORazepam 2 MG/4 ML VIAL IV PRN (19:43)
[2021-06-20] MEDS ORDERED: LORazepam 3 MG/6 ML VIAL IV PRN (19:43)
[2021-06-20] MEDS ORDERED: ONDANSETRON INJ 2 MG/ML 2 ML VIAL IV PRN (19:43)
[2021-06-20] MEDS ORDERED: ATIVAN IV ALCOHOL WITHDRAWL IV PRN (19:43)
[2021-06-20] MEDS ORDERED: LORazepam 1 MG/2 ML VIAL IV PRN (19:43)
[2021-06-20] MEDS: LACTATED RINGER'S 1,000 ML IV SCH (19:58)
[2021-06-20] MEDS ORDERED: THIAMINE HCL 200 MG in SYRINGE 9 ML IV SCH (20:00)
[2021-06-20] MEDS: MoRPHine SULFATE 2 MG/ML CARP IV PRN ×2 (20:01→23:58)
[2021-06-20] MEDS: THIAMINE HCL 200 MG in SODIUM CHLORIDE 0.9% 50 ML IV SCH (20:47)
[2021-06-20] MEDS: FOLIC ACID 1 MG TAB PO SCH (20:48)
[2021-06-20] MEDS: HEPARIN SOD 5,000 UNIT/0.5 ML VIAL SQ SCH (20:49)
[2021-06-20] MEDS ORDERED: buPROPion XL 150 MG TABCR PO SCH (21:00)
[2021-06-20] MEDS ORDERED: HEPARIN SOD 5,000 UNIT/0.5 ML VIAL SQ SCH (21:00)
[2021-06-20] MEDS: traZODone HCL 100 MG TAB PO PRN (23:57)
[2021-06-21] MEDS: LACTATED RINGER'S 1,000 ML IV SCH ×2 (02:38→09:14)
[2021-06-21] MEDS ORDERED: Nursing to Pharmacy Communication SCH (02:45)
[2021-06-21 07:02] LABS: Basophils # (auto) 0.03 K/uL (0-0.2); Basophils % (auto) 0.8 %; Eosinophils # (auto) 0.18 K/uL (0-0.5); Eosinophils % (auto) 4.5 %; Hematocrit (blood only) 40.8 % (42-52); Immature Granulocytes # (auto) 0.01 K/uL (0.00-0.02); Immature Granulocytes % (auto) 0.3 %; Lymphocytes # (auto) 0.92 K/uL (1.2-3.4); Mean Corpuscular Hgb Conc 34.3 g/dL (32-36); Mean Corpuscular Volume 90.3 fL (80-100); Mean Platelet Volume 9.2 fL (7.4-10.4); Monocytes # (auto) 0.68 K/uL (0.11-0.59); Neutrophils # (auto) 2.18 K/uL (1.4-6.5); Neutrophils % (auto) 54.4 %; Platelet Count 195 K/uL (130-400); RDW Coefficient of Variation 12.9 % (11.5-14.5); RDW Standard Deviation 42.4 fL (36.4-46.3); Red Blood Count 4.52 M/uL (4.7-6.1)
[2021-06-21] MEDS: HEPARIN SOD 5,000 UNIT/0.5 ML VIAL SQ SCH ×2 (07:20→20:59)
[2021-06-21] MEDS: DOXEPIN HCL 50 MG CAPSULE PO SCH ×2 (07:20→07:29)
[2021-06-21] MEDS: buPROPion XL 300 MG TABCR PO SCH (07:20)
[2021-06-21] MEDS: DULoxetine HCL 60 MG CAP PO SCH (07:20)
[2021-06-21] MEDS: FOLIC ACID 1 MG TAB PO SCH (07:20)
[2021-06-21] MEDS: PANTOprazole 40 MG TAB PO SCH (07:20)
[2021-06-21] MEDS: MoRPHine SULFATE 2 MG/ML CARP IV PRN (07:21)
[2021-06-21] MEDS: THIAMINE HCL 200 MG in SODIUM CHLORIDE 0.9% 50 ML IV SCH (07:25)
[2021-06-21 07:40] LABS: Albumin Level 3.2 gm/dl (3.4-5.0); BUN Creatinine Ratio 8.6 (10-20); Bilirubin,Total 0.8 mg/dl (0.2-1); Calcium 8.1 mg/dl (8.5-10.1); Creatinine Clr Calc Pharmacy 128.7 ml/min; Est GFR (African American) 140.3 ml/min; Globulin 3.2 gm/dl (2.5-4.0); Magnesium 1.5 mg/dl (1.8-2.4); Potassium 3.7 mmol/L (3.5-5.1); Total Protein 6.4 gm/dl (6.4-8.2)
[2021-06-21] MEDS: ACETAMINOPHEN 325 MG TAB PO PRN ×2 (07:40→13:07)
[2021-06-21 07:45] LABS: Estimated Average Glucose 260 mg/dl; Hemoglobin A1C 10.7 % (4.5-5.6)
[2021-06-21] MEDS ORDERED: CARBOHYDRATES FOR HYPOGLYCEMIA PO PRN (09:32)
[2021-06-21] MEDS ORDERED: GLUCOSE 40% GEL 15 GM TUBE PO PRN (09:32)
[2021-06-21] MEDS ORDERED: DEXTROSE 50% 50 ML SYRINGE IV PRN (09:32)
[2021-06-21] MEDS ORDERED: GLUCOSE 10 TABS/TUBE PO PRN (09:32)
[2021-06-21] MEDS ORDERED: GLUCAGON FOR INJ 1 MG VIAL SQ PRN (09:32)
--- NOTE | 2021-06-21 09:59 | Hospitalist Progress Note ---
Date of Service June 21, 2021 Assessment & Plan (1) Pancreatitis: Plan: -Acute; improving; not at goal -currently on IV fluids, insulin, with potassium repletion * D5 LR @ 250 mls/hr with 20 mEq K+ * IV regular insulin at 7 units/hr (0.1 u/kg), plus bolus insulin at 1:6 carb ratio to address his triglyceridemia 710 (up from 669) * sliding scale subQ insulin (goal bsg 100-200, CF 20) * KCl 40 mEq PO stat for BMP K+ of 3.7 prior to insulin infusion -clear liquid diet right now; will advance as tolerated -plan to monitor overnight for until epigastric pain resolves, can tolerate regular diet -would greatly benefit from focused lifestyle management with pcp, targeting a reduction in A1c (10.5) (2) Hypertriglyceridemia: Plan: -710, from 669; not at goal -unclear if acute or chronic, though in setting of Hgb A1c 10.5, likely chronic -equally unclear how superimposed pt's hypertriglyceridemia was, relative to the obvious alcoholic component (hx of vodka consumption preceding abdominal prese ntation, urine ETOH > 20x upper limit of normal) of his acute pancreatitis -currently on insulin drip * see above (pancreatitis) for regimen (3) Alcohol use disorder, severe, dependence: Plan: -Likely chronic; improving; not at goal * 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[employer], 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 * with respect to support system: has brother that lives in the area, no one else * has pcp who is aware of his disorder, referred him in May to eap specialist but he did not meet up with said provider * received IV Ativan in ED proactively; will cross the 72 hr anshu since his last drink (Thursday) sometime today * no sxs of alcohol withdrawal thus far * will address underlying issues sometime tomorrow Admission and Anticipated Discharge Date Admission Date: June 20, 2021 Supervising Physician Co-Signing Physician Notes I personally examined the patient and verified all trinh points of history and exam, discussed case, and agree with decision making with Dr Beth. Feeling a bit better but still having abdominal pain. No withdrawal symptoms, last drink was Thursday. Vitals noted, in general he is awake and alert pleasant no distress. HEENT normocephalic atraumatic mucous membranes moist. Breathing unlabored no accessory muscle use good effort. Abdomen soft mild to moderate epigastric tenderness without guarding rebound or rigidity. Acute recurrent pancreatitisalcoholic certainly, possibly also hypertriglycerides. IV fluids, IV insulin, supportive careimproving. Encouraged alcohol cessation, will treat triglycerides. Dyslipidemia/uncontrolled type 2 diabeteswill definitely need med and lifestyle management. Otherwise as above. Subjective Asleep in bed this morning. Reports his epigastric pain improving today, though used morphine plus tylenol this AM bc the morphine wasn't enough. [place] fine after tylenol. Tolerated clear liquid diet this morning. No n/v after. Review of Systems Constitutional: as per Subjective / HPI Physical Exam Constitutional: WD/WN, vitals as above Eyes: PERRL, conjunctivae normal, anicteric sclerae Respiratory: normal respiratory effort, lungs clear to auscultation Cardiovascular: RRR, no murmur, no edema Gastrointestinal (Abdomen): Percussion/Palpation: + abdomen tender (mildly at epigastrium) Results & Data Results & Data ([facility]) Vital Signs (Past 12 Hours) Vital Signs Temp Pulse Pulse Resp BP Pulse Ox 06/21/21 07:30 91 H 06/21/21 02:30 36.9 C 93 H 16 157/104 H 97 Resident Activity Tracking Resident Involvement: Resident Care Provided Care Provided: Adult Hospital Medicine (1) Pancreatitis Chronicity: acute Pancreatitis type: alcohol induced
[2021-06-21] MEDS ORDERED: POTASSIUM CHLORIDE CRTAB 20 MEQ TABCR PO STA (10:18)
[2021-06-21] MEDS ORDERED: STAT IV Infusion **Titration per Protocol STA ×2 (10:18)
[2021-06-21] MEDS ORDERED: POTASSIUM CHLORIDE 20 MEQ in LACTATED RINGER'S 1,000 ML IV SCH (10:22)
[2021-06-21 11:21] LABS: BUN Creatinine Ratio 6.1 (10-20); Calcium 8.7 mg/dl (8.5-10.1); Creatinine Clr Calc Pharmacy 110.5 ml/min; Est GFR (African American) 131.8 ml/min; Est GFR (Non-African American) 113.7 ml/min; Potassium 4.1 mmol/L (3.5-5.1)
[2021-06-21] MEDS ORDERED: INSULIN ASPART 100 UNITS/ML 3 ML PEN SC SCH (11:30)
[2021-06-21] MEDS: INSULIN REGULAR 250 UNITS in SODIUM CHLORIDE 0.9% 247.5 ML IV SCH (11:52)
[2021-06-21] MEDS: POTASSIUM CHLORIDE 20 MEQ in D5W AND LACTATED RINGERS 1,000 ML IV SCH ×3 (11:52→20:13)
[2021-06-21 15:21] LABS: BUN Creatinine Ratio 4.5 (10-20); Calcium 8.6 mg/dl (8.5-10.1); Creatinine Clr Calc Pharmacy 106.7 ml/min; Est GFR (African American) 129.9 ml/min; Est GFR (Non-African American) 112.1 ml/min; Potassium 3.6 mmol/L (3.5-5.1)
[2021-06-21 19:43] LABS: BUN Creatinine Ratio 2.3 (10-20); Calcium 8.7 mg/dl (8.5-10.1); Creatinine Clr Calc Pharmacy 83.9 ml/min; Est GFR (African American) 98.8 ml/min; Est GFR (Non-African American) 85.2 ml/min; Potassium 3.6 mmol/L (3.5-5.1)
--- NOTE | 2021-06-21 20:22 | Billing Data ---
Date of Service June 21, 2021 Coding Level of Care Code 30486 Subseq Hosp Care Lvl 3
[2021-06-21] MEDS: traZODone HCL 100 MG TAB PO PRN (20:58)
[2021-06-21 22:02] LABS: BUN Creatinine Ratio 2.4 (10-20); Calcium 8.9 mg/dl (8.5-10.1); Creatinine Clr Calc Pharmacy 111.8 ml/min; Est GFR (African American) 132.4 ml/min; Est GFR (Non-African American) 114.2 ml/min; Potassium 3.3 mmol/L (3.5-5.1)
[2021-06-21] MEDS: POTASSIUM CHLORIDE / WTR 10 MEQ/100 ML PLCT IV SCH (23:31)
[2021-06-22] MEDS: POTASSIUM CHLORIDE / WTR 10 MEQ/100 ML PLCT IV SCH (01:22)
[2021-06-22] MEDS: POTASSIUM CHLORIDE 40 MEQ in D5W AND LACTATED RINGERS 1,000 ML IV SCH ×5 (03:35→20:22)
[2021-06-22 04:08] LABS: BUN Creatinine Ratio 2.3 (10-20); Calcium 8.7 mg/dl (8.5-10.1); Creatinine Clr Calc Pharmacy 126.9 ml/min; Est GFR (African American) 139.5 ml/min; Est GFR (Non-African American) 120.3 ml/min; Potassium 3.5 mmol/L (3.5-5.1)
[2021-06-22 07:26] LABS: Basophils # (auto) 0.03 K/uL (0-0.2); Eosinophils # (auto) 0.21 K/uL (0-0.5); Hemoglobin 13.6 g/dL (14.0-18.0); Immature Granulocytes # (auto) 0.01 K/uL (0.00-0.02); Immature Granulocytes % (auto) 0.3 %; Lymphocytes # (auto) 1.16 K/uL (1.2-3.4); Lymphocytes % (auto) 38.5 %; Mean Corpuscular Hemoglobin 30.7 pg (25-34); Mean Corpuscular Volume 90.3 fL (80-100); Mean Platelet Volume 9.6 fL (7.4-10.4); Monocytes # (auto) 0.36 K/uL (0.11-0.59); Neutrophils # (auto) 1.24 K/uL (1.4-6.5); Neutrophils % (auto) 41.2 %; Platelet Count 188 K/uL (130-400); RDW Standard Deviation 42.8 fL (36.4-46.3); Red Blood Count 4.43 M/uL (4.7-6.1); White Blood Count 3.01 K/uL (4.8-10.8)
[2021-06-22 07:43] LABS: BUN Creatinine Ratio 1.6 (10-20); Calcium 8.9 mg/dl (8.5-10.1); Creatinine Clr Calc Pharmacy 117.4 ml/min; Est GFR (African American) 135.1 ml/min; Est GFR (Non-African American) 116.6 ml/min; Potassium 3.9 mmol/L (3.5-5.1)
[2021-06-22 07:50] LABS: BUN Creatinine Ratio 2.5 (10-20); Creatinine Clr Calc Pharmacy 109.2 ml/min; Est GFR (African American) 131.1 ml/min; Est GFR (Non-African American) 113.1 ml/min; Potassium 3.8 mmol/L (3.5-5.1)
[2021-06-22] MEDS: THIAMINE HCL 200 MG in SODIUM CHLORIDE 0.9% 50 ML IV SCH (07:51)
[2021-06-22] MEDS: FOLIC ACID 1 MG TAB PO SCH (07:57)
[2021-06-22] MEDS: buPROPion XL 300 MG TABCR PO SCH (07:57)
[2021-06-22] MEDS: PANTOprazole 40 MG TAB PO SCH (07:57)
[2021-06-22] MEDS: DULoxetine HCL 60 MG CAP PO SCH (07:57)
[2021-06-22] MEDS: DOXEPIN HCL 50 MG CAPSULE PO SCH ×2 (07:58→09:36)
[2021-06-22] MEDS: HEPARIN SOD 5,000 UNIT/0.5 ML VIAL SQ SCH ×2 (07:58→22:03)
--- NOTE | 2021-06-22 09:28 | Hospitalist Progress Note ---
Date of Service June 22, 2021 Assessment & Plan (1) Pancreatitis: Plan: 35 yo M with PMH of alcohol use disorder, HTN, HLD, GERD, recurrent pancreatitis with pseudocyst admitted for acute pancreatitis with hypertriglyceridemia 1) Pancreatitis with hypertriglyceridemia -Mixed picture- alcoholic pancreatitis with possible contribution from hypertriglyceridemia -Symptomatic improvement noted with fluid repletion D5LR with K, no abdominal pain or tenderness today -Advance diet- low fat -Triglycerides downtrending to 460 with IV insulin, insulin drip stopped -K stable at 3.8, replete as needed -Likely d/c tomorrow 2) Type 2 diabetes -A1C of 10.7%, new diagnosis -Insulin drip discontinued, switched to Lantus 60 units qHs, Novolog ISS with CF 20, BSG goal 100-200, carb ratio 1:4 -Will require oral antiglycemics and lifestyle modification after discharge -Diabetes education required prior to discharge 3) Alcohol use disorder -Has had rehab stays in past but has not went to addiction medicine as referred by PCP -No withdrawal symptoms currently, 72+ hours since last drink -AWSS monitoring, Ativan PRN -Extensive counseling required before discharge for alcohol cessation, imperative for PCP to address and continue management as outpatient Admission and Anticipated Discharge Date Admission Date: June 20, 2021 Supervising Physician Co-Signing Physician Notes I personally examined the patient and verified all trinh points of history and exam, discussed case, and agree with decision making with Dr Pierson Feeling better eating better. Working on plans for the future, sobriety, lifestyle change. He notes that at this point while he believes he started drinking self-medicating for depression, he is not really depressed anymoreand really drinks more out of habit/boredom. To try to help remedy this he thinks he will probably start going to the gym with his brother after work. Vitals noted, in general he is awake and alert pleasant no distress. HEENT normocephalic atraumatic mucous membranes moist. Breathing unlabored no accessory muscle use good effort. Abdomen soft generally nontender no guarding rebound or rigidity. Acute recurrent pancreatitisalcoholic certainly, possibly also hypertriglycerides. diong better dc insulin gtt advnace diet hopefully home soon Dyslipidemia/uncontrolled type 2 diabeteswill definitely need med and lifestyle management. Discussed that his overall plan to change lifestyle will likely help not just with alcohol cessation but with fixing his dysmetabolic illnesses Otherwise as above. Subjective Pt denying any acute complaints, no abdominal pain or nausea. Tolerating liquids well, eager to try solids today. Aware of need to modify lifestyle to address diabetes, alcohol use. Review of Systems Constitutional: as per Subjective / HPI Physical Exam Constitutional: WD/WN, vitals as above Eyes: + anicteric sclerae and EOM intact bilaterally Respiratory: normal respiratory effort, lungs clear to auscultation Cardiovascular: RRR, no murmur, no edema Gastrointestinal (Abdomen): Percussion/Palpation: abdomen soft; abdomen nontender and no guarding Results & Data Results & Data ([facility]) Vital Signs (Past 12 Hours) Vital Signs Temp Pulse Pulse Resp BP Pulse Ox 06/22/21 09:06 69 138/83 06/22/21 07:52 36.7 C 70 18 146/106 H 99 06/22/21 07:28 58 L 06/22/21 03:07 36.6 C 80 20 128/84 98 06/22/21 00:30 74 06/21/21 23:20 36.8 C 69 18 134/87 98 Resident Activity Tracking Resident Involvement: Resident Care Provided Care Provided: Adult Hospital Medicine (1) Pancreatitis Chronicity: acute Pancreatitis type: alcohol induced
[2021-06-22] MEDS ORDERED: Nursing to Pharmacy Communication SCH ×2 (09:45→10:15)
[2021-06-22] MEDS: INSULIN REGULAR 250 UNITS in SODIUM CHLORIDE 0.9% 247.5 ML IV SCH (15:02)
[2021-06-22] MEDS: INSULIN ASPART 100 UNITS/ML 3 ML PEN SC SCH ×2 (16:49→21:59)
--- NOTE | 2021-06-22 17:47 | Billing Data ---
Date of Service June 22, 2021 Coding Level of Care Code 46466 Subseq Hosp Care Lvl 3
[2021-06-22] MEDS ORDERED: DOXEPIN HCL 50 MG CAPSULE PO SCH (21:00)
[2021-06-22] MEDS ORDERED: INSULIN GLARGINE SOLOSTAR 100 UNITS/ML 3 ML PEN SC SCH (21:00)
[2021-06-22] MEDS: traZODone HCL 100 MG TAB PO PRN (21:04)
[2021-06-23] MEDS: POTASSIUM CHLORIDE 40 MEQ in D5W AND LACTATED RINGERS 1,000 ML IV SCH ×3 (00:35→10:06)
[2021-06-23] MEDS: INSULIN ASPART 100 UNITS/ML 3 ML PEN SC SCH ×2 (07:55→12:30)
[2021-06-23] MEDS: buPROPion XL 300 MG TABCR PO SCH (07:58)
[2021-06-23] MEDS: DULoxetine HCL 60 MG CAP PO SCH (07:59)
[2021-06-23] MEDS: FOLIC ACID 1 MG TAB PO SCH (07:59)
[2021-06-23] MEDS: PANTOprazole 40 MG TAB PO SCH (07:59)
[2021-06-23] MEDS ORDERED: LANTUS PER UNIT CHARGE SQ SCH (09:00)
[2021-06-23] MEDS: THIAMINE HCL 200 MG in SODIUM CHLORIDE 0.9% 50 ML IV SCH (09:31)
[2021-06-23] MEDS: HEPARIN SOD 5,000 UNIT/0.5 ML VIAL SQ SCH (09:31)
--- NOTE | 2021-06-23 11:58 | Discharge Summary ---
Date of Service June 23, 2021 Admission HPI Per Admitting Provider 35 YOM with past medical history of: ETOH abuse, pancreatitis, pancreatic pseudocyst, HLD, anxiety/depression, GERD. Patient has been admitted for pancreatitis in the past and his pseudocyst remains stable on imaging. Patient comes into the EMD today for complaints of epigastric pain and nausea with 1 episode of vomiting. The patient states he drank 2 pints of Vodka last evening, and around 0200 he woke up with abdominal pain and nausea. He did not eat anything this morning because of the pain. The patient states the pain is in his epigastrium area that radiates to his back. The pain is 6-7/10 and ass ociated with nausea and loss of appetite. The patient also endorses that he wishes to stop drinking. He had previously been to an inpatient rehab at [facility], where he quit for 5 months. He does not want to do inpatient rehab as this will interfere with his work. He has not tried any outpatient self-help calls. In the EMD the patient had a CT scan of his abdomen done that did show mild pancreatitis and stable pseudocyst on his pancreas. The patient was given Ativan and Morphine was given in the EMD. Patient will be admitted for symptom control and withdraw protocol. Will follow labs in the morning. Patient is COVID NEGATIVE on admission. Admission Exam Per Admitting Provider PHYSICAL EXAM: General: awake, alert, no apparent distress Head: Normocephalic, atraumatic ENT: PERRL, EOMI, no pharyngeal exudate, mucous membranes moist Neuro: AAO x 3, speech clear and appropriate, strength intact bilaterally 5/5, sensation intact and equal all extremities and dermatomes, no pronator drift Chest: equal rise and fall of the chest, no accessory muscle use, no heaves or thrills, Clear to auscultation, on room air, Cardiac: Regular rate and rhythm, telemetry reviewed, skin warm dry, cap refill <3 seconds, peripheral pulses +2 no JVD, no murmur, no edema GI: Epigastric pain sharp and stabbing in nature, BS +4 through all quadrants, no guarding, no rebound, no jaundice : Spontaneously voiding, no pain, no CVA tenderness, Extremities: Normal inspection, no peripheral edema or erythema, calfs n ontender to palpation Psych: Normal speech, normal appearance Skin: no rash or erythema Principal Diagnosis Acute pancreatitis Discharge Exam Constitutional WD/WN, vitals as above Eyes + anicteric sclerae and EOM intact bilaterally Respiratory normal respiratory effort, lungs clear to auscultation Cardiovascular RRR, no murmur, no edema Gastrointestinal (Abdomen) Percussion/Palpation: abdomen soft; abdomen nontender and no guarding Neurologic no focal motor deficits Discharge Data Allergies Allergy/AdvReac Type Severity Reaction Status Date / Time No Known Allergies Allergy Verified 06/20/21 12:30 Consultations 06/20/21 14:40 ED Decision to Admit Stat Ordered Studies 06/20/21 11:31 CT abd pelvis IV con only Stat Diabetes Follow up Diabetes Follow-up Needed for HgbA1c >9%,Newly Diagnosed Diabetes Hospital Course (1) Pancreatitis: 35 yo M with PMH of alcohol use disorder, HTN, HLD, GERD, recurrent p ancreatitis with pseudocyst admitted for acute pancreatitis with hypertriglyceridemia on 06/20, discharged on 06/23. 1) Pancreatitis with hypertriglyceridemia -Suspected to be alcoholic pancreatitis with possible contribution from hypertriglyceridemia in 700s. Improvement noted with fluids, insulin to decrease TGs to <500. -Abdominal pain, nausea resolved by day of discharge and tolerating solids w ithout issue. -Discharged on rosuvastatin 20 mg 2) Type 2 diabetes -A1C of 10.7%, new diagnosis. BSGs 100-200 during stay. -Diabetic education provided, lifestyle modification encouraged -Discharged on Metformin 500 mg BID 3) Alcohol use disorder -AWSS monitored, received 1x Ativan in ED. No withdrawal symptoms during stay. -Alcohol cessation discussed with patient, voiced willingness to stop drinking as well as smoking 4) Chronic back pain -Suspected to be due to muscle spasm. Instructed to perform stretches, exercises, follow up with Dr. Kahn for OMT and discharged on Voltaren gel q6h, Tylenol PRN. Total Time Total Time Spent Total Time Spent (In Minutes): 30 minutes Discharge Plan Discharge Items Patient Disposition: Home - Self-Care Reason For Visit: PANCREATITIS, ETOH Discharge Diagnosis: Alcohol-induced pancreatitis with hypertriglyceridemia Activity: Per Instructions section Non-emergency contact: Primary Care Provider Call non-emergency contact if: you have any medication questions, your symptoms worsen, your pain is not controlled, your pain is worsening and you have a fever Follow-up/Referrals: Aparna Garcia MD [Primary Care Provider] - Diet: Carb Consistent or DM2 and Low Fat Addtl Attending Provider Instructions: You were admitted to the hospital for abdominal pain which was later diagnosed as pancreatitis. Pancreatitis -You received extensive workup including blood tests and imaging studies to determine the cause of your symptoms. Our workup led to a diagnosis of acute pancreatitis. You were treated with IV fluids and pain medication. Your diet was gradually transitioned from no oral intake to regular solids and liquids. We continued to monitor your daily bloodwork while treating your pancreatitis. Your abdominal pain improved and you were able to tolerate solid foods by day of discharge. -While your pancreatitis was most likely caused by organ damage from alcohol, you were noted to have high levels of triglycerides as well. This may have also contributed to your pancreatitis. You were also noted to have an elevated A1C of 10.7%, which means you have type 2 diabetes. The A1C goal for most diabetic patients should be at least below 7%. You are currently at higher risk of your arteries being clogged from the high sugar levels in your blood. This could eventually lead to other complications such as eye damage, kidney damage and nerve damage. It is crucial you work with your PCP to create and follow a plan to reduce your blood sugars. This will involve medication and lifestyle modification, including changing your diet and exercise habits -You should also consider stopping all alcohol and tobacco use, as it continues to increase your risk of pancreatitis happening again. Alcohol and tobacco use will also make it harder to control your diabetes. Diabetes -As we discussed, "high sugars clog arteries"meaning that the higher you run, and the longer you run high, the more you increase chances of having heart attacks or strokes young. -As a reasonable rule, anytime your sugar is above 150-160 more than 2 hours after having eaten, that is suggestive of doing some damage. Looking at sugars after you eat in this regard can also teach you very quickly what sort of foods you want to avoid or minimize -For now, we will have you on Metformin to help keep your sugars from rising (as we discussed it makes your muscles a bit more sensitive to the insulin your pancreas makes, and slows your liver secreting glucose into your bloodstream), but hopefully over time with improvement in eating habits and exercise, you will be able to become an "ex diabetic" -Typically Metformin sits well, but if you notice abdominal cramps or diarrhea, that does happen. Typically if it does happen, it goes awayso if it does, give it a few weeks. However, if you are having GI symptoms from the medicine and it does not quickly go away, then there are many other medicines we can use. (Or, optimistically, if you have undertaken massive lifestyle change, may be we did be able to just throw away medicines more quickly) Cholesterol -Much like with the diabetes, your cholesterols are currently in "artery clogging range" and therefore we feel it important to use medication to protect your blood vessels while you work on lifestyle change. The triglyceride numbers are most closely tied to the carbohydrates to eat, and so the same eating changes to "cure" your diabetes should dramatically improve your triglycerides. Additionally, statin medications do tend to lower triglycerides by 10 to 40% depending on the person, so this will help as well. -Statins are usually really well-tolerated, we do follow liver enzymes, but as we discussed it is almost more because that is "what we have always done" more than any significant risk for liver problems. The most common side effect (that is still very rare) is muscle achesit would essentially be feeling like you have the flu, but do not have the flu. If it happens stopping the medicine makes this go away over a few weeks time. Again to reiterate, this probably happens to well under 1% of people taking these kind of medicines -As you continue to improve your eating and exercise habits, hopefully we will see your cholesterol numbers improve/changed dramatically, and hopefully over time we can work her way off of this medicine as well Back pain -Your back pain appears to be an interplay of both tight muscles in your back that have been that way for a while, and the same muscles getting tight from nerve signaling from the pain from pancreatitis -Given that this has been going on since he was a teenager, it does sound like there is a bit of a "biomechanical" syndrome where those muscles are just tight, however, as we discussedpancreatitis generates a very large pain signal that gets carried back to your spinal cord roughly in the same area where you have the back pain. This is why the back pain amplifies when you get pancreatitis, but also, that nerve signal from the pancreas can actually create surrounding reflexive muscle spasmwhich appears to unfortunately be worsening the very area that you already have as a tight painful area. -Obviously minimizing recurrent episodes of pancreatitis will help, but we definitely need to go after this as a separate problem. -Continue to work with Dr. Kahnas he works on relaxing the muscles, and normalizing the soft tissue, that will start to help this go away. As we discussed, because of "muscle memory" neurophysiologyit will probably take many treatments with Dr. Kahn to start to retrain the muscles to get things to settle down in a way that has more of a lasting effect -Do the stretches that we demonstrated where you sit in a chair, reach with your left hand down to the leg of the chair so that you feel it stretching your back where it hurts, and then try to straighten up while holding yourself still with your arm on the leg of the chair. Doing this kind of a dynamic stretch can confuse the muscle into stretching better than simply leaning forward and bending would alone. I would recommend doing this kind of a stretch 5 repetitions in the morning, midday, and before bed -Use the Voltaren gel (topical diclofenac) right where it hurts 4 times a day. As we discussed, I usually see this help people with muscle/biomechanical problems. The pain of it is that you typically need to do it 3-4 times a day routinely for it to work, and people tend to not really see it start to help until they have been using it 2 to 3 days. Most of the time when I see "treatment failures" it is because people use it once or twice, do not feel relief, and then quit using it. It is a bit annoying to need to use it so frequently, but I tend to find about 80% of people get benefit when using it correctly. -Additionally, given that Tylenol does help "make a dent" in the pain, you can use that (stay less than 2000 mg on the day) to simply reduce the pain you are feeling A discharge summary will be sent to your primary care physician to ensure continuity of care. Please bring this discharge summary with you to your next office appointment so that your provider can review it at that time. Follow-up appointments: Make a follow-up appointment with your PCP within the next week. It is very important that you follow up with them shortly after discharge from the hospital. Keep all your follow-up appointments as already scheduled. If you cannot make an appointment, notify your provider. Medications: Your medication list has been reviewed and reconciled upon discharge to ensure accuracy and continuity of care. An updated list of all your medications is included with your hospital discharge paperwork. Please review this list closely, and make note of any changes. We added 2 new medications for you to take daily. These will be sent to the [facility] in [place]. Rosuvastatin 20 mg, once a day. You can take this medication at any time of day, but please try to take it at the same time every day. This medication will help lower your cholesterol levels. Metformin 500 mg twice a day. You should take this medication with your morning and evening meals. This medication will help lower your blood sugar levels and improve control of your diabetes. Take your medications as instructed; do not skip a dose of your medicines. Make sure all of your doctors know every medicine you are taking (including [id number] medicines, vitamins, and supplements). Call your primary care provider before taking any new medicines (including pxag-wqo-dzljpil medicines, vitamins, and supplements), because some of these may interact with your current medications, or may make your symptoms worse. Tell your primary care provider if you cannot afford your medications. CONTACT YOUR PRIMARY CARE PROVIDER if you experience any of the following: Fever Persistent vomiting Persistent abdominal pain or back pain Inability to tolerate solid foods or liquids Difficulty following your treatment plan, or difficulty taking medications CALL 911 OR GO TO THE EMERGENCY DEPARTMENT if you experience any of the following: Sudden, severe abdominal pain or nausea/vomiting Severe chest pain, or chest pain that travels to your jaw or arm Sudden, severe shortness of breath or difficulty breathing Thank you for allowing us to participate in your care. Pending Studies at Discharge: No Stand-Alone Forms: [facility] Socialbomb, Work/School Release, Smoking Cessation Medications and DC Order Prescriptions: New diclofenac sodium 1 % gel 2 g topical QID Qty: 100 RF: 1 rosuvastatin 20 mg tablet 20 mg PO DAILY Qty: 30 RF: 1 metformin 500 mg tablet extended release 24 hr 500 mg PO BID Qty: 60 RF: 1 (DME) lancets [Lancets,Ultra Thin] 26 gauge misc See Rx Instructions .Route Qty: 100 RF: 0 Continued sildenafil 50 mg tablet See Rx Instructions PO DAILY PRN (Reason: Sexual Activity) Qty: 10 RF: 5 pantoprazole 40 mg tablet,delayed release (DR/EC) 40 mg PO DAILY Qty: 90 RF: 3 duloxetine 60 mg capsule,delayed release(DR/EC) 60 mg PO DAILY Qty: 30 RF: 5 bupropion HCl 300 mg tablet extended release 24 hr 300 mg PO QAM Qty: 90 RF: 3 trazodone 100 mg tablet 100 mg PO DAILY PRN (Reason: sleep) RF: 0 doxepin 50 mg capsule 50 mg PO DAILY RF: 0 ibuprofen 200 mg Tablet 600 mg PO Q8 PRN (Reason: Pain) RF: 0 bupropion HCl 150 mg tablet extended release 24 hr 150 mg PO QPM RF: 0 Discharge Orders: Discharge Order (Routine); Ordered 06/23/21 Ordered By: Nohemy Pierson Admission Data Admit Date/Time: 06/20/21 16:39 Attending Provider: Amos Wood Admit Provider: Oksana Plasencia Primary Care Provider: Aparna Garcia Other Providers: Oksana Plasencia Other Interventions: Discharge Summary Assessment (RN) Last Done: 06/23/21 12:05 Supervising Physician Co-Signing Physician Notes I personally examined the patient and verified all trinh points of history and exam, discussed case, and agree with decision making with Dr Pierson overall feeling better belly doing better but still has back pain Vitals noted, in general he is awake and alert pleasant no distress. HEENT normocephalic atraumatic mucous membranes moist. Breathing unlabored no accessory muscle use good effort. Abdomen soft generally nontender no guarding rebound or rigidity. L sided Tspine paraspinals high tone/tender/decreased ROM - gentle myofascial w some improvement Acute recurrent pancreatitisalcoholic certainly, possibly also hypertriglycerides. Doing better and stable for home. Back painappears to be biomechanicalsee discharge instructionsprobably having some referred pain and muscle spasm from the pancreatitis, but the pancreatitis is essentially resolved back pain persists. OMT, stretches, diclofenac gel, Ty lenol as needed. Patient expressed good understanding of this. Dyslipidemia/uncontrolled type 2 diabeteswill definitely need med and lifestyle management. Reeducated on lifestyle changes, he is motivated. For now Metformin and atorvastatinrisks benefits side effects outlined. Stable for home. Outpatient follow-up. Hopefully with massive lifestyle overall he will fix his disc metabolic medical problems. Otherwise as above. Resident Activity Tracking Resident Involvement: Resident Care Provided Care Provided: Adult Hospital Medicine
[2021-06-23] MEDS ORDERED: ACETAMINOPHEN 325 MG TAB PO ONE (12:45)
--- NOTE | 2021-06-23 16:39 | Billing Data ---
Date of Service June 23, 2021 Coding Level of Care Code D/C DAY MANAGEMENT >30 MINS
== END 2021-06-23 13:07 | disposition home or self-care (01) | DRG 439 ==
LOC: ED 10:42 → EDINP 16:39 → SUATTDRO 16:39 → 2W 18:31